=== PATIENT | female | born 1965 | race Caucasian/White ===

== ENCOUNTER 2016-08-19 22:16 | Inpatient (IN) | payer BC ==
[~2016-08-19] VITALS: Ht 152.4 cm; Wt 80.0 kg
[~2016-08-19 22:16] MED LIST: APR50 PO; ASPI81TA28 PO; CHOL1000 PO; CLON0.1T12 PO; CLOP1TAB15 PO; CRDCD/180 PO; DILT180C96 PO; FURO-85 PO; INSU1INJ SC; INSU70IN2 SC; LPT40 PO; SYMIN160 INH
[2016-08-19 22:45] VITALS: BP 159/83; PULSE 78; TEMP 37; O2SAT 94
[2016-08-19] MEDS ORDERED: DEXTROSE 50% 50 ML SYR IV PRN (23:45)
[2016-08-19] MEDS ORDERED: GLUCOSE 10 TABS/TUBE PO PRN (23:45)
[2016-08-19] MEDS ORDERED: GLUCAGON FOR INJ 1 MG VIAL SQ PRN (23:45)
[2016-08-19] MEDS ORDERED: GLUCOSE 40% GEL 15 GM TUBE PO PRN (23:45)
[2016-08-19] MEDS ORDERED: ACETAMINOPHEN 325 MG TAB PO PRN (23:45)
[2016-08-20] VITALS (7 sets, daily range): BP systolic 156–179; BP diastolic 79–89; PULSE 76–93; TEMP 36.7–37.1; O2SAT 94–98; BMI 39.4
[2016-08-20 00:13] LABS: BASO % 0.4 %; BASO ABS # 0.03 K/uL (0-0.2); EOS % 3.8 %; IG% 0.6 %; LYMPH % 13.2 %; LYMPH ABS # 1.08 K/uL (1.2-3.4); MEAN CELL VOLUME 87.9 fL (80-100); MEAN CORPUSCULAR HEMOGLOBIN 28.7 pg (25-34); MEAN CORPUSCULAR HGB CONC 32.6 g/dl (32-36); MEAN PLATELET VOLUME 9.4 fL (7.4-10.4); MONO % 9.4 %; NEUT % 72.6 %; PLATELET COUNT 228 K/uL (130-400); RED BLOOD COUNT 3.07 M/uL (4.2-5.4)
[2016-08-20 00:27] LABS: PARTIAL THROMBOPLASTIN RATIO 1.1
[2016-08-20 00:34] LABS: ALT/SGPT 23 U/L (12-78); AST/SGOT 25 U/L (15-37); BLOOD UREA NITROGEN 13 mg/dl (7-18); BUN/CREATININE RATIO 3.8 (10-20); CALCIUM 9.1 mg/dl (8.5-10.1); CARBON DIOXIDE 30 mmol/L (21-32); CHLORIDE 99 mmol/L (98-107); GLUCOSE 177 mg/dl (70-99); MAGNESIUM 1.9 mg/dl (1.8-2.4); POTASSIUM 3.9 mmol/L (3.5-5.1); SODIUM 138 mmol/L (136-145)
[2016-08-20 00:37] LABS: ALB/GLOB RATIO 0.7 (0.9-2); ALKALINE PHOSPHATASE 104 U/L (45-117)
[2016-08-20 00:44] LABS: COMPLETE YES
[2016-08-20] MEDS ORDERED: IV FLUIDS COMPLETED PRN (01:00)
[2016-08-20] MEDS: INSULIN ASPART 100 UNITS/ML 3 ML PEN SC SCH ×5 (04:30→20:42)
[2016-08-20] MEDS ORDERED: ALBUT/IPRATROP 3MG/0.5MG NEB 3 ML VIAL INH PRN (05:30)
[2016-08-20] MEDS ORDERED: INSULIN GLARGINE SOLOSTAR 100 UNITS/ML 3 ML PEN SC ONE (06:16)
[2016-08-20] MEDS: SUCRALFATE 1 GM/10 ML UDC PO SCH ×4 (07:43→20:39)
[2016-08-20] MEDS: CLOPIDOGREL BISULFATE 75 MG TAB PO SCH (07:43)
[2016-08-20] MEDS: OXYCODONE/ACETAMINOPHEN 5-325 TAB PO PRN ×2 (07:43→17:51)
[2016-08-20] MEDS: DILTIAZEM HCL 180 MG CAPCR PO SCH ×2 (07:44→20:39)
[2016-08-20] MEDS: CALCIUM ACETATE 667MG GELCAP PO SCH ×3 (07:44→17:41)
[2016-08-20] MEDS: RANITIDINE HCL 150 MG TAB PO SCH ×2 (07:44→20:39)
[2016-08-20] MEDS: PANTOprazole SOD 40 MG TAB PO SCH (07:45)
[2016-08-20] MEDS ORDERED: INSULIN GLARGINE SOLOSTAR 100 UNITS/ML 3 ML PEN SC SCH ×2 (08:00→20:00)
--- NOTE | 2016-08-20 08:32 | HISTORY & PHYSICAL EXAMINATION ---
DATE OF ADMISSION: 08/19/2016 PRIMARY CARE PHYSICIAN: Dr. Tamez History obtained from patient, patient's records, patient's . CHIEF COMPLAINT: "Wanted to be close to my doctors." HISTORY OF PRESENT ILLNESS: Medical history significant for hypertension, DM2 insulin requiring, Recent diagnosis of metastatic pancreatic cancer with lung/liver mets, past tobacco abuse, end-stage renal disease previously on PD, currently on hemodialysis, hx CVA as per records, chronic anemia (baseline Hg 9). Recent confinement last April 2016 for acute pancreatitis. Outpatient endoscopic ultrasound last month showed a pancreatic mass in the uncinate process, which came consistent with adenocarcinoma. Patient seen by [facility] Oncology outpatient last about 2 weeks ago. Initial plans included Radiation Oncology consultation, [facility] Surgery consultation (Dr. Barba), tumor markers, PET CT on August 2015. Initial plan for Later review of CAT scan of chest, abdomen and pelvis done on July 2016 by px oncologist noted large pancreatic head mass, new liver lesions, lung lesions suggesting metastatic disease. Stage IV pancreatic cancer. Patient not a surgical candidate as per 08/16 note. [facility] surgery appointment canceled. Might need port placement. Scheduled appointment 08/28/2016 to decide further management of patient's case. Patient and family still unaware of update. Last week, the patient was visiting family in [facility], patient noted by her to be confused while opening gifts, had seizure-like activity. PX brought to [facility]. Noted to be in "diabetic coma." Blood sugars in 1300. Admitted for encephalopathy. Patient later subsequently intubated. Also seen by Neurology. Impression for toxic metabolic encephalopathy. New onset complex partial seizures, possibly from profound hyperglycemia. No need for further intervention as per note. Patient subsequently extubated. Hemodialysis during confinement. Patient initially had trouble eating, appetite currently improved. PX might need rehab placement as per records. PX/family requested transfer to [facility] to be close to her specialists and for possible placement for rehabilitation. PX admits to not remembering a lot of things during her recent confinement. MEDICAL HISTORY: as above SURGERIES: Tubal ligation, cholecystectomy, hysterectomy, some abdominal wall tumor surgery. HOME MEDICATIONS (from [facility] discharge meds list) antus 30 daily, insulin lispro, Protonix, sucralfate, ranitidine, diltiazem, clopidogrel, calcium acetate. ALLERGIES: No known drug allergies. FAMILY HISTORY: lymphoma and other cancers. PERSONAL AND SOCIAL HISTORY: past tobacco abuse, no chronic intake of alcoholic beverages. [facility]. REVIEW OF SYSTEMS: As per HPI, all other ROS negative. PHYSICAL EXAMINATION VITAL SIGNS: Blood pressure 159/82, pulse rate 78, RR 18, sats 94 on room air. GENERAL: Noted to be obese, coherent. No respiratory distress. SKIN ; pallor HEENT: pale palpebral conjunctivae. Dry mucous. NECK: Short neck. LUNGS: Decreased breath sounds, occasional wheeze. HEART: Regular rate and rhythm. ABDOMEN: Soft, some distension. EXTREMITIES: Minimal LE edema present. NEUROLOGIC: No gross focality, oriented to year. LABS: 8.8, hematocrit 27, white cell count is 8, platelets 228. Sodium 138, potassium 3.9, chloride 93, CO2 of 31, BUN 30, creatinine 3.4, glucose 170. Hemoglobin A1c on July 2016 was 13.9. ASSESSMENT: 1. Deconditioning Recent confinement at [place] for encephalopathy 2 to hyperglycemic crisis status post intubation hx seizure activity as per records (no need for maintenance rx as per Neuro eval ) 2. end-stage renal disease currently on hemodialysis PD cath to be removed at [facility] 08/25/2016 3. hx CVA as per 4. Hypertension, slightly elevated. 5. metastatic pancreatic cancer. Patient's family need to be updated on plan of care. 6. DM2, insulin requiring, suboptimal control as of recent HgA1c. 7. past tobacco abuse 8. chronic anemia 2 to ESRD, Hg almost at baseline PLAN: Observation [facility] PT, OT eval May need rehab placement Nephrology consult, dialysis management. Basal insulin, ISS BG goal 140-180 Carb count coverage indicated for suboptimal blood sugar control. Diabetic education. Outpatient followup with [facility] Oncology DVT prophylaxis, heparin subQ. Full code. Patient's requesting updates from providers. Mr. Chad Sandoval at [phone]. [facility]
[2016-08-20] MEDS ORDERED: MODERATE STRESS LEVEL ONE (09:15)
[2016-08-20] MEDS ORDERED: INSULIN PROTOCOL GOAL RANGE ONE (09:15)
[2016-08-20] MEDS ORDERED: INSULIN IV INFUSION PROTOCOL SCH (09:16)
--- NOTE | 2016-08-20 09:17 | DIAGNOSTIC IMAGING REPORT ---
SINGLE VIEW CHEST CLINICAL HISTORY: Wheezing. FINDINGS: An AP, portable, upright chest radiograph is compared to study dated 05/17/2016 and correlated with chest CT dated 04/26/2016. The examination is degraded by portable technique and patient rotation. The patient is status post midline sternotomy. The heart is enlarged. The pulmonary vasculature is noncongested. Numerous pulmonary nodules are again seen. The largest is identified at the left lung base and measures up to 10 mm. These were better characterized on the 04/26/[address] The lungs and pleural spaces are otherwise clear. No pneumothorax is seen. The skeletal structures appear osteopenic. The bony thorax is grossly intact. IMPRESSION: Cardiomegaly and chronic changes as detailed above. There is no acute cardiopulmonary abnormality. Electronically signed by: Maurice Watson M.D. 08/20/2016 9:15 AM
[2016-08-20] MEDS ORDERED: INSULIN HUMAN REGULAR IV BOLUS 2.5 UNIT in SYRINGE 0 ML IV SCH (10:00)
[2016-08-20] MEDS: INSULIN REGULAR 250 UNITS in SODIUM CHLORIDE 0.9% 250ML 250 ML IV SCH ×8 (10:25→22:32)
[2016-08-20] MEDS ORDERED: NURSING VERBAL MED ORDER ONE (11:45)
[2016-08-20] MEDS: ONDANSETRON INJ 2 MG/ML 2 ML VIAL IV PRN ×2 (13:22→19:03)
--- NOTE | 2016-08-20 14:36 | NEPHROLOGY CONSULTATION ---
DATE OF CONSULTATION: 08/20/2016 REASON FOR CONSULT: Dialysis patient admitted to the hospital. HISTORY OF PRESENT ILLNESS: The patient is a 51-year-old female with type 2 diabetes requiring insulin, who was recently diagnosed metastatic pancreatic cancer with liver mets as well as lung mets. She was visiting her family in [facility] during the Kendal time. She was noted by her and her family members to be confused and she had a seizure-like activity. She was brought to [facility], she was noted to be in diabetic coma there, blood sugar was as high as 1700 according to the patient and her sister. She was admitted in the intensive care unit. She was even briefly intubated for airway protection, but this was less than 24-hour time on ventilator. Family requested transfer to [facility] to be close to her specialist and possible placement for rehabilitation. She is currently on hemodialysis Sunday, Sunday, Sunday. She expressed desire to do peritoneal dialysis and she still has peritoneal dialysis catheter; however, the catheter did not work and she is scheduled to have the PD catheter removed in [facility] in a few days' time. Her oncologist, Dr. Desai has clearly said no peritoneal dialysis for her. While at [facility] she got dialysis Sunday, Sunday, Sunday and her last dialysis was on Sunday at the hospital there without any significant problem. She has an AV fistula which works well. PAST MEDICAL HISTORY: Hypertension, type 2 diabetes insulin requiring; end-stage renal disease, on hemodialysis Sunday, Sunday, Sunday; recent diagnosis of metastatic pancreatic cancer, past tobacco use, end-stage renal disease, history of CVA. PAST SURGICAL HISTORY: Tubal ligation, cholecystectomy, hysterectomy, abdominal wall tumor surgery. HOME MEDICATIONS: Reviewed in detail and is as per the reconciliation list. ALLERGIES: No known drug allergies. FAMILY HISTORY: Positive for cancer. No history of renal disease or dialysis. PERSONAL AND SOCIAL HISTORY: No chronic intake of alcoholic beverages. 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 REVIEW OF SYSTEMS: As detailed in HPI, pertinent positives and negatives are listed in HPI, a total of 12 systems were reviewed. PHYSICAL EXAMINATION: GENERAL: Middle-aged white female who is awake, alert, oriented x3 at this time. VITAL SIGNS: Blood pressure is 179/89, 96% on room air, pulse rate 86 per minute, temperature 36.8. HEENT: Mucous membranes moist. NECK: Supple. No jugular venous distention. CHEST: Bilaterally clear to auscultation. CARDIOVASCULAR: S1 and S2, regular. Soft systolic murmur heard, 2/6. ABDOMEN: Soft, nontender. Slightly obese. EXTREMITIES: Show no edema, clubbing or cyanosis. PD catheter site was clean and dry. AV fistula site appears slightly swollen, but still acceptable. She did have some bruising around the AV fistula site but nothing out of ordinary. LABORATORY TESTS: From this morning shows a hemoglobin of 8.8, platelet count 228. Sodium 138, potassium 3.9, BUN 13, creatinine 3.4, calcium 9.1. ASSESSMENT AND PLAN: A 51-year-old white female who has type 2 diabetes with end-stage renal disease on chronic hemodialysis Sunday, Sunday, Sunday. She was recently diagnosed with pancreatic cancer, which is unfortunately metastatic to both lungs and liver. 1. End-stage renal disease. She does not have any fluid or electrolyte emergency at this time. Her next dialysis will be as per her regular schedule of Sunday, Sunday, Sunday. Orders will be written, she will get 3 hours of dialysis. We will try to take about 2 kilo off. She will not get Epogen. She will have heparin as well as other medication that she normally gets. 2. Metastatic pancreatic cancer. This is as per oncology and primary team. She was supposed to have a PD catheter removed in [facility] on 08/25/2016. If possible, we would try to remove the PD catheter while inpatient here. JHOANA
[2016-08-20] MEDS: HYDROmorphone INJ 1 MG/ML SYR IV PRN (19:00)
--- NOTE | 2016-08-20 20:52 | Progress Note ---
Medicine Progress Note Date & Time of Visit: Aug 20, 2016 at ~ 09:00 . Subjective Admitted to [facility] in [place], [place] on [place] due to seizure and markedly elevated blood sugar. Neurologic workup apparently negative and seizure attributed to metabolic abnormalities. Transferred to [facility] last night to be closer to home. Doing better. No fever or chills. No chest pain, cough, shortness of breath. No nausea or vomiting. No abdominal pain. . Objective Last 8 Hrs Date Time Temp Pulse Resp B/P Pulse Ox O2 Delivery O2 Flow Rate FiO2 08/20/16 20:05 37.1 77 16 172/84 97 Room Air 08/20/16 16:00 Room Air 08/20/16 15:18 36.8 76 20 156/79 95 Physical Exam: General- no distress Eyes- anicteric Neck- no JVD Lungs- clear to auscultation Heart- RRR Abdomen- + BS, soft, nontender Extremities- no pretibial edema or calf tenderness Neuro- alert . Laboratory Results: Last 24 Hours Test 08/20/16 00:05 08/20/16 04:37 08/20/16 08:11 08/20/16 11:27 White Blood Count 8.20 K/uL Red Blood Count 3.07 M/uL Hemoglobin 8.8 g/dL Hematocrit 27.0 % Mean Corpuscular Volume 87.9 fL Mean Corpuscular Hemoglobin 28.7 pg Mean Corpuscular Hemoglobin Concent 32.6 g/dl Platelet Count 228 K/uL Mean Platelet Volume 9.4 fL Neutrophils (%) (Auto) 72.6 % Lymphocytes (%) (Auto) 13.2 % Monocytes (%) (Auto) 9.4 % Eosinophils (%) (Auto) 3.8 % Basophils (%) (Auto) 0.4 % Neutrophils # (Auto) 5.96 K/uL Lymphocytes # (Auto) 1.08 K/uL Monocytes # (Auto) 0.77 K/uL Eosinophils # (Auto) 0.31 K/uL Basophils # (Auto) 0.03 K/uL RDW Standard Deviation 42.9 fL RDW Coefficient of Variation 13.4 % Immature Granulocyte % (Auto) 0.6 % Immature Granulocyte # (Auto) 0.05 K/uL Red Blood Cell Morphology Unremarkable Activated Partial Thromboplast Time 29.0 SECONDS Partial Thromboplastin Ratio 1.1 Sodium Level 138 mmol/L Potassium Level 3.9 mmol/L Chloride Level 99 mmol/L Carbon Dioxide Level 30 mmol/L Anion Gap 9.0 mmol/L Blood Urea Nitrogen 13 mg/dl Creatinine 3.40 mg/dl Estimated GFR () 17.2 Estimated GFR (Non- 14.8 BUN/Creatinine Ratio 3.8 Random Glucose 177 mg/dl Calcium Level 9.1 mg/dl Magnesium Level 1.9 mg/dl Total Bilirubin 0.3 mg/dl Aspartate Amino Transf (AST/SGOT) 25 U/L Alanine Aminotransferase (ALT/SGPT) 23 U/L Alkaline Phosphatase 104 U/L Total Protein 6.6 gm/dl Albumin 2.7 gm/dl Globulin 3.9 gm/dl Albumin/Globulin Ratio 0.7 Bedside Glucose 326 mg/dl 444 mg/dl 470 mg/dl Test 08/20/16 12:35 08/20/16 13:45 08/20/16 14:31 08/20/16 15:27 Bedside Glucose 410 mg/dl 329 mg/dl 245 mg/dl 170 mg/dl Test 08/20/16 16:23 08/20/16 17:31 08/20/16 18:36 Bedside Glucose 173 mg/dl 146 mg/dl 145 mg/dl Assessment & Plan DM TYPE II, POORLY CONTROLLED Blood sugar this morning 444. IV insulin infusion per protocol. PANCREATIC CA Recently diagnosed pancreatic carcinoma with apparent metastases to liver. Management per Oncology. CKD V Has received peritoneal dialysis the past, but currently being managed with hemodialysis. Nephrology consulted. VTE PROPHYLAXIS SCD'd ordered. Ambulate. DISPOSITION Expected discharge to home. Family Medicine follow-up with Dr. Tamez. Oncology follow-up with Dr. Murray Desai. . Current Inpatient Medications: Current Inpatient Medications Medications (Trade) Dose Ordered Sig/Sophia Route Start Time Stop Time Status Last Admin Dose Admin Acetaminophen (Tylenol Tab) 650 mg Q4H PRN PO 08/19/16 23:45 09/18/16 23:44 Glucose (Glucose 40% Gel) 15-30 GRAMS 15 GRAMS... UD PRN PO 08/19/16 23:45 09/18/16 23:44 Glucose (Glucose Chew Tab) 4-8 Tablets 4 Tabl... UD PRN PO 08/19/16 23:45 09/18/16 23:44 Dextrose (Dextrose 50% 50ML Syringe) 25-50ML OF 50% DW IV FOR... UD PRN IV 08/19/16 23:45 09/18/16 23:44 Glucagon (Glucagon Inj) 1 mg UD PRN SQ 08/19/16 23:45 09/18/16 23:44 Hydromorphone HCl (Dilaudid Inj) 0.5 mg Q3H PRN IV 08/19/16 23:45 09/02/16 23:44 08/20/16 19:00 0.5 MG Ondansetron HCl (Zofran Inj) 4 mg Q6H PRN IV 08/19/16 23:45 09/18/16 23:44 08/20/16 19:03 4 MG Miscellaneous (Iv Fluids Completed) 1 ea PRN PRN N/A 08/20/16 01:00 08/20/17 00:59 Calcium Acetate (Phoslo Cap) 1,334 mg TIDM PO 08/20/16 08:00 09/19/16 07:59 08/20/16 17:41 1,334 MG Diltiazem HCl (Cardizem Cd Cap) 180 mg BID PO 08/20/16 08:00 09/19/16 07:59 08/20/16 20:39 180 MG Ranitidine HCl (zANTac TAB) 150 mg BID PO 08/20/16 08:00 09/19/16 07:59 08/20/16 20:39 150 MG Pantoprazole Sodium (Protonix Tab) 40 mg QAM PO 08/20/16 08:00 09/19/16 07:59 08/20/16 07:45 40 MG Sucralfate (Carafate Susp) 1 gm QID PO 08/20/16 08:00 09/19/16 07:59 08/20/16 20:39 1 GM Clopidogrel Bisulfate (plAVix TAB) 75 mg QAM PO 08/20/16 08:00 09/19/16 07:59 08/20/16 07:43 75 MG Oxycodone/ Acetaminophen (Percocet 5-325MG Tab) 1 tab Q6H PRN PO 08/20/16 04:45 09/03/16 04:44 08/20/16 17:51 1 TAB Albuterol/ Ipratropium (Duoneb) 3 ml Q2H PRN INH 08/20/16 05:30 09/19/16 05:29 Insulin Glargine (Lantus Solostar Pen) 15 unit BID SC 08/20/16 20:00 09/19/16 19:59 08/20/16 20:42 15 UNIT Insulin Aspart SLIDING SCALE PCHS SC 08/20/16 13:00 09/19/16 12:59 08/20/16 18:14 1 UNITS Insulin Human Regular/Sodium Chloride (novoLIN-R/Nss 250ml) 252.5 ml @ 0 mls/hr DAILY@1130 IV 08/20/16 10:00 09/19/16 09:59 08/20/16 19:35 1.4 MLS/HR Heparin Sodium (Porcine) (Heparin Iv Bolus) 2,000 unit TODAY@0600 IV 08/21/16 06:00 08/21/16 18:00 Heparin Sodium (Porcine) (Heparin Iv Bolus) 500 unit TODAY@0600,0700,0800 IV 08/21/16 06:00 08/21/16 18:00
[2016-08-21] VITALS (22 sets, daily range): BP systolic 117–187; BP diastolic 55–121; PULSE 74–100; TEMP 36.5–36.9; O2SAT 95–97; BMI 35.4
[2016-08-21] MEDS: ONDANSETRON INJ 2 MG/ML 2 ML VIAL IV PRN ×2 (03:03→18:03)
[2016-08-21] MEDS ORDERED: HEPARIN SOD (PORCINE) 1000 UNIT/ML 10 ML VIAL IV SCH ×2 (06:00)
[2016-08-21 06:11] LABS: BASO % 0.7 %; BASO ABS # 0.05 K/uL (0-0.2); EOS % 4.5 %; HEMATOCRIT 25.1 % (37-47); IG% 0.8 %; LYMPH % 10.9 %; LYMPH ABS # 0.78 K/uL (1.2-3.4); MEAN CELL VOLUME 87.8 fL (80-100); MEAN CORPUSCULAR HEMOGLOBIN 28.7 pg (25-34); MEAN CORPUSCULAR HGB CONC 32.7 g/dl (32-36); MEAN PLATELET VOLUME 9.9 fL (7.4-10.4); MONO % 11.5 %; NEUT % 71.6 %; PLATELET COUNT 238 K/uL (130-400); RED BLOOD COUNT 2.86 M/uL (4.2-5.4); WHITE BLOOD COUNT 7.14 K/uL (4.8-10.8)
[2016-08-21 06:34] LABS: COMPLETE YES
[2016-08-21 06:44] LABS: BUN/CREATININE RATIO 4.2 (10-20); CALCIUM 8.9 mg/dl (8.5-10.1); CREATININE 4.2 mg/dl (0.60-1.20); POTASSIUM 3.6 mmol/L (3.5-5.1)
[2016-08-21 08:06] LABS: PROTHROMBIN TIME (PATIENT) 11.2 SECONDS (9.0-12.0)
[2016-08-21] MEDS: RANITIDINE HCL 150 MG TAB PO SCH ×2 (08:09→20:24)
[2016-08-21] MEDS: INSULIN ASPART 100 UNITS/ML 3 ML PEN SC SCH ×4 (08:13→20:28)
[2016-08-21] MEDS: INSULIN GLARGINE SOLOSTAR 100 UNITS/ML 3 ML PEN SC SCH ×2 (08:14→20:28)
[2016-08-21] MEDS: CALCIUM ACETATE 667MG GELCAP PO SCH ×3 (08:15→16:57)
[2016-08-21] MEDS: OXYCODONE/ACETAMINOPHEN 5-325 TAB PO PRN (08:41)
[2016-08-21] MEDS: SUCRALFATE 1 GM/10 ML UDC PO SCH ×4 (08:42→20:23)
[2016-08-21] MEDS: PANTOprazole SOD 40 MG TAB PO SCH (12:43)
[2016-08-21] MEDS: CLOPIDOGREL BISULFATE 75 MG TAB PO SCH (12:43)
[2016-08-21] MEDS: DILTIAZEM HCL 180 MG CAPCR PO SCH ×2 (12:45→20:24)
[2016-08-21] MEDS: HEPARIN SOD 5000 UNIT/0.5 ML CARP SQ SCH ×2 (12:51→20:29)
--- NOTE | 2016-08-21 13:05 | NEPHROLOGY PROGRESS NOTE ---
DATE: 08/21/2016 The patient just finished her dialysis. She tolerated it very well. There was no cramp, no hypotension. We took off 2 kilo without any problem. Her fistula worked fine with a blood flow of 300. PHYSICAL EXAMINATION: VITAL SIGNS: Most recent vital signs shows a blood pressure 149/91, pulse rate 86, temperature 36.9. HEENT: Mucous membranes moist. NECK: Supple, no jugular venous distention. CHEST: Bilateral clear to auscultation. CARDIOVASCULAR: S1 and S2, regular. Soft systolic murmur heard 2/6. EXTREMITIES: Shows no edema. AV fistula looks slightly bruised and swollen, but is working fine, and no tenderness. Hemoglobin 8.2, platelet count 238. Sodium 139, potassium 3.6, BUN 18, creatinine 4.2. ASSESSMENT AND PLAN: 1. Endstage renal disease. She does not have any fluid or electrolyte emergency at this time. Her next dialysis will be as per her regular schedule of Sunday, Sunday, Sunday. We took 2 kilo off today without any problem. We did not give Epogen given her metastatic pancreatic cancer. Please note she was supposed to have a PD catheter removal in [facility] on August 25. If possible, we should try to remove the PD catheter while inpatient here. 2. Metastatic pancreatic cancer. This is as per oncology and primary team. JHOANA
--- NOTE | 2016-08-21 18:54 | Progress Note ---
Medicine Progress Note Date & Time of Visit: Aug 21, 2016 at 10:20 . Subjective Tired. No fever. No chest pain, cough, SOB. No nausea, vomiting, diarrhea. Blood sugars improved. . Objective Last 8 Hrs Date Time Temp Pulse Resp B/P Pulse Ox O2 Delivery O2 Flow Rate FiO2 08/21/16 14:35 36.7 95 18 174/85 95 08/21/16 11:57 36.9 86 149/91 08/21/16 11:45 85 155/88 08/21/16 11:30 74 126/79 08/21/16 11:15 77 147/83 08/21/16 11:00 76 146/55 Physical Exam: General- no distress Eyes- anicteric Neck- no JVD Lungs- clear to auscultation Heart- RRR Abdomen- + BS, soft, nontender Extremities- no pretibial edema Neuro- alert . Laboratory Results: Last 24 Hours Test 08/20/16 19:32 08/20/16 20:33 08/20/16 21:29 08/20/16 22:29 Bedside Glucose 135 mg/dl 155 mg/dl 170 mg/dl 210 mg/dl Test 08/20/16 23:29 08/21/16 00:43 08/21/16 01:35 08/21/16 01:53 Bedside Glucose 183 mg/dl 151 mg/dl 109 mg/dl 103 mg/dl Test 08/21/16 02:04 08/21/16 04:51 08/21/16 05:16 08/21/16 07:30 Bedside Glucose 109 mg/dl 177 mg/dl White Blood Count 7.14 K/uL Red Blood Count 2.86 M/uL Hemoglobin 8.2 g/dL Hematocrit 25.1 % Mean Corpuscular Volume 87.8 fL Mean Corpuscular Hemoglobin 28.7 pg Mean Corpuscular Hemoglobin Concent 32.7 g/dl Platelet Count 238 K/uL Mean Platelet Volume 9.9 fL Neutrophils (%) (Auto) 71.6 % Lymphocytes (%) (Auto) 10.9 % Monocytes (%) (Auto) 11.5 % Eosinophils (%) (Auto) 4.5 % Basophils (%) (Auto) 0.7 % Neutrophils # (Auto) 5.11 K/uL Lymphocytes # (Auto) 0.78 K/uL Monocytes # (Auto) 0.82 K/uL Eosinophils # (Auto) 0.32 K/uL Basophils # (Auto) 0.05 K/uL RDW Standard Deviation 43.0 fL RDW Coefficient of Variation 13.4 % Immature Granulocyte % (Auto) 0.8 % Immature Granulocyte # (Auto) 0.06 K/uL Red Blood Cell Morphology Unremarkable Sodium Level 139 mmol/L Potassium Level 3.6 mmol/L Chloride Level 100 mmol/L Carbon Dioxide Level 29 mmol/L Anion Gap 10.0 mmol/L Blood Urea Nitrogen 18 mg/dl Creatinine 4.20 mg/dl Est Creatinine Clear Calc Drug Dose 15.1 ml/min Estimated GFR () 13.3 Estimated GFR (Non- 11.5 BUN/Creatinine Ratio 4.2 Random Glucose 168 mg/dl Calcium Level 8.9 mg/dl Prothrombin Time 11.2 SECONDS Prothromb Time International Ratio 1.0 Test 08/21/16 07:35 08/21/16 12:25 08/21/16 16:44 Bedside Glucose 208 mg/dl 77 mg/dl 144 mg/dl Assessment & Plan DM TYPE II, POORLY CONTROLLED Blood sugars as high as 444. Received IV insulin infusion per protocol. Transitioned to Lantus + NovoLog. PANCREATIC CA Recently diagnosed pancreatic carcinoma with apparent metastases to liver. Management per Oncology. CKD V Has received peritoneal dialysis the past, but currently being managed with hemodialysis. Nephrology consulted. VTE PROPHYLAXIS SCD'd ordered. Ambulate. DISPOSITION Expected discharge to home. Family Medicine follow-up with Dr. Tamez. Oncology follow-up with Dr. Murray Desai. . Current Inpatient Medications: Current Inpatient Medications Medications (Trade) Dose Ordered Sig/Sophia Route Start Time Stop Time Status Last Admin Dose Admin Acetaminophen (Tylenol Tab) 650 mg Q4H PRN PO 08/19/16 23:45 09/18/16 23:44 Glucose (Glucose 40% Gel) 15-30 GRAMS 15 GRAMS... UD PRN PO 08/19/16 23:45 09/18/16 23:44 Glucose (Glucose Chew Tab) 4-8 Tablets 4 Tabl... UD PRN PO 08/19/16 23:45 09/18/16 23:44 Dextrose (Dextrose 50% 50ML Syringe) 25-50ML OF 50% DW IV FOR... UD PRN IV 08/19/16 23:45 09/18/16 23:44 Glucagon (Glucagon Inj) 1 mg UD PRN SQ 08/19/16 23:45 09/18/16 23:44 Hydromorphone HCl (Dilaudid Inj) 0.5 mg Q3H PRN IV 08/19/16 23:45 09/02/16 23:44 08/20/16 19:00 0.5 MG Ondansetron HCl (Zofran Inj) 4 mg Q6H PRN IV 08/19/16 23:45 09/18/16 23:44 08/21/16 18:03 4 MG Miscellaneous (Iv Fluids Completed) 1 ea PRN PRN N/A 08/20/16 01:00 08/20/17 00:59 Calcium Acetate (Phoslo Cap) 1,334 mg TIDM PO 08/20/16 08:00 09/19/16 07:59 08/21/16 16:57 1,334 MG Diltiazem HCl (Cardizem Cd Cap) 180 mg BID PO 08/20/16 08:00 09/19/16 07:59 08/21/16 12:45 180 MG Ranitidine HCl (zANTac TAB) 150 mg BID PO 08/20/16 08:00 09/19/16 07:59 08/21/16 08:09 150 MG Pantoprazole Sodium (Protonix Tab) 40 mg QAM PO 08/20/16 08:00 09/19/16 07:59 08/21/16 12:43 40 MG Sucralfate (Carafate Susp) 1 gm QID PO 08/20/16 08:00 09/19/16 07:59 08/21/16 16:57 1 GM Clopidogrel Bisulfate (plAVix TAB) 75 mg QAM PO 08/20/16 08:00 09/19/16 07:59 08/21/16 12:43 75 MG Oxycodone/ Acetaminophen (Percocet 5-325MG Tab) 1 tab Q6H PRN PO 08/20/16 04:45 09/03/16 04:44 08/21/16 08:41 1 TAB Albuterol/ Ipratropium (Duoneb) 3 ml Q2H PRN INH 08/20/16 05:30 09/19/16 05:29 Insulin Glargine (Lantus Solostar Pen) 20 unit BID SC 08/21/16 08:00 09/20/16 07:59 08/21/16 08:14 20 UNIT Insulin Aspart (novoLOG ASPART) SLIDING SCALE G... ACHS SC 08/21/16 06:30 09/20/16 06:29 08/21/16 18:08 2 UNITS Heparin Sodium (Porcine) (Heparin Sq 5000 Unit/0.5ml) 5,000 unit Q12 SQ 08/21/16 09:00 09/20/16 08:59 08/21/16 12:51 5,000 UNIT
[2016-08-21] MEDS: HYDROmorphone INJ 1 MG/ML SYR IV PRN (23:42)
[2016-08-22 03:55] VITALS: BP 123/65; PULSE 80; TEMP 36.6; O2SAT 96
[2016-08-22 06:17] LABS: BASO % 0.4 %; BASO ABS # 0.03 K/uL (0-0.2); EOS % 4.3 %; HEMATOCRIT 25.2 % (37-47); IG% 0.8 %; LYMPH % 12.4 %; LYMPH ABS # 0.95 K/uL (1.2-3.4); MEAN CORPUSCULAR HEMOGLOBIN 28.6 pg (25-34); MEAN CORPUSCULAR HGB CONC 32.1 g/dl (32-36); MEAN PLATELET VOLUME 9.9 fL (7.4-10.4); MONO % 13.5 %; NEUT % 68.6 %; PLATELET COUNT 289 K/uL (130-400); RED BLOOD COUNT 2.83 M/uL (4.2-5.4); WHITE BLOOD COUNT 7.65 K/uL (4.8-10.8)
[2016-08-22 06:34] VITALS: BMI 34.8
[2016-08-22 06:51] LABS: BUN/CREATININE RATIO 3.1 (10-20); CALCIUM 8.9 mg/dl (8.5-10.1); CREATININE 3.3 mg/dl (0.60-1.20); POTASSIUM 3.6 mmol/L (3.5-5.1)
[2016-08-22 07:00] VITALS: BP 119/68; PULSE 79; TEMP 36.9; O2SAT 94
[2016-08-22 07:04] LABS: COMPLETE YES
[2016-08-22] MEDS: CALCIUM ACETATE 667MG GELCAP PO SCH ×3 (07:40→16:38)
[2016-08-22] MEDS: SUCRALFATE 1 GM/10 ML UDC PO SCH ×4 (07:40→20:40)
[2016-08-22] MEDS: PANTOprazole SOD 40 MG TAB PO SCH (07:41)
[2016-08-22] MEDS: CLOPIDOGREL BISULFATE 75 MG TAB PO SCH (07:41)
[2016-08-22] MEDS: RANITIDINE HCL 150 MG TAB PO SCH ×2 (07:41→20:40)
[2016-08-22] MEDS: DILTIAZEM HCL 180 MG CAPCR PO SCH ×2 (07:42→20:40)
[2016-08-22] MEDS: HEPARIN SOD 5000 UNIT/0.5 ML CARP SQ SCH ×2 (07:48→20:43)
[2016-08-22] MEDS: INSULIN GLARGINE SOLOSTAR 100 UNITS/ML 3 ML PEN SC SCH ×2 (07:48→20:42)
[2016-08-22] MEDS: INSULIN ASPART 100 UNITS/ML 3 ML PEN SC SCH ×4 (08:47→20:43)
--- NOTE | 2016-08-22 10:58 | Medical Consult ---
Consultation Note Consultation Note Chief Complaint: End stage renal disease on dialysis History of Present Illness The patient is a 50 year old female with hx of HTN and DMII, ESRD on HD, with a functioning av fistula of her left arm, now with noted metastatic pancreatic CA. She has been performing home PD through CAPD catheter since insertion . Recently, her CAPD catheter has not been functioning well and was scheduled to have it removed at [facility] in near future. Currently admitted and would like to have it removed here if possible. Denies [place], fever, chills, chest pain, SOB, abd pain, N/V, rest pain, claudication, other complaints. Allergies No Known Allergies (Verified , 05/25/15) Surgical / Medical History Hx Cardiac Surgery: No Hx Cancer Surgery: No Hx Thoracic Surgery: No Hx Orthopedic: No Hx Urinary Tract Surgery: No HX Other Surgery: Yes (THYMUS) Past Medical/Surgical History: Diabetes, High Cholesterol, Hypertension, Kidney Disease Family History Cancer Diabetes mellitus Heart disease Hypertension Lung disease Social History Smoking Status: Former Smoker Hx Tobacco Use In Past Year?: No Hx Alcohol Use - Type & Amnt: Yes (OCC WINE ) Hx Substance Use -Type & Amnt: No Review of Systems Constitutional: + malaise, No chills, No fever Skin: No change in color Eyes: No visual changes ENMT: No sore throat Respiratory: No EVANS, No cough, No hemoptysis, No short of breath Cardiovascular: No chest pain, No edema, No intermittent claudication, No palpitations, No syncope Gastrointestinal: No abdominal pain, No nausea, No vomiting Genitourinary - Female: No dysuria, No hematuria Neurologic: No dizziness, No lethargy, No numbness, No tingling Physical Exam: Constitutional: General Apperance: well-nourished, well-developed Level of Distress: NAD, chronically ill Ambulation: ambulating normally Psychiatric: Mental Status: active & alert, normal affect, anxious, depressed Orientation: oriented except where noted, to time, to place, to person Memory: recent memory normal, remote memory normal Head: normocephalic, atraumatic Eyes: EOM: EOMI ENMT: normal ENT inspection, hearing grossly normal Neck: supple, trachea midline Lungs: Respiratory effort: no dyspnea Auscultation: breath sounds normal, no wheezing, no rales/crackles, no rhonchi Cardiovascular: Apical Impulse: not displaced Heart Auscultation: RRR, no murmurs, no rubs, no gallops Peripheral Pulses: Pulses: full and equal, in all extremities except if noted Bruits: none appreciated Carotid Pulse: normal on the left, normal on the right Brachial Pulses: normal on the left, normal on the right Radial Pulse: normal on the left, normal on the right Femoral Pulse: normal on the left, normal on the right Posterior Tibialis Pulse: normal on the left, normal on the right Dorsalis Pedis Pulse: normal on the left, normal on the right Abdomen: Bowel Sounds: normal Inspection & Palpation: soft, non-distended, no tenderness, guarding & rebound. CAPD catheter without sign of infection Musculoskeletal: normal strength (5/5 throughout), normal tone Extremities: Upper Right: no cyanosis, no edema, no varicosities Upper Left: no cyanosis, no edema, no varicosities, good thrill and bruit Lower Right: no cyanosis, no edema, no varicosities Lower Left: no cyanosis, no edema, no varicosities Neurologic: Cranial Nerves: grossly intact Sensation: grossly intact ASSESSMENT and PLAN: Imp: End stage renal disease on HD Plan: Patient admitted for removal of CAPD catheter. Procedure, risks, benefits , and alternatives discussed with pt, she expresses understanding and agreement. (Jerrica Patel, PA-C)
[2016-08-22] MEDS: OXYCODONE/ACETAMINOPHEN 5-325 TAB PO PRN (11:18)
[2016-08-22 11:23] VITALS: BP 164/89; PULSE 79; TEMP 37.1; O2SAT 96
--- NOTE | 2016-08-22 13:45 | Nephrology Progress Note ---
Nephrology Progress Note Date of Service: Aug 22, 2016. Subjective 51 yo female with pancreatic cancer who was transferred from [facility] upon patient request. had admission with elevated blood sugars. had pd catheter and also undergoes hemodialysis. unable to do pd with pancreatic cancer. pt feels better. however, her memory is not good from the previous hospital and the events that transpired while there. Objective Date Time Temp Pulse Resp B/P Pulse Ox O2 Delivery O2 Flow Rate FiO2 08/22/16 11:23 37.1 79 14 164/89 96 Room Air 08/22/16 08:00 Room Air 08/22/16 07:00 36.9 79 18 119/68 94 Room Air 08/22/16 03:55 36.6 80 18 123/65 96 Room Air 08/22/16 00:00 Room Air 08/21/16 23:06 36.5 87 16 162/87 96 Room Air 08/21/16 20:52 36.9 79 16 150/82 97 Room Air 08/21/16 16:30 Room Air 08/21/16 14:35 36.7 95 18 174/85 95 Physical Exam: General-aaox3 Eyes-no scleral icterus ENT-mmm Neck-supple Lungs-cta Heart-rrr Abdomen-bs+, +pd catheter Extremities-no edema Neuro-nonfocal Current Inpatient Medications Medications (Trade) Dose Ordered Sig/Sophia Route Start Time Stop Time Status Last Admin Dose Admin Acetaminophen (Tylenol Tab) 650 mg Q4H PRN PO 08/19/16 23:45 09/18/16 23:44 Glucose (Glucose 40% Gel) 15-30 GRAMS 15 GRAMS... UD PRN PO 08/19/16 23:45 09/18/16 23:44 Glucose (Glucose Chew Tab) 4-8 Tablets 4 Tabl... UD PRN PO 08/19/16 23:45 09/18/16 23:44 Dextrose (Dextrose 50% 50ML Syringe) 25-50ML OF 50% DW IV FOR... UD PRN IV 08/19/16 23:45 09/18/16 23:44 Glucagon (Glucagon Inj) 1 mg UD PRN SQ 08/19/16 23:45 09/18/16 23:44 Hydromorphone HCl (Dilaudid Inj) 0.5 mg Q3H PRN IV 08/19/16 23:45 09/02/16 23:44 08/21/16 23:42 0.5 MG Ondansetron HCl (Zofran Inj) 4 mg Q6H PRN IV 08/19/16 23:45 09/18/16 23:44 08/21/16 18:03 4 MG Miscellaneous (Iv Fluids Completed) 1 ea PRN PRN N/A 08/20/16 01:00 08/20/17 00:59 Calcium Acetate (Phoslo Cap) 1,334 mg TIDM PO 08/20/16 08:00 09/19/16 07:59 08/22/16 11:19 1,334 MG Diltiazem HCl (Cardizem Cd Cap) 180 mg BID PO 08/20/16 08:00 09/19/16 07:59 08/22/16 07:42 180 MG Ranitidine HCl (zANTac TAB) 150 mg BID PO 08/20/16 08:00 09/19/16 07:59 08/22/16 07:41 150 MG Pantoprazole Sodium (Protonix Tab) 40 mg QAM PO 08/20/16 08:00 09/19/16 07:59 08/22/16 07:41 40 MG Sucralfate (Carafate Susp) 1 gm QID PO 08/20/16 08:00 09/19/16 07:59 08/22/16 11:19 1 GM Clopidogrel Bisulfate (plAVix TAB) 75 mg QAM PO 08/20/16 08:00 09/19/16 07:59 08/22/16 07:41 75 MG Oxycodone/ Acetaminophen (Percocet 5-325MG Tab) 1 tab Q6H PRN PO 08/20/16 04:45 09/03/16 04:44 08/22/16 11:18 1 TAB Albuterol/ Ipratropium (Duoneb) 3 ml Q2H PRN INH 08/20/16 05:30 09/19/16 05:29 Insulin Glargine (Lantus Solostar Pen) 20 unit BID SC 08/21/16 08:00 09/20/16 07:59 08/22/16 07:48 20 UNIT Insulin Aspart (novoLOG ASPART) SLIDING SCALE G... ACHS SC 08/21/16 06:30 09/20/16 06:29 08/22/16 12:33 3 UNITS Heparin Sodium (Porcine) 5000 unit 5,000 unit Q12 SQ 08/21/16 09:00 09/20/16 08:59 08/22/16 07:48 5,000 UNIT Cefazolin Sodium/ Dextrose (Ancef Iv/D5 50ml) 55 ml @ 100 mls/hr PREOP ONCE IV 08/23/16 06:00 08/23/16 06:32 Last 24 Hours Test 08/21/16 16:44 08/21/16 19:58 08/22/16 05:06 08/22/16 07:45 Bedside Glucose 144 mg/dl 123 mg/dl 172 mg/dl White Blood Count 7.65 K/uL Red Blood Count 2.83 M/uL Hemoglobin 8.1 g/dL Hematocrit 25.2 % Mean Corpuscular Volume 89.0 fL Mean Corpuscular Hemoglobin 28.6 pg Mean Corpuscular Hemoglobin Concent 32.1 g/dl Platelet Count 289 K/uL Mean Platelet Volume 9.9 fL Neutrophils (%) (Auto) 68.6 % Lymphocytes (%) (Auto) 12.4 % Monocytes (%) (Auto) 13.5 % Eosinophils (%) (Auto) 4.3 % Basophils (%) (Auto) 0.4 % Neutrophils # (Auto) 5.25 K/uL Lymphocytes # (Auto) 0.95 K/uL Monocytes # (Auto) 1.03 K/uL Eosinophils # (Auto) 0.33 K/uL Basophils # (Auto) 0.03 K/uL RDW Standard Deviation 44.5 fL RDW Coefficient of Variation 13.7 % Immature Granulocyte % (Auto) 0.8 % Immature Granulocyte # (Auto) 0.06 K/uL Red Blood Cell Morphology Unremarkable Sodium Level 139 mmol/L Potassium Level 3.6 mmol/L Chloride Level 100 mmol/L Carbon Dioxide Level 31 mmol/L Anion Gap 8.0 mmol/L Blood Urea Nitrogen 10 mg/dl Creatinine 3.30 mg/dl Est Creatinine Clear Calc Drug Dose 19.0 ml/min Estimated GFR () 17.8 Estimated GFR (Non- 15.4 BUN/Creatinine Ratio 3.1 Random Glucose 166 mg/dl Calcium Level 8.9 mg/dl Test 08/22/16 11:27 Bedside Glucose 105 mg/dl Assessment & Plan ESRD-plan on dialysis m-w-. no dialysis indicated today. Anemia of renal failure-no procrit. pt is transfusion dependent. hg levels are trending down. no role for transfusion at this time. PD-pt unable to do peritoneal dialysis with the pancreatic ca. Dr. Vazquez consulted for pd catheter removal. tentatively planned for tomorrow.
--- NOTE | 2016-08-22 14:14 | Anesthesiology Progress Note ---
Anesthesia Progress Note Date of Service Aug 22, 2016. Progress Notes 51 y/o w obese female w/ pancreatic cancer w/ lung/liver mets,ESRD on H/D,HTN, Hyperlipidemia,,anemia,uncontrolled IDDM,GERD,Hx/o CVA vs TIA x 2,Asthma,and recent seizure secondary to glucose of 1300 on 08/13/2016. Pt now presents for removal of peritoneal dialysis catheter. Discussed anesthesia w/ pt,risks vs benefits ,all questions answered. Informed consent obtained.
[2016-08-22 15:12] VITALS: BMI 34.8
[2016-08-22 15:25] VITALS: BP 136/76; PULSE 76; TEMP 36.8; O2SAT 94
[2016-08-22 16:00] VITALS: O2SAT 94
[2016-08-22 19:40] VITALS: BP 158/72; PULSE 82; TEMP 37; O2SAT 96
--- NOTE | 2016-08-22 21:43 | Progress Note ---
Medicine Progress Note Date & Time of Visit: Aug 22, 2016 at 16:00 . Subjective No fever. No chest pain. No cough or SOB. No nausea or vomiting. No abdominal pain. Experiencing itching of back without apparent rash. . Objective Last 8 Hrs Date Time Temp Pulse Resp B/P Pulse Ox O2 Delivery O2 Flow Rate FiO2 08/22/16 19:40 37.0 82 20 158/72 96 Room Air 08/22/16 16:00 94 Room Air 08/22/16 15:25 36.8 76 16 136/76 94 Room Air Physical Exam: General- lying in bed; no distress Eyes- anicteric Neck- no JVD Lungs- clear to auscultation Heart- RRR Abdomen- + BS, soft, nontender Extremities- no pretibial edema Neuro- alert Skin- no rash . Laboratory Results: Last 24 Hours Test 08/22/16 05:06 08/22/16 07:45 08/22/16 11:27 08/22/16 16:27 White Blood Count 7.65 K/uL Red Blood Count 2.83 M/uL Hemoglobin 8.1 g/dL Hematocrit 25.2 % Mean Corpuscular Volume 89.0 fL Mean Corpuscular Hemoglobin 28.6 pg Mean Corpuscular Hemoglobin Concent 32.1 g/dl Platelet Count 289 K/uL Mean Platelet Volume 9.9 fL Neutrophils (%) (Auto) 68.6 % Lymphocytes (%) (Auto) 12.4 % Monocytes (%) (Auto) 13.5 % Eosinophils (%) (Auto) 4.3 % Basophils (%) (Auto) 0.4 % Neutrophils # (Auto) 5.25 K/uL Lymphocytes # (Auto) 0.95 K/uL Monocytes # (Auto) 1.03 K/uL Eosinophils # (Auto) 0.33 K/uL Basophils # (Auto) 0.03 K/uL RDW Standard Deviation 44.5 fL RDW Coefficient of Variation 13.7 % Immature Granulocyte % (Auto) 0.8 % Immature Granulocyte # (Auto) 0.06 K/uL Red Blood Cell Morphology Unremarkable Sodium Level 139 mmol/L Potassium Level 3.6 mmol/L Chloride Level 100 mmol/L Carbon Dioxide Level 31 mmol/L Anion Gap 8.0 mmol/L Blood Urea Nitrogen 10 mg/dl Creatinine 3.30 mg/dl Est Creatinine Clear Calc Drug Dose 19.0 ml/min Estimated GFR () 17.8 Estimated GFR (Non- 15.4 BUN/Creatinine Ratio 3.1 Random Glucose 166 mg/dl Calcium Level 8.9 mg/dl Bedside Glucose 172 mg/dl 105 mg/dl 111 mg/dl Test 08/22/16 20:24 Bedside Glucose 182 mg/dl Assessment & Plan DM TYPE II, POORLY CONTROLLED Admitted to [facility] in [facility] with random blood sugar of 1796. Hgb A1C was 13.9. Blood sugar 444 morning of transfer. Received IV insulin infusion per protocol. Transitioned to Lantus + NovoLog. FBS today = 111 Receiving diabetic education. May need to transition to 70/30 which she uses at home due to cost concerns. PANCREATIC CA Recently diagnosed pancreatic carcinoma with apparent metastases to liver. Management per Oncology. CKD V Has received peritoneal dialysis the past, but currently being managed with hemodialysis. Nephrology consulted. Has malfunctioning peritoneal catheter; to be removed tomorrow. VTE PROPHYLAXIS SCD'd ordered. Ambulate. DISPOSITION Expected discharge to home. Family Medicine follow-up with Dr. Tamez. Oncology follow-up with Dr. Murray Desai. . Current Inpatient Medications: Current Inpatient Medications Medications (Trade) Dose Ordered Sig/Sophia Route Start Time Stop Time Status Last Admin Dose Admin Acetaminophen (Tylenol Tab) 650 mg Q4H PRN PO 08/19/16 23:45 09/18/16 23:44 Glucose (Glucose 40% Gel) 15-30 GRAMS 15 GRAMS... UD PRN PO 08/19/16 23:45 09/18/16 23:44 Glucose (Glucose Chew Tab) 4-8 Tablets 4 Tabl... UD PRN PO 08/19/16 23:45 09/18/16 23:44 Dextrose (Dextrose 50% 50ML Syringe) 25-50ML OF 50% DW IV FOR... UD PRN IV 08/19/16 23:45 09/18/16 23:44 Glucagon (Glucagon Inj) 1 mg UD PRN SQ 08/19/16 23:45 09/18/16 23:44 Hydromorphone HCl (Dilaudid Inj) 0.5 mg Q3H PRN IV 08/19/16 23:45 09/02/16 23:44 08/21/16 23:42 0.5 MG Ondansetron HCl (Zofran Inj) 4 mg Q6H PRN IV 08/19/16 23:45 09/18/16 23:44 08/21/16 18:03 4 MG Miscellaneous (Iv Fluids Completed) 1 ea PRN PRN N/A 08/20/16 01:00 08/20/17 00:59 Calcium Acetate (Phoslo Cap) 1,334 mg TIDM PO 08/20/16 08:00 09/19/16 07:59 08/22/16 16:38 1,334 MG Diltiazem HCl (Cardizem Cd Cap) 180 mg BID PO 08/20/16 08:00 09/19/16 07:59 08/22/16 20:40 180 MG Ranitidine HCl (zANTac TAB) 150 mg BID PO 08/20/16 08:00 09/19/16 07:59 08/22/16 20:40 150 MG Pantoprazole Sodium (Protonix Tab) 40 mg QAM PO 08/20/16 08:00 09/19/16 07:59 08/22/16 07:41 40 MG Sucralfate (Carafate Susp) 1 gm QID PO 08/20/16 08:00 09/19/16 07:59 08/22/16 20:40 1 GM Clopidogrel Bisulfate (plAVix TAB) 75 mg QAM PO 08/20/16 08:00 09/19/16 07:59 08/22/16 07:41 75 MG Oxycodone/ Acetaminophen (Percocet 5-325MG Tab) 1 tab Q6H PRN PO 08/20/16 04:45 09/03/16 04:44 08/22/16 11:18 1 TAB Albuterol/ Ipratropium (Duoneb) 3 ml Q2H PRN INH 08/20/16 05:30 09/19/16 05:29 Insulin Glargine (Lantus Solostar Pen) 20 unit BID SC 08/21/16 08:00 09/20/16 07:59 08/22/16 20:42 20 UNIT Insulin Aspart (novoLOG ASPART) SLIDING SCALE G... ACHS SC 08/21/16 06:30 09/20/16 06:29 08/22/16 20:43 2 UNITS Heparin Sodium (Porcine) 5000 unit 5,000 unit Q12 SQ 08/21/16 09:00 09/20/16 08:59 08/22/16 20:43 5,000 UNIT Cefazolin Sodium/ Dextrose (Ancef Iv/D5 50ml) 55 ml @ 100 mls/hr PREOP ONCE IV 08/23/16 06:00 08/23/16 06:32
[2016-08-23] VITALS (25 sets, daily range): BP systolic 128–189; BP diastolic 72–101; PULSE 76–99; TEMP 36.6–37.1; O2SAT 95–99; BMI 35.0
[2016-08-23] MEDS ORDERED: CEFAZOLIN IV 1,000 MG in DEXTROSE 5% 50ML 50 ML IV ONE (06:00)
[2016-08-23 06:13] LABS: BASO % 0.3 %; BASO ABS # 0.02 K/uL (0-0.2); EOS % 4.2 %; HEMATOCRIT 24.9 % (37-47); IG% 0.6 %; LYMPH % 15.6 %; LYMPH ABS # 1.11 K/uL (1.2-3.4); MEAN CELL VOLUME 89.6 fL (80-100); MEAN CORPUSCULAR HEMOGLOBIN 29.1 pg (25-34); MEAN CORPUSCULAR HGB CONC 32.5 g/dl (32-36); MEAN PLATELET VOLUME 9.4 fL (7.4-10.4); MONO % 15.6 %; NEUT % 63.7 %; PLATELET COUNT 280 K/uL (130-400); RED BLOOD COUNT 2.78 M/uL (4.2-5.4); WHITE BLOOD COUNT 7.12 K/uL (4.8-10.8)
[2016-08-23 06:38] LABS: COMPLETE YES
[2016-08-23 06:42] LABS: BUN/CREATININE RATIO 3.7 (10-20); CALCIUM 9.2 mg/dl (8.5-10.1); CREATININE 4.2 mg/dl (0.60-1.20); POTASSIUM 3.6 mmol/L (3.5-5.1)
[2016-08-23 06:54] LABS: PHOSPHORUS 3.8 mg/dl (2.5-4.9)
[2016-08-23] MEDS: SUCRALFATE 1 GM/10 ML UDC PO SCH ×4 (08:00→19:42)
[2016-08-23] MEDS: CALCIUM ACETATE 667MG GELCAP PO SCH ×3 (08:00→17:01)
[2016-08-23] MEDS: INSULIN ASPART 100 UNITS/ML 3 ML PEN SC SCH ×4 (08:17→21:20)
--- NOTE | 2016-08-23 08:40 | Dialysis Progress Note ---
Nephrology Dialysis Note Date of Service: Aug 23, 2016. Subjective 51 yo female with pancreatic cancer who was transferred from [facility] upon patient request. had admission with elevated blood sugars. had pd catheter and also undergoes hemodialysis. unable to do pd with pancreatic cancer. pt currently npo and is hungry. scheduled for elective pd catheter removal this afternoon. Objective Date Time Temp Pulse Resp B/P Pulse Ox O2 Delivery O2 Flow Rate FiO2 08/23/16 08:05 36.9 76 16 128/77 95 Room Air 08/23/16 03:46 37.1 80 20 136/74 96 Room Air 08/23/16 00:30 36.6 79 20 138/72 97 Room Air 08/23/16 00:00 Room Air 08/22/16 19:40 37.0 82 20 158/72 96 Room Air 08/22/16 16:00 94 Room Air 08/22/16 15:25 36.8 76 16 136/76 94 Room Air 08/22/16 11:23 37.1 79 14 164/89 96 Room Air Physical Exam: General-aaox3 Eyes-no scleral icterus ENT-mmm Neck-supple Lungs-clear Heart-regular Abdomen-bs+, +pd catheter Extremities-no edema Neuro-nonfocal Current Inpatient Medications Medications (Trade) Dose Ordered Sig/Sophia Route Start Time Stop Time Status Last Admin Dose Admin Acetaminophen (Tylenol Tab) 650 mg Q4H PRN PO 08/19/16 23:45 09/18/16 23:44 Glucose (Glucose 40% Gel) 15-30 GRAMS 15 GRAMS... UD PRN PO 08/19/16 23:45 09/18/16 23:44 Glucose (Glucose Chew Tab) 4-8 Tablets 4 Tabl... UD PRN PO 08/19/16 23:45 09/18/16 23:44 Dextrose (Dextrose 50% 50ML Syringe) 25-50ML OF 50% DW IV FOR... UD PRN IV 08/19/16 23:45 09/18/16 23:44 Glucagon (Glucagon Inj) 1 mg UD PRN SQ 08/19/16 23:45 09/18/16 23:44 Hydromorphone HCl (Dilaudid Inj) 0.5 mg Q3H PRN IV 08/19/16 23:45 09/02/16 23:44 08/21/16 23:42 0.5 MG Ondansetron HCl (Zofran Inj) 4 mg Q6H PRN IV 08/19/16 23:45 09/18/16 23:44 08/21/16 18:03 4 MG Miscellaneous (Iv Fluids Completed) 1 ea PRN PRN N/A 08/20/16 01:00 08/20/17 00:59 Calcium Acetate (Phoslo Cap) 1,334 mg TIDM PO 08/20/16 08:00 09/19/16 07:59 08/22/16 16:38 1,334 MG Diltiazem HCl (Cardizem Cd Cap) 180 mg BID PO 08/20/16 08:00 09/19/16 07:59 08/22/16 20:40 180 MG Ranitidine HCl (zANTac TAB) 150 mg BID PO 08/20/16 08:00 09/19/16 07:59 08/22/16 20:40 150 MG Pantoprazole Sodium (Protonix Tab) 40 mg QAM PO 08/20/16 08:00 09/19/16 07:59 08/22/16 07:41 40 MG Sucralfate (Carafate Susp) 1 gm QID PO 08/20/16 08:00 09/19/16 07:59 08/22/16 20:40 1 GM Clopidogrel Bisulfate (plAVix TAB) 75 mg QAM PO 08/20/16 08:00 09/19/16 07:59 08/22/16 07:41 75 MG Oxycodone/ Acetaminophen (Percocet 5-325MG Tab) 1 tab Q6H PRN PO 08/20/16 04:45 09/03/16 04:44 08/22/16 11:18 1 TAB Albuterol/ Ipratropium (Duoneb) 3 ml Q2H PRN INH 08/20/16 05:30 09/19/16 05:29 Insulin Glargine (Lantus Solostar Pen) 20 unit BID SC 08/21/16 08:00 09/20/16 07:59 Future Hold 08/22/16 20:42 20 UNIT Insulin Aspart (novoLOG ASPART) SLIDING SCALE G... ACHS SC 08/21/16 06:30 09/20/16 06:29 08/22/16 20:43 2 UNITS Heparin Sodium (Porcine) (Heparin Sq 5000 Unit/0.5ml) 5,000 unit Q12 SQ 08/21/16 09:00 09/20/16 08:59 08/22/16 20:43 5,000 UNIT Last 24 Hours Test 08/22/16 11:27 08/22/16 16:27 08/22/16 20:24 08/23/16 05:10 Bedside Glucose 105 mg/dl 111 mg/dl 182 mg/dl White Blood Count 7.12 K/uL Red Blood Count 2.78 M/uL Hemoglobin 8.1 g/dL Hematocrit 24.9 % Mean Corpuscular Volume 89.6 fL Mean Corpuscular Hemoglobin 29.1 pg Mean Corpuscular Hemoglobin Concent 32.5 g/dl Platelet Count 280 K/uL Mean Platelet Volume 9.4 fL Neutrophils (%) (Auto) 63.7 % Lymphocytes (%) (Auto) 15.6 % Monocytes (%) (Auto) 15.6 % Eosinophils (%) (Auto) 4.2 % Basophils (%) (Auto) 0.3 % Neutrophils # (Auto) 4.54 K/uL Lymphocytes # (Auto) 1.11 K/uL Monocytes # (Auto) 1.11 K/uL Eosinophils # (Auto) 0.30 K/uL Basophils # (Auto) 0.02 K/uL RDW Standard Deviation 44.7 fL RDW Coefficient of Variation 13.8 % Immature Granulocyte % (Auto) 0.6 % Immature Granulocyte # (Auto) 0.04 K/uL Sodium Level 140 mmol/L Potassium Level 3.6 mmol/L Chloride Level 101 mmol/L Carbon Dioxide Level 30 mmol/L Anion Gap 9.0 mmol/L Blood Urea Nitrogen 16 mg/dl Creatinine 4.20 mg/dl Est Creatinine Clear Calc Drug Dose 15.0 ml/min Estimated GFR () 13.3 Estimated GFR (Non- 11.5 BUN/Creatinine Ratio 3.7 Random Glucose 72 mg/dl Calcium Level 9.2 mg/dl Phosphorus Level 3.8 mg/dl Assessment & Plan ESRD-seen on dialysis. 2 liter uf. 3k bath. access working well. for pd catheter removal this afternoon. Anemia of renal failure-no procrit. pt is transfusion dependent. hg levels are trending down. no role for transfusion at this time. hg 8.1 today.
[2016-08-23] MEDS: HEPARIN SOD 5000 UNIT/0.5 ML CARP SQ SCH ×2 (09:00→21:20)
--- NOTE | 2016-08-23 11:14 | Progress Note ---
Progress Note Patient for removal of her PD catheter. I have discussed the risks options and benefits of the procedure with the patient. The patient understands the risks options and benefits and agrees to the procedure. I have examined the patient, reviewed the History & Physical and in the interval since the performance of the History & Physical I have noted the following changes of clinical significance: No changes noted
[2016-08-23] MEDS: DILTIAZEM HCL 180 MG CAPCR PO SCH ×2 (12:11→19:42)
[2016-08-23] MEDS: RANITIDINE HCL 150 MG TAB PO SCH ×2 (12:11→19:42)
[2016-08-23] MEDS: CLOPIDOGREL BISULFATE 75 MG TAB PO SCH (12:11)
[2016-08-23] MEDS: PANTOprazole SOD 40 MG TAB PO SCH (12:12)
[2016-08-23] MEDS ORDERED: FENTANYL CITRATE INJ 50 MCG/1 ML 2 ML VIAL IV PRN ×2 (12:45→14:45)
[2016-08-23] MEDS ORDERED: ATROPINE SULFATE 0.1 MG/ML 5ML SYR IV PRN (12:45)
[2016-08-23] MEDS ORDERED: ONDANSETRON INJ 2 MG/ML 2 ML VIAL IV PRN ×2 (12:45→14:45)
[2016-08-23] MEDS ORDERED: EpHEDrine SULFATE INJ 50 MG/ML AMP IV PRN (12:45)
[2016-08-23] MEDS ORDERED: PROPOFOL IV EMULSION 10 MG/ML 20 ML VIAL IV ONE (13:22)
[2016-08-23] MEDS ORDERED: MIDAZOLAM HCL 1 MG/ML 2ML VIAL ONE (13:22)
[2016-08-23] MEDS ORDERED: FENTANYL CITRATE INJ 50 MCG/1 ML 2 ML VIAL ONE (13:22)
[2016-08-23] MEDS ORDERED: CEFAZOLIN SOD 1000MG/55 ML D5W IV ONE (14:14)
[2016-08-23] MEDS ORDERED: SODIUM CHLORIDE 0.9% 1000ML 1,000 ML IV PRN (14:34)
--- NOTE | 2016-08-23 15:12 | [facility] Post Operative Brief Note ---
Immediate Operative Summary Operative Date Aug 23, 2016. Pre-Operative Diagnosis Non functioning CAPD catheter Post-Operative Diagnosis Same Procedure(s) Performed Removal of CAPD catheter Surgeon [employer] Light Mechanic Surgeon(s) Jerrica Patel, PAC Estimated Blood Loss 10 Findings Catheter and both cuffs removed Specimens none Anesthesia MAC Complication(s) None Disposition Recovery Room / PACU
[2016-08-23] MEDS ORDERED: MIX: 0.5% BUPIVACAINE W/EPI 1:200,000+1%LIDO 50:50 INJ ONE (15:19)
--- NOTE | 2016-08-23 15:49 | OPERATIVE REPORT ---
DATE OF OPERATION: 08/23/2016 PREOPERATIVE DIAGNOSIS: Nonfunctioning continuous ambulatory peritoneal dialysis catheter. POSTOPERATIVE DIAGNOSIS: Same. PROCEDURE: Removal of CAPD catheter. SURGEON: Dr. Vazquez. MILIEU COORDINATOR: Jerrica Patel PA-C. ANESTHETIC: MAC. PROCEDURE INDICATIONS: The patient is a 51-year-old female who has a CAPD catheter in place which is not functioning well. She also has a recent diagnosis of pancreatic CA. We recommended her removal of the CAPD catheter as she does have another access for dialysis. She understood the risks, options and benefits and agreed to have this procedure. DESCRIPTION OF PROCEDURE: The patient was taken to the operating room and placed in supine position. After the abdomen and catheter were prepped and draped in a sterile manner, local anesthetic was administered into the old midline incision and along the catheter tract. The old midline incision was opened longitudinally. Dissection was carried down to where the catheter was seen entering the peritoneal cavity. The cuff was freed up from the surrounding tissue. The catheter was then removed. The defect in the fascia was repaired using a 3-0 Prolene suture. Next, the subcutaneous cuff was freed up from the surrounding tissue and the rest of the catheter was removed in its entirety. Adequate hemostasis was noted in the wounds. The wounds were then closed with a 3-0 Vicryl suture for subcutaneous layer and a 4-0 subcuticular Vicryl suture for the skin edges. Dermabond was used for a dressing. There was another sterile dressing placed over the exit site which was left open. The patient left the operating room in satisfactory condition and tolerated the procedure well. I attest to the content of the Intraoperative Record and any orders documented therein. Any exceptio ns are noted below.
--- NOTE | 2016-08-23 19:22 | Progress Note ---
Medicine Progress Note Date & Time of Visit: Aug 23, 2016 at 12:00 . Subjective Hemodialysis performed today. To have peritoneal dialysis catheter removed this afternoon. No fever. No chest pain, cough, SOB. No nausea or vomiting. No BM for a few days. Mid back pain. . Objective Last 8 Hrs Date Time Temp Pulse Resp B/P Pulse Ox O2 Delivery O2 Flow Rate FiO2 08/23/16 17:45 36.6 84 20 145/79 08/23/16 16:45 36.8 80 18 161/87 08/23/16 15:45 36.8 77 20 159/80 96 08/23/16 15:45 95 Room Air 08/23/16 15:40 36.4 76 16 152/79 100 Nasal Cannula 2 08/23/16 15:30 74 16 154/85 99 Mask 10 08/23/16 15:20 36.4 75 16 134/81 99 Mask 10 08/23/16 13:53 36.8 80 16 154/72 98 Room Air 08/23/16 12:23 36.8 83 16 172/83 99 Room Air 08/23/16 11:35 36.7 77 189/98 Physical Exam: General- no distress Eyes- anicteric Neck- no JVD Lungs- clear Heart- RRR Abdomen- + BS, soft, nontender Back- no spinal or paraspinal tenderness Extremities- no pretibial edema Neuro- alert . Laboratory Results: Last 24 Hours Test 08/22/16 20:24 08/23/16 05:10 08/23/16 07:53 08/23/16 12:19 Bedside Glucose 182 mg/dl 80 mg/dl 107 mg/dl White Blood Count 7.12 K/uL Red Blood Count 2.78 M/uL Hemoglobin 8.1 g/dL Hematocrit 24.9 % Mean Corpuscular Volume 89.6 fL Mean Corpuscular Hemoglobin 29.1 pg Mean Corpuscular Hemoglobin Concent 32.5 g/dl Platelet Count 280 K/uL Mean Platelet Volume 9.4 fL Neutrophils (%) (Auto) 63.7 % Lymphocytes (%) (Auto) 15.6 % Monocytes (%) (Auto) 15.6 % Eosinophils (%) (Auto) 4.2 % Basophils (%) (Auto) 0.3 % Neutrophils # (Auto) 4.54 K/uL Lymphocytes # (Auto) 1.11 K/uL Monocytes # (Auto) 1.11 K/uL Eosinophils # (Auto) 0.30 K/uL Basophils # (Auto) 0.02 K/uL RDW Standard Deviation 44.7 fL RDW Coefficient of Variation 13.8 % Immature Granulocyte % (Auto) 0.6 % Immature Granulocyte # (Auto) 0.04 K/uL Sodium Level 140 mmol/L Potassium Level 3.6 mmol/L Chloride Level 101 mmol/L Carbon Dioxide Level 30 mmol/L Anion Gap 9.0 mmol/L Blood Urea Nitrogen 16 mg/dl Creatinine 4.20 mg/dl Est Creatinine Clear Calc Drug Dose 15.0 ml/min Estimated GFR () 13.3 Estimated GFR (Non- 11.5 BUN/Creatinine Ratio 3.7 Random Glucose 72 mg/dl Calcium Level 9.2 mg/dl Phosphorus Level 3.8 mg/dl Test 08/23/16 15:31 08/23/16 16:22 Bedside Glucose 117 mg/dl 130 mg/dl Assessment & Plan DM TYPE II, POORLY CONTROLLED Admitted to [facility] in [facility] with random blood sugar of 1796. Hgb A1C was 13.9. Blood sugar 444 morning of transfer. Received IV insulin infusion per protocol. Transitioned to Lantus + NovoLog. FBS today = 80 NPO for procedures today. Receiving diabetic education. May need to transition to 70/30 which she uses at home due to cost concerns. PANCREATIC CA Recently diagnosed pancreatic carcinoma with apparent metastases to liver. Management per Oncology. CKD V Has received peritoneal dialysis the past, but currently being managed with hemodialysis. Nephrology consulted. Has malfunctioning peritoneal catheter; to be removed today. VTE PROPHYLAXIS SCD'd ordered. Ambulate. DISPOSITION Expected discharge to home. Family Medicine follow-up with Dr. Tamez. Oncology follow-up with Dr. Murray Desai. Components of this document were electronically copied and updated from the last documentation created by the undersigned in order to maintain a complete, accurate, and current record. Any portion of this document created by another author, if any, will be attributed to them. I certify that the record accurately reflects the patient's current status and services provided on the date of service. . Current Inpatient Medications: Current Inpatient Medications Medications (Trade) Dose Ordered Sig/Sophia Route Start Time Stop Time Status Last Admin Dose Admin Acetaminophen (Tylenol Tab) 650 mg Q4H PRN PO 08/19/16 23:45 09/18/16 23:44 Glucose (Glucose 40% Gel) 15-30 GRAMS 15 GRAMS... UD PRN PO 08/19/16 23:45 09/18/16 23:44 Glucose (Glucose Chew Tab) 4-8 Tablets 4 Tabl... UD PRN PO 08/19/16 23:45 09/18/16 23:44 Dextrose (Dextrose 50% 50ML Syringe) 25-50ML OF 50% DW IV FOR... UD PRN IV 08/19/16 23:45 09/18/16 23:44 Glucagon (Glucagon Inj) 1 mg UD PRN SQ 08/19/16 23:45 09/18/16 23:44 Hydromorphone HCl (Dilaudid Inj) 0.5 mg Q3H PRN IV 08/19/16 23:45 09/02/16 23:44 08/21/16 23:42 0.5 MG Ondansetron HCl (Zofran Inj) 4 mg Q6H PRN IV 08/19/16 23:45 09/18/16 23:44 08/21/16 18:03 4 MG Miscellaneous (Iv Fluids Completed) 1 ea PRN PRN N/A 08/20/16 01:00 08/20/17 00:59 Calcium Acetate (Phoslo Cap) 1,334 mg TIDM PO 08/20/16 08:00 09/19/16 07:59 08/23/16 17:01 1,334 MG Diltiazem HCl (Cardizem Cd Cap) 180 mg BID PO 08/20/16 08:00 09/19/16 07:59 08/23/16 12:11 180 MG Ranitidine HCl (zANTac TAB) 150 mg BID PO 08/20/16 08:00 09/19/16 07:59 08/23/16 12:11 150 MG Pantoprazole Sodium (Protonix Tab) 40 mg QAM PO 08/20/16 08:00 09/19/16 07:59 08/23/16 12:12 40 MG Sucralfate (Carafate Susp) 1 gm QID PO 08/20/16 08:00 09/19/16 07:59 08/22/16 20:40 1 GM Clopidogrel Bisulfate (plAVix TAB) 75 mg QAM PO 08/20/16 08:00 09/19/16 07:59 08/23/16 12:11 75 MG Oxycodone/ Acetaminophen (Percocet 5-325MG Tab) 1 tab Q6H PRN PO 08/20/16 04:45 09/03/16 04:44 08/22/16 11:18 1 TAB Albuterol/ Ipratropium (Duoneb) 3 ml Q2H PRN INH 08/20/16 05:30 09/19/16 05:29 Insulin Glargine (Lantus Solostar Pen) 20 unit BID SC 08/21/16 08:00 09/20/16 07:59 Future Hold 08/22/16 20:42 20 UNIT Insulin Aspart (novoLOG ASPART) SLIDING SCALE G... ACHS SC 08/21/16 06:30 09/20/16 06:29 08/23/16 17:48 4 UNITS Heparin Sodium (Porcine) 5000 unit 5,000 unit Q12 SQ 08/21/16 09:00 09/20/16 08:59 08/22/16 20:43 5,000 UNIT Sodium Chloride (Nss 1000ml) 1,000 ml @ 40 mls/hr Q24H PRN IV 08/23/16 14:34 08/23/16 19:35
[2016-08-23] MEDS: OXYCODONE/ACETAMINOPHEN 5-325 TAB PO PRN (21:29)
[2016-08-24 00:37] VITALS: BP 174/89; PULSE 88; TEMP 37.1; O2SAT 98
[2016-08-24 04:32] VITALS: BP 151/79; PULSE 80; TEMP 36.8; O2SAT 97
[2016-08-24 06:05] LABS: BASO % 0.3 %; BASO ABS # 0.02 K/uL (0-0.2); EOS % 3.8 %; HEMATOCRIT 26.7 % (37-47); IG% 0.4 %; LYMPH ABS # 0.92 K/uL (1.2-3.4); MEAN CELL VOLUME 88.4 fL (80-100); MEAN CORPUSCULAR HEMOGLOBIN 27.8 pg (25-34); MEAN CORPUSCULAR HGB CONC 31.5 g/dl (32-36); MEAN PLATELET VOLUME 9.3 fL (7.4-10.4); MONO % 13.2 %; NEUT % 70.3 %; PLATELET COUNT 311 K/uL (130-400); RED BLOOD COUNT 3.02 M/uL (4.2-5.4); WHITE BLOOD COUNT 7.65 K/uL (4.8-10.8)
[2016-08-24 06:36] LABS: COMPLETE YES
[2016-08-24 06:58] LABS: CALCIUM 8.5 mg/dl (8.5-10.1); CREATININE 3.3 mg/dl (0.60-1.20); POTASSIUM 4.2 mmol/L (3.5-5.1)
[2016-08-24 07:05] VITALS: BMI 34.6
[2016-08-24 07:45] VITALS: BP 133/74; PULSE 80; TEMP 37; O2SAT 97
[2016-08-24 08:00] LABS: BETA-HYDROXYBUTYRATE 1.53 mg/dL (0.2-2.81)
[2016-08-24] MEDS ORDERED: INSULIN HUMAN 70% NPH/30% REGULAR SC SCH ×2 (08:00→17:00)
[2016-08-24] MEDS: SUCRALFATE 1 GM/10 ML UDC PO SCH ×2 (08:00→13:09)
[2016-08-24] MEDS: DILTIAZEM HCL 180 MG CAPCR PO SCH (08:17)
[2016-08-24] MEDS: RANITIDINE HCL 150 MG TAB PO SCH (08:18)
[2016-08-24] MEDS: PANTOprazole SOD 40 MG TAB PO SCH (08:18)
[2016-08-24] MEDS: CLOPIDOGREL BISULFATE 75 MG TAB PO SCH (08:18)
[2016-08-24] MEDS: CALCIUM ACETATE 667MG GELCAP PO SCH ×2 (08:18→13:09)
[2016-08-24 08:30] VITALS: O2SAT 95
[2016-08-24] MEDS: INSULIN ASPART 100 UNITS/ML 3 ML PEN SC SCH ×2 (08:54→13:08)
[2016-08-24] MEDS: HEPARIN SOD 5000 UNIT/0.5 ML CARP SQ SCH (08:55)
--- NOTE | 2016-08-24 08:58 | Progress Note ---
Medicine Progress Note Date & Time of Visit: Aug 24, 2016 at 08:10 . Subjective Lantus held yesterday- blood sugars were low in the morning and pt NPO most of the day for procedure. Blood sugar elevated this morning. Did not sleep well last night. No fever or chills. No chest pain, cough, SOB. No N/V. . Objective Last 8 Hrs Date Time Temp Pulse Resp B/P Pulse Ox O2 Delivery O2 Flow Rate FiO2 08/24/16 07:45 37.0 80 18 133/74 97 Room Air 08/24/16 04:32 36.8 80 20 151/79 97 Room Air Physical Exam: General- no distress Eyes- anicteric Neck- no JVD Lungs- clear Heart- RRR Abdomen- + BS, soft, nontender; surgical incision without erythema or drainage Extremities- no pretibial edema Neuro- alert . Laboratory Results: Last 24 Hours Test 08/23/16 12:19 08/23/16 15:31 08/23/16 16:22 08/23/16 20:43 Bedside Glucose 107 mg/dl 117 mg/dl 130 mg/dl 147 mg/dl Test 08/24/16 05:20 08/24/16 08:20 White Blood Count 7.65 K/uL Red Blood Count 3.02 M/uL Hemoglobin 8.4 g/dL Hematocrit 26.7 % Mean Corpuscular Volume 88.4 fL Mean Corpuscular Hemoglobin 27.8 pg Mean Corpuscular Hemoglobin Concent 31.5 g/dl Platelet Count 311 K/uL Mean Platelet Volume 9.3 fL Neutrophils (%) (Auto) 70.3 % Lymphocytes (%) (Auto) 12.0 % Monocytes (%) (Auto) 13.2 % Eosinophils (%) (Auto) 3.8 % Basophils (%) (Auto) 0.3 % Neutrophils # (Auto) 5.38 K/uL Lymphocytes # (Auto) 0.92 K/uL Monocytes # (Auto) 1.01 K/uL Eosinophils # (Auto) 0.29 K/uL Basophils # (Auto) 0.02 K/uL RDW Standard Deviation 44.3 fL RDW Coefficient of Variation 13.8 % Immature Granulocyte % (Auto) 0.4 % Immature Granulocyte # (Auto) 0.03 K/uL Red Blood Cell Morphology Unremarkable Sodium Level 134 mmol/L Potassium Level 4.2 mmol/L Chloride Level 98 mmol/L Carbon Dioxide Level 28 mmol/L Anion Gap 8.0 mmol/L Blood Urea Nitrogen 13 mg/dl Creatinine 3.30 mg/dl Est Creatinine Clear Calc Drug Dose 19.0 ml/min Estimated GFR () 17.8 Estimated GFR (Non- 15.4 BUN/Creatinine Ratio 4.0 Random Glucose 332 mg/dl Calcium Level 8.5 mg/dl Beta-Hydroxybutyric Acid 1.53 mg/dL Bedside Glucose 288 mg/dl Assessment & Plan DM TYPE II, POORLY CONTROLLED Admitted to [facility] in [facility] with random blood sugar of 1796. Hgb A1C was 13.9. Blood sugar 444 morning of transfer. Received IV insulin infusion per protocol. Receiving diabetic education. Transitioned to Lantus + NovoLog. FBS yesterday = 80 Lantus held yesterday- blood sugars were low in the morning and pt NPO most of the day for procedure. Blood sugar elevated this morning. Transition to 70/30 which she uses at home due to cost concerns. PANCREATIC CA Recently diagnosed pancreatic carcinoma with apparent metastases to liver. Management per Oncology. CKD V Has received peritoneal dialysis the past, but currently being managed with hemodialysis. Nephrology consulted. Has malfunctioning peritoneal catheter which was removed 08/23/[address] Vazquez. VTE PROPHYLAXIS SCD'd ordered. Ambulating. DISPOSITION Expected discharge to home. Family Medicine follow-up with Dr. Tamez. Oncology follow-up with Dr. Murray Desai. Components of this document were electronically copied and updated from the last documentation created by the undersigned in order to maintain a complete, accurate, and current record. Any portion of this document created by another author, if any, will be attributed to them. I certify that the record accurately reflects the patient's current status and services provided on the date of service. . Current Inpatient Medications: Current Inpatient Medications Medications (Trade) Dose Ordered Sig/Sophia Route Start Time Stop Time Status Last Admin Dose Admin Acetaminophen (Tylenol Tab) 650 mg Q4H PRN PO 08/19/16 23:45 09/18/16 23:44 Glucose (Glucose 40% Gel) 15-30 GRAMS 15 GRAMS... UD PRN PO 08/19/16 23:45 09/18/16 23:44 Glucose (Glucose Chew Tab) 4-8 Tablets 4 Tabl... UD PRN PO 08/19/16 23:45 09/18/16 23:44 Dextrose (Dextrose 50% 50ML Syringe) 25-50ML OF 50% DW IV FOR... UD PRN IV 08/19/16 23:45 09/18/16 23:44 Glucagon (Glucagon Inj) 1 mg UD PRN SQ 08/19/16 23:45 09/18/16 23:44 Hydromorphone HCl (Dilaudid Inj) 0.5 mg Q3H PRN IV 08/19/16 23:45 09/02/16 23:44 08/21/16 23:42 0.5 MG Ondansetron HCl (Zofran Inj) 4 mg Q6H PRN IV 08/19/16 23:45 09/18/16 23:44 08/21/16 18:03 4 MG Miscellaneous (Iv Fluids Completed) 1 ea PRN PRN N/A 08/20/16 01:00 08/20/17 00:59 Calcium Acetate (Phoslo Cap) 1,334 mg TIDM PO 08/20/16 08:00 09/19/16 07:59 08/24/16 08:18 1,334 MG Diltiazem HCl (Cardizem Cd Cap) 180 mg BID PO 08/20/16 08:00 09/19/16 07:59 08/24/16 08:17 180 MG Ranitidine HCl (zANTac TAB) 150 mg BID PO 08/20/16 08:00 09/19/16 07:59 08/24/16 08:18 150 MG Pantoprazole Sodium (Protonix Tab) 40 mg QAM PO 08/20/16 08:00 09/19/16 07:59 08/24/16 08:18 40 MG Sucralfate (Carafate Susp) 1 gm QID PO 08/20/16 08:00 09/19/16 07:59 08/23/16 19:42 1 GM Clopidogrel Bisulfate (plAVix TAB) 75 mg QAM PO 08/20/16 08:00 09/19/16 07:59 08/24/16 08:18 75 MG Oxycodone/ Acetaminophen (Percocet 5-325MG Tab) 1 tab Q6H PRN PO 08/20/16 04:45 09/03/16 04:44 08/23/16 21:29 1 TAB Albuterol/ Ipratropium (Duoneb) 3 ml Q2H PRN INH 08/20/16 05:30 09/19/16 05:29 Insulin Aspart (novoLOG ASPART) SLIDING SCALE G... ACHS SC 08/21/16 06:30 09/20/16 06:29 08/23/16 21:20 2 UNITS Heparin Sodium (Porcine) (Heparin Sq 5000 Unit/0.5ml) 5,000 unit Q12 SQ 08/21/16 09:00 09/20/16 08:59 08/23/16 21:20 5,000 UNIT Insulin Human Isoph/Insulin Regular (novoLIN 70/30 REGULAR) 24 units QDB SC 08/24/16 08:00 09/23/16 07:59 Insulin Human Isoph/Insulin Regular (novoLIN 70/30 REGULAR) 12 units QDD SC 08/24/16 17:00 09/23/16 16:59
[2016-08-24 12:00] VITALS: BP 148/81; PULSE 80; TEMP 37; O2SAT 98
[2016-08-24 13:00] VITALS: Ht 152.4 cm; Wt 80.0 kg
--- NOTE | 2016-08-24 15:03 | Discharge Instructions ---
Discharge Instructions Admission Reason for Admission: high blood sugars, pancreatic cancer Discharge Discharge Diagnosis / Problem: high blood sugars, pancreatic cancer Discharge Goals Goal(s): Decrease discomfort, Increase independence, Improve disease control Activity Recommendations Activity Limitations: resume your previous activity . Instructions / Follow-Up Instructions / Follow-Up FOLLOW-UP APPOINTMENTS DIALYSIS Continue previous schedule. FAMILY MEDICINE 08/29/2016 11:00 AM Juana Tamez, DO ONCOLOGY Dr. Murray Desai Office will contact you with appointment. VASCULAR SURGERY Dr. Vazquez Please call office for appointment. New insulin dosing for Novolin 70/30: 24 units before breakfast 12 units before supper Take only 1/2 of your dose of insulin if your blood sugar is less than 80. Check you blood sugars before breakfast and before supper; more often if you don 't feel well. Keep a diary of your blood sugars and share with Dr. Tamez. Seek medical attention if you have: * temperature above 101 * chest pain or trouble breathing * abdominal pain, nausea, vomiting * diarrhea, dark stools or bloody stools * blood sugars that are way too high or too low- call if blood sugar higher than 300 or less than 60 * any unanswered questions or concerns Call 911 if symptoms are severe. Call if you have any questions or problems. My cell # is [phone]. You can also reach a [facility] hospitalist on duty at [facility] 24 hours a day by calling [phone]. Please take good care of yourself. Poncho Man . Current Hospital Diet Patient's current hospital diet: Diabetes Type 2 Diet, Renal Diet Discharge Diet Recommended Diet: AHA Diet (Heart Healthy), Diabetes Type 2 Diet, Renal Diet Procedures Procedures Performed: Removal of peritoneal dialysis catheter Pending Studies Studies pending at discharge: no Medical Emergencies . Who to Call and When: Medical Emergencies: If at any time you feel your situation is an emergency, please call 911 immediately. . Non-Emergent Contact Non-Emergency issues call your: Primary Care Provider, Low Pressure Boiler Tender, Oncologist . . "Provider Documentation" section prepared by Poncho Man. VTE Core Measure Inpt VTE Proph given/why not?: Unfractionated heparin SQ
[2016-08-24 16:09] VITALS: BP 148/81; PULSE 80; TEMP 37; O2SAT 98
--- NOTE | 2016-08-24 18:56 | Discharge Summary ---
Discharge Summary Admission Date: Aug 20, 2016 at 09:07 Discharge Date: Aug 24, 2016 Discharge Disposition: Home Principal Diagnosis: DM type II, uncontrolled . Secondary Diagnoses/Problems: Chronic and Resolved Medical Problems: (1) Asthma Status: Chronic (2) Depression Status: Chronic (3) Diabetes mellitus, type II Status: Chronic (4) ESRD (end stage renal disease) Status: Chronic (5) H/O: CVA (cerebrovascular accident) Status: Chronic (6) Hyperlipidemia Status: Chronic (7) Hypertension Status: Chronic (8) Pancreatic cancer, metastatic Status: Chronic Surgical Problems: (1) H/O abdominal surgery Permanent Comment: RADICAL RESECTION ABD WALL TUMOR, UNDER 5 CM performed by Sonido Fernandez MD at [facility] 02/15/16 Status: Chronic (2) History of cholecystectomy Status: Chronic (3) History of hysterectomy Permanent Comment: ovaries remain Status: Chronic (4) History of tubal ligation Status: Chronic . Procedures: IV meds diabetes education removal of CAPD catheter by Dr. Vazquez 08/23/16 . Consultations: Nephrology Vascular Surgery . Medication Reconciliation Continued Medications: Aspirin (Aspirin Ec) 81 Mg Tab 81 MG PO QAM Atorvastatin (Atorvastatin Calcium) 40 Mg Tab 40 MG PO QAM Calcium Acetate (Phosphate Bin (Phoslo 667 Mg) 667 Mg Cap 1 CAP PO UD, CAP Take 2 pills with each meal and 1 pill with snacks. Cholecalciferol (Vitamin D3) 1,000 Unit Tab 5000 TAB PO QPM, TAB 3 Refills Clopidogrel (Plavix) 75 Mg Tab 75 MG PO QAM, TAB Diltiazem Hcl Coated Beads (Cardizem Cd) 180 Mg Cap 2 CAP PO DAILY, CAP Docusate Sodium (Docusate Sodium) 100 Mg Cap 1 CAP PO BID, CAP Furosemide (Lasix) 20 Mg Tab 1 TAB PO DAILY, TAB 1 Refill Hydralazine HCl (Hydralazine HCl) 50 Mg Tab 50 MG PO TID Insulin Human Isophan/Regular (Novolin 70/30) Inj 12 UNITS SC PM, BTL New dose 08/24/15: 12 units each evening before supper. Take 1/2 dose if blood sugar is less than 80. Insulin Isophan/Regular (Humulin 70/30) Susp 24 UNITS SC QAM, VIAL New dose 08/24/15: 24 units each morning before breakfast. Take 1/2 dose if blood sugar is less than 80. Metoprolol Tartrate (Lopressor) (Lopressor) 25 Mg Tab 25 MG PO BID, TAB Ondansetron Hcl (Zofran) 4 Mg Tab 4 MG PO Q8 PRN for Nausea, TAB Promethazine HCl (Promethazine HCl) 25 Mg Tab 1 TAB PO Q6H PRN for Nausea or Vomiting, TAB Ranitidine (Zantac) 150 Mg Tab 150 MG PO BID, TAB Sertraline HCl (Sertraline HCl) 100 Mg Tab 100 MG PO QAM Admission Information HPI (per Admitting provider): Medical history significant for hypertension, DM2 insulin requiring, Recent diagnosis of metastatic pancreatic cancer with lung/liver mets, past tobacco abuse, end-stage renal disease previously on PD, currently on hemodialysis, hx CVA as per records, chronic anemia (baseline Hg 9). Recent confinement last April 2016 for acute pancreatitis. Outpatient endoscopic ultrasound last month showed a pancreatic mass in the uncinate process, which came consistent with adenocarcinoma. Patient seen by [facility] Oncology outpatient last about 2 weeks ago. Initial plans included Radiation Oncology consultation, [facility] [place] consultation (Dr. Barba), tumor markers, PET CT on August 2015. Initial plan for Later review of CAT scan of chest, abdomen and pelvis done on July 2016 by px oncologist noted large pancreatic head mass, new liver lesions, lung lesions suggesting metastatic disease. Stage IV pancreatic cancer. Patient not a surgical candidate as per 08/16 note. [facility] [place] appointment canceled. Might need port placement. Scheduled appointment 08/28/2016 to decide further management of patient's case. Patient and family still unaware of update. Last week, the patient was visiting family in [facility], patient noted by her to be confused while opening gifts, had seizure-like activity. PX brought to [facility]. Noted to be in "diabetic coma." Blood sugars in 1300. Admitted for encephalopathy. Patient later subsequently intubated. Also seen by Neurology. Impression for toxic metabolic encephalopathy. New onset complex partial seizures, possibly from profound hyperglycemia. No need for further intervention as per note. Patient subsequently extubated. Hemodialysis during confinement. Patient initially had trouble eating, appetite currently improved. PX might need rehab placement as per records. PX/family requested transfer to [facility] to be close to her specialists and for possible placement for rehabilitation. PX admits to not remembering a lot of things during her recent confinement. . Physical Exam (per Admitting): VITAL SIGNS: Blood pressure 159/82, pulse rate 78, RR 18, sats 94 on room air. GENERAL: Noted to be obese, coherent. No respiratory distress. SKIN ; pallor HEENT: pale palpebral conjunctivae. Dry mucous. NECK: Short neck. LUNGS: Decreased breath sounds, occasional wheeze. HEART: Regular rate and rhythm. ABDOMEN: Soft, some distension. EXTREMITIES: Minimal LE edema present. NEUROLOGIC: No gross focality, oriented to year. . Hospital Course DM TYPE II, POORLY CONTROLLED Admitted to [facility] in [facility] on 08/13/16 with random blood sugar of 1796. Hgb A1C was 13.9. Blood sugar 444 morning of transfer. Received IV insulin infusion per protocol. Receiving diabetic education. Transitioned to Lantus + NovoLog. On day of discharge, transitioned to 70/30 BID which she uses at home due to cost concerns. Sounds like she may have been experiencing board member hypoglycemia at home at time prior to her recent hospitalizations. Compliance with treatment regimen and monitoring not a certainty. Discharge on Novolin 70/30, 24 units before breakfast and 12 units before supper. Patient advised to check blood sugars at least twice a day, and more often if not feeling well. She is to keep a diary and share results with her PCP. PANCREATIC CA Recently diagnosed pancreatic carcinoma with apparent metastases to liver. Management per Oncology. HYPERTENSION Continue metoprolol and diltiazem. CEREBROVASCULAR DISEASE Continue clopidogrel and statin. CKD V Has received peritoneal dialysis the past, but currently being managed with hemodialysis. Nephrology consulted. Had malfunctioning peritoneal catheter which was removed 08/23/[address] Vazquez. VTE PROPHYLAXIS SCD'd ordered. Ambulated. DISPOSITION Discharged to home. Family Medicine follow-up with Dr. Tamez. Oncology follow-up with Dr. Murray Desai. Nephrology follow-up with Dr. Blanton. Components of this document were electronically copied and updated from the last documentation created by the undersigned in order to maintain a complete, accurate, and current record. Any portion of this document created by another author, if any, will be attributed to them. I certify that the record accurately reflects the patient's current status and services provided on the date of service. . Total time spent on discharge = 40 min. This includes examination of the patient, discharge planning, medication reconciliation, and communication with other providers. . Discharge Instructions Admission Reason for Admission: high blood sugars, pancreatic cancer Discharge Discharge Diagnosis / Problem: high blood sugars, pancreatic cancer Discharge Goals Goal(s): Decrease discomfort, Increase independence, Improve disease control Activity Recommendations Activity Limitations: resume your previous activity . Instructions / Follow-Up Instructions / Follow-Up FOLLOW-UP APPOINTMENTS DIALYSIS Continue previous schedule. FAMILY MEDICINE 08/29/2016 11:00 AM Juana Tamez, DO ONCOLOGY Dr. Murray Desai Office will contact you with appointment. VASCULAR SURGERY Dr. Vazquez Please call office for appointment. New insulin dosing for Novolin 70/30: 24 units before breakfast 12 units before supper Take only 1/2 of your dose of insulin if your blood sugar is less than 80. Check you blood sugars before breakfast and before supper; more often if you don 't feel well. Keep a diary of your blood sugars and share with Dr. Tamez. Seek medical attention if you have: * temperature above 101 * chest pain or trouble breathing * abdominal pain, nausea, vomiting * diarrhea, dark stools or bloody stools * blood sugars that are way too high or too low- call if blood sugar higher than 300 or less than 60 * any unanswered questions or concerns Call 911 if symptoms are severe. Call if you have any questions or problems. My cell # is [phone]. You can also reach a [facility] hospitalist on duty at [facility] 24 hours a day by calling [phone]. Please take good care of yourself. Poncho Man . Current Hospital Diet Patient's current hospital diet: Diabetes Type 2 Diet, Renal Diet Discharge Diet Recommended Diet: AHA Diet (Heart Healthy), Diabetes Type 2 Diet, Renal Diet Procedures Procedures Performed: Removal of peritoneal dialysis catheter Pending Studies Studies pending at discharge: no Medical Emergencies . Who to Call and When: Medical Emergencies: If at any time you feel your situation is an emergency, please call 911 immediately. . Non-Emergent Contact Non-Emergency issues call your: Primary Care Provider, [employer] Former, Oncologist . . "Provider Documentation" section prepared by Poncho Man. VTE Core Measure Inpt VTE Proph given/why not?: Unfractionated heparin SQ . Additional Copies To Juana Tamez D.O.; Althea Blanton I., DO; Murray Desai M.D.
[2016-11-28] MEDS ORDERED: INSUINJ20 SQ (11:34)
[2016-11-28] MEDS ORDERED: DLD2 PO (11:34)
[2016-11-28] MEDS ORDERED: MRLP17X PO (11:34)
[2016-12-07] MEDS ORDERED: DRGTP25 TD (14:31)
[2016-12-07] MEDS ORDERED: INSUINJ20 SQ (14:31)
[2016-12-08] MEDS ORDERED: TRAZ100T29 PO (05:14)
[2016-12-08] MEDS ORDERED: ONDA4TAB46 PO (09:40)
[2016-12-08] MEDS ORDERED: CALC667C PO (09:40)
[2016-12-08] MEDS ORDERED: DOCU100C31 PO (09:40)
== END 2016-08-24 16:45 | disposition home or self-care (01) | DRG 982 ==
LOC: INTOOBSV 22:16 → C.4E 22:16 → OBSVTOIN 08-20 09:07 → C.4E 08-22 08:49
PROVIDERS: ADMIT Hospitalist; ATTEND Hospitalist
PROC: 0WPG03Z Removal of Infusion Device from Peritoneal Cavity, Open Approach (ICD-10-PCS; principal; 2016-08-23 14:30)
DX: E11.65 Type 2 diabetes mellitus with hyperglycemia (principal); I12.0 Hypertensive chronic kidney disease with stage 5 chronic kidney disease or end stage renal disease; C25.9 Malignant neoplasm of pancreas, unspecified; C78.7 Secondary malignant neoplasm of liver and intrahepatic bile duct; C78.00 Secondary malignant neoplasm of unspecified lung; N18.5 Chronic kidney disease, stage 5; T85.611A Breakdown (mechanical) of intraperitoneal dialysis catheter, initial encounter; Y73.2 Prosthetic and other implants, materials and accessory gastroenterology and urology devices associated with adverse incidents; J45.909 Unspecified asthma, uncomplicated; E11.22 Type 2 diabetes mellitus with diabetic chronic kidney disease; E11.649 Type 2 diabetes mellitus with hypoglycemia without coma; R53.81 Other malaise; L29.9 Pruritus, unspecified; D63.1 Anemia in chronic kidney disease; I67.9 Cerebrovascular disease, unspecified; E78.5 Hyperlipidemia, unspecified; E78.00 Pure hypercholesterolemia, unspecified; K21.9 Gastro-esophageal reflux disease without esophagitis; F41.9 Anxiety disorder, unspecified; F32.9 Major depressive disorder, single episode, unspecified; E66.9 Obesity, unspecified; Z99.2 Dependence on renal dialysis; Z95.828 Presence of other vascular implants and grafts; Z68.34 Body mass index [BMI] 34.0-34.9, adult; Z87.891 Personal history of nicotine dependence; Z86.73 Personal history of transient ischemic attack (TIA), and cerebral infarction without residual deficits; Z79.01 Long term (current) use of anticoagulants; Z79.02 Long term (current) use of antithrombotics/antiplatelets; Z79.4 Long term (current) use of insulin; Z79.51 Long term (current) use of inhaled steroids; Z79.82 Long term (current) use of aspirin; Z79.891 Long term (current) use of opiate analgesic; Z79.899 Other long term (current) drug therapy

== ENCOUNTER 2016-11-10 09:03 | Emergency (ER) | payer BC ==
[~2016-11-10 09:03] MED LIST changes: -CALC667C PO; -CHOLCAP5 PO; -DOCU100C31 PO; -DRGTP25 TD; -FNTTP25 TOP; -HYDR2TAB2 PO; -HYDR2TAB3 PO; -INSUINJ20 SQ; -METO25TA56 PO; -MRLP17X PO; -MRLP527 PO; -NVLNI SC; -ONDA4TAB46 PO; -PROM25TA16 PO; -TRAZ100T29 PO; -ZLF/100 PO; -ZNTT/150 PO
[2016-11-10 09:09] VITALS: TEMP 37; Ht 160 cm
--- NOTE | 2016-11-10 09:41 | EMERGENCY ROOM VISIT NOTE ---
History Report prepared by Jesús: Hai Bridges Under the Supervision of: Dr. Beka Pedroza M.D. First contact with patient: 09:33 Chief Complaint: WEAKNESS Stated Complaint: DIZZY,WEAK,SENT FROM DIALYSIS History of Present Illness The patient is a 51 year old female who presents to the Emergency Room from Dialysis with complaints of persistent weakness that started yesterday. She notes that she slept all day yesterday. Additional associated symptoms include chills and abdominal pain. The patient suffers from Pancreatic Cancer and kidney failure. She last received chemotherapy 3 days ago. The patient has a history of 2 blood transfusions secondary to anemia. She denies a fever, coughing, urinary symptoms, or any additional associated symptoms. Source of History: patient, spouse/significant other Onset: Yesterday Position: other (Global ) Timing: other (Persistent ) Modifying Factors (Worsening): other (None) Associated Symptoms: + abdominal pain, + chills, + fatigue, No cough, No fevers, No urinary symptoms Review of Systems All systems have been listed, reviewed, and are negative other than those previously mentioned. Please see Additional Medical History Sheet. Past Medical & Surgical Medical Problems: (1) Asthma (2) Depression (3) Diabetes mellitus, type II (4) ESRD (end stage renal disease) (5) H/O: CVA (cerebrovascular accident) (6) Hyperlipidemia (7) Hypertension (8) Pancreatic cancer Surgical Problems: (1) H/O abdominal surgery (2) History of cholecystectomy (3) History of hysterectomy (4) History of tubal ligation Family History Cancer Diabetes mellitus Heart disease Hypertension Lung disease Social History Smoking Status: Former Smoker Alcohol Use: none Drug Use: none Marital Status: Housing Status: lives with significant other Occupation Status: employed Current/Historical Medications Scheduled Aspirin (Aspirin Ec), 81 MG PO QAM Atorvastatin (Atorvastatin Calcium), 40 MG PO QAM Calcium Acetate (Phosphate Bin (Phoslo 667 Mg), 1 CAP PO UD Cholecalciferol (Vitamin D3), 5,000 UNIT PO QPM Clopidogrel (Plavix), 75 MG PO QAM Diltiazem Hcl Coated Beads (Cardizem Cd), 2 CAP PO DAILY Docusate Sodium (Docusate Sodium), 1 CAP PO BID Furosemide (Lasix), 1 TAB PO DAILY Hydralazine HCl (Hydralazine HCl), 50 MG PO TID Insulin Human Isophan/Regular (Novolin 70/30), 12 UNITS SC PM Insulin Isophan/Regular (Humulin 70/30), 24 UNITS SC QAM Metoprolol Tartrate (Lopressor) (Lopressor), 25 MG PO BID Ranitidine (Zantac), 150 MG PO BID Sertraline HCl (Sertraline HCl), 100 MG PO QAM Scheduled PRN Ondansetron Hcl (Zofran), 4 MG PO Q8 PRN for Nausea Promethazine HCl (Promethazine HCl), 1 TAB PO Q6H PRN for Nausea or Vomiting Allergies Coded Allergies: No Known Allergies (Verified , 11/10/16) Physical Exam Vital Signs Date Time Temp Pulse Resp B/P Pulse Ox O2 Delivery O2 Flow Rate FiO2 11/10/16 12:54 88 11/10/16 11:54 86 25 95/52 95 Room Air 11/10/16 11:02 86 24 96/42 95 Room Air 11/10/16 10:12 83 22 93/43 95 Room Air 11/10/16 10:09 96 Room Air 11/10/16 09:29 75 11/10/16 09:09 37.0 76 16 101/67 98 Room Air Physical Exam GENERAL: Patient awake, alert, oriented x 3. Patient follows commands. Patient does not appear toxic. SKIN: No erythema, pallor, cyanosis or rash HEENT: Normal head, pupils equal, reactive to light and accommodation. Oral cavity and posterior pharynx appear normal. Mucous membranes are dry. Neck: Without adenopathy, no neck vein distention. LUNGS: Clear to auscultation. No wheezes, no rales, no rhonchi. HEART: No murmurs. No gallops. No rubs ABDOMEN: Vague right upper quadrant tenderness. Well healing oblique right upper quadrant scar. No masses, no rebound, no hepatomegaly or splenomegaly. EXTREMITIES: Fistula in left arm. No signs of trauma. No pedal or pretibial edema. No calf or thigh tenderness. NEUROLOGIC: Cranial nerves II-XII within normal limits. No gross motor sensory function deficits. Medical Decision & Procedures Laboratory Results 11/10/16 10:00 Red Blood Count 2.53, Mean Corpuscular Volume 91.3, Mean Corpuscular Hemoglobin 29.6, Mean Corpuscular Hemoglobin Concent 32.5, Mean Platelet Volume 8.8, Neutrophils (%) (Auto) 92.9, Lymphocytes (%) (Auto) 4.2, Monocytes (%) (Auto) 0.6, Eosinophils (%) (Auto) 2.0, Basophils (%) (Auto) 0.1, Neutrophils # (Auto) 13.01, Lymphocytes # (Auto) 0.59, Monocytes # (Auto) 0.08, Eosinophils # (Auto) 0.28, Basophils # (Auto) 0.01 11/10/16 10:00 Test 11/10/16 10:00 11/10/16 10:20 White Blood Count 14.00 K/uL (4.8-10.8) Red Blood Count 2.53 M/uL (4.2-5.4) Hemoglobin 7.5 g/dL (12.0-16.0) Hematocrit 23.1 % (37-47) Mean Corpuscular Volume 91.3 fL (80-100) Mean Corpuscular Hemoglobin 29.6 pg (25-34) Mean Corpuscular Hemoglobin Concent 32.5 g/dl (32-36) Platelet Count 436 K/uL (130-400) Mean Platelet Volume 8.8 fL (7.4-10.4) Neutrophils (%) (Auto) 92.9 % Lymphocytes (%) (Auto) 4.2 % Monocytes (%) (Auto) 0.6 % Eosinophils (%) (Auto) 2.0 % Basophils (%) (Auto) 0.1 % Neutrophils # (Auto) 13.01 K/uL (1.4-6.5) Lymphocytes # (Auto) 0.59 K/uL (1.2-3.4) Monocytes # (Auto) 0.08 K/uL (0.11-0.59) Eosinophils # (Auto) 0.28 K/uL (0-0.5) Basophils # (Auto) 0.01 K/uL (0-0.2) RDW Standard Deviation 67.0 fL (36.4-46.3) RDW Coefficient of Variation 21.0 % (11.5-14.5) Immature Granulocyte % (Auto) 0.2 % Immature Granulocyte # (Auto) 0.03 K/uL (0.00-0.02) Anisocytosis PRESENT Anion Gap 10.0 mmol/L (3-11) Estimated GFR () 39.8 Estimated GFR (Non- 34.3 BUN/Creatinine Ratio 9.1 (10-20) Calcium Level 9.0 mg/dl (8.5-10.1) Total Bilirubin 0.7 mg/dl (0.2-1) Aspartate Amino Transf (AST/SGOT) 148 U/L (15-37) Alanine Aminotransferase (ALT/SGPT) 55 U/L (12-78) Alkaline Phosphatase 345 U/L (45-117) Ammonia 18.0 umol/L (11-32) Total Protein 6.4 gm/dl (6.4-8.2) Albumin 2.3 gm/dl (3.4-5.0) Globulin 4.1 gm/dl (2.5-4.0) Albumin/Globulin Ratio 0.6 (0.9-2) Lipase 78 U/L (73-393) Urine Color DK YELLOW Urine Appearance TURBID (CLEAR) Urine pH 5.0 (4.5-7.5) Urine Specific [place] 1.020 (1.000-1.030) Urine Protein 2+ (NEG) Urine Glucose (UA) NEG (NEG) Urine Ketones TRACE (NEG) Urine Occult Blood NEG (NEG) Urine Nitrite NEG (NEG) Urine Bilirubin NEG (NEG) Urine Urobilinogen NEG (NEG) Urine Leukocyte Esterase SMALL (NEG) Urine WBC (Auto) 5-10 /hpf (0-5) Urine RBC (Auto) 0-4 /hpf (0-4) Urine Hyaline Casts (Auto) 1-5 /lpf (0-5) Urine Epithelial Cells (Auto) 0-5 /lpf (0-5) Urine Bacteria (Auto) 1+ (NEG) Urine Renal Epithelial Cells /lpf (0-5) Urine Crystals AMORPHOUS SEDIMENT (NONE Urine Pathogenic Casts /lpf (0) Urine Yeast (Auto) (NONE PRSENT) Laboratory results as stated above per my review. ECG Indication: weakness Rate (beats per minute): 79 Rhythm: normal sinus Findings: no acute ischemic change, no ectopy ED Course 0933: Past medical records reviewed. The patient was evaluated in room B2. A complete history and physical examination was performed. 1125: I discussed the patient's case with Silvia Wiggins ([facility] [place]). She will evaluate the patient for further management and care. 1128: I updated the patient. She is agreeable with the treatment plan at this time. 1145: I spoke with Dr. Burdick ([facility]). He will manage the patient in [facility] with a blood transfusion. 1252: I updated [facility] on the patient's case and the decisions that were made. 1300: The patient is heading to [facility]. Medical Decision Nurses notes reviewed. Medical history sheet reviewed. Differential diagnosis includes but is not limited to: Anemia, pancreatic cancer, dehydration, metabolic disorder. The patient has a history of pancreatic cancer. The patient is on dialysis. She has been anemic in the past and has required transfusions as recently as 2- 3 weeks ago. The patient now feels like she is anemic again. She complains of weakness. Multiple labs and imaging were obtained. Please see above. The patient is again anemic. Her hemoglobin is less than 8 and I believe because she is symptomatic that she should be transfused. I discussed this with the hospitalist. The patient will be sent to the [facility] to have that transfusion done. The hospitalist felt the patient could be discharged home after transfusion. Consults Time Called: 1123 Consulting Physician: Silvia Wiggins ([facility]) Returned Call: 1125 I discussed the patient's case with Silvia Wiggins ([facility] [place]). She will evaluate the patient for further management and care. Additional Consults: Consulted Physician: Dr. Burdick ([facility]) Returned Call: 1149 Additional Comments: I spoke with Dr. Burdick ([facility]). He will manage the patient in [facility] with a blood transfusion. Time Called: 1051 Consulted Physician: Demond Fajardo PA-C Returned Call: 1255 Additional Comments: I updated [facility] on the patient's case and the decisions that were made. Impression Primary Impression: Anemia Additional Impression: History of pancreatic cancer Scribe Attestation The scribe's documentation has been prepared under my direction and personally reviewed by me in its entirety. I confirm that the note above accurately reflects all work, treatment, procedures, and medical decision making performed by me. Departure Information Dispostion Being Evaluated By Hospitalist Juana Callaway D.O. (PCP) Forms HOME CARE DOCUMENTATION FORM, IMPORTANT VISIT INFORMATION Patient Instructions My [facility] Additional Instructions Go directly to the [facility] for a blood transfusion. Continue all of your current medications as prescribed. Follow-up with your oncologist. Problem Qualifiers
[2016-11-10 10:09] VITALS: O2SAT 96
[2016-11-10 10:16] LABS: HEMATOCRIT 23.1 % (37-47); MEAN CELL VOLUME 91.3 fL (80-100); MEAN CORPUSCULAR HEMOGLOBIN 29.6 pg (25-34); MEAN CORPUSCULAR HGB CONC 32.5 g/dl (32-36); MEAN PLATELET VOLUME 8.8 fL (7.4-10.4); PLATELET COUNT 436 K/uL (130-400); RED BLOOD COUNT 2.53 M/uL (4.2-5.4)
[2016-11-10 10:38] LABS: ALT/SGPT 55 U/L (12-78); ANISOCYTOSIS PRESENT; BASO % 0.1 %; BASO ABS # 0.01 K/uL (0-0.2); BLOOD UREA NITROGEN 15 mg/dl (7-18); BUN/CREATININE RATIO 9.1 (10-20); CARBON DIOXIDE 30 mmol/L (21-32); CHLORIDE 92 mmol/L (98-107); COMPLETE YES; GLUCOSE 114 mg/dl (70-99); IG% 0.2 %; LYMPH % 4.2 %; LYMPH ABS # 0.59 K/uL (1.2-3.4); MONO % 0.6 %; NEUT % 92.9 %; POTASSIUM 3.3 mmol/L (3.5-5.1); SODIUM 132 mmol/L (136-145)
[2016-11-10 10:41] LABS: ALB/GLOB RATIO 0.6 (0.9-2); ALKALINE PHOSPHATASE 345 U/L (45-117); AST/SGOT 148 U/L (15-37)
[2016-11-10 10:46] LABS: URINE APPEARANCE TURBID (CLEAR); URINE COLOR DK YELLOW; URINE NITRITE NEG (NEG); UROBILINOGEN NEG (NEG); ZZURINE CULT IF INDIC CATH YES
[2016-11-10 10:57] LABS: MANUAL MICROSCOPIC REQUIRED? NO; REVIEW REQ? YES; URINE BILIRUBIN NEG (NEG)
[2016-11-10 11:07] LABS: URINE EPITHELIAL CELL AUTO 0-5 /lpf (0-5)
[2016-11-10 11:54] VITALS: BP 95/52; O2SAT 95
[2016-11-10 12:54] VITALS: PULSE 88
[2016-11-28] MEDS ORDERED: MRLP17X PO (11:34)
[2016-11-28] MEDS ORDERED: INSUINJ20 SQ (11:34)
[2016-11-28] MEDS ORDERED: DLD2 PO (11:34)
[2016-12-07] MEDS ORDERED: INSUINJ20 SQ (14:31)
[2016-12-07] MEDS ORDERED: DRGTP25 TD (14:31)
[2016-12-08] MEDS ORDERED: TRAZ100T29 PO (05:14)
[2016-12-08] MEDS ORDERED: ONDA4TAB46 PO (09:40)
[2016-12-08] MEDS ORDERED: CALC667C PO (09:40)
[2016-12-08] MEDS ORDERED: DOCU100C31 PO (09:40)
== END 2016-11-10 13:29 | disposition home or self-care (01) ==
LOC: C.EDB 09:04
DX: D64.9 Anemia, unspecified (principal); Z85.07 Personal history of malignant neoplasm of pancreas; Z99.2 Dependence on renal dialysis; J45.909 Unspecified asthma, uncomplicated; F32.9 Major depressive disorder, single episode, unspecified; E11.9 Type 2 diabetes mellitus without complications; E78.5 Hyperlipidemia, unspecified; Z90.89 Acquired absence of other organs; Z90.49 Acquired absence of other specified parts of digestive tract; Z90.710 Acquired absence of both cervix and uterus; Z86.73 Personal history of transient ischemic attack (TIA), and cerebral infarction without residual deficits; Z98.51 Tubal ligation status; Z87.891 Personal history of nicotine dependence; Z79.4 Long term (current) use of insulin; Z79.02 Long term (current) use of antithrombotics/antiplatelets; Z79.82 Long term (current) use of aspirin; Z80.9 Family history of malignant neoplasm, unspecified; Z83.3 Family history of diabetes mellitus; Z82.49 Family history of ischemic heart disease and other diseases of the circulatory system; Z83.6 Family history of other diseases of the respiratory system

== ENCOUNTER → 2016-11-10 | Day surgery (SDC) | payer BC ==
[~2016-11-10] VITALS: Ht 160 cm; Wt 78.1 kg
[2016-11-10] VITALS (13 sets, daily range): BP systolic 100–147; BP diastolic 46–72; PULSE 86–112; TEMP 37.4–38.1; O2SAT 91–95; Ht 160 cm; Wt 78.1 kg
[~2016-11-10] MED LIST changes: +CALC667C PO; +CHOLCAP5 PO; -CLON0.1T12 PO; -DILT180C96 PO; +DOCU100C31 PO; +DRGTP25 TD; +FNTTP25 TOP; +HYDR2TAB2 PO; +HYDR2TAB3 PO; +INSUINJ20 SQ; +METO25TA56 PO; +MRLP17X PO; +MRLP527 PO; +NVLNI SC; +ONDA4TAB46 PO; +PROM25TA16 PO; -SYMIN160 INH; +TRAZ100T29 PO; +ZLF/100 PO; +ZNTT/150 PO
--- NOTE | 2016-11-10 12:35 | Progress Note ---
Progress Note Date of Service Nov 10, 2016. Progress Note 51 yo with PMH of pancreatic CA, HTN, Dyslipidemia, DM, Anemia with recurrent blood transfusion was brought to the ER from Dialysis with complaints of persistent weakness that started yesterday. Pt had her last chemo done about 3 days ago. She said that she has been getting transfused every few weeks by doctor Desai her oncology and after transfusion she feels better. She denies any chest pain, palpitation and SOB. She does not want to be admitted. We will arrange for her to get 2 units prbc today and discharge after transfusion. she has an upcoming appointment with oncology next week (11/14). Case discussed with Dr. Blanton nephrology about her volume status since she was HD this morning. Dr. Blanton agreed with paln to transfuse 2 units PRBC. Consent signed for blood transfusion.
== END | disposition home or self-care (01) ==
LOC: EDSTATUS 13:00 → C.MTU 13:00
PROVIDERS: ATTEND Internal Medicine
DX: D64.9 Anemia, unspecified (principal); C25.9 Malignant neoplasm of pancreas, unspecified; E78.5 Hyperlipidemia, unspecified; I10 Essential (primary) hypertension

== ENCOUNTER 2016-11-20 04:41 | Inpatient (IN) | payer BC ==
[~2016-11-20] VITALS: Ht 160 cm; Wt 79.8 kg
[2016-11-20] VITALS (16 sets, daily range): BP systolic 121–153; BP diastolic 66–84; PULSE 87–97; TEMP 36.5–37.1; O2SAT 89–98; BMI 30.5
[2016-11-20] MEDS ORDERED: SODIUM CHLORIDE 0.9% 1000ML 1,000 ML IV STA ×2 (05:13)
[2016-11-20] MEDS ORDERED: ONDANSETRON INJ 2 MG/ML 2 ML VIAL IV STA (05:13)
[2016-11-20] MEDS ORDERED: MoRPHine SULFATE 4 MG/ML 1 ML CARP\\VIAL IV PRN (05:15)
--- NOTE | 2016-11-20 05:22 | EMERGENCY ROOM VISIT NOTE ---
History Report prepared by Sachinibsharon: Katy Shields Under the Supervision of: Dr. Maurice Ramsay M.D. First contact with patient: 05:06 Chief Complaint: RECTAL BLEEDING Stated Complaint: BLOOD IN POOP History of Present Illness The patient is a 51 year old female who presents to the Emergency Room with complaints of persistent rectal bleeding for the past 7 hours. She is accompanied by her . She reports she first noticed the blood around 1800 last night and states "there was a lot of it". She admits to some abdominal pain and reports she did vomit approximately 2 hours prior to arrival. The vomit was brownish in color. She does take daily Aspirin and Plavix. She denies any recent fevers but admits to some recent fatigue. The patient has a history of pancreatic cancer, diagnosed in July 2016 and is on dialysis. She is due for dialysis later today and her next chemotherapy is scheduled for tomorrow. Her last chemotherapy treatment was 2 weeks ago. She denies any history of previous rectal bleeding. Her last colonoscopy was approximately 1 year ago. 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 A total of 10 systems reviewed and were otherwise negative. Past Medical & Surgical Medical Problems: (1) Asthma (2) Depression (3) Diabetes mellitus, type II (4) ESRD (end stage renal disease) (5) H/O: CVA (cerebrovascular accident) (6) Hyperlipidemia (7) Hypertension (8) Pancreatic cancer Surgical Problems: (1) H/O abdominal surgery (2) History of cholecystectomy (3) History of hysterectomy (4) History of tubal ligation Family History Cancer Diabetes mellitus Heart disease Hypertension Lung disease Social History Smoking Status: Never Smoker Alcohol Use: none Drug Use: none Marital Status: Housing Status: lives with significant other Occupation Status: employed Current/Historical Medications Scheduled Aspirin (Aspirin Ec), 81 MG PO QAM Atorvastatin (Atorvastatin Calcium), 40 MG PO QAM Calcium Acetate (Phosphate Bin (Phoslo 667 Mg), 1 CAP PO UD Cholecalciferol (Vitamin D3), 5,000 UNIT PO QPM Clopidogrel (Plavix), 75 MG PO QAM Diltiazem Hcl Coated Beads (Cardizem Cd), 360 MG PO DAILY Docusate Sodium (Docusate Sodium), 1 CAP PO BID Furosemide (Lasix), 20 MG PO DAILY Hydralazine HCl (Hydralazine HCl), 50 MG PO TID Insulin Human Isophan/Regular (Novolin 70/30), 12 UNITS SC PM Insulin Isophan/Regular (Humulin 70/30), 24 UNITS SC QAM Metoprolol Tartrate (Lopressor) (Lopressor), 25 MG PO BID Ranitidine (Zantac), 150 MG PO BID Sertraline HCl (Sertraline HCl), 100 MG PO QAM Trazodone Hcl (Trazodone), 100 MG PO HS Scheduled PRN Ondansetron Hcl (Zofran), 4 MG PO Q8 PRN for Nausea Promethazine HCl (Promethazine HCl), 25 MG PO Q6H PRN for Nausea or Vomiting Allergies Coded Allergies: No Known Allergies (Verified , 11/20/16) Physical Exam Vital Signs Date Time Temp Pulse Resp B/P Pulse Ox O2 Delivery O2 Flow Rate FiO2 11/20/16 06:17 88 14 142/78 96 Nasal Cannula 2.0 11/20/16 05:37 86 11/20/16 05:33 93 Room Air 11/20/16 05:33 94 Room Air 11/20/16 04:53 36.7 96 20 109/60 97 Room Air Physical Exam GENERAL: Patient is in no acute distress. HEENT: No acute trauma, normocephalic atraumatic, mucous membranes moist, no nasal congestion, no scleral icterus. Dried blood on her lips. NECK: No stridor, no adenopathy, no meningismus, trachea is midline. LUNGS: Clear to auscultation bilaterally, no wheeze, no rhonchi, breath sounds equal. HEART: 3/6 systolic murmur, regular rate and rhythm. ABDOMEN: Soft, tender in the epigastrium with a fullness consistent with mass. Bowel sounds are positive. No hernias, no peritonitis. RECTAL: Maroon colored stool, heme positive. EXTREMITIES: No cyanosis or edema, full range of motion of all the joints without pain or difficulty, no signs for acute trauma. NEUROLOGIC: Oriented x 3, no acute motor or sensory deficits, no focal weakness. SKIN: No rash, no jaundice, no diaphoresis. Medical Decision & Procedures ER Provider Diagnostic Interpretation: This X-Ray was reviewed and interpreted by myself as we do not have a radiologist on staff overnight. CHEST X-RAY Cardiomegaly seen on X-Ray. No pneumothorax, no free air or pneumonia. This CT scan was reviewed and interpreted by the radiologist and reviewed by myself. ABDOMEN AND PELVIS CT WITHOUT CONTRAST IMPRESSION: 1. Interval development of diffuse hepatic metastatic disease, possibly splenic involvement. 2. Interval development of pancreatic head mass measuring 6 x 7 cm. 3. Trace abdominal and pelvic ascites with mild adenopathy. 4. Mild pericardial effusion. 5. 2.5 mm nodular density right lung base. Electronically signed by: Cruz Durbin M.D. 11/20/2016 7:02 AM Laboratory Results 11/20/16 05:25 Red Blood Count 2.68, Mean Corpuscular Volume 89.2, Mean Corpuscular Hemoglobin 29.5, Mean Corpuscular Hemoglobin Concent 33.1, Mean Platelet Volume 8.7, Neutrophils (%) (Auto) 83.7, Lymphocytes (%) (Auto) 5.4, Monocytes (%) (Auto) 9.1, Eosinophils (%) (Auto) 1.1, Basophils (%) (Auto) 0.2, Neutrophils # (Auto) 15.36, Lymphocytes # (Auto) 1.00, Monocytes # (Auto) 1.68, Eosinophils # (Auto) 0.20, Basophils # (Auto) 0.03 11/20/16 05:25 Test 11/20/16 05:25 White Blood Count 18.37 K/uL (4.8-10.8) Red Blood Count 2.68 M/uL (4.2-5.4) Hemoglobin 7.9 g/dL (12.0-16.0) Hematocrit 23.9 % (37-47) Mean Corpuscular Volume 89.2 fL (80-100) Mean Corpuscular Hemoglobin 29.5 pg (25-34) Mean Corpuscular Hemoglobin Concent 33.1 g/dl (32-36) Platelet Count 296 K/uL (130-400) Mean Platelet Volume 8.7 fL (7.4-10.4) Neutrophils (%) (Auto) 83.7 % Lymphocytes (%) (Auto) 5.4 % Monocytes (%) (Auto) 9.1 % Eosinophils (%) (Auto) 1.1 % Basophils (%) (Auto) 0.2 % Neutrophils # (Auto) 15.36 K/uL (1.4-6.5) Lymphocytes # (Auto) 1.00 K/uL (1.2-3.4) Monocytes # (Auto) 1.68 K/uL (0.11-0.59) Eosinophils # (Auto) 0.20 K/uL (0-0.5) Basophils # (Auto) 0.03 K/uL (0-0.2) RDW Standard Deviation 65.4 fL (36.4-46.3) RDW Coefficient of Variation 20.6 % (11.5-14.5) Immature Granulocyte % (Auto) 0.5 % Immature Granulocyte # (Auto) 0.10 K/uL (0.00-0.02) Polychromasia 1+ Anisocytosis PRESENT Prothrombin Time 12.0 SECONDS (9.0-12.0) Prothromb Time International Ratio 1.1 (0.9-1.1) Activated Partial Thromboplast Time 27.3 SECONDS (21.0-31.0) Partial Thromboplastin Ratio 1.1 Anion Gap 11.0 mmol/L (3-11) Est Creatinine Clear Calc Drug Dose 12.8 ml/min Estimated GFR () 10.5 Estimated GFR (Non- 9.1 BUN/Creatinine Ratio 9.0 (10-20) Calcium Level 11.7 mg/dl (8.5-10.1) Total Bilirubin 0.7 mg/dl (0.2-1) Direct Bilirubin 0.4 mg/dl (0-0.2) Aspartate Amino Transf (AST/SGOT) 155 U/L (15-37) Alanine Aminotransferase (ALT/SGPT) 45 U/L (12-78) Alkaline Phosphatase 776 U/L (45-117) Total Protein 6.1 gm/dl (6.4-8.2) Albumin 2.2 gm/dl (3.4-5.0) Lipase 70 U/L (73-393) Laboratory results reviewed by me. Medications Administered Medications (Trade) Dose Ordered Sig/Sophia Route Start Time Stop Time Status Last Admin Dose Admin Ondansetron HCl 4 mg 4 mg NOW STAT IV 11/20/16 05:13 11/20/16 05:16 DC 11/20/16 05:29 4 MG Sodium Chloride (Nss 1000ml) 1,000 ml @ 999 mls/hr Q1H1M STAT IV 11/20/16 05:13 11/20/16 06:13 DC 11/20/16 05:30 999 MLS/HR Morphine Sulfate 4 mg 4 mg Q15M PRN IV 11/20/16 05:15 11/20/16 13:06 DC 11/20/16 05:30 4 MG Pantoprazole Sodium 80 mg/ Dextrose 120 ml @ 480 mls/hr ONE STAT IV 11/20/16 05:26 11/20/16 05:40 DC 11/20/16 06:04 480 MLS/HR Pantoprazole Sodium 40 mg/ Dextrose 100 ml @ 20 mls/hr ONE STAT IV 11/20/16 05:26 11/20/16 10:25 DC 11/20/16 06:05 20 MLS/HR Erythromycin Lactobionate/ Sodium Chloride (Erythrocin IV/ Nss 250ml) 260 ml @ 250 mls/hr NOW STAT IV 11/20/16 06:31 11/20/16 07:33 DC 11/20/16 07:00 250 MLS/HR ECG Indication: weakness Rate (beats per minute): 86 Rhythm: normal sinus (normal sinus rhythm) Findings: no acute ischemic change, no ectopy, other (possible lateral infarct) ED Course 0508: The patient was evaluated in room B10. A complete history and physical exam was performed. 0513: NSS 1000 ml @ 999 mls/hr IV, NSS 1000 ml @ 200 mls/hr IV, Zofran 4 mg IV. 0515: Morphine Sulfate 4 mg IV. 0526: Pantoprazole Sodium 40 mg/Dextrose 100 ml @ 20 mls/hr IV, Pantoprazole Sodium 80 mg/Dextrose 120 ml @ 480 mls/hr IV. 0621: I discussed the patients case with Demond Freeman Hospitalist. He recommends I touch base with Gastroenterology and the patient will be further evaluated. 0630: I discussed the patients case with Demond Grimes Gastroenterology. He recommends giving the patient erythromycin 500 mg IV and she will be further evaluated. 0631: Erythromycin Lactobionate 500 mg/NSS 260 ml @ 250 mls/hr IV. 0645: I reevaluated the patient. She is resting comfortably and looking well currently. Medical Decision The differential diagnoses considered include upper or lower GI bleed, anemia, bowel obstruction, coagulopathy, dehydration and electrolyte imbalance. There is a significant leukocytosis of 18,000, this could be consistent with infection or just pain. She is anemic, her hemoglobin has dropped about 1 point or so from baseline. Renal panel testing shows a high creatinine consistent with her need for dialysis. Potassium was normal. There was some elevation to the liver enzymes, no evidence for pancreatitis. No coagulopathy. Chest film shows no free air or CHF. Cardiomegaly was seen. EKG shows a normal sinus rhythm, no acute ischemia. Abdominal and pelvis CT does not show bowel obstruction. The patient has a pancreatic mass with metastatic disease present. The patient was aggressively managed. She likely is suffering from a GI bleed. She was given IV Protonix, IV morphine and IV Zofran. The patient received IV saline. The patient is doing fairly well, her vital signs are stable. I did discuss all the findings with her. The patient is going to require hospitalization. I spoke to the on-call hospitalist. I spoke to the on-call GI physician. The GI doctor rehabilitation nurse requested the patient receive a 500 mg IV dose of erythromycin, this was ordered. Blood was ordered for transfusion but not begun as the patient's hemoglobin was still adequate. Consults Time Called: 614 Consulting Physician: Demond Freeman Hospitalist Returned Call: 06 I discussed the patients case with [facility]. The patient will be further evaluated. Additional Consults: Time Called: 06 Consulted Physician: Demond Grimes Gastroenterology Returned Call: 06 Additional Comments: I discussed the patients case with Demond Grimes Gastroenterology. He recommends giving the patient erythromycin 500 mg IV and she will be further evaluated. Impression Primary Impression: GI bleed Scribe Attestation The scribe's documentation has been prepared under my direction and personally reviewed by me in its entirety. I confirm that the note above accurately reflects all work, treatment, procedures, and medical decision making performed by me. Departure Information Dispostion Being Evaluated By Hospitalist Referrals Juana Tamez D.O. (PCP) Patient Instructions My [facility]
[2016-11-20] MEDS ORDERED: PANTOprazole INJ 40 MG in DEXTROSE 5% 100ML IV STA (05:26)
[2016-11-20] MEDS ORDERED: PANTOprazole INJ 80 MG in DEXTROSE 5% 100ML IV STA (05:26)
[2016-11-20 05:40] LABS: HEMATOCRIT 23.9 % (37-47); MEAN CELL VOLUME 89.2 fL (80-100); MEAN CORPUSCULAR HEMOGLOBIN 29.5 pg (25-34); MEAN CORPUSCULAR HGB CONC 33.1 g/dl (32-36); MEAN PLATELET VOLUME 8.7 fL (7.4-10.4); PLATELET COUNT 296 K/uL (130-400); RED BLOOD COUNT 2.68 M/uL (4.2-5.4); WHITE BLOOD COUNT 18.37 K/uL (4.8-10.8)
[2016-11-20 05:56] LABS: INR 1.1 (0.9-1.1); PARTIAL THROMBOPLASTIN RATIO 1.1
[2016-11-20 06:00] LABS: ANISOCYTOSIS PRESENT; BASO % 0.2 %; BASO ABS # 0.03 K/uL (0-0.2); COMPLETE YES; EOS % 1.1 %; IG% 0.5 %; LYMPH % 5.4 %; MONO % 9.1 %; NEUT % 83.7 %; POLYCHROMASIA 1+
[2016-11-20 06:12] LABS: CALCIUM 11.7 mg/dl (8.5-10.1); CREATININE 5.1 mg/dl (0.60-1.20); POTASSIUM 3.7 mmol/L (3.5-5.1)
[2016-11-20] MEDS ORDERED: ERYTHROMYCIN IV 500 MG in SODIUM CHLORIDE 0.9% 250ML 250 ML IV STA (06:31)
--- NOTE | 2016-11-20 06:42 | DIAGNOSTIC IMAGING REPORT ---
CHEST ONE VIEW PORTABLE CLINICAL HISTORY: EVALUATE GI BLEED dyspnea COMPARISON STUDY: 08/20/2016 FINDINGS: Moderate stable cardiomegaly. Median sternotomy. Lungs are clear. IMPRESSION: Stable moderate cardiomegaly. Otherwise negative study Electronically signed by: Cruz Durbin M.D. 11/20/2016 6:41 AM Dictated Date/Time: 11/20/2016 6:41 AM
[2016-11-20] MEDS ORDERED: HydrALAZINE HCL 20 MG/ML VIAL IV. PRN (07:00)
--- NOTE | 2016-11-20 07:05 | DIAGNOSTIC IMAGING REPORT ---
ABDOMEN AND PELVIS CT WITHOUT CONTRAST CT DOSE: 360.12 mGy.cm HISTORY: Pancreatic carcinoma ABD PAIN, POSSIBLE OBSTRUCTION, NO CONTRAST TECHNIQUE: Multiaxial CT images of the abdomen and pelvis were performed without contrast. COMPARISON STUDY: 05/09/2016 FINDINGS: 2.5 mm nodular density right lung base. Lung bases otherwise are clear. Interval development of diffuse hepatic metastatic disease within limitations of a nonenhanced scan. Large mass in the pancreatic head compared to the prior exam. Measurements are approximately 7 x 6 cm. Moderate peripancreatic genesis change. Kidneys negative for hydronephrosis. Trace perihepatic ascites. Small mild free fluid within the pelvic cul-de-sac. Bowel pattern is considered nonobstructive. Spleen is moderately enlarged. Possible metastatic deposits within the spleen are present best seen transaxial image 10. IMPRESSION: 1. Interval development of diffuse hepatic metastatic disease, possibly splenic involvement. 2. Interval development of pancreatic head mass measuring 6 x 7 cm. 3. Trace abdominal and pelvic ascites with mild adenopathy. 4. Mild pericardial effusion. 5. 2.5 mm nodular density right lung base. Electronically signed by: Cruz Durbin M.D. 11/20/2016 7:02 AM Dictated Date/Time: 11/20/2016 6:55 AM
[2016-11-20] MEDS ORDERED: GLUCOSE 40% GEL 15 GM TUBE PO PRN (07:30)
[2016-11-20] MEDS ORDERED: GLUCOSE 10 TABS/TUBE PO PRN (07:30)
[2016-11-20] MEDS ORDERED: GLUCAGON FOR INJ 1 MG VIAL SQ PRN (07:30)
--- NOTE | 2016-11-20 08:55 | Gastrointestinal Consultation ---
Gastrointestinal Consultation Date of Consultation: Nov 20, 2016 Consulting Physician: Sharan Reason for Consultation: GI bleed History of Present Illness Patient is a 51 year old female w/ PMH significant for pancreatic cancer (on chemotherapy, scheduled to be started this week), ESRD (on dialysis due today), DMT2, anemia, HTN, hyperlipidemia, CVA and depression who presented to [facility] for evaluation of rectal bleeding and vomiting. GI is consulted for management. She was in her typical state of health until yesterday where she began having both black and bloody stools and one episode of emesis (brown). She typically moves her bowels 1-2 times daily and has reports that she has never had any issues with black or bloody stools before. There was no other associated symptoms during these episodes. There was no change in her chronic abdominal pain (RUQ, daily but intermittent, dull and pressure). She has not moved her bowels since 1 am. She is currently taking daily aspirin and plavix. Reports dull generalized abdominal pain this morning, achy and constant. Pain does not radiate. This morning she has no other complaints. No lightheadedness, dizziness , fever, chills, chest pain, SOB. CT abd/pelvis 11/20/16: Interval development of diffuse hepatic metastatic disease , possibly splenic involvement. Interval development of pancreatic head mass measuring 6 x 7 cm. Trace abdominal and pelvic ascites with mild adenopathy. Mild pericardial effusion. 2.5 mm nodular density right lung base EUS 07/29/16: pancreatic mass identified (T2N0) consistent with adenocarcinoma EGD 09/29/15: The upper third of the esophagus, middle third of the esophagus and lower third of the esophagus were normal. The Z-line was regular and was found 43 cm from the incisors.The entire examined stomach was normal. A single 4 mm sessile polyp with no bleeding was found in the third part of the duodenum. The polyp was removed with a cold snare. Resection and retrieval were complete Colonoscopy 08/30/15: Three 2 to 5 mm polyps in the rectum, at the hepatic flexure and in the cecum. Resected and retrieved. One 15 mm polyp in the descending colon. Resected and retrieved. Clips were placed. This is not a likely source of anemia No known issues with anesthesia. Past Medical/Surgical History Medical Problems: (1) Anemia Status: Acute (2) Fever Status: Acute (3) GI bleed Status: Acute (4) History of pancreatic cancer Status: Acute (5) Renal failure Status: Acute (6) Stenosis of arteriovenous dialysis fistula Status: Acute (7) Upper GI bleed Status: Acute Family History Cancer Diabetes mellitus Heart disease Hypertension Lung disease Social History Smoking Status: Former Smoker Alcohol Use: none Drug Use: none Marital Status: Housing Status: lives with significant other Occupation Status: employed Allergies Coded Allergies: No Known Allergies (Verified , 11/20/16) Current Medications Home Meds and Scripts Medications Dose Route/Sig Max Daily Dose Days Date Category Dose Instructions Trazodone (Trazodone HCl) 100 Mg Tab 100 Mg PO HS 11/20/16 Reported Promethazine HCl 25 Mg Tab 25 Mg PO Q6H PRN 08/24/16 Reported Docusate Sodium 100 Mg Cap 1 Cap PO BID 08/08/16 Reported Lasix (Furosemide) 20 Mg Tab 20 Mg PO DAILY 08/08/16 Reported Cardizem Cd (Diltiazem Hcl Coated Beads) 180 Mg Cap 360 Mg PO DAILY 08/08/16 Reported 2 CAPSULE DOSE Zofran (Ondansetron HCl) 4 Mg Tab 4 Mg PO Q8 PRN 08/08/16 Reported Phoslo 667 Mg (Calcium Acetate (Phosphate Bin) 667 Mg Cap 1 Cap PO UD 08/08/16 Reported Take 2 pills with each meal and 1 pill with snacks. Humulin 70/30 (Insulin Human Isoph/Insulin Regular) Susp 24 Units SC QAM 08/08/16 Reported New dose 08/24/15: 24 units each morning before breakfast. Take 1/2 dose if blood sugar is less than 80. Zantac (Ranitidine HCl) 150 Mg Tab 150 Mg PO BID 07/25/16 Reported Vitamin D3 (Cholecalciferol) 1,000 Unit Tab 5,000 Unit PO QPM 02/22/16 Reported Aspirin Ec (Aspirin) 81 Mg Tab 81 Mg PO QAM 12/22/15 Reported Plavix (Clopidogrel Bisulfate) 75 Mg Tab 75 Mg PO QAM 08/11/15 Reported Lopressor (Metoprolol Tartrate) 25 Mg Tab 25 Mg PO BID 06/21/15 Reported Novolin 70/30 (Insulin Human Isoph/Insulin Regular) Inj 12 Units SC PM 06/21/15 Reported New dose 08/24/15: 12 units each evening before supper. Take 1/2 dose if blood sugar is less than 80. Hydralazine HCl 50 Mg Tab 50 Mg PO TID 06/21/15 Reported Sertraline HCl 100 Mg Tab 100 Mg PO QAM 10/20/14 Reported Atorvastatin Calcium (Atorvastatin) 40 Mg Tab 40 Mg PO QAM 10/20/14 Reported Review of Systems Constitutional: No chills, No fever Respiratory: No cough, No shortness of breath Cardiac: No chest pain, No edema Abdomen: + GI bleeding (black/bloody stools last at 0100 on 11/20/16), + pain ( generalized and achy), No constipation, No diarrhea, No nausea, No vomiting Physical Exam Date Time Temp Pulse Resp B/P Pulse Ox O2 Delivery O2 Flow Rate FiO2 11/20/16 08:05 36.7 89 18 147/71 92 Room Air 11/20/16 06:58 36.6 85 16 115/70 99 Nasal Cannula 2.0 11/20/16 06:17 88 14 142/78 96 Nasal Cannula 2.0 11/20/16 05:37 86 11/20/16 05:33 93 Room Air 11/20/16 05:33 94 Room Air 11/20/16 04:53 36.7 96 20 109/60 97 Room Air General Appearance: no apparent distress (patient is resting in bed, reports she is tired) Eyes: PERRL ENT: hearing grossly normal Neck: supple Respiratory/Chest: normal breath sounds, no respiratory distress, no accessory muscle use Cardiovascular: regular rate, rhythm, no edema, no murmur Abdomen: normal bowel sounds, soft, no organomegaly, no pulsatile mass Neurologic/Psych: alert, normal mood/affect, oriented x 3 Skin: warm/dry, no rash Laboratory Results Last 24 Hours Test 11/20/16 05:25 11/20/16 08:15 White Blood Count 18.37 K/uL Red Blood Count 2.68 M/uL Hemoglobin 7.9 g/dL Hematocrit 23.9 % Mean Corpuscular Volume 89.2 fL Mean Corpuscular Hemoglobin 29.5 pg Mean Corpuscular Hemoglobin Concent 33.1 g/dl Platelet Count 296 K/uL Mean Platelet Volume 8.7 fL Neutrophils (%) (Auto) 83.7 % Lymphocytes (%) (Auto) 5.4 % Monocytes (%) (Auto) 9.1 % Eosinophils (%) (Auto) 1.1 % Basophils (%) (Auto) 0.2 % Neutrophils # (Auto) 15.36 K/uL Lymphocytes # (Auto) 1.00 K/uL Monocytes # (Auto) 1.68 K/uL Eosinophils # (Auto) 0.20 K/uL Basophils # (Auto) 0.03 K/uL RDW Standard Deviation 65.4 fL RDW Coefficient of Variation 20.6 % Immature Granulocyte % (Auto) 0.5 % Immature Granulocyte # (Auto) 0.10 K/uL Polychromasia 1+ Anisocytosis PRESENT Prothrombin Time 12.0 SECONDS Prothromb Time International Ratio 1.1 Activated Partial Thromboplast Time 27.3 SECONDS Partial Thromboplastin Ratio 1.1 Sodium Level 136 mmol/L Potassium Level 3.7 mmol/L Chloride Level 94 mmol/L Carbon Dioxide Level 31 mmol/L Anion Gap 11.0 mmol/L Blood Urea Nitrogen 46 mg/dl Creatinine 5.10 mg/dl Est Creatinine Clear Calc Drug Dose 12.8 ml/min Estimated GFR () 10.5 Estimated GFR (Non- 9.1 BUN/Creatinine Ratio 9.0 Random Glucose 107 mg/dl Calcium Level 11.7 mg/dl Total Bilirubin 0.7 mg/dl Direct Bilirubin 0.4 mg/dl Aspartate Amino Transf (AST/SGOT) 155 U/L Alanine Aminotransferase (ALT/SGPT) 45 U/L Alkaline Phosphatase 776 U/L Total Protein 6.1 gm/dl Albumin 2.2 gm/dl Lipase 70 U/L Impression Patient is a 51 year old female with reports of BRB, black stools and brown/ dark emesis. Differentials include upper and lower GI bleed. Plan NPO PPI IV Erythromycin 500 mg IV started this morning EGD this morning Further recommendations pending EGD. I have seen and evaluated the patient. she presents with 24 hours of melena and 1 episode of hematemesis associated with a decrease in her hb/hct. history notable for metastatic pancreatic cancer (diffuse mets to the liver). PE: no distress, pale appearing, no abdominal tenderness. Impression: likely upper gi bleed Plan EGD today Protnix drip as you are doing pre op erythromycin given avoid nsaids.
[2016-11-20 08:56] LABS: HEMATOCRIT 22.7 % (37-47)
--- NOTE | 2016-11-20 09:09 | NEPHROLOGY CONSULTATION ---
DATE OF CONSULTATION: 11/20/2016 ATTENDING OF RECORD: Dr. Munroe. REASON FOR CONSULTATION: End-stage renal disease. HISTORY OF PRESENT ILLNESS: This is a 51-year-old female who dialyzes at the [facility] in [place] on Mondays, Wednesdays, and Fridays. The patient has been tolerating dialysis well. Does have metastatic pancreatic cancer, currently undergoing chemo and tolerating therapy as well. Has not been getting any Procrit secondary to the active pancreatic cancer diagnosed in July of last year. The patient started to become very weak, decreased appetite, and noticed bright red blood in the rectum. The patient is on aspirin and Plavix chronically. No previous bleeding before. Also had some nausea and vomiting around 3:00 this morning. The patient's hemoglobin levels were down to 7.9 with a white count of 18,000. There are 2 units ready to go for transfusion. The patient is very weak, today is her regular dialysis day, but the patient prefers to wait on dialysis until tomorrow if possible. REVIEW OF SYSTEMS: No fevers or chills. No headaches, no blurry vision, no dysphagia, no shortness of breath. No chest pain. Positive nausea and vomiting. Positive bright red rectal bleeding with blood in the stools as well as in wiping. No significant rash or itching. All other review of systems otherwise negative. PAST MEDICAL HISTORY: Type 2 diabetes, end-stage renal disease, history of stroke, hypertension, hyperlipidemia, and pancreatic cancer. PAST SURGICAL HISTORY: Hysterectomy, cholecystectomy, tubal ligation, fistula placement. FAMILY HISTORY: Significant for diabetes and cancer. SOCIAL HISTORY: No smoking, no alcohol, no drugs. She is and lives at home. CURRENT MEDICATIONS: Lopressor 5 IV q. 6, sliding scale insulin, Protonix. PHYSICAL EXAMINATION: VITAL SIGNS: Temperature 36.7, pulse 89, respiratory rate is 18, blood pressure 147/71, satting 92% on room air. GENERAL: Awake, alert, oriented x3, although lethargic. EYES: No scleral icterus. ENT: Moist mucous membranes. NECK: Supple. PULMONARY: Clear to auscultation. CARDIAC: Regular rate and rhythm. ABDOMEN: Bowel sounds positive, soft, nontender. EXTREMITIES: No clubbing, cyanosis or edema. NEUROLOGIC: Lethargic but nonfocal. DERMATOLOGIC: No rash or ulcers noted. LABORATORY DATA: White count is 18,000, H\T\H 7.9 and 23.9, platelet count is 296. Sodium is 136, potassium 3.7, chloride is 94, bicarbonate is 31, BUN is 46, creatinine is 5.1, glucose is 107, calcium is 11.7. AST 155, ALT 45. Albumin is 2.2. INR is 1.1. Abdominal pelvis CT shows interval development of diffuse hepatic metastatic disease with possible splenic involvement, interval development of pancreatic head mass measuring 6 x 7 cm, trace abdominal and pelvic ascites with mild adenopathy, mild pericardial effusion as well as a nodular density in the right lung base. Chest x-ray shows stable moderate cardiomegaly. IMPRESSION AND PLAN: 1. End-stage renal disease: Today is the patient's regular dialysis day; however, her potassium levels are stable, blood pressure is stable, would not be taking off volume at this time. Given the instability of the patient, currently with active bleeding and lethargy, I prefer to hold on dialysis today and reevaluate the patient for possible dialysis tomorrow. 2. Anemia of end-stage renal disease. The patient's hemoglobin levels are low. Following serial H\H, appears to be actively bleeding from the rectum. Was on aspirin and Plavix. No Procrit secondary to malignancy. Would transfuse p.r.n. 3. Hypercalcemia. Calcium levels are elevated, possibly from the underlying malignancy, possibly from intravascular volume depletion. Okay with volume resuscitation as needed to continue to stabilize the patient. Will dialyze on a low calcium bath when we do dialysis. Will check PTH and vitamin D levels and pthrp with next lab draw. [facility]
--- NOTE | 2016-11-20 10:10 | HISTORY & PHYSICAL EXAMINATION ---
DATE OF ADMISSION: 11/20/2016 PRIMARY CARE PHYSICIAN: Dr. Tamez. CHIEF COMPLAINT: Bright red blood per rectum and also vomiting of brown material since last night. HISTORY OF PRESENT COMPLAINT: She is a 51-year-old female with significant past medical history of pancreatic cancer diagnosed in July of last year with ongoing chemotherapy and metastasis, end-stage renal disease, on hemodialysis for the last nearly 1-1/2 years, hypertension, diabetes requiring insulin, and also history of CVA and chronic anemia. Apparently has been complaining of bright red blood per rectum since last night. She has had 2 episodes and last episode was before 3 a.m. and there was huge amount and she was very anxious about it and following that she has had some nausea and vomited once around 3 a.m. early this morning and that was brown in color, no definite blood as per the patient. She has some abdominal pain which is not unusual given the history of pancreatic cancer and she does not have any other symptoms associated with it. She has not been taking any NSAIDs except aspirin and Plavix that has been prescribed for her and she does not have any blurred vision, any headache, any numbness or tingling in the extremities, any weakness involving any side, or any rash involving anywhere in the body. She received her chemotherapy about 2 weeks ago and she is supposed to have chemo tomorrow and she is supposed to have dialysis as of today. In the ER, she was hemodynamically stable. She was generally weak and lethargic and her hemoglobin was noted to be 7.9. CT of the abdomen and pelvis that was done, but we have not got the results back yet. From this point the GI service is consulted and she will be admitted to medical telemetry unit with intravenous Protonix drip. PAST MEDICAL HISTORY: Significant for CA pancreas diagnosed in July, last month with metastasis to liver and lung and she has been on chemotherapy and that has been ongoing, end-stage renal disease, on hemodialysis for the last about 1-1/2 year, hypertension, history of stroke, diabetes requiring insulin, and also chronic anemia. PAST SURGICAL HISTORY: Tubal ligation, cholecystectomy, hysterectomy and minor abdominal wall tumor surgery. FAMILY HISTORY: Significant that most of the family members has had diabetes and her father had unknown type of cancer. SOCIAL HISTORY: She is . She has 2 children. She used to smoke in the past. She does not drink and she has been reasonably ambulant but she has been getting weaker and weaker. ALLERGIES: NKDA. MEDICATIONS: As an outpatient she has been on aspirin 81 mg daily, Lipitor 40 mg daily, calcium acetate 667 mg daily, vitamin D3 5000 units daily, Plavix 75 mg daily, diltiazem 360 mg daily, docusate sodium 100 mg twice daily, furosemide 20 mg daily, hydralazine 50 mg t.i.d., insulin 70/30 12 units in p.m. and 25 units in the morning; Lopressor 25 mg b.i.d., Zofran 4 mg q. 8 hourly as needed, promethazine hydrochloride 25 mg q. 6 hourly as needed, Zantac 150 mg b.i.d., sertraline 100 mg in the morning and trazodone 100 mg at night. REVIEW OF SYSTEMS: As in history of present illness. PHYSICAL EXAMINATION: GENERAL: On examination in the Emergency Room, she was not having any acute distress. VITAL SIGNS: Temperature 36.7, pulse is 85, blood pressure 115/70, saturation 99% on room air. HEENT: Unremarkable. NECK: Supple. No JVD, no bruit, though she looked pale. CHEST: Decreased breath sounds both sides with minimal crackles at the bases. HEART: S1, S2 with a 2/6 systolic murmur over precordium. ABDOMEN: Slightly distended, tender all over. Bowel sounds present. Difficult to palpate the organs. RECTAL: Deferred. EXTREMITIES: Negative for any edema. MUSCULOSKELETAL: Did not show any acute arthritis involving any joint. CENTRAL NERVOUS SYSTEM: She was alert, awake, oriented x3. She was generally weak and lethargic but did not have any focal neurological deficit. LABORATORY DATA: Noted today white count was 18.37, H\T\H 7.9/23.9 and platelet was 296. Sodium 136, potassium 3.7, chloride 94, carbon dioxide 31, BUN 46, creatinine 5.10, random glucose 107, calcium 11.7, total bilirubin 0.7, direct 0.4, AST 155, ALT 45, alkaline phosphatase 776, total protein 6.1, albumin 2.2 and lipase 70. PT/INR unremarkable. EKG was in sinus rhythm, rate of 86 per minute, normal axis, poor R-wave progression and nonspecific ST-T wave changes. IMPRESSION AND PLAN: 1. Acute gastrointestinal bleed. She has hematochezia and/or hematemesis. The cause could be peptic ulcer disease complicated by aspirin and Plavix use and may be secondary to invasion of the pancreatic cancer causing bleeding. She is hemodynamically stable. Hemoglobin is 7.9. We will check H\T\H q. 6 hourly, type and crossmatch 2 units and she will be given 2 units of blood transfusion. GI consultation and IV Protonix. Hold aspirin, Plavix and any NSAIDs. 2. Carcinoma of pancreas with metastasis. We will continue with pain medications as needed. She has been on chemo and her fourth chemo is supposed to be tomorrow. 3. End-stage renal disease, on hemodialysis, her kidney failure secondary to hypertension. She has been on hemodialysis for the last about 1-1/2 years. We will consult nephrology and continue dialysis. 4. Diabetes on insulin. We will hold her regular insulin as she is going to be n.p.o., put her on sliding scale coverage while in the hospital. 5. Hypertension. Blood pressure seems to be on the upper side. Hold her Cardizem and give her Lopressor IV and also hydralazine as needed to control blood pressure. 6. May have anxiety/depression, hold her current medications. 7. Gastrointestinal prophylaxis with IV Protonix. 8. Deep venous thrombosis prophylaxis, sequential compression devices. No pharmacological anticoagulation due to bleeding. 9. Code status -- She will be a full code. In my clinical judgment, the beneficiary meets criteria as per CMS for 2 midnight stay in the hospital. [email or web address]
[2016-11-20] MEDS: INSULIN ASPART 100 UNITS/ML 3 ML PEN SC SCH ×3 (11:00→20:19)
[2016-11-20] MEDS ORDERED: PHENYLEPHRINE HCL INJ 10 MG/ML VIAL ONE (11:29)
[2016-11-20] MEDS ORDERED: PROPOFOL IV EMULSION 10 MG/ML 20 ML VIAL IV ONE (11:29)
[2016-11-20] MEDS ORDERED: LIDOCAINE HCL 2% 2 ML VIAL (20MG/ML) ONE (11:29)
--- NOTE | 2016-11-20 11:45 | GI REPORT ---
Procedure Date: 11/20/2016 11:29 AM Procedure: Upper GI endoscopy Indications: Hematemesis Medicines: Monitored Anesthesia Care Complications: No immediate complications. Estimated blood loss: Minimal. Estimated Blood Loss: Estimated blood loss was minimal. Procedure: Pre-Anesthesia Assessment: - Prior to the procedure, a History and Physical was performed, and patient medications, allergies and sensitivities were reviewed. The patient's tolerance of previous anesthesia was reviewed. - The risks and benefits of the procedure and the sedation options and risks were discussed with the patient. All questions were answered and informed consent was obtained. - Patient identification and proposed procedure were verified prior to the procedure by the physician, the nurse and the cutting tool sharpener. The procedure was verified in the procedure room. - Pre-procedure physical examination revealed no contraindications to sedation. - ASA Grade Assessment: IV - A patient with severe systemic disease that is a constant threat to life. - After reviewing the risks and benefits, the patient was deemed in satisfactory condition to undergo the procedure. - The anesthesia plan was to use monitored anesthesia care (MAC). - Immediately prior to administration of medications, the patient was re-assessed for adequacy to receive sedatives. - The heart rate, respiratory rate, oxygen saturations, blood pressure, adequacy of pulmonary ventilation, and response to care were monitored throughout the procedure. - The physical status of the patient was re-assessed after the procedure. After obtaining informed consent, the endoscope was passed under direct vision. Throughout the procedure, the patient's blood pressure, pulse, and oxygen saturations were monitored continuously. The scope was introduced through the mouth, and advanced to the third part of duodenum. The upper GI endoscopy was accomplished without difficulty. The patient tolerated the procedure well. Findings: The examined esophagus was normal. The entire examined stomach was normal. A large fungating mass with bleeding was found in the first part of the duodenum. The mass was notable for diffuse bleeding / oozing. To try and identify a specific lesion, the area was injected with 2.5 mL of a 1:10,000 solution of epinephrine for hemostasis. The oozing improved, however, no focal lesion could be identified. Estimated blood loss was minimal. The 2nd part of the duodenum and 3rd part of the duodenum were normal. Impression: - Normal esophagus. - Normal stomach. 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 Treatment options limited due to size of mass (no focal bleeding) - Normal 2nd part of the duodenum and 3rd part of the duodenum. - No specimens collected. Recommendation: - Return patient to [facility] for ongoing care. - Clear liquid diet today. - Observe patient's clinical course. - Use Protonix (pantoprazole) 40 mg PO daily. - No aspirin, ibuprofen, naproxen, or other non-steroidal anti-inflammatory drugs. - Will discuss options with patient (perhaps placement of an enteral stent (would need a biliary stent as well) Sarah Tsang D.O. Sarah Tsang, 11/20/2016 11:45:14 AM This report has been signed electronically. Note Initiated On: 11/20/2016 11:29 AM I attest to the content of the Intraoperative Record and orders documented therein, exceptions below
[2016-11-20] MEDS ORDERED: EpINEphrine INJ 1MG/ML AMP 1 MG/ML AMP ONE (11:47)
--- NOTE | 2016-11-20 11:59 | Anesthesiology Progress Note ---
Anesthesia Post Op Note Date & Time Nov 20, 2016 at 11:59 Vital Signs Pain Intensity: 0 Vital Signs Past 12 Hours Date Time Temp Pulse Resp B/P Pulse Ox O2 Delivery O2 Flow Rate FiO2 11/20/16 11:57 91 16 142/72 97 Partial Rebreather 2 11/20/16 11:48 91 16 136/70 99 Partial Rebreather 2 11/20/16 11:10 36.9 90 20 153/66 98 Nasal Cannula 2 11/20/16 11:05 36.9 90 20 153/66 98 2.0 11/20/16 09:53 36.8 92 18 125/72 97 2.0 11/20/16 09:34 37.0 90 18 121/67 94 2.0 11/20/16 09:33 37.0 90 19 121/67 89 11/20/16 08:05 36.7 89 18 147/71 92 Room Air 11/20/16 06:58 36.6 85 16 115/70 99 Nasal Cannula 2.0 11/20/16 06:17 88 14 142/78 96 Nasal Cannula 2.0 11/20/16 05:37 86 11/20/16 05:33 93 Room Air 11/20/16 05:33 94 Room Air 11/20/16 04:53 36.7 96 20 109/60 97 Room Air Notes Mental Status: alert / awake / arousable, participated in evaluation Pt Amnestic to Procedure: Yes Nausea / Vomiting: adequately controlled Pain: adequately controlled Airway Patency, RR, SpO2: stable & adequate BP & HR: stable & adequate Hydration State: stable & adequate Anesthetic Complications: no major complications apparent Pt doing well.
[2016-11-20] MEDS: METOPROLOL TARTRATE 1 MG/ML VIAL IV. SCH ×2 (13:02→17:08)
--- NOTE | 2016-11-20 13:05 | Progress Note ---
Progress Note Date of Service Nov 20, 2016. (Philly Prieto ., ANGE) Progress Note NPO after midnight Repeat EGD on 11/21/16 for clips one dose of E-mycin 500 mg IV at 0700 11/21/16 to be given prior to EGD (Philly Prieto ., ANGE) I have discussed the patient with advanced endo at [facility] [facility], they suggest consideration of radiation therapy as opposed to a stent as a stent may make her bleeding worse. We could placed several clips in the region of the mass if needed by Radiation oncology. (Sarah Tsang, DO)
--- NOTE | 2016-11-20 14:15 | Progress Note ---
Subjective Date of Service: Nov 20, 2016. Subjective Pt evaluation today including: conversation w/ patient, physical exam, lab review, review of studies, conversation w/ freight traffic consultant, review of inpatient medication list Saw/examined the patient in room 231 she had her EGD this morning; very tired and lethargic this morning Problem List Medical Problems: (1) Anemia Status: Acute (2) Fever Status: Acute (3) GI bleed Status: Acute (4) History of pancreatic cancer Status: Acute (5) Renal failure Status: Acute (6) Stenosis of arteriovenous dialysis fistula Status: Acute (7) Upper GI bleed Status: Acute Review of Systems Constitutional: + fatigue, + weakness, No chills, No fever Respiratory: No shortness of breath Cardiac: No chest pain, No edema, No palpitations Abdomen: + GI bleeding, + pain, No constipation, No diarrhea, No nausea, No vomiting Female : No dysuria, No urinary frequency Heme: + abnormal bleeding/bruising Medications Current Inpatient Medications Medications (Trade) Dose Ordered Sig/Sophia Route Start Time Stop Time Status Last Admin Dose Admin Ondansetron HCl (Zofran Inj) 4 mg Q6H PRN IV 11/20/16 07:00 12/20/16 06:59 Metoprolol Tartrate (Lopressor Iv) 5 mg Q6 IV. 11/20/16 12:00 12/20/16 11:59 11/20/16 13:02 5 MG Hydralazine HCl (HydrALAZINE INJ) 10 mg Q6H PRN IV. 11/20/16 07:00 12/20/16 06:59 Hydromorphone HCl (Dilaudid Inj) 0.5 mg Q4H PRN IV 11/20/16 07:00 12/04/16 06:59 Insulin Aspart (novoLOG ASPART) SLIDING SCALE G... ACHS SC 11/20/16 11:00 12/20/16 10:59 Glucose (Glucose 40% Gel) 15-30 GRAMS 15 GRAMS... UD PRN PO 11/20/16 07:30 12/20/16 07:29 Glucose (Glucose Chew Tab) 4-8 Tablets 4 Tabl... UD PRN PO 11/20/16 07:30 12/20/16 07:29 Dextrose (Dextrose 50% 50ML Syringe) 25-50ML OF 50% DW IV FOR... UD PRN IV 11/20/16 07:30 12/20/16 07:29 Glucagon 1 mg 1 mg UD PRN SQ 11/20/16 07:30 12/20/16 07:29 Erythromycin Lactobionate/ Sodium Chloride (Erythrocin IV/ Nss 250ml) 260 ml @ 250 mls/hr TODAY@0700 ONCE IV 11/21/16 07:00 11/21/16 08:02 Objective Vital Signs Date Time Temp Pulse Resp B/P Pulse Ox O2 Delivery O2 Flow Rate FiO2 11/20/16 13:18 36.5 88 16 136/81 96 2.0 11/20/16 13:02 97 151/78 11/20/16 13:00 36.8 97 16 151/78 98 2.0 11/20/16 12:15 Nasal Cannula 2.0 11/20/16 12:12 93 16 149/76 98 Nasal Cannula 2 11/20/16 12:05 93 16 146/73 97 Partial Rebreather 2 11/20/16 12:03 91 16 146/69 98 2.0 11/20/16 11:57 91 16 142/72 97 Partial Rebreather 2 11/20/16 11:48 91 16 136/70 99 Partial Rebreather 2 11/20/16 11:10 36.9 90 20 153/66 98 Nasal Cannula 2 11/20/16 11:05 36.9 90 20 153/66 98 2.0 11/20/16 10:50 36.7 93 18 128/74 97 2.0 11/20/16 09:53 36.8 92 18 125/72 97 2.0 11/20/16 09:34 37.0 90 18 121/67 94 2.0 11/20/16 09:33 37.0 90 19 121/67 89 11/20/16 08:05 36.7 89 18 147/71 92 Room Air 11/20/16 06:58 36.6 85 16 115/70 99 Nasal Cannula 2.0 11/20/16 06:17 88 14 142/78 96 Nasal Cannula 2.0 11/20/16 05:37 86 11/20/16 05:33 93 Room Air 11/20/16 05:33 94 Room Air 11/20/16 04:53 36.7 96 20 109/60 97 Room Air Physical Exam General Appearance: no apparent distress, + pertinent finding (very tired/ lethargic/weak today) Respiratory/Chest: lungs clear, normal breath sounds, no respiratory distress, no accessory muscle use Cardiovascular: regular rate, rhythm, no edema, no murmur Abdomen: normal bowel sounds, soft, no organomegaly, no pulsatile mass, + tenderness, + pertinent finding Extremities: normal inspection, no pedal edema Neurologic/Psychiatric: no motor/sensory deficits, alert, normal mood/affect Laboratory Results Last 24 Hours Test 11/20/16 05:25 11/20/16 08:15 11/20/16 12:00 11/20/16 12:45 White Blood Count 18.37 K/uL Red Blood Count 2.68 M/uL Hemoglobin 7.9 g/dL 7.3 g/dL Hematocrit 23.9 % 22.7 % Mean Corpuscular Volume 89.2 fL Mean Corpuscular Hemoglobin 29.5 pg Mean Corpuscular Hemoglobin Concent 33.1 g/dl Platelet Count 296 K/uL Mean Platelet Volume 8.7 fL Neutrophils (%) (Auto) 83.7 % Lymphocytes (%) (Auto) 5.4 % Monocytes (%) (Auto) 9.1 % Eosinophils (%) (Auto) 1.1 % Basophils (%) (Auto) 0.2 % Neutrophils # (Auto) 15.36 K/uL Lymphocytes # (Auto) 1.00 K/uL Monocytes # (Auto) 1.68 K/uL Eosinophils # (Auto) 0.20 K/uL Basophils # (Auto) 0.03 K/uL RDW Standard Deviation 65.4 fL RDW Coefficient of Variation 20.6 % Immature Granulocyte % (Auto) 0.5 % Immature Granulocyte # (Auto) 0.10 K/uL Polychromasia 1+ Anisocytosis PRESENT Prothrombin Time 12.0 SECONDS Prothromb Time International Ratio 1.1 Activated Partial Thromboplast Time 27.3 SECONDS Partial Thromboplastin Ratio 1.1 Sodium Level 136 mmol/L Potassium Level 3.7 mmol/L Chloride Level 94 mmol/L Carbon Dioxide Level 31 mmol/L Anion Gap 11.0 mmol/L Blood Urea Nitrogen 46 mg/dl Creatinine 5.10 mg/dl Est Creatinine Clear Calc Drug Dose 12.8 ml/min Estimated GFR () 10.5 Estimated GFR (Non- 9.1 BUN/Creatinine Ratio 9.0 Random Glucose 107 mg/dl Calcium Level 11.7 mg/dl Total Bilirubin 0.7 mg/dl Direct Bilirubin 0.4 mg/dl Aspartate Amino Transf (AST/SGOT) 155 U/L Alanine Aminotransferase (ALT/SGPT) 45 U/L Alkaline Phosphatase 776 U/L Total Protein 6.1 gm/dl Albumin 2.2 gm/dl Lipase 70 U/L Bedside Glucose 109 mg/dl Assessment and Plan This is a 51 year old female with PMH of 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, ESRD on HD, anemia of renal disease, insulin dependent DM2, HTN presents with hematemesis and bright red blood per rectum GI bleed in the setting of Metastatic Pancreatic Cancer appreciate GI input EGD performed this morning duodenal mass, likely extension of the pancreatic carcinoma unfortunately, no intervention could be performed plan is to consult radiation/oncology for radiation therapy EGD in AM for clips to be placed will consult Hem/Onc currently second unit of PRBCs transfusing recheck H/H 4 hours post-transfusion hemodynamically stable ESRD on HD plan for hemodialysis on 11/21 appreciate nephrology input Insulin Dependent DM2 currently on a sliding scale started on clear liquid diet will be NPO after midnight for EGD will monitor BSGs and adjust accordingly HTN currently on IV Lopressor PRN Hydralazine once eating okay, can switch back to oral medication DVT ppx SCDs FULL CODE discussed code status with patient and she would like to be full code; poor prognosis with her metastatic pancreatic cancer with extension of her pancreatic mass into the duodenum
--- NOTE | 2016-11-20 14:36 | DIAGNOSTIC IMAGING REPORT ---
ABDOMINAL ULTRASOUND, RIGHT UPPER QUADRANT HISTORY: history of a pancreatic mass, evaluation for ductal dilation. COMPARISON: Abdomen and pelvis CT 11/20/2016. FINDINGS: Pancreas: There is a 7.3 cm mass at the pancreatic head. The pancreatic duct is distended up to 1 cm. Liver: The liver is enlarged measuring 21 cm in length. There numerous scattered hepatic lesions consistent with metastatic disease. Dominant lesion within the left hepatic lobe measures 4.5 cm. Moderate intrahepatic bile duct dilatation. Trace perihepatic ascites. Gallbladder: The gallbladder is surgically absent. CBD: Distended up to 1.7 cm. Right kidney: No hydronephrosis. IMPRESSION: 1. A 7.3 cm pancreatic head mass with associated biliary and pancreatic duct dilatation. 2. Multiple hepatic metastatic lesions. 3. Trace perihepatic ascites. 4. Cholecystectomy. Electronically signed by: Mike Ibrahim M.D. 11/20/2016 2:34 PM Dictated Date/Time: 11/20/2016 2:31 PM
[2016-11-20] MEDS: HYDROmorphone INJ 0.5 MG/0.5 ML SYR IV PRN ×2 (15:22→21:22)
--- NOTE | 2016-11-20 15:30 | Medical Consult ---
Consultation Date of Consultation: Nov 20, 2016. Attending Physician: Ilene Munroe DO Reason for Consultation: Progressive pancreatic cancer in the setting of palliative chemotherapy, s/p 4 cycles of gemcitabine History of Present Illness Mrs. Sandoval is a 51 yo CF known to the consulting medical oncology service. She has comorbid conditions of end-stage renal disease, on hemodialysis for the last 1 year, has longstanding history of hypertension as well as diabetes, over 20 years. She was admitted in the hospital for acute pancreatitis in April,, subsequently found to have pancreatic head/uncinate process mass, biopsy confirmed pancreatic adenocarcinoma, imaging studies also showed metastatic disease involving the liver, lungs. She also had peritoneal dialysis catheter which was removed during recent hospitalization at [facility]. Presently she is having hemodialysis 3 times a week, Sunday, Sunday. Started on single agent chemotherapy gemcitabine since 09/05/2016, (weekly x2 followed by 1 week off). She had 1 unit PRBC on 10/17/16 and 2 units PRBC on 10/24/16 for symptomatic anemia - likely of multiple causes that she required PRBC- chemotherapy related, ESRD in HD, anemia in malignancy. She started cycle 4 of gemcitabine on 11/07/16, unable to complete day 8 of treatment due to LFT abnormalities. She required 2 units PRBC on 11/10/2016 due to symptomatic anemia when she presented to the dialysis unit that day ; she was directed to the [facility] ER. Prior to add Boling today, she experienced 24 hours have melena and 1 episode of hematemesis. She decided to report to the ER. Her hemoglobin had declined down to high 7 G/dL range. She has been on arranged to receive 2 units PRBC. She was evaluated by Gastroenterology who recommended prophylactic erythromycin and start on IV PPI. Her aspirin and Plavix were held due to acute GI bleed. The esophagogastroduodenoscopy today revealed - "Normal esophagus. Normal stomach. 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 Treatment options limited due to size of mass (no focal bleeding). Normal 2nd part of the duodenum and 3rd part of the duodenum." A repeat esophagogastroduodenoscopy is planned for tomorrow for possible material stent placement as well as biliary stent placement. GI has spoken with Dr. Desai who is recommended possible palliative radiation to the erosive mass since his the duodenum. Additional history obtained from the patient at bedside. She states that her last bowel movement was earlier this morning. She had frequent episodes of melena starting yesterday prior to admission today. She had 1 episode of hematemesis. She was having pain in her abdomen when she was having the GI bleeding, but she does not have much in the way of pain at this time. She reports a fair appetite. She is not having nausea. She has no respiratory complaints. She is not reporting any issues with urination. She is not having peripheral pain or edema. She is on board with Dr. Desai of Radiation Oncology in respect to having palliative radiation to her pancreatic mass that has invaded the duodenum. Past Medical/Surgical History Medical Problems: (1) Anemia Status: Acute (2) Fever Status: Acute (3) GI bleed Status: Acute (4) History of pancreatic cancer Status: Acute (5) Renal failure Status: Acute (6) Stenosis of arteriovenous dialysis fistula Status: Acute (7) Upper GI bleed Status: Acute Family History Cancer Diabetes mellitus Heart disease Hypertension Lung disease Social History Smoking Status: Former Smoker Drug Use: none Marital Status: Housing Status: lives with significant other Occupation Status: employed Allergies Coded Allergies: No Known Allergies (Verified , 11/20/16) Current Inpatient Medications Current Inpatient Medications Medications (Trade) Dose Ordered Sig/Sophia Route Start Time Stop Time Status Last Admin Dose Admin Ondansetron HCl (Zofran Inj) 4 mg Q6H PRN IV 11/20/16 07:00 12/20/16 06:59 Metoprolol Tartrate (Lopressor Iv) 5 mg Q6 IV. 11/20/16 12:00 12/20/16 11:59 11/20/16 13:02 5 MG Hydralazine HCl (HydrALAZINE INJ) 10 mg Q6H PRN IV. 11/20/16 07:00 12/20/16 06:59 Hydromorphone HCl (Dilaudid Inj) 0.5 mg Q4H PRN IV 11/20/16 07:00 12/04/16 06:59 Insulin Aspart (novoLOG ASPART) SLIDING SCALE G... ACHS SC 11/20/16 11:00 12/20/16 10:59 Glucose (Glucose 40% Gel) 15-30 GRAMS 15 GRAMS... UD PRN PO 11/20/16 07:30 12/20/16 07:29 Glucose (Glucose Chew Tab) 4-8 Tablets 4 Tabl... UD PRN PO 11/20/16 07:30 12/20/16 07:29 Dextrose (Dextrose 50% 50ML Syringe) 25-50ML OF 50% DW IV FOR... UD PRN IV 11/20/16 07:30 12/20/16 07:29 Glucagon 1 mg 1 mg UD PRN SQ 11/20/16 07:30 12/20/16 07:29 Erythromycin Lactobionate/ Sodium Chloride (Erythrocin IV/ Nss 250ml) 260 ml @ 250 mls/hr TODAY@0700 ONCE IV 11/21/16 07:00 11/21/16 08:02 Review of Systems Constitutional: + fatigue, No chills, No fever Respiratory: No cough, No shortness of breath, No sputum, No wheezing Cardiovascular: No chest pain, No edema Abdomen: + GI bleeding, + nausea, + pain, + vomiting Musculoskeletal: No calf pain Genitourinary - Female: No dysuria, No hematuria Integumentary: No itch, No rash Physical Exam Date Time Temp Pulse Resp B/P Pulse Ox O2 Delivery O2 Flow Rate FiO2 11/20/16 13:31 36.8 88 16 128/77 96 2.0 11/20/16 13:18 36.5 88 16 136/81 96 2.0 11/20/16 13:02 97 151/78 11/20/16 13:00 36.8 97 16 151/78 98 2.0 11/20/16 12:15 Nasal Cannula 2.0 11/20/16 12:12 93 16 149/76 98 Nasal Cannula 2 11/20/16 12:05 93 16 146/73 97 Partial Rebreather 2 11/20/16 12:03 91 16 146/69 98 2.0 11/20/16 11:57 91 16 142/72 97 Partial Rebreather 2 11/20/16 11:48 91 16 136/70 99 Partial Rebreather 2 11/20/16 11:10 36.9 90 20 153/66 98 Nasal Cannula 2 11/20/16 11:05 36.9 90 20 153/66 98 2.0 11/20/16 10:50 36.7 93 18 128/74 97 2.0 11/20/16 09:53 36.8 92 18 125/72 97 2.0 11/20/16 09:34 37.0 90 18 121/67 94 2.0 11/20/16 09:33 37.0 90 19 121/67 89 11/20/16 08:05 36.7 89 18 147/71 92 Room Air 11/20/16 06:58 36.6 85 16 115/70 99 Nasal Cannula 2.0 11/20/16 06:17 88 14 142/78 96 Nasal Cannula 2.0 11/20/16 05:37 86 11/20/16 05:33 93 Room Air 11/20/16 05:33 94 Room Air 11/20/16 04:53 36.7 96 20 109/60 97 Room Air General Appearance: no apparent distress, + pertinent finding (appear chronically ill) ENT: hearing grossly normal Respiratory/Chest: normal breath sounds, no respiratory distress, no accessory muscle use Cardiovascular: regular rate, rhythm, no edema Abdomen/GI: normal bowel sounds, non tender, soft Extremities/Musculoskelatal: no calf tenderness, no pedal edema Neurologic/Psych: alert, oriented x 3, + depressed affect Skin: warm/dry, no rash Laboratory Results 11/20/16 05:25 Red Blood Count 2.68, Mean Corpuscular Volume 89.2, Mean Corpuscular Hemoglobin 29.5, Mean Corpuscular Hemoglobin Concent 33.1, Mean Platelet Volume 8.7, Neutrophils (%) (Auto) 83.7, Lymphocytes (%) (Auto) 5.4, Monocytes (%) (Auto) 9.1, Eosinophils (%) (Auto) 1.1, Basophils (%) (Auto) 0.2, Neutrophils # (Auto) 15.36, Lymphocytes # (Auto) 1.00, Monocytes # (Auto) 1.68, Eosinophils # (Auto) 0.20, Basophils # (Auto) 0.03 11/20/16 08:15 11/20/16 05:25 Test 11/20/16 05:25 11/20/16 12:45 White Blood Count 18.37 K/uL (4.8-10.8) Red Blood Count 2.68 M/uL (4.2-5.4) Hemoglobin 7.9 g/dL (12.0-16.0) Hematocrit 23.9 % (37-47) Mean Corpuscular Volume 89.2 fL (80-100) Mean Corpuscular Hemoglobin 29.5 pg (25-34) Mean Corpuscular Hemoglobin Concent 33.1 g/dl (32-36) Platelet Count 296 K/uL (130-400) Mean Platelet Volume 8.7 fL (7.4-10.4) Neutrophils (%) (Auto) 83.7 % Lymphocytes (%) (Auto) 5.4 % Monocytes (%) (Auto) 9.1 % Eosinophils (%) (Auto) 1.1 % Basophils (%) (Auto) 0.2 % Neutrophils # (Auto) 15.36 K/uL (1.4-6.5) Lymphocytes # (Auto) 1.00 K/uL (1.2-3.4) Monocytes # (Auto) 1.68 K/uL (0.11-0.59) Eosinophils # (Auto) 0.20 K/uL (0-0.5) Basophils # (Auto) 0.03 K/uL (0-0.2) RDW Standard Deviation 65.4 fL (36.4-46.3) RDW Coefficient of Variation 20.6 % (11.5-14.5) Immature Granulocyte % (Auto) 0.5 % Immature Granulocyte # (Auto) 0.10 K/uL (0.00-0.02) Polychromasia 1+ Anisocytosis PRESENT Prothrombin Time 12.0 SECONDS (9.0-12.0) Prothromb Time International Ratio 1.1 (0.9-1.1) Activated Partial Thromboplast Time 27.3 SECONDS (21.0-31.0) Partial Thromboplastin Ratio 1.1 Anion Gap 11.0 mmol/L (3-11) Est Creatinine Clear Calc Drug Dose 12.8 ml/min Estimated GFR () 10.5 Estimated GFR (Non- 9.1 BUN/Creatinine Ratio 9.0 (10-20) Calcium Level 11.7 mg/dl (8.5-10.1) Total Bilirubin 0.7 mg/dl (0.2-1) Direct Bilirubin 0.4 mg/dl (0-0.2) Aspartate Amino Transf (AST/SGOT) 155 U/L (15-37) Alanine Aminotransferase (ALT/SGPT) 45 U/L (12-78) Alkaline Phosphatase 776 U/L (45-117) Total Protein 6.1 gm/dl (6.4-8.2) Albumin 2.2 gm/dl (3.4-5.0) Lipase 70 U/L (73-393) Bedside Glucose 109 mg/dl (70-90) Chest x-ray from 11/20/2016: Moderate stable cardiomegaly. Median sternotomy. Lungs clear. CT of the abdomen/pelvis from 11/20/2016: Interval development of diffuse hepatic metastatic disease. Large mass in the pancreatic head compared to prior exam in April 2016. Measuring approximately 7 x 6 cm. Moderate peripancreatic genesis change. Kidneys negative for hydronephrosis. Trace perihepatic ascites. Spleen is moderately enlarged. Possible metastatic deposits within the spleen. Mild pericardial effusion. 2.5 mm nodular density right lung base. Abdomen ultrasound from 11/20/2016: 7.3 cm mass at the pancreatic head. Pancreatic duct distended up to 1 cm. Liver is enlarged measuring 21 cm in length. Numerous scattered hepatic lesions consistent with metastatic disease. Dominant lesion within the left hepatic lobe measuring 4.5 cm. Moderate intrahepatic bile duct dilatation. Trace perihepatic ascites. CBD distended up to 1.7 cm. Assessment & Plan 1. Stage IV pancreatic adenocarcinoma with liver and lung metastases- recent progression noted on scans/EGD when she was admitted today for UGI bleed, increase in liver lesions (went from multiple to diffuse) and pancreatic primary invading duodenum causing UGI * Dr. Ollie Desai has met with patient and family and discussed palliative RT to pancreatic/duodenal areas * Plan for repeat EGD tomorrow for enteral and biliary stent placement by GI * Discussed with patient and family that single agent gemcitabine x 4 cycles has not been effective in controlling her pancreatic cancer; with current PS, co -morbidities not planning for further palliative chemotherapy at this time 2. Acute blood loss anemia * S/p 2 units PRBC today * Continue to monitor CBC daily * Melena appears to have stopped at this time 3. Elevated LFTs secondary to liver metastases * Steady incline of alkaline phosphatase, mild direct hyperbilirubinemia * Patient may have biliary stent placed tomorrow on EGD by GI 4. ESRD- management per Dr. Blanton 5. Hypercalcemia- likely of malignancy * Patient may receive dialysis tomorrow and plan is to use low calcium bath * Per nephrology permissible hydration, plan to check PTH and vitamin D tomorrow per nephrology * Monitor calcium level after dialysis, may consider Zometa 3 mg IV dose x 1 Thanks for the consult. I performed a history and physical examination of the patient and discussed the management with Annette Conrad PA-C . I reviewed her note and agree with the documented findings and plan of care. In summary, she is a 51-year-old female, a case of stage IV pancreatic cancer, also a case of ESRD, having hemodialysis, receiving systemic chemotherapy single agent gemcitabine since August 2016, required a blood transfusion support, now she's admitted for hematemesis, found to have pancreatic cancer mass involving the duodenum causing upper G.I. bleed, received 2 units of PRBC so far, hemodynamically stable, had abdominal pain which has improved, feeling quite weak and tired, I reviewed with her regarding the recent imaging study which shows evidence of liver metastatic disease, earlier blood workup was done in the form of cancer marker CA 19-9 level which was significantly on the higher side >10,000.. I also reviewed with the patient's regarding over all clinical condition , overall prognosis remains poor. Discussed with her regarding advanced directive including DNR DNI, he will let us know soon about that. Discussed with them regarding the role of palliative radiation treatment that can be considered for upper G.I. bleed related to the duodenal mass. It is possible that she may not handle the radiation treatment well or may not derive any meaningful benefit of that. Looking at her overall clinical condition, she is not a candidate for systemic chemotherapy at this time and she understood that well. Hypercalcemia noted this time, she would have analysis tomorrow will see how she does with that, if she has persistently elevated calcium level, she will receive Zometa. Dr. Murray Desai Hem/Onc
--- NOTE | 2016-11-20 18:09 | Radiation Oncology Progress Nt ---
Radiation Oncology Progress Nt Date of Service Date of Service: Nov 20, 2016. Subjective Pt evaluation today including: conversation w/ patient, conversation w/ family Ms. Sandoval is a 51-year-old female who we previously saw in consultation for consideration of radiation therapy for pancreatic cancer. The patient did have a high likelihood of metastatic disease and ultimately underwent systemic chemotherapy underneath the supervision of Dr. Murray Desai. More recently, the patient has been having blood in her bowel movements and was brought to the emergency room. She did have a CT of the abdomen/pelvis on 11/20/2016 which revealed: "IMPRESSION: 1. Interval development of diffuse hepatic metastatic disease, possibly splenic involvement. 2. Interval development of pancreatic head mass measuring 6 x 7 cm. 3. Trace abdominal and pelvic ascites with mild adenopathy. 4. Mild pericardial effusion. 5. 2.5 mm nodular density right lung base." She did undergo a upper endoscopy by Dr. Julio Tsang on 11/20/2016 which revealed: "A large fungating mass with bleeding was found in the first part of the duodenum. The mass was notable for diffuse bleeding / oozing." We have been asked to evaluate the patient for consideration of palliative radiation therapy to the duodenal mass to prevent further bleeding and anemia. Review of Systems Constitutional: + see HPI Objective Vital Signs Date Time Temp Pulse Resp B/P Pulse Ox O2 Delivery O2 Flow Rate FiO2 11/20/16 17:08 90 126/79 11/20/16 16:50 36.5 87 20 128/78 96 Nasal Cannula 2.0 11/20/16 15:20 36.6 91 20 152/84 98 Nasal Cannula 2.0 11/20/16 14:40 36.6 90 16 130/73 97 2.0 11/20/16 14:24 36.5 87 16 134/79 98 11/20/16 13:31 36.8 88 16 128/77 96 2.0 11/20/16 13:18 36.5 88 16 136/81 96 2.0 11/20/16 13:02 97 151/78 11/20/16 13:00 36.8 97 16 151/78 98 2.0 11/20/16 12:15 Nasal Cannula 2.0 11/20/16 12:12 93 16 149/76 98 Nasal Cannula 2 11/20/16 12:05 93 16 146/73 97 Partial Rebreather 2 11/20/16 12:03 91 16 146/69 98 2.0 11/20/16 11:57 91 16 142/72 97 Partial Rebreather 2 11/20/16 11:48 91 16 136/70 99 Partial Rebreather 2 11/20/16 11:10 36.9 90 20 153/66 98 Nasal Cannula 2 11/20/16 11:05 36.9 90 20 153/66 98 2.0 11/20/16 10:50 36.7 93 18 128/74 97 2.0 11/20/16 09:53 36.8 92 18 125/72 97 2.0 11/20/16 09:34 37.0 90 18 121/67 94 2.0 11/20/16 09:33 37.0 90 19 121/67 89 11/20/16 08:05 36.7 89 18 147/71 92 Room Air 11/20/16 06:58 36.6 85 16 115/70 99 Nasal Cannula 2.0 11/20/16 06:17 88 14 142/78 96 Nasal Cannula 2.0 11/20/16 05:37 86 11/20/16 05:33 93 Room Air 11/20/16 05:33 94 Room Air 11/20/16 04:53 36.7 96 20 109/60 97 Room Air Physical Exam General Appearance: + moderate distress Eyes: normal inspection, PERRL, EOMI Neck: supple Respiratory/Chest: chest non-tender, lungs clear, normal breath sounds, no respiratory distress Cardiovascular: regular rate, rhythm, no edema, no gallop, no JVD Abdomen: normal bowel sounds, non tender, soft, no organomegaly Neurologic/Psychiatric: oriented x 3, + depressed affect Skin: + pallor Radiological Studies ABDOMEN AND PELVIS CT WITHOUT CONTRAST - 11/20/2016 CT DOSE: 360.12 mGy.cm HISTORY: Pancreatic carcinoma ABD PAIN, POSSIBLE OBSTRUCTION, NO CONTRAST TECHNIQUE: Multiaxial CT images of the abdomen and pelvis were performed without contrast. COMPARISON STUDY: 05/09/2016 FINDINGS: 2.5 mm nodular density right lung base. Lung bases otherwise are clear. Interval development of diffuse hepatic metastatic disease within limitations of a nonenhanced scan. Large mass in the pancreatic head compared to the prior exam. Measurements are approximately 7 x 6 cm. Moderate peripancreatic genesis change. Kidneys negative for hydronephrosis. Trace perihepatic ascites. Small mild free fluid within the pelvic cul-de-sac. Bowel pattern is considered nonobstructive. Spleen is moderately enlarged. Possible metastatic deposits within the spleen are present best seen transaxial image 10. IMPRESSION: 1. Interval development of diffuse hepatic metastatic disease, possibly splenic involvement. 2. Interval development of pancreatic head mass measuring 6 x 7 cm. 3. Trace abdominal and pelvic ascites with mild adenopathy. 4. Mild pericardial effusion. 5. 2.5 mm nodular density right lung base. Laboratory Results Last 24 Hours Test 11/20/16 05:25 11/20/16 08:15 11/20/16 12:45 11/20/16 16:17 White Blood Count 18.37 K/uL Red Blood Count 2.68 M/uL Hemoglobin 7.9 g/dL 7.3 g/dL Hematocrit 23.9 % 22.7 % Mean Corpuscular Volume 89.2 fL Mean Corpuscular Hemoglobin 29.5 pg Mean Corpuscular Hemoglobin Concent 33.1 g/dl Platelet Count 296 K/uL Mean Platelet Volume 8.7 fL Neutrophils (%) (Auto) 83.7 % Lymphocytes (%) (Auto) 5.4 % Monocytes (%) (Auto) 9.1 % Eosinophils (%) (Auto) 1.1 % Basophils (%) (Auto) 0.2 % Neutrophils # (Auto) 15.36 K/uL Lymphocytes # (Auto) 1.00 K/uL Monocytes # (Auto) 1.68 K/uL Eosinophils # (Auto) 0.20 K/uL Basophils # (Auto) 0.03 K/uL RDW Standard Deviation 65.4 fL RDW Coefficient of Variation 20.6 % Immature Granulocyte % (Auto) 0.5 % Immature Granulocyte # (Auto) 0.10 K/uL Polychromasia 1+ Anisocytosis PRESENT Prothrombin Time 12.0 SECONDS Prothromb Time International Ratio 1.1 Activated Partial Thromboplast Time 27.3 SECONDS Partial Thromboplastin Ratio 1.1 Sodium Level 136 mmol/L Potassium Level 3.7 mmol/L Chloride Level 94 mmol/L Carbon Dioxide Level 31 mmol/L Anion Gap 11.0 mmol/L Blood Urea Nitrogen 46 mg/dl Creatinine 5.10 mg/dl Est Creatinine Clear Calc Drug Dose 12.8 ml/min Estimated GFR () 10.5 Estimated GFR (Non- 9.1 BUN/Creatinine Ratio 9.0 Random Glucose 107 mg/dl Calcium Level 11.7 mg/dl Total Bilirubin 0.7 mg/dl Direct Bilirubin 0.4 mg/dl Aspartate Amino Transf (AST/SGOT) 155 U/L Alanine Aminotransferase (ALT/SGPT) 45 U/L Alkaline Phosphatase 776 U/L Total Protein 6.1 gm/dl Albumin 2.2 gm/dl Lipase 70 U/L Bedside Glucose 109 mg/dl 98 mg/dl Assessment and Plan Ms. Sandoval is a 51-year-old female who presents with locally advanced metastatic pancreatic cancer status post chemotherapy. The patient recently completed chemotherapy underneath the supervision of Dr. Murray Desai. She was scheduled for further systemic chemotherapy however she was admitted to the hospital due to lower gastrointestinal bleeding. The patient underwent a CT abdomen and pelvis which revealed a large mass involving the duodenum which was confirmed on EGD by Dr. Sarah Tsang on 11/20/2016. Dr. Tsang plans to bring the patient back to the operating room tomorrow for placement of an enteral stent and biliary stent. We have been asked to evaluate the patient for consideration of palliative radiation therapy to the duodenal mass to prevent further bleeding. Given the patient's overall performance status and low likelihood of receiving further systemic chemotherapy, we have recommended consideration of palliative radiation therapy to the duodenal mass with the intention of reducing bleeding and potentially improving the patient's anemia. I have spoken to Dr. Murray Desai regarding the case as well and he is in agreement to consider potential palliative radiation therapy. We will bring the patient down on Sunday for a CT simulation for treatment planning and we will plan to initiate palliative radiation therapy at the end of this week or the beginning of the following week. We will hold off on CT simulation until gastroenterology completes the planned procedure tomorrow for placement of a biliary/enteral stent. We have explained the indications, alternatives, benefits, risks and side effects of radiation therapy. We have explained the most common side effects including but are not limited to skin erythema, skin break down, hair loss, fibrosis, adhesion development, radiation pneumonitis, rib and bone fracture, heart failure and heart disease, esophagitis, bowel obstruction, urinary symptoms, thyroid disorders, mucositis, nauesea, vomiting, diarrhea, anemia, fatigue and development of secondary malignancy. Women may also have early onset ovarian failure leading to premature menopause and may experience infertility issues depending on her age. We have explained the CT simulation process and treatment planning. We explained what to expect before, during and after treatment on a regular basis. The patient understands and would be willing to consent to treatment. The patient and family had multiple questions which were answered to their full satisfaction. Thank you for allowing us to participate in the care of this patient. This chart was completed in part utilizing [employer] Speech Voice Recognition software. Attempts were made to minimize the grammatical errors, random word insertions, pronoun errors and incomplete sentences. Any formal questions or concerns about the content, text or information contained within the body of this dictation should be directly addressed to the provider for clarification. Blu Desai MD Department of Radiation Oncology [facility] Harpreet Connell [facility]
[2016-11-20 20:07] LABS: HEMATOCRIT 28.8 % (37-47)
[2016-11-20] MEDS: ONDANSETRON INJ 2 MG/ML 2 ML VIAL IV PRN (21:22)
[2016-11-21] VITALS (23 sets, daily range): BP systolic 113–162; BP diastolic 59–86; PULSE 84–99; TEMP 36.4–37; O2SAT 91–98; BMI 30.0
[2016-11-21] MEDS: METOPROLOL TARTRATE 1 MG/ML VIAL IV. SCH ×2 (00:18→06:34)
[2016-11-21 00:20] LABS: HEMATOCRIT 28.4 % (37-47)
[2016-11-21 04:07] LABS: HEMATOCRIT 29.7 % (37-47); MEAN CELL VOLUME 90.8 fL (80-100); MEAN PLATELET VOLUME 8.7 fL (7.4-10.4); PLATELET COUNT 280 K/uL (130-400); RED BLOOD COUNT 3.27 M/uL (4.2-5.4); WHITE BLOOD COUNT 19.57 K/uL (4.8-10.8)
[2016-11-21 04:37] LABS: BUN/CREATININE RATIO 9.5 (10-20); CALCIUM 12.1 mg/dl (8.5-10.1); CREATININE 5.3 mg/dl (0.60-1.20); MAGNESIUM 2.4 mg/dl (1.8-2.4); PHOSPHORUS 6.8 mg/dl (2.5-4.9)
[2016-11-21 04:58] LABS: POTASSIUM 4.4 mmol/L (3.5-5.1)
[2016-11-21] MEDS ORDERED: ERYTHROMYCIN IV 500 MG in SODIUM CHLORIDE 0.9% 250ML 250 ML IV ONE (07:00)
[2016-11-21] MEDS: INSULIN ASPART 100 UNITS/ML 3 ML PEN SC SCH ×4 (07:00→20:38)
[2016-11-21] MEDS: DEXTROSE 50% 50 ML SYR IV PRN ×2 (07:17→09:56)
[2016-11-21] MEDS: ONDANSETRON INJ 2 MG/ML 2 ML VIAL IV PRN (08:35)
--- NOTE | 2016-11-21 09:28 | Nephrology Progress Note ---
Nephrology Progress Note Date of Service: Nov 21, 2016. Subjective 51 yo female with metastatic pancreatic cancer who was GI bleeding and required 2 units of blood and GI scope. currently npo for EGD today. last dialysis was sunday. pt appears better today with more energy and more alert. Objective Date Time Temp Pulse Resp B/P Pulse Ox O2 Delivery O2 Flow Rate FiO2 11/21/16 08:15 36.9 91 18 134/81 96 11/21/16 08:00 Room Air 11/21/16 06:34 98 150/73 11/21/16 04:20 Nasal Cannula 2.0 11/21/16 02:57 37.0 92 21 150/73 93 Nasal Cannula 2.0 11/21/16 00:18 90 135/80 11/21/16 00:15 95 Nasal Cannula 2.0 11/21/16 00:00 36.7 92 20 135/80 97 Nasal Cannula 2.0 11/20/16 20:15 95 Nasal Cannula 2.0 11/20/16 19:41 37.1 90 20 145/78 95 Nasal Cannula 2.0 11/20/16 17:08 90 126/79 11/20/16 16:50 36.5 87 20 128/78 96 Nasal Cannula 2.0 11/20/16 16:00 Nasal Cannula 2.0 11/20/16 15:20 36.6 91 20 152/84 98 Nasal Cannula 2.0 11/20/16 14:40 36.6 90 16 130/73 97 2.0 11/20/16 14:24 36.5 87 16 134/79 98 11/20/16 13:31 36.8 88 16 128/77 96 2.0 11/20/16 13:18 36.5 88 16 136/81 96 2.0 11/20/16 13:02 97 151/78 11/20/16 13:00 36.8 97 16 151/78 98 2.0 11/20/16 12:15 Nasal Cannula 2.0 11/20/16 12:12 93 16 149/76 98 Nasal Cannula 2 11/20/16 12:05 93 16 146/73 97 Partial Rebreather 2 11/20/16 12:03 91 16 146/69 98 2.0 11/20/16 11:57 91 16 142/72 97 Partial Rebreather 2 11/20/16 11:48 91 16 136/70 99 Partial Rebreather 2 11/20/16 11:10 36.9 90 20 153/66 98 Nasal Cannula 2 11/20/16 11:05 36.9 90 20 153/66 98 2.0 11/20/16 10:50 36.7 93 18 128/74 97 2.0 11/20/16 09:53 36.8 92 18 125/72 97 2.0 11/20/16 09:34 37.0 90 18 121/67 94 2.0 11/20/16 09:33 37.0 90 19 121/67 89 Physical Exam: General-[id number] Eyes-no scleral icterus ENT-mmm Neck-supple Lungs-cta Heart-rrr Abdomen-+tenderness epigastric Extremities-no c/c/e Neuro-nonfocal Current Inpatient Medications Medications (Trade) Dose Ordered Sig/Sophia Route Start Time Stop Time Status Last Admin Dose Admin Ondansetron HCl (Zofran Inj) 4 mg Q6H PRN IV 11/20/16 07:00 12/20/16 06:59 11/21/16 08:35 4 MG Metoprolol Tartrate (Lopressor Iv) 5 mg Q6 IV. 11/20/16 12:00 12/20/16 11:59 11/21/16 06:34 5 MG Hydralazine HCl (HydrALAZINE INJ) 10 mg Q6H PRN IV. 11/20/16 07:00 12/20/16 06:59 Hydromorphone HCl (Dilaudid Inj) 0.5 mg Q4H PRN IV 11/20/16 07:00 12/04/16 06:59 11/20/16 21:22 0.5 MG Insulin Aspart (novoLOG ASPART) SLIDING SCALE G... ACHS SC 11/20/16 11:00 12/20/16 10:59 Glucose (Glucose 40% Gel) 15-30 GRAMS 15 GRAMS... UD PRN PO 11/20/16 07:30 12/20/16 07:29 Glucose (Glucose Chew Tab) 4-8 Tablets 4 Tabl... UD PRN PO 11/20/16 07:30 12/20/16 07:29 Dextrose (Dextrose 50% 50ML Syringe) 25-50ML OF 50% DW IV FOR... UD PRN IV 11/20/16 07:30 12/20/16 07:29 11/21/16 07:17 25 ML Glucagon (Glucagon Inj) 1 mg UD PRN SQ 11/20/16 07:30 12/20/16 07:29 Last 24 Hours Test 11/20/16 12:45 11/20/16 16:17 11/20/16 19:57 11/20/16 20:04 Bedside Glucose 109 mg/dl 98 mg/dl 91 mg/dl Hemoglobin 9.5 g/dL Hematocrit 28.8 % Test 11/21/16 00:15 11/21/16 03:55 11/21/16 06:54 11/21/16 08:19 Hemoglobin 9.5 g/dL 9.8 g/dL Hematocrit 28.4 % 29.7 % White Blood Count 19.57 K/uL Red Blood Count 3.27 M/uL Mean Corpuscular Volume 90.8 fL Mean Corpuscular Hemoglobin 30.0 pg Mean Corpuscular Hemoglobin Concent 33.0 g/dl RDW Standard Deviation 63.0 fL RDW Coefficient of Variation 19.6 % Platelet Count 280 K/uL Mean Platelet Volume 8.7 fL Sodium Level 139 mmol/L Potassium Level 4.4 mmol/L Chloride Level 101 mmol/L Carbon Dioxide Level 29 mmol/L Anion Gap 9.0 mmol/L Blood Urea Nitrogen 50 mg/dl Creatinine 5.30 mg/dl Est Creatinine Clear Calc Drug Dose 12.4 ml/min Estimated GFR () 10.1 Estimated GFR (Non- 8.7 BUN/Creatinine Ratio 9.5 Random Glucose 58 mg/dl Calcium Level 12.1 mg/dl Phosphorus Level 6.8 mg/dl Magnesium Level 2.4 mg/dl 25-Hydroxy Vitamin D Total 41.1 ng/ml Parathyroid Hormone (Intact) 7.1 pg/mL Hepatitis B Surface Antigen NEG Bedside Glucose 51 mg/dl 72 mg/dl Assessment & Plan ESRD-plan for dialysis today. will arrange around EGD today. will try to remove about one liter since last treatment was on sunday. lungs cta and no edema. pt still urinates. Anemia of renal failure-no procrit given her metastatic cancer. transfuse prn. appears hg levels are stable now. hypercalcemia-repeating vitamin d, pth, pthrp again today. likely from her malignancy. dialyzing on a low calcium bath to help lower calcium levels. may need a dose of zometa as well. will follow levels.
--- NOTE | 2016-11-21 10:28 | Progress Note ---
Subjective Date of Service: Nov 21, 2016. Subjective Pt evaluation today including: conversation w/ patient, physical exam, lab review, review of studies, review of inpatient medication list Saw/examined the patient in room 231 She's doing fine today; is in the room with her +hungry due to being NPO after midnight Would like to go home as soon as possible; she knows the plan going forward, no bleeding since arriving here Problem List Medical Problems: (1) Anemia Status: Acute (2) Fever Status: Acute (3) GI bleed Status: Acute (4) History of pancreatic cancer Status: Acute (5) Renal failure Status: Acute (6) Stenosis of arteriovenous dialysis fistula Status: Acute (7) Upper GI bleed Status: Acute Review of Systems Constitutional: + weakness, No chills, No fever Respiratory: No shortness of breath Cardiac: No chest pain Abdomen: + GI bleeding (prior to arrival), + pain, No constipation, No diarrhea , No nausea, No vomiting Heme: + abnormal bleeding/bruising Medications Current Inpatient Medications Medications (Trade) Dose Ordered Sig/Sophia Route Start Time Stop Time Status Last Admin Dose Admin Ondansetron HCl (Zofran Inj) 4 mg Q6H PRN IV 11/20/16 07:00 12/20/16 06:59 11/21/16 08:35 4 MG Metoprolol Tartrate (Lopressor Iv) 5 mg Q6 IV. 11/20/16 12:00 12/20/16 11:59 11/21/16 06:34 5 MG Hydralazine HCl (HydrALAZINE INJ) 10 mg Q6H PRN IV. 11/20/16 07:00 12/20/16 06:59 Hydromorphone HCl (Dilaudid Inj) 0.5 mg Q4H PRN IV 11/20/16 07:00 12/04/16 06:59 11/20/16 21:22 0.5 MG Insulin Aspart (novoLOG ASPART) SLIDING SCALE G... ACHS SC 11/20/16 11:00 12/20/16 10:59 Glucose (Glucose 40% Gel) 15-30 GRAMS 15 GRAMS... UD PRN PO 11/20/16 07:30 12/20/16 07:29 Glucose (Glucose Chew Tab) 4-8 Tablets 4 Tabl... UD PRN PO 11/20/16 07:30 12/20/16 07:29 Dextrose (Dextrose 50% 50ML Syringe) 25-50ML OF 50% DW IV FOR... UD PRN IV 11/20/16 07:30 12/20/16 07:29 11/21/16 09:56 25 ML Glucagon (Glucagon Inj) 1 mg UD PRN SQ 11/20/16 07:30 12/20/16 07:29 Objective Vital Signs Date Time Temp Pulse Resp B/P Pulse Ox O2 Delivery O2 Flow Rate FiO2 11/21/16 08:15 36.9 91 18 134/81 96 11/21/16 08:00 Room Air 11/21/16 06:34 98 150/73 11/21/16 04:20 Nasal Cannula 2.0 11/21/16 02:57 37.0 92 21 150/73 93 Nasal Cannula 2.0 11/21/16 00:18 90 135/80 11/21/16 00:15 95 Nasal Cannula 2.0 11/21/16 00:00 36.7 92 20 135/80 97 Nasal Cannula 2.0 11/20/16 20:15 95 Nasal Cannula 2.0 11/20/16 19:41 37.1 90 20 145/78 95 Nasal Cannula 2.0 11/20/16 17:08 90 126/79 11/20/16 16:50 36.5 87 20 128/78 96 Nasal Cannula 2.0 11/20/16 16:00 Nasal Cannula 2.0 11/20/16 15:20 36.6 91 20 152/84 98 Nasal Cannula 2.0 11/20/16 14:40 36.6 90 16 130/73 97 2.0 11/20/16 14:24 36.5 87 16 134/79 98 11/20/16 13:31 36.8 88 16 128/77 96 2.0 11/20/16 13:18 36.5 88 16 136/81 96 2.0 11/20/16 13:02 97 151/78 11/20/16 13:00 36.8 97 16 151/78 98 2.0 11/20/16 12:15 Nasal Cannula 2.0 11/20/16 12:12 93 16 149/76 98 Nasal Cannula 2 11/20/16 12:05 93 16 146/73 97 Partial Rebreather 2 11/20/16 12:03 91 16 146/69 98 2.0 11/20/16 11:57 91 16 142/72 97 Partial Rebreather 2 11/20/16 11:48 91 16 136/70 99 Partial Rebreather 2 11/20/16 11:10 36.9 90 20 153/66 98 Nasal Cannula 2 11/20/16 11:05 36.9 90 20 153/66 98 2.0 11/20/16 10:50 36.7 93 18 128/74 97 2.0 Physical Exam General Appearance: no apparent distress Respiratory/Chest: lungs clear, normal breath sounds, no respiratory distress, no accessory muscle use Cardiovascular: regular rate, rhythm, no edema, no murmur Abdomen: normal bowel sounds, soft, + tenderness Extremities: normal inspection, no pedal edema Neurologic/Psychiatric: no motor/sensory deficits, alert, normal mood/affect Laboratory Results Last 24 Hours Test 11/20/16 12:45 11/20/16 16:17 11/20/16 19:57 11/20/16 20:04 Bedside Glucose 109 mg/dl 98 mg/dl 91 mg/dl Hemoglobin 9.5 g/dL Hematocrit 28.8 % Test 11/21/16 00:15 11/21/16 03:55 11/21/16 06:54 11/21/16 08:19 Hemoglobin 9.5 g/dL 9.8 g/dL Hematocrit 28.4 % 29.7 % White Blood Count 19.57 K/uL Red Blood Count 3.27 M/uL Mean Corpuscular Volume 90.8 fL Mean Corpuscular Hemoglobin 30.0 pg Mean Corpuscular Hemoglobin Concent 33.0 g/dl RDW Standard Deviation 63.0 fL RDW Coefficient of Variation 19.6 % Platelet Count 280 K/uL Mean Platelet Volume 8.7 fL Sodium Level 139 mmol/L Potassium Level 4.4 mmol/L Chloride Level 101 mmol/L Carbon Dioxide Level 29 mmol/L Anion Gap 9.0 mmol/L Blood Urea Nitrogen 50 mg/dl Creatinine 5.30 mg/dl Est Creatinine Clear Calc Drug Dose 12.4 ml/min Estimated GFR () 10.1 Estimated GFR (Non- 8.7 BUN/Creatinine Ratio 9.5 Random Glucose 58 mg/dl Calcium Level 12.1 mg/dl Phosphorus Level 6.8 mg/dl Magnesium Level 2.4 mg/dl 25-Hydroxy Vitamin D Total 41.1 ng/ml Parathyroid Hormone (Intact) 7.1 pg/mL Hepatitis B Surface Antigen NEG Bedside Glucose 51 mg/dl 72 mg/dl Test 11/21/16 09:52 Bedside Glucose 69 mg/dl Assessment and Plan This is a 51 year old female with PMH of 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, ESRD on HD, anemia of renal disease, insulin dependent DM2, HTN presents with hematemesis and bright red blood per rectum GI bleed in the setting of Metastatic Pancreatic Cancer 11/21 s/p two units PRBCs H/H stable ~ 9.8 today the plan today is for a repeat EGD for clips palliative radiation at the duodenal mass is planned as per radiation oncology appreciate Hem/Onc input 11/20 appreciate GI input EGD performed this morning duodenal mass, likely extension of the pancreatic carcinoma unfortunately, no intervention could be performed plan is to consult radiation/oncology for radiation therapy EGD in AM for clips to be placed will consult Hem/Onc currently second unit of PRBCs transfusing recheck H/H 4 hours post-transfusion hemodynamically stable ESRD on HD 11/21 HD with 1L fluid removal planned for today after EGD 11/20 plan for hemodialysis on 11/21 appreciate nephrology input Insulin Dependent DM2 11/21 insulin being held due to hypoglycemia secondary to being NPO after midnight and decreased appetite 11/20 currently on a sliding scale started on clear liquid diet will be NPO after midnight for EGD will monitor BSGs and adjust accordingly HTN currently on IV Lopressor PRN Hydralazine once eating okay, can switch back to oral medication DVT ppx SCDs FULL CODE discussed code status with patient and she would like to be full code; poor prognosis with her metastatic pancreatic cancer with extension of her pancreatic mass into the duodenum
--- NOTE | 2016-11-21 11:00 | Gastroenterology Progress Note ---
Progress Note Date of Service: Nov 21, 2016 Subjective Pt evaluation today including: conversation w/ patient, physical exam, chart review, lab review Pt was seen and examined this afternoon. EGD this morning was postponed and rescheduled for tomorrow with the addition of ERCP as liver enzymes are obstructive. She is feeling well today and is currently eating clear liquids. Family is at bedside. She denies any fever, chills, chest pain, SOB, abdominal pain. No more rectal bleeding. Review of Systems Constitutional: No chills, No fever Respiratory: No cough, No shortness of breath Cardiac: No chest pain, No edema Abdomen: No GI bleeding, No constipation, No diarrhea, No nausea, No pain, No vomiting Medications Current Inpatient Medications Medications (Trade) Dose Ordered Sig/Sophia Route Start Time Stop Time Status Last Admin Dose Admin Ondansetron HCl (Zofran Inj) 4 mg Q6H PRN IV 11/20/16 07:00 12/20/16 06:59 11/21/16 08:35 4 MG Metoprolol Tartrate (Lopressor Iv) 5 mg Q6 IV. 11/20/16 12:00 12/20/16 11:59 11/21/16 06:34 5 MG Hydralazine HCl (HydrALAZINE INJ) 10 mg Q6H PRN IV. 11/20/16 07:00 12/20/16 06:59 Hydromorphone HCl (Dilaudid Inj) 0.5 mg Q4H PRN IV 11/20/16 07:00 12/04/16 06:59 11/20/16 21:22 0.5 MG Insulin Aspart (novoLOG ASPART) SLIDING SCALE G... ACHS SC 11/20/16 11:00 12/20/16 10:59 Glucose (Glucose 40% Gel) 15-30 GRAMS 15 GRAMS... UD PRN PO 11/20/16 07:30 12/20/16 07:29 Glucose (Glucose Chew Tab) 4-8 Tablets 4 Tabl... UD PRN PO 11/20/16 07:30 12/20/16 07:29 Dextrose (Dextrose 50% 50ML Syringe) 25-50ML OF 50% DW IV FOR... UD PRN IV 11/20/16 07:30 12/20/16 07:29 11/21/16 09:56 25 ML Glucagon (Glucagon Inj) 1 mg UD PRN SQ 11/20/16 07:30 12/20/16 07:29 Objective Vital Signs Date Time Temp Pulse Resp B/P Pulse Ox O2 Delivery O2 Flow Rate FiO2 11/21/16 10:37 36.9 91 20 100/52 99 Nasal Cannula 2 11/21/16 08:15 36.9 91 18 134/81 96 11/21/16 08:00 Room Air 11/21/16 06:34 98 150/73 11/21/16 04:20 Nasal Cannula 2.0 11/21/16 02:57 37.0 92 21 150/73 93 Nasal Cannula 2.0 11/21/16 00:18 90 135/80 11/21/16 00:15 95 Nasal Cannula 2.0 11/21/16 00:00 36.7 92 20 135/80 97 Nasal Cannula 2.0 11/20/16 20:15 95 Nasal Cannula 2.0 11/20/16 19:41 37.1 90 20 145/78 95 Nasal Cannula 2.0 11/20/16 17:08 90 126/79 11/20/16 16:50 36.5 87 20 128/78 96 Nasal Cannula 2.0 11/20/16 16:00 Nasal Cannula 2.0 11/20/16 15:20 36.6 91 20 152/84 98 Nasal Cannula 2.0 11/20/16 14:40 36.6 90 16 130/73 97 2.0 11/20/16 14:24 36.5 87 16 134/79 98 11/20/16 13:31 36.8 88 16 128/77 96 2.0 11/20/16 13:18 36.5 88 16 136/81 96 2.0 11/20/16 13:02 97 151/78 11/20/16 13:00 36.8 97 16 151/78 98 2.0 11/20/16 12:15 Nasal Cannula 2.0 11/20/16 12:12 93 16 149/76 98 Nasal Cannula 2 11/20/16 12:05 93 16 146/73 97 Partial Rebreather 2 11/20/16 12:03 91 16 146/69 98 2.0 11/20/16 11:57 91 16 142/72 97 Partial Rebreather 2 11/20/16 11:48 91 16 136/70 99 Partial Rebreather 2 11/20/16 11:10 36.9 90 20 153/66 98 Nasal Cannula 2 11/20/16 11:05 36.9 90 20 153/66 98 2.0 Physical Exam Eyes: PERRL ENT: hearing grossly normal Neck: supple, trachea midline Respiratory/Chest: chest non-tender, normal breath sounds, no respiratory distress Cardiovascular: regular rate, rhythm, no edema, no gallop, no JVD Abdomen: normal bowel sounds, non tender, soft, no organomegaly, no pulsatile mass Neurologic/Psych: alert, normal mood/affect, oriented x 3 Skin: normal color Laboratory Results Last 24 Hours Test 11/20/16 12:45 11/20/16 16:17 11/20/16 19:57 11/20/16 20:04 Bedside Glucose 109 mg/dl 98 mg/dl 91 mg/dl Hemoglobin 9.5 g/dL Hematocrit 28.8 % Test 11/21/16 00:15 11/21/16 03:55 11/21/16 06:54 11/21/16 08:19 Hemoglobin 9.5 g/dL 9.8 g/dL Hematocrit 28.4 % 29.7 % White Blood Count 19.57 K/uL Red Blood Count 3.27 M/uL Mean Corpuscular Volume 90.8 fL Mean Corpuscular Hemoglobin 30.0 pg Mean Corpuscular Hemoglobin Concent 33.0 g/dl RDW Standard Deviation 63.0 fL RDW Coefficient of Variation 19.6 % Platelet Count 280 K/uL Mean Platelet Volume 8.7 fL Sodium Level 139 mmol/L Potassium Level 4.4 mmol/L Chloride Level 101 mmol/L Carbon Dioxide Level 29 mmol/L Anion Gap 9.0 mmol/L Blood Urea Nitrogen 50 mg/dl Creatinine 5.30 mg/dl Est Creatinine Clear Calc Drug Dose 12.4 ml/min Estimated GFR () 10.1 Estimated GFR (Non- 8.7 BUN/Creatinine Ratio 9.5 Random Glucose 58 mg/dl Calcium Level 12.1 mg/dl Phosphorus Level 6.8 mg/dl Magnesium Level 2.4 mg/dl 25-Hydroxy Vitamin D Total 41.1 ng/ml Parathyroid Hormone (Intact) 7.1 pg/mL Hepatitis B Surface Antigen NEG Bedside Glucose 51 mg/dl 72 mg/dl Test 11/21/16 09:52 11/21/16 10:17 Bedside Glucose 69 mg/dl 126 mg/dl Assessment and Plan Clear liquids today NPO after midnight Repeat EGD on 11/22/16 for clips one dose of E-mycin 500 mg IV at 0700 11/22/16 to be given prior to EGD ERCP on 11/22/16 for stenting Indocin suppository 100 mg to OR holding room ?cover with manny or dejon will discuss with Dr. Tsang I saw and evaluated the patient. She has a large mass eroding into the duodenal bulb and appears to be obstructing the biliary manifest by marked dilation of the CBD above the mass and progressive elevation of her LAEs. Given this, the best option may be placment of a biliary stent for palliation during which time several clips will be placed around the mass to aid in radiation therapy. The patient, her family, and I have discussed the plan at length. Plan ERCP with biliary stent Clip placment to aid in targeting of the pancreatic mass.
--- NOTE | 2016-11-21 14:47 | Anesthesiology Progress Note ---
Anesthesia Progress Note Date of Service Nov 21, 2016. Progress Notes Ms. Sandoval has metastatic pancreatic cancer with mets to the liver and possible splenic involvement. Presented with concern for GI bleed and had EGD yesterday 11/20/16 that showed duodenal mass. Patient also received 2 units of pRBC's for a low H/H. Current H/H is 9.8/27.3. PMH significant for asthma, HTN, TIA (5 years ago), IDDM, end stage renal disease on dialysis (plan for dialysis on 11/21/16 in the afternoon). Patient consented for GETA tomorrow for ERCP ( stenting) and EGD (clips). Questions answered.
--- NOTE | 2016-11-21 14:48 | Hematology/Oncology Prog Note ---
Hematology/Onc Progress Note Date of Service Nov 21, 2016. Diagnoses 1. Progressive Stage IV pancreatic adenocarcinoma with invasion of primary site into duodenum causing UGI bleed 2. ESRD on HD 3. Elevated LFTs 4. Hypercalcemia, likely of malignancy Medications Medications Administered Medications (Trade) Dose Ordered Sig/Sophia Route Start Time Stop Time Status Last Admin Dose Admin Ondansetron HCl 4 mg 4 mg NOW STAT IV 11/20/16 05:13 11/20/16 05:16 DC 11/20/16 05:29 4 MG Sodium Chloride (Nss 1000ml) 1,000 ml @ 999 mls/hr Q1H1M STAT IV 11/20/16 05:13 11/20/16 06:13 DC 11/20/16 05:30 999 MLS/HR Morphine Sulfate 4 mg 4 mg Q15M PRN IV 11/20/16 05:15 11/20/16 13:06 DC 11/20/16 05:30 4 MG Pantoprazole Sodium 80 mg/ Dextrose 120 ml @ 480 mls/hr ONE STAT IV 11/20/16 05:26 11/20/16 05:40 DC 11/20/16 06:04 480 MLS/HR Pantoprazole Sodium 40 mg/ Dextrose 100 ml @ 20 mls/hr ONE STAT IV 11/20/16 05:26 11/20/16 10:25 DC 11/20/16 06:05 20 MLS/HR Erythromycin Lactobionate/ Sodium Chloride (Erythrocin IV/ Nss 250ml) 260 ml @ 250 mls/hr NOW STAT IV 11/20/16 06:31 11/20/16 07:33 DC 11/20/16 07:00 250 MLS/HR Ondansetron HCl (Zofran Inj) 4 mg Q6H PRN IV 11/20/16 07:00 12/20/16 06:59 11/21/16 08:35 4 MG Metoprolol Tartrate (Lopressor Iv) 5 mg Q6 IV. 11/20/16 12:00 11/21/16 14:16 DC 11/21/16 06:34 5 MG Hydromorphone HCl (Dilaudid Inj) 0.5 mg Q4H PRN IV 11/20/16 07:00 12/04/16 06:59 11/20/16 21:22 0.5 MG Dextrose 25-50ML OF 50% DW IV FOR... UD PRN IV 11/20/16 07:30 12/20/16 07:29 11/21/16 09:56 25 ML Erythromycin Lactobionate/ Sodium Chloride (Erythrocin IV/ Nss 250ml) 260 ml @ 250 mls/hr TODAY@0700 ONCE IV 11/21/16 07:00 11/21/16 08:02 DC 11/21/16 07:23 250 MLS/HR Subjective Mrs. Sandoval reports feeling overall improved today. She states she feels less fatigued. She received 2 units PRBC yesterday. She denies any respiratory issues at this time. She has minor upper abdominal pain, as expected. She has not had nausea; she has not had any further bowels and thereby has not had any more melena or hematochezia. She has not had any further vomiting. She does make a small amount of urine and denies hematuria. Review of Systems: Constitutional: + see HPI Abdomen: + see HPI Female : + see HPI Vital Signs Vital Signs Past 12 Hours Date Time Temp Pulse Resp B/P Pulse Ox O2 Delivery O2 Flow Rate FiO2 11/21/16 12:05 Room Air 11/21/16 10:37 36.9 91 20 100/52 99 Nasal Cannula 2 11/21/16 08:15 36.9 91 18 134/81 96 11/21/16 08:00 Room Air 11/21/16 06:34 98 150/73 11/21/16 04:20 Nasal Cannula 2.0 11/21/16 02:57 37.0 92 21 150/73 93 Nasal Cannula 2.0 Physical Exam Constitutional: General Apperance: well-nourished, well-developed Level of Distress: NAD, chronically ill ENMT: hearing grossly normal Lungs: Respiratory Effort: no dyspnea Auscuitation: no wheezing, no rhonchi Cardiovascular: Heart Auscultation: RRR Abdomen: Inspection & Palpation: soft, non-distended, LUQ tenderness, RUQ tenderness Liver: hepatomegaly (?2-4 cm below costal border) Extremities: no edema (or calf tenderness) Laboratory 11/21/16 03:55 11/21/16 03:55 Test 11/21/16 03:55 11/21/16 11:21 Red Blood Count 3.27 M/uL (4.2-5.4) Mean Corpuscular Volume 90.8 fL (80-100) Mean Corpuscular Hemoglobin 30.0 pg (25-34) Mean Corpuscular Hemoglobin Concent 33.0 g/dl (32-36) RDW Standard Deviation 63.0 fL (36.4-46.3) RDW Coefficient of Variation 19.6 % (11.5-14.5) Mean Platelet Volume 8.7 fL (7.4-10.4) Anion Gap 9.0 mmol/L (3-11) Est Creatinine Clear Calc Drug Dose 12.4 ml/min Estimated GFR () 10.1 Estimated GFR (Non- 8.7 BUN/Creatinine Ratio 9.5 (10-20) Calcium Level 12.1 mg/dl (8.5-10.1) Phosphorus Level 6.8 mg/dl (2.5-4.9) Magnesium Level 2.4 mg/dl (1.8-2.4) 25-Hydroxy Vitamin D Total 41.1 ng/ml (30-100) Parathyroid Hormone (Intact) 7.1 pg/mL (11.1-79.5) Hepatitis B Surface Antigen NEG (NEG) Bedside Glucose 106 mg/dl (70-90) Assessment & Plan 1. Stage IV pancreatic adenocarcinoma with liver and lung metastases- recent progression noted on scans/EGD when she was admitted yesterday for UGI bleed, increase in liver lesions (went from multiple to diffuse) and pancreatic primary invading duodenum causing UGI * Dr. Ollie Desai has met with patient and family and discussed palliative RT to pancreatic/duodenal areas- patient/family agreeable * Plan was for repeat EGD today- procedure deferred until tomorrow when ERCP can also be completed so patient can have enteral and biliary stents placed * Discussed with patient and family that single agent gemcitabine x 4 cycles has not been effective in controlling her pancreatic cancer; with current PS, co -morbidities not planning for further palliative chemotherapy at this time 2. Acute blood loss anemia * S/p 2 units PRBC yesterday with appropriate Hgb response * Continue to monitor CBC daily * Melena appears to have stopped at this time 3. Elevated LFTs secondary to liver metastases * Steady incline of alkaline phosphatase, mild direct hyperbilirubinemia- no repeat LFTs from today * Patient may have biliary stent placed tomorrow on ERCP by GI 4. ESRD- management per Dr. Blanton 5. Hypercalcemia- likely of malignancy * Patient to receive dialysis today and plan is to use low calcium bath * Per nephrology permissible fluid resuscitation, vitamin D in range and PTH low , PTHrp pending- if elevated indicative of hypercalcemia of malignancy * Monitor calcium level after dialysis, may consider Zometa 3 mg IV dose x 1 * I performed a history and physical examination of the patient and discussed the management with Annette Conrad PA-C (11/22/2016). . I reviewed her note and agree with the documented findings and plan of care. Dr. Murray Desai Hem/Onc
[2016-11-21] MEDS: HYDROmorphone INJ 0.5 MG/0.5 ML SYR IV PRN ×2 (14:49→18:46)
[2016-11-21] MEDS: METOPROLOL TARTRATE 25 MG TAB PO SCH (20:37)
[2016-11-22] VITALS (11 sets, daily range): BP systolic 115–152; BP diastolic 70–81; PULSE 83–96; TEMP 36.3–37.1; O2SAT 91–100
[2016-11-22] MEDS: HYDROmorphone INJ 0.5 MG/0.5 ML SYR IV PRN ×2 (03:04→08:08)
[2016-11-22] MEDS: INSULIN ASPART 100 UNITS/ML 3 ML PEN SC SCH ×4 (07:00→20:40)
[2016-11-22] MEDS: METOPROLOL TARTRATE 25 MG TAB PO SCH ×2 (08:02→21:30)
[2016-11-22] MEDS ORDERED: INDOMETHACIN 50 MG SUPP PR ONE ×3 (09:00→13:33)
--- NOTE | 2016-11-22 10:18 | Nephrology Progress Note ---
Nephrology Progress Note Date of Service: Nov 22, 2016. Subjective 51 yo female with metastatic pancreatic cancer who was GI bleeding and required 2 units of blood currently for egd and ercp this afternoon. had dialysis yesterday. pt somewhat confused today with the pain medications. has mild nausea /no vomiting. currently npo. Objective Date Time Temp Pulse Resp B/P Pulse Ox O2 Delivery O2 Flow Rate FiO2 11/22/16 08:00 Nasal Cannula 2.0 11/22/16 07:26 37.0 96 22 152/78 95 Nasal Cannula 2.0 11/22/16 04:00 Room Air 11/22/16 03:38 37.1 92 21 119/70 91 Nasal Cannula 2.0 11/22/16 00:01 Room Air 11/21/16 23:25 37.0 95 20 113/63 91 Nasal Cannula 2.0 11/21/16 20:00 94 Room Air 11/21/16 19:35 36.7 93 18 133/84 94 Room Air 11/21/16 18:55 36.7 93 133/84 11/21/16 18:30 91 115/83 11/21/16 18:15 96 126/80 11/21/16 18:00 87 130/79 11/21/16 17:45 88 124/82 11/21/16 17:30 90 131/79 11/21/16 17:15 93 120/74 11/21/16 17:02 36.6 99 18 98 2.0 11/21/16 17:00 96 128/71 11/21/16 16:45 92 138/59 11/21/16 16:30 88 143/79 11/21/16 16:15 91 138/86 11/21/16 16:00 90 143/84 11/21/16 16:00 Nasal Cannula 2.0 11/21/16 15:45 84 162/75 11/21/16 15:30 89 146/81 11/21/16 15:15 36.4 89 157/65 11/21/16 12:05 Room Air 11/21/16 10:37 36.9 91 20 100/52 99 Nasal Cannula 2 Physical Exam: General-[id number] Eyes-no scleral icterus ENT-mmm Neck-supple Lungs-clear Heart-regular Abdomen-+mild tenderness diffusely Extremities-no c/c/e Neuro-nonfocal Current Inpatient Medications Medications (Trade) Dose Ordered Sig/Sophia Route Start Time Stop Time Status Last Admin Dose Admin Ondansetron HCl (Zofran Inj) 4 mg Q6H PRN IV 11/20/16 07:00 12/20/16 06:59 11/21/16 08:35 4 MG Hydralazine HCl (HydrALAZINE INJ) 10 mg Q6H PRN IV. 11/20/16 07:00 12/20/16 06:59 Hydromorphone HCl (Dilaudid Inj) 0.5 mg Q4H PRN IV 11/20/16 07:00 12/04/16 06:59 11/22/16 08:08 0.5 MG Insulin Aspart (novoLOG ASPART) SLIDING SCALE G... ACHS SC 11/20/16 11:00 12/20/16 10:59 11/21/16 20:38 2 UNITS Glucose (Glucose 40% Gel) 15-30 GRAMS 15 GRAMS... UD PRN PO 11/20/16 07:30 12/20/16 07:29 Glucose (Glucose Chew Tab) 4-8 Tablets 4 Tabl... UD PRN PO 11/20/16 07:30 12/20/16 07:29 Dextrose (Dextrose 50% 50ML Syringe) 25-50ML OF 50% DW IV FOR... UD PRN IV 11/20/16 07:30 12/20/16 07:29 11/21/16 09:56 25 ML Glucagon 1 mg 1 mg UD PRN SQ 11/20/16 07:30 12/20/16 07:29 Erythromycin Lactobionate/ Sodium Chloride (Erythrocin IV/ Nss 250ml) 260 ml @ 250 mls/hr ONE ONCE IV 11/22/16 11:00 11/22/16 12:02 Metoprolol Tartrate (Lopressor Tab) 25 mg BID PO 11/21/16 21:00 12/21/16 20:59 11/22/16 08:02 25 MG Last 24 Hours Test 11/21/16 10:17 11/21/16 11:21 11/21/16 16:25 11/21/16 20:32 Bedside Glucose 126 mg/dl 106 mg/dl 108 mg/dl 182 mg/dl Test 11/22/16 06:00 11/22/16 07:01 11/22/16 09:59 Total Bilirubin 1.1 mg/dl Direct Bilirubin 0.7 mg/dl Aspartate Amino Transf (AST/SGOT) 122 U/L Alanine Aminotransferase (ALT/SGPT) 33 U/L Alkaline Phosphatase 805 U/L Total Protein 5.6 gm/dl Albumin 1.9 gm/dl Bedside Glucose 98 mg/dl Assessment & Plan ESRD-plan for dialysis tomorrow. volume status is good. k is stable. for EGD/ ERCP today. if necessary, will be happy to dialyze after the procedure. labs pending for today. Anemia of renal failure-no procrit given her metastatic cancer. transfuse prn.hg levels are stable from yesterday. hypercalcemia-calcium levels should improve on the lower calcium dialysate. vitamin d is good. pth is appropriately low. pthrp is pending.
[2016-11-22 10:47] LABS: BUN/CREATININE RATIO 8.1 (10-20); CALCIUM 11.1 mg/dl (8.5-10.1); CREATININE 3.6 mg/dl (0.60-1.20)
[2016-11-22] MEDS ORDERED: ERYTHROMYCIN IV 500 MG in SODIUM CHLORIDE 0.9% 250ML 250 ML IV ONE (11:00)
[2016-11-22] MEDS ORDERED: OXYCODONE/ACETAMINOPHEN 5-325 TAB PO PRN (12:15)
--- NOTE | 2016-11-22 12:22 | History & Physical Bridge Note ---
H&P Re-Evaluation Bridge Note: I have examined the patient, reviewed the History & Physical and in the interval since the performance of the History & Physical I have noted the following changes of clinical significance: No changes noted. She has a history of a large / progressive pancreatic head mass and now seems to be obstructing based on her labs and recent biliary imaging. We are planning for palliative stent placement in addition to "clip" placment to help localize her mass for the anticipated radiation. We have discussed the risks to include bleeding, infection, perforation, pain, pancreatitis and failed cannulation Plan ERCP with biliary stent EGD with clip placement
[2016-11-22] MEDS ORDERED: SUCCINYLCHOLINE CHLORIDE 20 MG/ML 10 ML VIAL IV ONE (12:51)
[2016-11-22] MEDS ORDERED: LIDOCAINE HCL 2% 2 ML VIAL (20MG/ML) ONE (12:51)
[2016-11-22] MEDS ORDERED: FENTANYL CITRATE INJ 50 MCG/1 ML 2 ML VIAL ONE (12:51)
[2016-11-22] MEDS ORDERED: LARYING-O-JET KIT (LTA) EXT ONE ×2 (12:51)
[2016-11-22] MEDS ORDERED: PROPOFOL IV EMULSION 10 MG/ML 20 ML VIAL IV ONE (12:51)
[2016-11-22] MEDS ORDERED: MIDAZOLAM HCL 1 MG/ML 2ML VIAL ONE (12:51)
[2016-11-22] MEDS ORDERED: CIPROFLOXACIN 400MG / 200ML D5W IV ONE (13:00)
[2016-11-22] MEDS ORDERED: CIPROFLOXACIN 400MG / D5W IV SCH (13:00)
[2016-11-22] MEDS ORDERED: FENTANYL CITRATE INJ 50 MCG/1 ML 2 ML VIAL IV PRN (13:15)
[2016-11-22] MEDS ORDERED: EpHEDrine SULFATE INJ 50 MG/ML AMP IV PRN (13:15)
[2016-11-22] MEDS ORDERED: ONDANSETRON INJ 2 MG/ML 2 ML VIAL IV PRN (13:15)
[2016-11-22] MEDS ORDERED: ATROPINE SULFATE 0.1 MG/ML 5ML SYR IV PRN (13:15)
[2016-11-22] MEDS ORDERED: PROMETHAZINE HCL INJ 6.25 MG in SODIUM CHLORIDE 0.9% 50ML 50 ML IV PRN (13:15)
[2016-11-22] MEDS ORDERED: HYDROmorphone INJ 0.5 MG/0.5 ML SYR IV PRN (14:00)
[2016-11-22] MEDS ORDERED: ONDANSETRON INJ 2 MG/ML 2 ML VIAL ONE (14:08)
--- NOTE | 2016-11-22 14:21 | GI REPORT ---
Procedure Date: 11/22/2016 1:37 PM Procedure: ERCP Indications: Biliary dilation on Ultrasound, Abnormal liver function test, Malignant tumor of the head of pancreas Medicines: General Anesthesia Complications: No immediate complications. Estimated blood loss: Minimal. Estimated Blood Loss: Estimated blood loss was minimal. Procedure: Pre-Anesthesia Assessment: - Prior to the procedure, a History and Physical was performed, and patient medications, allergies and sensitivities were reviewed. The patient's tolerance of previous anesthesia was reviewed. - The risks and benefits of the procedure and the sedation options and risks were discussed with the patient. All questions were answered and informed consent was obtained. - Patient identification and proposed procedure were verified prior to the procedure by the physician, the nurse and the radio broadcaster. The procedure was verified in the procedure room. - Pre-procedure physical examination revealed no contraindications to sedation. - ASA Grade Assessment: IV - A patient with severe systemic disease that is a constant threat to life. - After reviewing the risks and benefits, the patient was deemed in satisfactory condition to undergo the procedure. - The anesthesia plan was to use general anesthesia. - Immediately prior to administration of medications, the patient was re-assessed for adequacy to receive sedatives. - The heart rate, respiratory rate, oxygen saturations, blood pressure, adequacy of pulmonary ventilation, and response to care were monitored throughout the procedure. - The physical status of the patient was re-assessed after the procedure. After obtaining informed consent, the scope was passed under direct vision. Throughout the procedure, the patient's blood pressure, pulse, and oxygen saturations were monitored continuously. The ERCP was accomplished without difficulty. The patient tolerated the procedure well. The Scope was introduced through the mouth, and advanced to the duodenum without successful cannulation. The scope was introduced through the mouth, with the intention of advancing to the bile ducts. The scope was advanced to the duodenum before the procedure was aborted. Medications were given. Findings: A helicopter crew chief film of the abdomen was obtained. Surgical clips, consistent with previous cholecystectomy, were seen in the area of the right upper quadrant of the abdomen. The esophagus was successfully intubated under direct vision without detailed examination of the pharynx, larynx, and associated structures, and upper GI tract. The upper GI tract was grossly normal. A large infiltrative mass was found in the region of the major papilla and duodenum. Despite a prolonged look we were not able to identify the biliary orifice due to the infiltrating mass. The ERCP endoscope was removed and replaced with an upper endoscope to facilitate marking if the infiltrating mass. Through the esophagogastroduodenoscope two Cook Resolution hemostatic clips were successfully placed (MR conditional) adjacent to the mass. The endoscope was withdrawn from the patient. The total fluoroscopy exposure time was 20 seconds. Impression: - The major papilla appeared to have a mass. - Two hemostatic clips were successfully placed (MR conditional). Recommendation: - [facility] to [facility] for ongoing care. - Full liquid diet today. - Radiation therapy for Radiation oncology - If patient developes more obstuctive symptoms would consider referral for a PTC Sarah Tsang D.O. Sarah Tsang, 11/22/2016 2:21:16 PM This report has been signed electronically. Note Initiated On: 11/22/2016 1:37 PM I attest to the content of the Intraoperative Record and orders documented therein, exceptions below
--- NOTE | 2016-11-22 14:25 | [facility] Post Operative Brief Note ---
Immediate Operative Summary Operative Date Nov 22, 2016. Pre-Operative Diagnosis Pancreatic Cancer Post-Operative Diagnosis Pancreatic Cancer with an obstruction HOP mass. Procedure(s) Performed Upper Endoscopy with Metal Clip Placement Surgeon Dr. Julio Tsang Inside Upholsterer Surgeon(s) none Estimated Blood Loss 0 Findings Large mass noted in the duodenum, unable to visualize the ampulla 2 metal clips placed Specimens none per surgeon Anesthesia General Complication(s) None Disposition Recovery Room / PACU
--- NOTE | 2016-11-22 14:55 | DIAGNOSTIC IMAGING REPORT ---
ERCP BILIARY DUCTAL CLINICAL HISTORY: ERCP COMPARISON STUDY: Abdominal ultrasound 11/20/2016. FLUOROSCOPY TIME: 20 seconds.. FINDINGS: 2 fluoroscopic spot images submitted. Initial image demonstrates an endoscope at the second portion of duodenum. The last image demonstrates 2 clips overlying the duodenum. IMPRESSION: Fluoroscopy provided for ERCP. Electronically signed by: Mike Ibrahim M.D. 11/22/2016 2:53 PM Dictated Date/Time: 11/22/2016 2:52 PM
--- NOTE | 2016-11-22 15:08 | Anesthesiology Progress Note ---
Anesthesia Post Op Note Date & Time Nov 22, 2016 at 15:08 Vital Signs Pain Intensity: 0 Vital Signs Past 12 Hours Date Time Temp Pulse Resp B/P Pulse Ox O2 Delivery O2 Flow Rate FiO2 11/22/16 14:55 82 12 132/66 97 Nasal Cannula 2 11/22/16 14:45 78 13 131/78 100 Mask 10 11/22/16 14:35 78 13 130/73 100 Mask 10 11/22/16 14:29 36.6 78 16 114/66 100 Mask 10 11/22/16 12:00 Room Air 11/22/16 11:57 36.8 93 18 134/81 92 Room Air 11/22/16 08:00 Nasal Cannula 2.0 11/22/16 07:26 37.0 96 22 152/78 95 Nasal Cannula 2.0 11/22/16 04:00 Room Air 11/22/16 03:38 37.1 92 21 119/70 91 Nasal Cannula 2.0 Notes Mental Status: alert / awake / arousable, participated in evaluation Pt Amnestic to Procedure: Yes Nausea / Vomiting: adequately controlled Pain: adequately controlled Airway Patency, RR, SpO2: stable & adequate BP & HR: stable & adequate Hydration State: stable & adequate Anesthetic Complications: no major complications apparent
--- NOTE | 2016-11-22 16:16 | Hematology/Oncology Prog Note ---
Hematology/Onc Progress Note Date of Service Nov 22, 2016. Diagnoses 1. Progressive Stage IV pancreatic adenocarcinoma with invasion of primary site into duodenum causing UGI bleed 2. ESRD on HD 3. Elevated LFTs 4. Hypercalcemia, likely of malignancy Subjective Mrs. Sandoval reports feeling overall improved today, had HD yesterday. She denies any respiratory issues at this time. She has minor upper abdominal pain , as expected. She has not had nausea and has a fair appetite; she has not had any further bowels and thereby has not had any more melena or hematochezia. She has EGD/ERCP planned for today. Review of Systems: Abdomen: + see HPI Vital Signs Vital Signs Past 12 Hours Date Time Temp Pulse Resp B/P Pulse Ox O2 Delivery O2 Flow Rate FiO2 11/22/16 15:05 36.7 84 15 123/76 96 Nasal Cannula 2 11/22/16 14:55 82 12 132/66 97 Nasal Cannula 2 11/22/16 14:45 78 13 131/78 100 Mask 10 11/22/16 14:35 78 13 130/73 100 Mask 10 11/22/16 14:29 36.6 78 16 114/66 100 Mask 10 11/22/16 12:00 Room Air 11/22/16 11:57 36.8 93 18 134/81 92 Room Air 11/22/16 08:00 Nasal Cannula 2.0 11/22/16 07:26 37.0 96 22 152/78 95 Nasal Cannula 2.0 11/22/16 04:00 Room Air Physical Exam Constitutional: General Apperance: well-nourished, well-developed Level of Distress: NAD, chronically ill ENMT: hearing grossly normal Lungs: Respiratory Effort: no dyspnea Auscuitation: no wheezing, no rhonchi Cardiovascular: Heart Auscultation: RRR Abdomen: Inspection & Palpation: soft, non-distended, LUQ tenderness, RUQ tenderness Liver: hepatomegaly (2-4 cm below costal border) Extremities: no edema (or calf tenderness) Laboratory 11/22/16 06:00 Test 11/22/16 06:00 11/22/16 14:37 Anion Gap 9.0 mmol/L (3-11) Est Creatinine Clear Calc Drug Dose 18.1 ml/min Estimated GFR () 16.1 Estimated GFR (Non- 13.9 BUN/Creatinine Ratio 8.1 (10-20) Calcium Level 11.1 mg/dl (8.5-10.1) Total Bilirubin 1.1 mg/dl (0.2-1) Direct Bilirubin 0.7 mg/dl (0-0.2) Aspartate Amino Transf (AST/SGOT) 122 U/L (15-37) Alanine Aminotransferase (ALT/SGPT) 33 U/L (12-78) Alkaline Phosphatase 805 U/L (45-117) Total Protein 5.6 gm/dl (6.4-8.2) Albumin 1.9 gm/dl (3.4-5.0) Bedside Glucose 97 mg/dl (70-90) Radiology ERCP from 11/22/2016: Large infiltrative mass was found in the region of the major papilla and duodenum. Unable to identify the biliary orifice due to infiltrating mass. 2 hemostatic clips were placed through the EGD scope adjacent to the mass. If patient develops more obstructive symptoms, GI recommends referral for PTC. Assessment & Plan 1. Stage IV pancreatic adenocarcinoma with liver and lung metastases- recent progression noted on scans/EGD when she was admitted 11/20/16 for UGI bleed, increase in liver lesions (went from multiple to diffuse) and pancreatic primary invading duodenum causing UGI bleed * Dr. Ollie Desai has met with patient and family and discussed palliative RT to pancreatic/duodenal areas- patient/family agreeable * EGD/ERCP today- 2 hemostatic clips placed at duodenal mass, biliary orifice unable to be found due to mass, PTC recommended by GI if further obstructive symptoms develop * Discussed with patient and family that single agent gemcitabine x 4 cycles has not been effective in controlling her pancreatic cancer; with current PS, co -morbidities not planning for further palliative chemotherapy at this time 2. Acute blood loss anemia * S/p 2 units PRBC yesterday with appropriate Hgb response * Continue to monitor CBC daily * Melena appears to have stopped at this time 3. Elevated LFTs secondary to liver metastases * Steady incline of alkaline phosphatase, mild direct hyperbilirubinemia- stable * See above regarding PTC if necessary 4. ESRD- management per Dr. Blanton 5. Hypercalcemia- likely of malignancy * Patient received dialysis yesterday, patient had low calcium bath- Calcium dropped 1 mg/dL from yesterday, around 11 * Per nephrology permissible fluid resuscitation, vitamin D in range and PTH low , PTHrp pending- if elevated indicative of hypercalcemia of malignancy * Await PTH-rp, expecting to be elevated, recommend Zometa 3 mg IV dose x 1 Patient needs follow up with Dr. Fernando Desai on discharge. I performed a history and physical examination of the patient and discussed the management with Annette Conrad PA-C (11/22/2016). . I reviewed her note and agree with the documented findings and plan of care. Dr. Murray Desai Hem/Onc
--- NOTE | 2016-11-22 20:03 | Progress Note ---
Medicine Progress Note Date & Time of Visit: Nov 22, 2016 at 19:54. Subjective Patient seen and examined. Family present at bedside. Tolerated EGD/ERCP today. Objective Last 8 Hrs Date Time Temp Pulse Resp B/P Pulse Ox O2 Delivery O2 Flow Rate FiO2 11/22/16 18:12 36.4 90 17 127/76 96 Room Air 11/22/16 17:38 Room Air 11/22/16 16:26 36.7 84 17 143/79 99 Nasal Cannula 2.0 11/22/16 15:20 36.8 86 20 124/74 94 Nasal Cannula 2.0 11/22/16 15:05 36.7 84 15 123/76 96 Nasal Cannula 2 11/22/16 14:55 82 12 132/66 97 Nasal Cannula 2 11/22/16 14:45 78 13 131/78 100 Mask 10 11/22/16 14:35 78 13 130/73 100 Mask 10 11/22/16 14:29 36.6 78 16 114/66 100 Mask 10 11/22/16 13:50 36.6 83 19 124/78 100 Nasal Cannula 2.0 11/22/16 12:00 Room Air 11/22/16 11:57 36.8 93 18 134/81 92 Room Air Physical Exam: General-awake; alert; occasionally tearful Eyes-EOMI; no scleral icterus Neck-no stridor; trachea midline Neuro-no focal deficits Laboratory Results: Last 24 Hours Test 11/21/16 20:32 11/22/16 06:00 11/22/16 07:01 11/22/16 11:32 Bedside Glucose 182 mg/dl 98 mg/dl 90 mg/dl Sodium Level 137 mmol/L Potassium Level 4.0 mmol/L Chloride Level 98 mmol/L Carbon Dioxide Level 30 mmol/L Anion Gap 9.0 mmol/L Blood Urea Nitrogen 29 mg/dl Creatinine 3.60 mg/dl Est Creatinine Clear Calc Drug Dose 18.1 ml/min Estimated GFR () 16.1 Estimated GFR (Non- 13.9 BUN/Creatinine Ratio 8.1 Random Glucose 105 mg/dl Calcium Level 11.1 mg/dl Total Bilirubin 1.1 mg/dl Direct Bilirubin 0.7 mg/dl Aspartate Amino Transf (AST/SGOT) 122 U/L Alanine Aminotransferase (ALT/SGPT) 33 U/L Alkaline Phosphatase 805 U/L Total Protein 5.6 gm/dl Albumin 1.9 gm/dl Test 11/22/16 14:37 11/22/16 16:02 Bedside Glucose 97 mg/dl 108 mg/dl Assessment & Plan Metastatic pancreatic cancer - GI consulted - EGD/ERCP today with 2 hemostatic clips placed near pancreatic tumor - transfused 2 units PRBC's with stable Hgb - Oncology consulted - Radiation oncology consulted ESRD on HD - Nephrology consulted - continue HD while inpatient Type 2 DM - continue insulin HTN - continue metoprolol Discussion today with patient and family. Dispo is heading in direction of home with hospice. Will readdress code status tomorrow. Consultants: Gastroenterology Oncology Radiation oncology Procedures: EGD - Normal esophagus. - Normal stomach. 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 Treatment options limited due to size of mass (no focal bleeding) - Normal 2nd part of the duodenum and 3rd part of the duodenum. - No specimens collected. CT a/p 1. Interval development of diffuse hepatic metastatic disease, possibly splenic involvement. 2. Interval development of pancreatic head mass measuring 6 x 7 cm. 3. Trace abdominal and pelvic ascites with mild adenopathy. Abdominal ultrasound 1. A 7.3 cm pancreatic head mass with associated biliary and pancreatic duct dilatation. 2. Multiple hepatic metastatic lesions. 3. Trace perihepatic ascites. 4. Cholecystectomy. ERCP - The major papilla appeared to have a mass. - Two hemostatic clips were successfully placed (MRI conditional). Current Inpatient Medications: Current Inpatient Medications Medications (Trade) Dose Ordered Sig/Sophia Route Start Time Stop Time Status Last Admin Dose Admin Ondansetron HCl (Zofran Inj) 4 mg Q6H PRN IV 11/20/16 07:00 12/20/16 06:59 11/21/16 08:35 4 MG Hydralazine HCl (HydrALAZINE INJ) 10 mg Q6H PRN IV. 11/20/16 07:00 12/20/16 06:59 Insulin Aspart (novoLOG ASPART) SLIDING SCALE G... ACHS SC 11/20/16 11:00 12/20/16 10:59 11/21/16 20:38 2 UNITS Glucose (Glucose 40% Gel) 15-30 GRAMS 15 GRAMS... UD PRN PO 11/20/16 07:30 12/20/16 07:29 Glucose (Glucose Chew Tab) 4-8 Tablets 4 Tabl... UD PRN PO 11/20/16 07:30 12/20/16 07:29 Dextrose (Dextrose 50% 50ML Syringe) 25-50ML OF 50% DW IV FOR... UD PRN IV 11/20/16 07:30 12/20/16 07:29 11/21/16 09:56 25 ML Glucagon (Glucagon Inj) 1 mg UD PRN SQ 11/20/16 07:30 12/20/16 07:29 Metoprolol Tartrate (Lopressor Tab) 25 mg BID PO 11/21/16 21:00 12/21/16 20:59 11/22/16 08:02 25 MG Oxycodone/ Acetaminophen 1 tab 1 tab Q4H PRN PO 11/22/16 12:15 12/06/16 12:14 Ciprofloxacin/ Dextrose/Prmx (Cipro / D5w/ Premixed D5W) 200 ml @ 100 mls/hr TODAY@1300 IV 11/22/16 13:00 11/23/16 12:59 11/22/16 13:29 100 MLS/HR Hydromorphone HCl (Dilaudid Inj) 0.5 mg Q2HWA PRN IV 11/22/16 12:45 12/06/16 12:44
[2016-11-23] VITALS (19 sets, daily range): BP systolic 93–160; BP diastolic 48–93; PULSE 70–97; TEMP 36.6–37; O2SAT 92–97
[2016-11-23 06:52] LABS: HEMATOCRIT 28.3 % (37-47); MEAN CELL VOLUME 91.9 fL (80-100); MEAN CORPUSCULAR HEMOGLOBIN 30.5 pg (25-34); MEAN CORPUSCULAR HGB CONC 33.2 g/dl (32-36); MEAN PLATELET VOLUME 9.1 fL (7.4-10.4); PLATELET COUNT 334 K/uL (130-400); RED BLOOD COUNT 3.08 M/uL (4.2-5.4); WHITE BLOOD COUNT 14.44 K/uL (4.8-10.8)
[2016-11-23 07:24] LABS: ALB/GLOB RATIO 0.5 (0.9-2); BUN/CREATININE RATIO 8.6 (10-20); CALCIUM 12.4 mg/dl (8.5-10.1); CREATININE 4.7 mg/dl (0.60-1.20); POTASSIUM 4.4 mmol/L (3.5-5.1)
[2016-11-23] MEDS: METOPROLOL TARTRATE 25 MG TAB PO SCH ×2 (07:31→20:00)
[2016-11-23] MEDS: INSULIN ASPART 100 UNITS/ML 3 ML PEN SC SCH ×4 (07:39→21:55)
[2016-11-23] MEDS ORDERED: SODIUM CHLORIDE 0.9% IV ONE (09:45)
[2016-11-23] MEDS ORDERED: ZOLEDRONIC ACID IV ONE (09:45)
--- NOTE | 2016-11-23 10:48 | Anesthesiology Progress Note ---
Anesthesia Post Op Note Date & Time Nov 23, 2016 at 10:47 Vital Signs Vital Signs Past 12 Hours Date Time Temp Pulse Resp B/P Pulse Ox O2 Delivery O2 Flow Rate FiO2 11/23/16 07:55 36.8 97 16 138/79 96 Nasal Cannula 2.0 11/23/16 04:09 36.7 97 20 142/74 92 Room Air 11/23/16 00:00 Room Air 11/22/16 23:55 36.7 89 20 115/70 91 Room Air Notes Mental Status: alert / awake / arousable, participated in evaluation Pt Amnestic to Procedure: Yes Nausea / Vomiting: adequately controlled Pain: adequately controlled Airway Patency, RR, SpO2: stable & adequate BP & HR: stable & adequate Hydration State: stable & adequate Anesthetic Complications: no major complications apparent
--- NOTE | 2016-11-23 14:37 | Dialysis Progress Note ---
Nephrology Dialysis Note Date of Service: Nov 23, 2016. Subjective 51 yo female with metastatic pancreatic cancer who was GI bleeding and required 2 units of blood underwent EGD and ERCP yesterday. pt seen on dialysis. having some abdominal pain radiating to the back. Objective Date Time Temp Pulse Resp B/P Pulse Ox O2 Delivery O2 Flow Rate FiO2 11/23/16 14:00 81 141/60 11/23/16 13:45 81 119/74 11/23/16 13:31 80 122/72 11/23/16 13:17 85 139/75 11/23/16 13:00 85 142/85 11/23/16 12:45 87 149/89 11/23/16 12:25 91 155/93 11/23/16 12:20 36.6 91 160/83 11/23/16 11:42 36.6 95 20 129/80 97 Nasal Cannula 2.0 11/23/16 11:15 11/23/16 11:01 Nasal Cannula 2.0 11/23/16 07:55 36.8 97 16 138/79 96 Nasal Cannula 2.0 11/23/16 04:09 36.7 97 20 142/74 92 Room Air 11/23/16 00:00 Room Air 11/22/16 23:55 36.7 89 20 115/70 91 Room Air 11/22/16 21:28 94 18 118/79 94 Room Air 11/22/16 20:15 36.3 92 17 143/81 93 Room Air 11/22/16 20:00 Room Air 11/22/16 18:12 36.4 90 17 127/76 96 Room Air 11/22/16 17:38 Room Air 11/22/16 16:26 36.7 84 17 143/79 99 Nasal Cannula 2.0 11/22/16 15:20 36.8 86 20 124/74 94 Nasal Cannula 2.0 11/22/16 15:05 36.7 84 15 123/76 96 Nasal Cannula 2 11/22/16 14:55 82 12 132/66 97 Nasal Cannula 2 11/22/16 14:45 78 13 131/78 100 Mask 10 11/22/16 14:35 78 13 130/73 100 Mask 10 11/22/16 14:29 36.6 78 16 114/66 100 Mask 10 Physical Exam: General-aaox3 Eyes-no scleral icterus ENT-mmm Neck-supple Lungs-cta Heart-rrr Abdomen-+mild tenderness Extremities-no c/c/e Neuro-nonfocal Current Inpatient Medications Medications (Trade) Dose Ordered Sig/Sophia Route Start Time Stop Time Status Last Admin Dose Admin Ondansetron HCl (Zofran Inj) 4 mg Q6H PRN IV 11/20/16 07:00 12/20/16 06:59 11/21/16 08:35 4 MG Hydralazine HCl (HydrALAZINE INJ) 10 mg Q6H PRN IV. 11/20/16 07:00 12/20/16 06:59 Insulin Aspart (novoLOG ASPART) SLIDING SCALE G... ACHS SC 11/20/16 11:00 12/20/16 10:59 11/23/16 11:37 12 UNITS Glucose (Glucose 40% Gel) 15-30 GRAMS 15 GRAMS... UD PRN PO 11/20/16 07:30 12/20/16 07:29 Glucose (Glucose Chew Tab) 4-8 Tablets 4 Tabl... UD PRN PO 11/20/16 07:30 12/20/16 07:29 Dextrose (Dextrose 50% 50ML Syringe) 25-50ML OF 50% DW IV FOR... UD PRN IV 11/20/16 07:30 12/20/16 07:29 11/21/16 09:56 25 ML Glucagon (Glucagon Inj) 1 mg UD PRN SQ 11/20/16 07:30 12/20/16 07:29 Metoprolol Tartrate (Lopressor Tab) 25 mg BID PO 11/21/16 21:00 12/21/16 20:59 11/23/16 07:31 25 MG Oxycodone/ Acetaminophen (Percocet 5-325mg Tab) 1 tab Q4H PRN PO 11/22/16 12:15 12/06/16 12:14 Hydromorphone HCl (Dilaudid Inj) 0.5 mg Q2HWA PRN IV 11/22/16 12:45 12/06/16 12:44 Last 24 Hours Test 11/22/16 14:37 11/22/16 16:02 11/22/16 20:00 11/23/16 05:52 Bedside Glucose 97 mg/dl 108 mg/dl 185 mg/dl White Blood Count 14.44 K/uL Red Blood Count 3.08 M/uL Hemoglobin 9.4 g/dL Hematocrit 28.3 % Mean Corpuscular Volume 91.9 fL Mean Corpuscular Hemoglobin 30.5 pg Mean Corpuscular Hemoglobin Concent 33.2 g/dl RDW Standard Deviation 63.7 fL RDW Coefficient of Variation 19.4 % Platelet Count 334 K/uL Mean Platelet Volume 9.1 fL Sodium Level 134 mmol/L Potassium Level 4.4 mmol/L Chloride Level 95 mmol/L Carbon Dioxide Level 29 mmol/L Anion Gap 10.0 mmol/L Blood Urea Nitrogen 40 mg/dl Creatinine 4.70 mg/dl Est Creatinine Clear Calc Drug Dose 13.9 ml/min Estimated GFR () 11.6 Estimated GFR (Non- 10.0 BUN/Creatinine Ratio 8.6 Random Glucose 254 mg/dl Calcium Level 12.4 mg/dl Total Bilirubin 1.7 mg/dl Aspartate Amino Transf (AST/SGOT) 156 U/L Alanine Aminotransferase (ALT/SGPT) 37 U/L Alkaline Phosphatase 924 U/L Total Protein 5.7 gm/dl Albumin 1.9 gm/dl Globulin 3.8 gm/dl Albumin/Globulin Ratio 0.5 Test 11/23/16 07:26 11/23/16 11:28 Bedside Glucose 249 mg/dl 259 mg/dl Assessment & Plan ESRD-seen on dialysis. switching to a 2k/2ca bath for the last hour to help with the hypercalcemia. Anemia of renal failure-no procrit given her metastatic cancer. transfuse prn.hg levels are stable. hypercalcemia-calcium levels elevated. likely from cancer. pthrp is pending. given dose of zometa. will take about two weeks to see any improvement.
[2016-11-23] MEDS: HYDROmorphone INJ 0.5 MG/0.5 ML SYR IV PRN ×3 (15:23→21:51)
--- NOTE | 2016-11-23 18:46 | Hematology/Oncology Prog Note ---
Hematology/Onc Progress Note Date of Service Nov 23, 2016. Subjective I saw her at bedside, her and other family members were also at bedside , discussed with them regarding the overall treatment goal which would be palliative and not curative, reviewed with them regarding the recent imaging studies, blood workup findings, hypercalcemia noted, calcium level was around 12.4 today, received 1st dose of Zometa at 3 mg today, she also had hemodialysis today. She says that she would like to go home by tomorrow. No fever. Level has remained stable around 9.4 g/dL. Normal platelet count. Declining performance was noted, rise in the alkaline phosphatase noted with bilirubin level of 1.7. Her disease is likely to progress in the near future, earlier in the day she was seen at a radiation oncology department, they are planning for palliative radiation treatment to the pancreatic mass which is eroding the duodenum causing upper G.I. bleed. Abdominal pain is under control, she says that hydromorphone has helped for that. After extensive discussion with them, we decided that she should go home tomorrow, she would like to attend a concert at [place] over the weekend, she will have more analysis on Sunday morning. Family member would be in touch with me in next week regarding how she does, if her clinical condition deteriorated, will proceed for home hospice services but otherwise will proceed with palliative radiation treatment. Also discussed with her regarding DNR DNI, she agrees for that. Vital Signs Vital Signs Past 12 Hours Date Time Temp Pulse Resp B/P Pulse Ox O2 Delivery O2 Flow Rate FiO2 11/23/16 15:21 37.0 84 118/62 11/23/16 15:15 78 107/63 11/23/16 15:00 78 100/48 11/23/16 14:45 79 103/57 11/23/16 14:30 70 93/56 11/23/16 14:15 80 110/59 11/23/16 14:00 81 141/60 11/23/16 13:45 81 119/74 11/23/16 13:31 80 122/72 11/23/16 13:17 85 139/75 11/23/16 13:00 85 142/85 11/23/16 12:45 87 149/89 11/23/16 12:25 91 155/93 11/23/16 12:20 36.6 91 160/83 11/23/16 11:42 36.6 95 20 129/80 97 Nasal Cannula 2.0 11/23/16 11:15 11/23/16 11:01 Nasal Cannula 2.0 11/23/16 08:30 Room Air 11/23/16 07:55 36.8 97 16 138/79 96 Nasal Cannula 2.0 Physical Exam Constitutional: General Apperance: well-nourished, well-developed Level of Distress: NAD, chronically ill ENMT: hearing grossly normal Lungs: Respiratory Effort: no dyspnea Auscuitation: no wheezing, no rhonchi Cardiovascular: Heart Auscultation: RRR Abdomen: Inspection & Palpation: soft, non-distended, LUQ tenderness, RUQ tenderness Liver: hepatomegaly (2-4 cm below costal border) Extremities: no edema (or calf tenderness) Assessment & Plan 1. Stage IV pancreatic adenocarcinoma with liver and lung metastases- recent progression noted on scans/EGD when she was admitted 11/20/16 for UGI bleed, increase in liver lesions (went from multiple to diffuse) and pancreatic primary invading duodenum causing UGI bleed * Dr. Ollie Desai has met with patient and family and discussed palliative RT to pancreatic/duodenal areas- patient/family agreeable * EGD/ERCP today- 2 hemostatic clips placed at duodenal mass, biliary orifice unable to be found due to mass, PTC recommended by GI if further obstructive symptoms develop * Discussed with patient and family that single agent gemcitabine x 4 cycles has not been effective in controlling her pancreatic cancer; with current PS, co -morbidities not planning for further palliative chemotherapy at this time 2. Acute blood loss anemia * S/p 2 units PRBC yesterday with appropriate Hgb response * Continue to monitor CBC daily * Melena appears to have stopped at this time 3. Elevated LFTs secondary to liver metastases * Steady incline of alkaline phosphatase, mild direct hyperbilirubinemia- stable * See above regarding PTC if necessary 4. ESRD- management per [facility] 5. Hypercalcemia- likely of malignancy * Patient received dialysis yesterday, patient had low calcium bath- Calcium dropped 1 mg/dL from yesterday, around 11 * Per nephrology permissible fluid resuscitation, vitamin D in range and PTH low , PTHrp pending- if elevated indicative of hypercalcemia of malignancy * Await PTH-rp, expecting to be elevated, recommend Zometa 3 mg IV dose x 1 Patient needs follow up with Dr. Fernando Desai on discharge. I performed a history and physical examination of the patient and discussed the management with Annette Conrad PA-C (11/22/2016). . I reviewed her note and agree with the documented findings and plan of care. Dr. Murray Desai Hem/Onc
--- NOTE | 2016-11-23 20:38 | Progress Note ---
Medicine Progress Note Date & Time of Visit: Nov 23, 2016 at 20:35. Subjective Patient seen and examined. Had HD today. Notes that she is eating pretty well. Anticipating discharge tomorrow. Objective Last 8 Hrs Date Time Temp Pulse Resp B/P Pulse Ox O2 Delivery O2 Flow Rate FiO2 11/23/16 20:05 36.8 95 20 96/63 93 Nasal Cannula 2.0 11/23/16 15:21 37.0 84 118/62 11/23/16 15:15 78 107/63 11/23/16 15:00 78 100/48 11/23/16 14:45 79 103/57 11/23/16 14:30 70 93/56 11/23/16 14:15 80 110/59 11/23/16 14:00 81 141/60 11/23/16 13:45 81 119/74 11/23/16 13:31 80 122/72 11/23/16 13:17 85 139/75 11/23/16 13:00 85 142/85 11/23/16 12:45 87 149/89 Physical Exam: General-awake; alert; NAD Eyes-EOMI; no scleral icterus Neck-no stridor; trachea midline Neuro-no focal deficits CV-RRR; no m/r/g Resp-CTA bilaterally; no wheezes/crackles Abd-soft; mildly diffusely tender; nBS; epigastric fullness Laboratory Results: Last 24 Hours Test 11/23/16 05:52 11/23/16 07:26 11/23/16 11:28 11/23/16 16:32 White Blood Count 14.44 K/uL Red Blood Count 3.08 M/uL Hemoglobin 9.4 g/dL Hematocrit 28.3 % Mean Corpuscular Volume 91.9 fL Mean Corpuscular Hemoglobin 30.5 pg Mean Corpuscular Hemoglobin Concent 33.2 g/dl RDW Standard Deviation 63.7 fL RDW Coefficient of Variation 19.4 % Platelet Count 334 K/uL Mean Platelet Volume 9.1 fL Sodium Level 134 mmol/L Potassium Level 4.4 mmol/L Chloride Level 95 mmol/L Carbon Dioxide Level 29 mmol/L Anion Gap 10.0 mmol/L Blood Urea Nitrogen 40 mg/dl Creatinine 4.70 mg/dl Est Creatinine Clear Calc Drug Dose 13.9 ml/min Estimated GFR () 11.6 Estimated GFR (Non- 10.0 BUN/Creatinine Ratio 8.6 Random Glucose 254 mg/dl Calcium Level 12.4 mg/dl Total Bilirubin 1.7 mg/dl Aspartate Amino Transf (AST/SGOT) 156 U/L Alanine Aminotransferase (ALT/SGPT) 37 U/L Alkaline Phosphatase 924 U/L Total Protein 5.7 gm/dl Albumin 1.9 gm/dl Globulin 3.8 gm/dl Albumin/Globulin Ratio 0.5 Bedside Glucose 249 mg/dl 259 mg/dl 226 mg/dl Test 11/23/16 20:17 Bedside Glucose 321 mg/dl Assessment & Plan Metastatic pancreatic cancer - GI consulted - EGD/ERCP with 2 hemostatic clips placed near pancreatic tumor - transfused 2 units PRBC's with stable Hgb - Oncology consulted - Radiation oncology consulted ESRD on HD - Nephrology consulted - continue HD while inpatient Type 2 DM - continue insulin HTN - continue metoprolol Discussion today with patient, family and Dr. Desai from Oncology. Patient would like to pursue palliative radiation. Patient and family not ready for hospice at this time, but open to future consideration. Code status changed to DNR. Anticipate discharge home tomorrow pending stable Hgb. Consultants: Gastroenterology Oncology Radiation oncology Procedures: EGD - Normal esophagus. - Normal stomach. 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 Treatment options limited due to size of mass (no focal bleeding) - Normal 2nd part of the duodenum and 3rd part of the duodenum. - No specimens collected. CT a/p 1. Interval development of diffuse hepatic metastatic disease, possibly splenic involvement. 2. Interval development of pancreatic head mass measuring 6 x 7 cm. 3. Trace abdominal and pelvic ascites with mild adenopathy. Abdominal ultrasound 1. A 7.3 cm pancreatic head mass with associated biliary and pancreatic duct dilatation. 2. Multiple hepatic metastatic lesions. 3. Trace perihepatic ascites. 4. Cholecystectomy. ERCP - The major papilla appeared to have a mass. - Two hemostatic clips were successfully placed (MRI conditional). Current Inpatient Medications: Current Inpatient Medications Medications (Trade) Dose Ordered Sig/Sophia Route Start Time Stop Time Status Last Admin Dose Admin Ondansetron HCl (Zofran Inj) 4 mg Q6H PRN IV 11/20/16 07:00 12/20/16 06:59 11/21/16 08:35 4 MG Hydralazine HCl (HydrALAZINE INJ) 10 mg Q6H PRN IV. 11/20/16 07:00 12/20/16 06:59 Insulin Aspart (novoLOG ASPART) SLIDING SCALE G... ACHS SC 11/20/16 11:00 12/20/16 10:59 11/23/16 18:58 5 UNITS Glucose (Glucose 40% Gel) 15-30 GRAMS 15 GRAMS... UD PRN PO 11/20/16 07:30 12/20/16 07:29 Glucose (Glucose Chew Tab) 4-8 Tablets 4 Tabl... UD PRN PO 11/20/16 07:30 12/20/16 07:29 Dextrose (Dextrose 50% 50ML Syringe) 25-50ML OF 50% DW IV FOR... UD PRN IV 11/20/16 07:30 12/20/16 07:29 11/21/16 09:56 25 ML Glucagon (Glucagon Inj) 1 mg UD PRN SQ 11/20/16 07:30 12/20/16 07:29 Metoprolol Tartrate (Lopressor Tab) 25 mg BID PO 11/21/16 21:00 12/21/16 20:59 11/23/16 07:31 25 MG Oxycodone/ Acetaminophen (Percocet 5-325mg Tab) 1 tab Q4H PRN PO 11/22/16 12:15 12/06/16 12:14 Hydromorphone HCl (Dilaudid Inj) 0.5 mg Q2HWA PRN IV 11/22/16 12:45 12/06/16 12:44 11/23/16 18:49 0.5 MG
[2016-11-23] MEDS: ONDANSETRON INJ 2 MG/ML 2 ML VIAL IV PRN (21:51)
[2016-11-24] VITALS (10 sets, daily range): BP systolic 106–148; BP diastolic 67–78; PULSE 87–110; TEMP 36.7–38.4; O2SAT 84–98; BMI 30.1
[2016-11-24] MEDS: ONDANSETRON INJ 2 MG/ML 2 ML VIAL IV PRN ×2 (04:55→14:04)
[2016-11-24] MEDS: HYDROmorphone INJ 0.5 MG/0.5 ML SYR IV PRN ×4 (06:47→20:13)
[2016-11-24 06:48] LABS: HEMATOCRIT 30.7 % (37-47); MEAN CELL VOLUME 91.9 fL (80-100); MEAN CORPUSCULAR HEMOGLOBIN 30.2 pg (25-34); MEAN CORPUSCULAR HGB CONC 32.9 g/dl (32-36); MEAN PLATELET VOLUME 9.4 fL (7.4-10.4); PLATELET COUNT 331 K/uL (130-400); RED BLOOD COUNT 3.34 M/uL (4.2-5.4); WHITE BLOOD COUNT 16.09 K/uL (4.8-10.8)
[2016-11-24 07:32] LABS: BUN/CREATININE RATIO 6.9 (10-20); CALCIUM 10.4 mg/dl (8.5-10.1); CREATININE 3.6 mg/dl (0.60-1.20); POTASSIUM 4.5 mmol/L (3.5-5.1)
[2016-11-24] MEDS: METOPROLOL TARTRATE 25 MG TAB PO SCH ×2 (07:43→20:14)
[2016-11-24 07:45] LABS: BETA-HYDROXYBUTYRATE 4.92 mg/dL (0.2-2.81)
[2016-11-24] MEDS ORDERED: METOCLOPRAMIDE HCL INJ 5 MG/ML 2 ML VIAL IV PRN (08:45)
[2016-11-24] MEDS: INSULIN ASPART 100 UNITS/ML 3 ML PEN SC SCH ×4 (09:20→21:32)
--- NOTE | 2016-11-24 10:55 | DIAGNOSTIC IMAGING REPORT ---
ABDOMEN 2VIEW W/PA CHEST RTN CLINICAL HISTORY: n/v; r/o obstruction pain. Nausea. COMPARISON STUDY: 11/20/2016 FINDINGS: Moderate stable cardiomegaly. Lungs are clear. Nonobstructive bowel pattern. Several surgical clips in the right upper quadrant. IMPRESSION: No acute process. No evidence for obstruction. Electronically signed by: Cruz Durbin M.D. 11/24/2016 10:53 AM Dictated Date/Time: 11/24/2016 10:52 AM
[2016-11-24] MEDS ORDERED: BISACODYL 10 MG SUPP PR STA ×2 (11:39→13:57)
[2016-11-24] MEDS ORDERED: INSULIN GLARGINE SOLOSTAR 100 UNITS/ML 3 ML PEN SC ONE (12:30)
[2016-11-24] MEDS: ACETAMINOPHEN 325 MG TAB PO PRN ×2 (15:50→20:14)
--- NOTE | 2016-11-24 19:07 | Progress Note ---
Medicine Progress Note Date & Time of Visit: Nov 24, 2016 at 19:03. Subjective Patient seen and examined. Had nausea and vomiting overnight and this am. Febrile today. This evening had BM mixed with red blood per nursing staff. Objective Last 8 Hrs Date Time Temp Pulse Resp B/P Pulse Ox O2 Delivery O2 Flow Rate FiO2 11/24/16 14:57 38.4 100 20 148/78 96 Nasal Cannula 2.0 11/24/16 11:31 36.7 100 18 131/75 98 Nasal Cannula 2.0 Physical Exam: General-awake; alert; malaised appearing Eyes-EOMI; no scleral icterus Neck-no stridor; trachea midline Neuro-no focal deficits CV-RRR; no m/r/g Resp-CTA bilaterally; no wheezes/crackles Abd-soft; mildly diffusely tender; nBS; epigastric fullness Laboratory Results: Last 24 Hours Test 11/23/16 20:17 11/24/16 06:24 11/24/16 07:41 11/24/16 11:06 Bedside Glucose 321 mg/dl 305 mg/dl 399 mg/dl White Blood Count 16.09 K/uL Red Blood Count 3.34 M/uL Hemoglobin 10.1 g/dL Hematocrit 30.7 % Mean Corpuscular Volume 91.9 fL Mean Corpuscular Hemoglobin 30.2 pg Mean Corpuscular Hemoglobin Concent 32.9 g/dl RDW Standard Deviation 63.4 fL RDW Coefficient of Variation 19.2 % Platelet Count 331 K/uL Mean Platelet Volume 9.4 fL Sodium Level 130 mmol/L Potassium Level 4.5 mmol/L Chloride Level 92 mmol/L Carbon Dioxide Level 29 mmol/L Anion Gap 9.0 mmol/L Blood Urea Nitrogen 25 mg/dl Creatinine 3.60 mg/dl Est Creatinine Clear Calc Drug Dose 18.2 ml/min Estimated GFR () 16.1 Estimated GFR (Non- 13.9 BUN/Creatinine Ratio 6.9 Random Glucose 314 mg/dl Calcium Level 10.4 mg/dl Beta-Hydroxybutyric Acid 4.92 mg/dL Test 11/24/16 12:10 11/24/16 16:29 Bedside Glucose 420 mg/dl 226 mg/dl Date/Time Source Procedure Growth Status 11/24/16 15:54 Blood Blood Culture Pending Received 11/24/16 15:50 Blood Blood Culture Pending Received Assessment & Plan Nausea/Vomiting - abdominal xray negative for obstruction - continue antiemetics PRN Fever - check blood, urine cultures - CXR negative for pneumonia Metastatic pancreatic cancer - GI consulted - EGD/ERCP with 2 hemostatic clips placed near pancreatic tumor - transfused 2 units PRBC's with stable Hgb - Oncology consulted - Radiation oncology consulted - patient with blood BM this evening ESRD on HD - Nephrology consulted - continue HD while inpatient Type 2 DM - continue insulin HTN - continue metoprolol Consultants: Gastroenterology Oncology Radiation oncology Procedures: EGD - Normal esophagus. - Normal stomach. 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 Treatment options limited due to size of mass (no focal bleeding) - Normal 2nd part of the duodenum and 3rd part of the duodenum. - No specimens collected. CT a/p 1. Interval development of diffuse hepatic metastatic disease, possibly splenic involvement. 2. Interval development of pancreatic head mass measuring 6 x 7 cm. 3. Trace abdominal and pelvic ascites with mild adenopathy. Abdominal ultrasound 1. A 7.3 cm pancreatic head mass with associated biliary and pancreatic duct dilatation. 2. Multiple hepatic metastatic lesions. 3. Trace perihepatic ascites. 4. Cholecystectomy. ERCP - The major papilla appeared to have a mass. - Two hemostatic clips were successfully placed (MRI conditional). Current Inpatient Medications: Current Inpatient Medications Medications (Trade) Dose Ordered Sig/Sophia Route Start Time Stop Time Status Last Admin Dose Admin Ondansetron HCl (Zofran Inj) 4 mg Q6H PRN IV 11/20/16 07:00 12/20/16 06:59 11/24/16 14:04 4 MG Hydralazine HCl (HydrALAZINE INJ) 10 mg Q6H PRN IV. 11/20/16 07:00 12/20/16 06:59 Insulin Aspart (novoLOG ASPART) SLIDING SCALE G... ACHS SC 11/20/16 11:00 12/20/16 10:59 11/24/16 18:24 5 UNITS Glucose (Glucose 40% Gel) 15-30 GRAMS 15 GRAMS... UD PRN PO 11/20/16 07:30 12/20/16 07:29 Glucose (Glucose Chew Tab) 4-8 Tablets 4 Tabl... UD PRN PO 11/20/16 07:30 12/20/16 07:29 Dextrose (Dextrose 50% 50ML Syringe) 25-50ML OF 50% DW IV FOR... UD PRN IV 11/20/16 07:30 12/20/16 07:29 11/21/16 09:56 25 ML Glucagon (Glucagon Inj) 1 mg UD PRN SQ 11/20/16 07:30 12/20/16 07:29 Metoprolol Tartrate (Lopressor Tab) 25 mg BID PO 11/21/16 21:00 12/21/16 20:59 11/24/16 07:43 25 MG Oxycodone/ Acetaminophen (Percocet 5-325mg Tab) 1 tab Q4H PRN PO 11/22/16 12:15 12/06/16 12:14 11/23/16 22:56 1 TAB Hydromorphone HCl (Dilaudid Inj) 0.5 mg Q2HWA PRN IV 11/22/16 12:45 12/06/16 12:44 11/24/16 14:05 0.5 MG Metoclopramide HCl (Reglan Inj) 10 mg Q6H PRN IV 11/24/16 08:45 12/24/16 08:44 11/24/16 09:52 10 MG Acetaminophen (Tylenol Tab) 650 mg Q4H PRN PO 11/24/16 15:00 12/24/16 14:59 11/24/16 15:50 650 MG
[2016-11-25] VITALS (23 sets, daily range): BP systolic 79–112; BP diastolic 51–67; PULSE 83–111; TEMP 36.4–37.7; O2SAT 92–97
[2016-11-25] MEDS: HYDROmorphone INJ 0.5 MG/0.5 ML SYR IV PRN (03:47)
[2016-11-25 07:31] LABS: HEMATOCRIT 27.6 % (37-47); MEAN CELL VOLUME 91.1 fL (80-100); MEAN PLATELET VOLUME 9.6 fL (7.4-10.4); PLATELET COUNT 320 K/uL (130-400); RED BLOOD COUNT 3.03 M/uL (4.2-5.4); WHITE BLOOD COUNT 22.71 K/uL (4.8-10.8)
[2016-11-25] MEDS: METOPROLOL TARTRATE 25 MG TAB PO SCH ×2 (07:46→21:22)
[2016-11-25] MEDS: INSULIN ASPART 100 UNITS/ML 3 ML PEN SC SCH ×4 (07:59→21:00)
[2016-11-25] MEDS ORDERED: ALBUMIN HUMAN 25% 12.5 GM/50 ML VIAL IV SCH (10:00)
--- NOTE | 2016-11-25 10:26 | Dialysis Progress Note ---
Nephrology Dialysis Note Date of Service: Nov 25, 2016. Subjective for d/c home soon on palliative care/ hospice. denies dyspnea or uncontrolled pain or current N. Objective Date Time Temp Pulse Resp B/P Pulse Ox O2 Delivery O2 Flow Rate FiO2 11/25/16 07:59 36.4 99 18 99/61 11/25/16 07:46 92 Room Air 11/25/16 05:28 36.7 94 18 101/66 97 Nasal Cannula 2.0 11/25/16 00:12 Nasal Cannula 2.0 11/24/16 23:05 37.0 87 18 106/67 98 2.0 11/24/16 19:28 37.1 105 18 119/73 98 Nasal Cannula 2.0 11/24/16 16:10 97 Nasal Cannula 2.0 11/24/16 14:57 38.4 100 20 148/78 96 Nasal Cannula 2.0 11/24/16 11:31 36.7 100 18 131/75 98 Nasal Cannula 2.0 Physical Exam: General-aaox3, on 02NC Eyes-no scleral icterus ENT-mmm Neck-supple Lungs-clear but diminished Heart-regular Abdomen-soft NT +BS Extremities-no c/c/e Neuro-maradiaga, ? mild confusion Current Inpatient Medications Medications (Trade) Dose Ordered Sig/Sophia Route Start Time Stop Time Status Last Admin Dose Admin Ondansetron HCl (Zofran Inj) 4 mg Q6H PRN IV 11/20/16 07:00 12/20/16 06:59 11/24/16 14:04 4 MG Hydralazine HCl (HydrALAZINE INJ) 10 mg Q6H PRN IV. 11/20/16 07:00 12/20/16 06:59 Insulin Aspart (novoLOG ASPART) SLIDING SCALE G... ACHS SC 11/20/16 11:00 12/20/16 10:59 11/25/16 07:59 1 UNITS Glucose (Glucose 40% Gel) 15-30 GRAMS 15 GRAMS... UD PRN PO 11/20/16 07:30 12/20/16 07:29 Glucose (Glucose Chew Tab) 4-8 Tablets 4 Tabl... UD PRN PO 11/20/16 07:30 12/20/16 07:29 Dextrose (Dextrose 50% 50ML Syringe) 25-50ML OF 50% DW IV FOR... UD PRN IV 11/20/16 07:30 12/20/16 07:29 11/21/16 09:56 25 ML Glucagon (Glucagon Inj) 1 mg UD PRN SQ 11/20/16 07:30 12/20/16 07:29 Metoprolol Tartrate (Lopressor Tab) 25 mg BID PO 11/21/16 21:00 12/21/16 20:59 11/25/16 07:46 25 MG Oxycodone/ Acetaminophen (Percocet 5-325mg Tab) 1 tab Q4H PRN PO 11/22/16 12:15 12/06/16 12:14 11/23/16 22:56 1 TAB Hydromorphone HCl (Dilaudid Inj) 0.5 mg Q2HWA PRN IV 11/22/16 12:45 12/06/16 12:44 11/25/16 03:47 0.5 MG Metoclopramide HCl (Reglan Inj) 10 mg Q6H PRN IV 11/24/16 08:45 12/24/16 08:44 11/24/16 09:52 10 MG Acetaminophen (Tylenol Tab) 650 mg Q4H PRN PO 11/24/16 15:00 12/24/16 14:59 11/24/16 20:14 650 MG Albumin Human (Albumin 25%) 12.5 gm TODAY@1000 IV 11/25/16 10:00 11/25/16 23:59 11/25/16 09:58 12.5 GM Last 24 Hours Test 11/24/16 11:06 11/24/16 12:10 11/24/16 16:29 11/24/16 20:59 Bedside Glucose 399 mg/dl 420 mg/dl 226 mg/dl 119 mg/dl Test 11/25/16 06:58 11/25/16 07:50 White Blood Count 22.71 K/uL Red Blood Count 3.03 M/uL Hemoglobin 9.1 g/dL Hematocrit 27.6 % Mean Corpuscular Volume 91.1 fL Mean Corpuscular Hemoglobin 30.0 pg Mean Corpuscular Hemoglobin Concent 33.0 g/dl RDW Standard Deviation 64.1 fL RDW Coefficient of Variation 19.4 % Platelet Count 320 K/uL Mean Platelet Volume 9.6 fL Bedside Glucose 158 mg/dl Date/Time Source Procedure Growth Status 11/24/16 15:54 Blood Blood Culture Pending Received 11/24/16 15:50 Blood Blood Culture Pending Received Assessment & Plan 51 yo female with metastatic pancreatic cancer who was GI bleeding and required 2 units of blood had egd and ercp > onc following and pt for d/c home on hospice. pt somewhat confused today (not new this admission). ESRD-on HD today. volume status acceptable though BP dropped on tx and not likely to hit uf target>will try albumin one dose. K ok adn Ca high yesterday but Ca better. no labs today and none indicated necessarily. need to discuss HD plans after d/c > will d/w attending/. Anemia of renal failure-no procrit given her metastatic cancer. transfuse prn.hg levels are stable from yesterday. hypercalcemia-calcium levels should improve on the lower calcium dialysate. vitamin d is good. pth is appropriately low. pthrp is pending. cont to monitor Ca levels intermittently
[2016-11-25] MEDS ORDERED: POLYETHYLENE (MIRALAX) 17 GM PACK PO PRN (11:15)
--- NOTE | 2016-11-25 17:46 | Progress Note ---
Medicine Progress Note Date & Time of Visit: Nov 25, 2016 at 17:40. Subjective Patient seen and examined. Feeling better today. Has had additional nonbloody BM's. No further nausea/vomiting. Objective Last 8 Hrs Date Time Temp Pulse Resp B/P Pulse Ox O2 Delivery O2 Flow Rate FiO2 11/25/16 16:18 37.1 18 112/67 94 Room Air 11/25/16 16:00 94 Room Air 11/25/16 12:20 36.4 87 96/60 11/25/16 12:10 36.5 93 18 96/62 94 Room Air 11/25/16 11:30 83 79/53 11/25/16 11:15 86 82/53 11/25/16 11:00 89 86/56 11/25/16 10:45 85 90/54 11/25/16 10:30 87 88/59 11/25/16 10:15 86 92/59 11/25/16 10:00 85 84/51 11/25/16 09:45 88 100/63 Physical Exam: General-awake; alert; NAD; in better spirits Eyes-EOMI; no scleral icterus Neck-no stridor; trachea midline Neuro-no focal deficits CV-RRR; no m/r/g Resp-CTA bilaterally; no wheezes/crackles Abd-soft; mildly diffusely tender; nBS; epigastric fullness Laboratory Results: Last 24 Hours Test 11/24/16 20:59 11/25/16 06:58 11/25/16 07:50 11/25/16 12:07 Bedside Glucose 119 mg/dl 158 mg/dl 135 mg/dl White Blood Count 22.71 K/uL Red Blood Count 3.03 M/uL Hemoglobin 9.1 g/dL Hematocrit 27.6 % Mean Corpuscular Volume 91.1 fL Mean Corpuscular Hemoglobin 30.0 pg Mean Corpuscular Hemoglobin Concent 33.0 g/dl RDW Standard Deviation 64.1 fL RDW Coefficient of Variation 19.4 % Platelet Count 320 K/uL Mean Platelet Volume 9.6 fL Test 11/25/16 16:45 Bedside Glucose 197 mg/dl Assessment & Plan Nausea/Vomiting - resolved - abdominal xray negative for obstruction - continue antiemetics PRN Fever on 11/24 on 15:00 - blood cultures pending - may not be able to check u/a and urine culture as patient makes minimal urine - CXR negative for pneumonia Metastatic pancreatic cancer - GI consulted - EGD/ERCP with 2 hemostatic clips placed near pancreatic tumor - transfused 2 units PRBC's with stable Hgb - Oncology consulted - Radiation oncology consulted ESRD on HD - Nephrology consulted - continue HD while inpatient Type 2 DM - continue insulin HTN - continue metoprolol DVT prophylaxis with SCD's Anticipate discharge home tomorrow. Consultants: Gastroenterology Oncology Radiation oncology Procedures: EGD - Normal esophagus. - Normal stomach. 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 Treatment options limited due to size of mass (no focal bleeding) - Normal 2nd part of the duodenum and 3rd part of the duodenum. - No specimens collected. CT a/p 1. Interval development of diffuse hepatic metastatic disease, possibly splenic involvement. 2. Interval development of pancreatic head mass measuring 6 x 7 cm. 3. Trace abdominal and pelvic ascites with mild adenopathy. Abdominal ultrasound 1. A 7.3 cm pancreatic head mass with associated biliary and pancreatic duct dilatation. 2. Multiple hepatic metastatic lesions. 3. Trace perihepatic ascites. 4. Cholecystectomy. ERCP - The major papilla appeared to have a mass. - Two hemostatic clips were successfully placed (MRI conditional). Current Inpatient Medications: Current Inpatient Medications Medications (Trade) Dose Ordered Sig/Sophia Route Start Time Stop Time Status Last Admin Dose Admin Ondansetron HCl (Zofran Inj) 4 mg Q6H PRN IV 11/20/16 07:00 12/20/16 06:59 11/24/16 14:04 4 MG Hydralazine HCl (HydrALAZINE INJ) 10 mg Q6H PRN IV. 11/20/16 07:00 12/20/16 06:59 Insulin Aspart (novoLOG ASPART) SLIDING SCALE G... ACHS SC 11/20/16 11:00 12/20/16 10:59 11/25/16 13:23 1 UNITS Glucose (Glucose 40% Gel) 15-30 GRAMS 15 GRAMS... UD PRN PO 11/20/16 07:30 12/20/16 07:29 Glucose (Glucose Chew Tab) 4-8 Tablets 4 Tabl... UD PRN PO 11/20/16 07:30 12/20/16 07:29 Dextrose (Dextrose 50% 50ML Syringe) 25-50ML OF 50% DW IV FOR... UD PRN IV 11/20/16 07:30 12/20/16 07:29 11/21/16 09:56 25 ML Glucagon (Glucagon Inj) 1 mg UD PRN SQ 11/20/16 07:30 12/20/16 07:29 Metoprolol Tartrate (Lopressor Tab) 25 mg BID PO 11/21/16 21:00 12/21/16 20:59 11/25/16 07:46 25 MG Oxycodone/ Acetaminophen (Percocet 5-325mg Tab) 1 tab Q4H PRN PO 11/22/16 12:15 12/06/16 12:14 11/23/16 22:56 1 TAB Hydromorphone HCl (Dilaudid Inj) 0.5 mg Q2HWA PRN IV 11/22/16 12:45 12/06/16 12:44 11/25/16 03:47 0.5 MG Metoclopramide HCl (Reglan Inj) 10 mg Q6H PRN IV 11/24/16 08:45 12/24/16 08:44 11/24/16 09:52 10 MG Acetaminophen (Tylenol Tab) 650 mg Q4H PRN PO 11/24/16 15:00 12/24/16 14:59 11/24/16 20:14 650 MG Albumin Human (Albumin 25%) 12.5 gm TODAY@1000 IV 11/25/16 10:00 11/25/16 23:59 11/25/16 09:58 12.5 GM Docusate Sodium (coLACE CAP) 100 mg BID PO 11/25/16 20:00 12/25/16 19:59 Polyethylene (Miralax Powder Packet) 17 gm DAILY PRN PO 11/25/16 11:15 12/25/16 11:14
[2016-11-25] MEDS: ONDANSETRON INJ 2 MG/ML 2 ML VIAL IV PRN (21:12)
[2016-11-25] MEDS: ACETAMINOPHEN 325 MG TAB PO PRN (21:18)
[2016-11-25] MEDS: DOCUSATE SODIUM 100 MG CAP PO SCH (21:19)
[2016-11-25] MEDS: INSULIN GLARGINE SOLOSTAR 100 UNITS/ML 3 ML PEN SC SCH (21:25)
[2016-11-25] MEDS: HYDROmorphone HCL 2 MG TAB PO PRN (21:44)
[2016-11-25] MEDS: GUAIFENESIN 600 MG TABCR PO SCH (22:30)
[2016-11-26 04:06] VITALS: BP 99/58; PULSE 90; TEMP 37; O2SAT 94
[2016-11-26] MEDS: ONDANSETRON INJ 2 MG/ML 2 ML VIAL IV PRN (05:20)
[2016-11-26 05:48] LABS: HEMATOCRIT 25.5 % (37-47); MEAN CELL VOLUME 89.2 fL (80-100); MEAN CORPUSCULAR HEMOGLOBIN 29.7 pg (25-34); MEAN CORPUSCULAR HGB CONC 33.3 g/dl (32-36); MEAN PLATELET VOLUME 9.3 fL (7.4-10.4); PLATELET COUNT 314 K/uL (130-400); RED BLOOD COUNT 2.86 M/uL (4.2-5.4); WHITE BLOOD COUNT 18.93 K/uL (4.8-10.8)
[2016-11-26 07:19] VITALS: BP 126/77; PULSE 116; TEMP 37.3; O2SAT 93
[2016-11-26] MEDS: INSULIN ASPART 100 UNITS/ML 3 ML PEN SC SCH ×4 (08:00→20:42)
[2016-11-26] MEDS: GUAIFENESIN 600 MG TABCR PO SCH ×2 (08:55→20:42)
[2016-11-26] MEDS: METOPROLOL TARTRATE 25 MG TAB PO SCH ×2 (08:56→20:42)
[2016-11-26] MEDS: DOCUSATE SODIUM 100 MG CAP PO SCH (08:56)
[2016-11-26] MEDS: SODIUM CHLORIDE 0.9% 1000ML 1,000 ML IV SCH ×3 (09:53→23:37)
[2016-11-26 11:46] VITALS: BP 94/70; PULSE 92; TEMP 36.5; O2SAT 92
[2016-11-26] MEDS ORDERED: LOPERAMIDE HCL 2 MG CAP PO PRN (15:00)
--- NOTE | 2016-11-26 15:01 | Progress Note ---
Medicine Progress Note Date & Time of Visit: Nov 26, 2016 at 14:56. Subjective Patient seen and examined. Having profuse, watery diarrhea today. Requesting home services for when she is discharged. She feels that she needs more help in the house. Objective Last 8 Hrs Date Time Temp Pulse Resp B/P Pulse Ox O2 Delivery O2 Flow Rate FiO2 11/26/16 11:46 36.5 92 18 94/70 92 Room Air 11/26/16 08:50 Room Air 11/26/16 07:19 37.3 116 18 126/77 93 Physical Exam: General-awake; alert; NAD Eyes-EOMI; no scleral icterus Neck-no stridor; trachea midline Neuro-no focal deficits CV-RRR; no m/r/g Resp-CTA bilaterally; no wheezes/crackles Abd-soft; NT; nBS; epigastric fullness Laboratory Results: Last 24 Hours Test 11/25/16 16:45 11/25/16 20:06 11/26/16 05:28 11/26/16 07:58 Bedside Glucose 197 mg/dl 132 mg/dl 127 mg/dl White Blood Count 18.93 K/uL Red Blood Count 2.86 M/uL Hemoglobin 8.5 g/dL Hematocrit 25.5 % Mean Corpuscular Volume 89.2 fL Mean Corpuscular Hemoglobin 29.7 pg Mean Corpuscular Hemoglobin Concent 33.3 g/dl RDW Standard Deviation 63.4 fL RDW Coefficient of Variation 19.6 % Platelet Count 314 K/uL Mean Platelet Volume 9.3 fL Test 11/26/16 09:40 11/26/16 11:44 Stool Occult Blood POSITIVE Bedside Glucose 123 mg/dl Date/Time Source Procedure Growth Status 11/26/16 09:41 Stool Shiga Toxin Test Pending Received 11/26/16 09:41 Stool Stool Culture Pending Received 11/26/16 09:41 Stool C.difficile Toxin B Gene (PCR) - Final No C. difficile toxin B gene detected Complete Assessment & Plan Diarrhea - C diff negative - stool culture pending - loperamide PRN Nausea/Vomiting - resolved - abdominal xray negative for obstruction - continue antiemetics PRN Fever on 11/24 on 15:00 - blood cultures ngtd - may not be able to check u/a and urine culture as patient makes minimal urine - CXR negative for pneumonia Metastatic pancreatic cancer - GI consulted - EGD/ERCP with 2 hemostatic clips placed near pancreatic tumor - transfused 2 units PRBC's with stable Hgb - Oncology consulted - Radiation oncology consulted ESRD on HD - Nephrology consulted - continue HD while inpatient Type 2 DM - continue insulin HTN - continue metoprolol DVT prophylaxis with SCD's Consultants: Gastroenterology Oncology Radiation oncology Procedures: EGD - Normal esophagus. - Normal stomach. 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 Treatment options limited due to size of mass (no focal bleeding) - Normal 2nd part of the duodenum and 3rd part of the duodenum. - No specimens collected. CT a/p 1. Interval development of diffuse hepatic metastatic disease, possibly splenic involvement. 2. Interval development of pancreatic head mass measuring 6 x 7 cm. 3. Trace abdominal and pelvic ascites with mild adenopathy. Abdominal ultrasound 1. A 7.3 cm pancreatic head mass with associated biliary and pancreatic duct dilatation. 2. Multiple hepatic metastatic lesions. 3. Trace perihepatic ascites. 4. Cholecystectomy. ERCP - The major papilla appeared to have a mass. - Two hemostatic clips were successfully placed (MRI conditional). Current Inpatient Medications: Current Inpatient Medications Medications (Trade) Dose Ordered Sig/Sophia Route Start Time Stop Time Status Last Admin Dose Admin Ondansetron HCl (Zofran Inj) 4 mg Q6H PRN IV 11/20/16 07:00 12/20/16 06:59 11/26/16 05:20 4 MG Hydralazine HCl (HydrALAZINE INJ) 10 mg Q6H PRN IV. 11/20/16 07:00 12/20/16 06:59 Insulin Aspart (novoLOG ASPART) SLIDING SCALE G... ACHS SC 11/20/16 11:00 12/20/16 10:59 11/25/16 17:55 6 UNITS Glucose (Glucose 40% Gel) 15-30 GRAMS 15 GRAMS... UD PRN PO 11/20/16 07:30 12/20/16 07:29 Glucose (Glucose Chew Tab) 4-8 Tablets 4 Tabl... UD PRN PO 11/20/16 07:30 12/20/16 07:29 Dextrose (Dextrose 50% 50ML Syringe) 25-50ML OF 50% DW IV FOR... UD PRN IV 11/20/16 07:30 12/20/16 07:29 11/21/16 09:56 25 ML Glucagon (Glucagon Inj) 1 mg UD PRN SQ 11/20/16 07:30 12/20/16 07:29 Metoprolol Tartrate (Lopressor Tab) 25 mg BID PO 11/21/16 21:00 12/21/16 20:59 11/26/16 08:56 25 MG Hydromorphone HCl (Dilaudid Inj) 0.5 mg Q2HWA PRN IV 11/22/16 12:45 12/06/16 12:44 11/25/16 03:47 0.5 MG Metoclopramide HCl (Reglan Inj) 10 mg Q6H PRN IV 11/24/16 08:45 12/24/16 08:44 11/24/16 09:52 10 MG Acetaminophen (Tylenol Tab) 650 mg Q4H PRN PO 11/24/16 15:00 12/24/16 14:59 11/25/16 21:18 650 MG Docusate Sodium (coLACE CAP) 100 mg BID PO 11/25/16 20:00 12/25/16 19:59 Future Hold 11/25/16 21:19 100 MG Polyethylene (Miralax Powder Packet) 17 gm DAILY PRN PO 11/25/16 11:15 12/25/16 11:14 Hydromorphone HCl (Dilaudid Tab) 2 mg Q6 PRN PO 11/25/16 17:45 12/09/16 17:44 11/25/16 21:44 2 MG Insulin Glargine (Lantus Solostar Pen) 10 unit QPM SC 11/25/16 21:00 12/25/16 20:59 11/25/16 21:25 10 UNIT Guaifenesin 600 mg 600 mg Q12 PO 11/25/16 22:00 12/25/16 21:59 11/26/16 08:55 600 MG Sodium Chloride (Nss 1000ml) 1,000 ml @ 150 mls/hr Q6H40M IV 11/26/16 09:30 12/26/16 09:29 11/26/16 09:53 100 MLS/HR Loperamide HCl (Imodium Cap) 2 mg Q4 PRN PO 11/26/16 15:00 12/26/16 14:59 UNV
[2016-11-26 17:00] VITALS: BP 108/71; PULSE 93; TEMP 36.7; O2SAT 95
[2016-11-26 19:02] VITALS: BP 112/72; PULSE 87; TEMP 36.9; O2SAT 93
[2016-11-26] MEDS: INSULIN GLARGINE SOLOSTAR 100 UNITS/ML 3 ML PEN SC SCH (20:50)
[2016-11-26 23:10] VITALS: BP 109/70; PULSE 100; TEMP 37.1; O2SAT 92
[2016-11-26] MEDS: HYDROmorphone INJ 0.5 MG/0.5 ML SYR IV PRN (23:37)
[2016-11-27] VITALS (23 sets, daily range): BP systolic 74–143; BP diastolic 22–83; PULSE 72–103; TEMP 36.6–37; O2SAT 90–96
[2016-11-27] MEDS: SODIUM CHLORIDE 0.9% 1000ML 1,000 ML IV SCH ×2 (06:23→13:21)
[2016-11-27 06:59] LABS: HEMATOCRIT 23.8 % (37-47); MEAN CELL VOLUME 88.8 fL (80-100); MEAN CORPUSCULAR HEMOGLOBIN 30.2 pg (25-34); PLATELET COUNT 334 K/uL (130-400); RED BLOOD COUNT 2.68 M/uL (4.2-5.4); WHITE BLOOD COUNT 20.63 K/uL (4.8-10.8)
[2016-11-27] MEDS ORDERED: HEPARIN SOD (PORCINE) 1000 UNIT/ML 10 ML VIAL IV SCH (07:00)
[2016-11-27] MEDS: METOPROLOL TARTRATE 25 MG TAB PO SCH ×2 (08:00→20:51)
--- NOTE | 2016-11-27 08:19 | Nephrology Progress Note ---
Nephrology Progress Note Date of Service: Nov 27, 2016. Subjective for d/c home soon on palliative care/ hospice--was to go yesterday but had severe diarrhea; stayed overnight. denies dyspnea or uncontrolled pain or current N. feels diarrhea slowing Objective Date Time Temp Pulse Resp B/P Pulse Ox O2 Delivery O2 Flow Rate FiO2 11/27/16 07:41 36.8 93 18 109/76 94 Room Air 11/27/16 03:48 36.6 92 18 103/69 93 Room Air 11/26/16 23:30 Room Air 11/26/16 23:10 37.1 100 17 109/70 92 Room Air 11/26/16 19:02 36.9 87 18 112/72 93 Room Air 11/26/16 17:00 36.7 93 18 108/71 95 Room Air 11/26/16 16:30 Room Air 11/26/16 11:46 36.5 92 18 94/70 92 Room Air 11/26/16 08:50 Room Air Physical Exam: General-aaox3, on 02NC Eyes-no scleral icterus ENT-mmm Neck-supple Lungs-clear but diminished Heart-regular Abdomen-soft +BS some R LQ/RUQ TTP w/o guarding Extremities-no c/c/e Neuro-maradiaga, today seems less confused/ fluent speech Current Inpatient Medications Medications (Trade) Dose Ordered Sig/Sophia Route Start Time Stop Time Status Last Admin Dose Admin Ondansetron HCl (Zofran Inj) 4 mg Q6H PRN IV 11/20/16 07:00 12/20/16 06:59 11/26/16 05:20 4 MG Hydralazine HCl (HydrALAZINE INJ) 10 mg Q6H PRN IV. 11/20/16 07:00 12/20/16 06:59 Insulin Aspart (novoLOG ASPART) SLIDING SCALE G... ACHS SC 11/20/16 11:00 12/20/16 10:59 11/26/16 17:45 1 UNITS Glucose (Glucose 40% Gel) 15-30 GRAMS 15 GRAMS... UD PRN PO 11/20/16 07:30 12/20/16 07:29 Glucose (Glucose Chew Tab) 4-8 Tablets 4 Tabl... UD PRN PO 11/20/16 07:30 12/20/16 07:29 Dextrose (Dextrose 50% 50ML Syringe) 25-50ML OF 50% DW IV FOR... UD PRN IV 11/20/16 07:30 12/20/16 07:29 11/21/16 09:56 25 ML Glucagon (Glucagon Inj) 1 mg UD PRN SQ 11/20/16 07:30 12/20/16 07:29 Metoprolol Tartrate (Lopressor Tab) 25 mg BID PO 11/21/16 21:00 12/21/16 20:59 11/26/16 20:42 25 MG Hydromorphone HCl (Dilaudid Inj) 0.5 mg Q2HWA PRN IV 11/22/16 12:45 12/06/16 12:44 11/26/16 23:37 0.5 MG Metoclopramide HCl (Reglan Inj) 10 mg Q6H PRN IV 11/24/16 08:45 12/24/16 08:44 11/24/16 09:52 10 MG Acetaminophen (Tylenol Tab) 650 mg Q4H PRN PO 11/24/16 15:00 12/24/16 14:59 11/25/16 21:18 650 MG Docusate Sodium (coLACE CAP) 100 mg BID PO 11/25/16 20:00 12/25/16 19:59 Future Hold 11/25/16 21:19 100 MG Polyethylene (Miralax Powder Packet) 17 gm DAILY PRN PO 11/25/16 11:15 12/25/16 11:14 Hydromorphone HCl (Dilaudid Tab) 2 mg Q6 PRN PO 11/25/16 17:45 12/09/16 17:44 11/25/16 21:44 2 MG Insulin Glargine (Lantus Solostar Pen) 10 unit QPM SC 11/25/16 21:00 12/25/16 20:59 11/26/16 20:50 10 UNIT Guaifenesin 600 mg 600 mg Q12 PO 11/25/16 22:00 12/25/16 21:59 11/26/16 20:42 600 MG Sodium Chloride (Nss 1000ml) 1,000 ml @ 150 mls/hr Q6H40M IV 11/26/16 09:30 12/26/16 09:29 11/27/16 06:23 150 MLS/HR Loperamide HCl (Imodium Cap) 2 mg Q4 PRN PO 11/26/16 15:00 12/26/16 14:59 Heparin Sodium (Porcine) (Heparin Iv Bolus) 1,000 unit TODAY@0700 IV 11/27/16 07:00 11/27/16 23:59 Heparin Sodium (Porcine) (Heparin Iv Bolus) 400 unit TODAY@0700,0800,0900 IV 11/27/16 07:00 11/27/16 23:59 Albumin Human (Albumin 25%) 12.5 gm TODAY@0700,0900 IV 11/27/16 07:00 11/27/16 23:59 Last 24 Hours Test 11/26/16 09:40 11/26/16 11:44 11/26/16 17:13 11/26/16 20:25 Stool Occult Blood POSITIVE Bedside Glucose 123 mg/dl 155 mg/dl 125 mg/dl Test 11/27/16 06:35 11/27/16 07:40 White Blood Count 20.63 K/uL Red Blood Count 2.68 M/uL Hemoglobin 8.1 g/dL Hematocrit 23.8 % Mean Corpuscular Volume 88.8 fL Mean Corpuscular Hemoglobin 30.2 pg Mean Corpuscular Hemoglobin Concent 34.0 g/dl RDW Standard Deviation 60.8 fL RDW Coefficient of Variation 19.2 % Platelet Count 334 K/uL Mean Platelet Volume 9.0 fL Bedside Glucose 71 mg/dl Date/Time Source Procedure Growth Status 11/26/16 09:41 Stool Shiga Toxin Test Pending Received 11/26/16 09:41 Stool Stool Culture Pending Received 11/26/16 09:41 Stool C.difficile Toxin B Gene (PCR) - Final No C. difficile toxin B gene detected Complete Assessment & Plan 51 yo female with metastatic pancreatic cancer who was GI bleeding and required pRBC; had egd and ercp > onc following and pt for d/c home on hospice. pt somewhat confused intermittently this admission. ESRD-for HD today. volume status acceptable though BP dropped on tx and not likely to hit uf target>will try albumin one dose. K ok adn Ca high on last labs but Ca better. no labs today and none indicated necessarily. pt plans to cont outpt HD while on hospice, at least for now. this is acceptable Anemia of renal failure-no procrit given her metastatic cancer. transfuse prn. hg levels slowly trending down but still acceptable. hypercalcemia-calcium levels still on the higher side; on the lowest possible calcium dialysate. vitamin d is good. pth is appropriately low. pthrp is still pending. cont to monitor Ca levels intermittently
[2016-11-27] MEDS: INSULIN ASPART 100 UNITS/ML 3 ML PEN SC SCH ×4 (08:29→20:52)
[2016-11-27] MEDS: ALBUMIN HUMAN 25% 12.5 GM/50 ML VIAL IV SCH ×2 (09:11→10:40)
[2016-11-27] MEDS: HYDROmorphone INJ 0.5 MG/0.5 ML SYR IV PRN ×2 (09:44→18:55)
[2016-11-27] MEDS: HEPARIN SOD (PORCINE) 1000 UNIT/ML 10 ML VIAL IV SCH ×3 (10:15→12:56)
[2016-11-27] MEDS: GUAIFENESIN 600 MG TABCR PO SCH ×2 (13:21→20:50)
[2016-11-27] MEDS: HYDROmorphone HCL 2 MG TAB PO PRN (16:54)
--- NOTE | 2016-11-27 20:11 | Progress Note ---
Medicine Progress Note Date & Time of Visit: Nov 27, 2016 at 20:08. Subjective Patient seen and examined. Feeling better today. Diarrhea resolved. Would like to attempt to go home tomorrow. Had HD this morning. Objective Last 8 Hrs Date Time Temp Pulse Resp B/P Pulse Ox O2 Delivery O2 Flow Rate FiO2 11/27/16 16:30 Room Air 11/27/16 15:47 37.0 101 18 126/78 96 Room Air 11/27/16 13:05 36.8 92 123/70 11/27/16 12:57 36.7 94 18 143/83 93 11/27/16 12:32 72 79/22 11/27/16 12:15 84 97/51 Physical Exam: General-awake; alert; NAD Eyes-EOMI; no scleral icterus Neck-no stridor; trachea midline Neuro-no focal deficits CV-RRR; no m/r/g Resp-CTA bilaterally; no wheezes/crackles Abd-soft; NT; nBS; epigastric fullness Laboratory Results: Last 24 Hours Test 11/26/16 20:25 11/27/16 06:35 11/27/16 07:40 11/27/16 12:54 Bedside Glucose 125 mg/dl 71 mg/dl 120 mg/dl White Blood Count 20.63 K/uL Red Blood Count 2.68 M/uL Hemoglobin 8.1 g/dL Hematocrit 23.8 % Mean Corpuscular Volume 88.8 fL Mean Corpuscular Hemoglobin 30.2 pg Mean Corpuscular Hemoglobin Concent 34.0 g/dl RDW Standard Deviation 60.8 fL RDW Coefficient of Variation 19.2 % Platelet Count 334 K/uL Mean Platelet Volume 9.0 fL Test 11/27/16 16:39 Bedside Glucose 126 mg/dl Assessment & Plan Diarrhea - resolved - C diff negative - stool culture negative - loperamide PRN Nausea/Vomiting - resolved - abdominal xray negative for obstruction - continue antiemetics PRN Fever on 11/24 on 15:00 - blood cultures ngtd - may not be able to check u/a and urine culture as patient makes minimal urine - CXR negative for pneumonia Metastatic pancreatic cancer - GI consulted - EGD/ERCP with 2 hemostatic clips placed near pancreatic tumor - transfused 2 units PRBC's with stable Hgb - Oncology consulted - Radiation oncology consulted - plan for palliative radiation ESRD on HD - Nephrology consulted - continue HD while inpatient Type 2 DM - continue insulin HTN - continue metoprolol DVT prophylaxis with SCD's Consultants: Gastroenterology Oncology Radiation oncology Procedures: EGD - Normal esophagus. - Normal stomach. 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 Treatment options limited due to size of mass (no focal bleeding) - Normal 2nd part of the duodenum and 3rd part of the duodenum. - No specimens collected. CT a/p 1. Interval development of diffuse hepatic metastatic disease, possibly splenic involvement. 2. Interval development of pancreatic head mass measuring 6 x 7 cm. 3. Trace abdominal and pelvic ascites with mild adenopathy. Abdominal ultrasound 1. A 7.3 cm pancreatic head mass with associated biliary and pancreatic duct dilatation. 2. Multiple hepatic metastatic lesions. 3. Trace perihepatic ascites. 4. Cholecystectomy. ERCP - The major papilla appeared to have a mass. - Two hemostatic clips were successfully placed (MRI conditional). Current Inpatient Medications: Current Inpatient Medications Medications (Trade) Dose Ordered Sig/Sophia Route Start Time Stop Time Status Last Admin Dose Admin Ondansetron HCl (Zofran Inj) 4 mg Q6H PRN IV 11/20/16 07:00 12/20/16 06:59 11/26/16 05:20 4 MG Hydralazine HCl (HydrALAZINE INJ) 10 mg Q6H PRN IV. 11/20/16 07:00 12/20/16 06:59 Insulin Aspart (novoLOG ASPART) SLIDING SCALE G... ACHS SC 11/20/16 11:00 12/20/16 10:59 11/27/16 18:20 1 UNITS Glucose (Glucose 40% Gel) 15-30 GRAMS 15 GRAMS... UD PRN PO 11/20/16 07:30 12/20/16 07:29 Glucose (Glucose Chew Tab) 4-8 Tablets 4 Tabl... UD PRN PO 11/20/16 07:30 12/20/16 07:29 Dextrose (Dextrose 50% 50ML Syringe) 25-50ML OF 50% DW IV FOR... UD PRN IV 11/20/16 07:30 12/20/16 07:29 11/21/16 09:56 25 ML Glucagon (Glucagon Inj) 1 mg UD PRN SQ 11/20/16 07:30 12/20/16 07:29 Metoprolol Tartrate (Lopressor Tab) 25 mg BID PO 11/21/16 21:00 12/21/16 20:59 11/26/16 20:42 25 MG Hydromorphone HCl (Dilaudid Inj) 0.5 mg Q2HWA PRN IV 11/22/16 12:45 12/06/16 12:44 11/27/16 18:55 0.5 MG Metoclopramide HCl (Reglan Inj) 10 mg Q6H PRN IV 11/24/16 08:45 12/24/16 08:44 11/24/16 09:52 10 MG Acetaminophen (Tylenol Tab) 650 mg Q4H PRN PO 11/24/16 15:00 12/24/16 14:59 11/25/16 21:18 650 MG Docusate Sodium (coLACE CAP) 100 mg BID PO 11/25/16 20:00 12/25/16 19:59 Future Hold 11/25/16 21:19 100 MG Polyethylene (Miralax Powder Packet) 17 gm DAILY PRN PO 11/25/16 11:15 12/25/16 11:14 Hydromorphone HCl (Dilaudid Tab) 2 mg Q6 PRN PO 11/25/16 17:45 12/09/16 17:44 11/27/16 16:54 2 MG Insulin Glargine (Lantus Solostar Pen) 10 unit QPM SC 11/25/16 21:00 12/25/16 20:59 11/26/16 20:50 10 UNIT Guaifenesin (Mucinex Contr Rel Tab) 600 mg Q12 PO 11/25/16 22:00 12/25/16 21:59 11/27/16 13:21 600 MG Loperamide HCl (Imodium Cap) 2 mg Q4 PRN PO 11/26/16 15:00 12/26/16 14:59 Heparin Sodium (Porcine) (Heparin Iv Bolus) 1,000 unit TODAY@0700 IV 11/27/16 07:00 11/27/16 23:59 Heparin Sodium (Porcine) (Heparin Iv Bolus) 400 unit TODAY@0700,0800,0900 IV 11/27/16 07:00 11/27/16 23:59 Albumin Human (Albumin 25%) 12.5 gm TODAY@0700,0900 IV 11/27/16 07:00 11/27/16 23:59 11/27/16 10:40 12.5 GM
[2016-11-27] MEDS: INSULIN GLARGINE SOLOSTAR 100 UNITS/ML 3 ML PEN SC SCH (20:54)
[2016-11-28 04:06] VITALS: BP 99/67; PULSE 96; TEMP 37; O2SAT 92
[2016-11-28 07:11] VITALS: BP 104/70; PULSE 91; TEMP 37; O2SAT 93
--- NOTE | 2016-11-28 08:44 | Hematology/Oncology Prog Note ---
Hematology/Onc Progress Note Date of Service Nov 27, 2016. Diagnoses 1. Progressive Stage IV pancreatic adenocarcinoma with invasion of primary site into duodenum causing UGI bleed 2. ESRD on HD 3. Elevated LFTs 4. Hypercalcemia, likely of malignancy Subjective Mrs. Sandoval reports feeling fatigued today, having HD at time of visit today. She denies any respiratory issues at this time. She has not had nausea/ vomiting and has a fair appetite. She received an enema over the weekend for constipation and then as a result has frequent watery diarrhea yesterday. She has had a few movement this morning, but appears to be slowing down. She denies any blood in bowels or from any other site. She believes she will be starting palliative RT to invasive pancreatic lesion into duodenum. Review of Systems: Abdomen: + see HPI Vital Signs Vital Signs Past 12 Hours Date Time Temp Pulse Resp B/P Pulse Ox O2 Delivery O2 Flow Rate FiO2 11/27/16 13:05 36.8 92 123/70 11/27/16 12:57 36.7 94 18 143/83 93 11/27/16 12:32 72 79/22 11/27/16 12:15 84 97/51 11/27/16 12:00 87 113/67 11/27/16 11:45 85 89/52 11/27/16 11:30 89 100/51 11/27/16 11:15 86 80/43 11/27/16 11:07 88 77/40 11/27/16 11:00 88 74/46 11/27/16 10:45 87 80/40 11/27/16 10:30 89 86/53 11/27/16 10:15 89 80/45 11/27/16 10:00 92 87/47 11/27/16 09:45 92 87/48 11/27/16 09:30 92 96/57 11/27/16 09:15 92 107/66 11/27/16 08:59 36.9 94 119/72 11/27/16 08:25 Room Air 11/27/16 07:41 36.8 93 18 109/76 94 Room Air 11/27/16 03:48 36.6 92 18 103/69 93 Room Air Physical Exam Constitutional: General Apperance: well-nourished, well-developed Level of Distress: NAD, chronically ill ENMT: hearing grossly normal Lungs: Respiratory Effort: no dyspnea Auscuitation: no wheezing, no rhonchi Cardiovascular: Heart Auscultation: RRR Abdomen: Inspection & Palpation: soft, non-distended, LUQ tenderness, RUQ tenderness Liver: hepatomegaly (2-4 cm below costal border) Laboratory 11/25/16 06:58 11/26/16 05:28 11/27/16 06:35 Test 11/24/16 16:29 11/24/16 20:59 11/25/16 06:58 11/25/16 07:50 Bedside Glucose 226 mg/dl (70-90) 119 mg/dl (70-90) 158 mg/dl (70-90) Red Blood Count 3.03 M/uL (4.2-5.4) Mean Corpuscular Volume 91.1 fL (80-100) Mean Corpuscular Hemoglobin 30.0 pg (25-34) Mean Corpuscular Hemoglobin Concent 33.0 g/dl (32-36) RDW Standard Deviation 64.1 fL (36.4-46.3) RDW Coefficient of Variation 19.4 % (11.5-14.5) Mean Platelet Volume 9.6 fL (7.4-10.4) Test 11/25/16 12:07 11/25/16 16:45 11/25/16 20:06 11/26/16 05:28 Bedside Glucose 135 mg/dl (70-90) 197 mg/dl (70-90) 132 mg/dl (70-90) Red Blood Count 2.86 M/uL (4.2-5.4) Mean Corpuscular Volume 89.2 fL (80-100) Mean Corpuscular Hemoglobin 29.7 pg (25-34) Mean Corpuscular Hemoglobin Concent 33.3 g/dl (32-36) RDW Standard Deviation 63.4 fL (36.4-46.3) RDW Coefficient of Variation 19.6 % (11.5-14.5) Mean Platelet Volume 9.3 fL (7.4-10.4) Test 11/26/16 07:58 11/26/16 09:40 11/26/16 11:44 11/26/16 17:13 Bedside Glucose 127 mg/dl (70-90) 123 mg/dl (70-90) 155 mg/dl (70-90) Stool Occult Blood POSITIVE (NEGATIVE) Test 11/26/16 20:25 11/27/16 06:35 11/27/16 07:40 11/27/16 12:54 Bedside Glucose 125 mg/dl (70-90) 71 mg/dl (70-90) 120 mg/dl (70-90) Red Blood Count 2.68 M/uL (4.2-5.4) Mean Corpuscular Volume 88.8 fL (80-100) Mean Corpuscular Hemoglobin 30.2 pg (25-34) Mean Corpuscular Hemoglobin Concent 34.0 g/dl (32-36) RDW Standard Deviation 60.8 fL (36.4-46.3) RDW Coefficient of Variation 19.2 % (11.5-14.5) Mean Platelet Volume 9.0 fL (7.4-10.4) Date/Time Source Procedure Growth Status 11/26/16 09:41 Stool C.difficile Toxin B Gene (PCR) - Final No C. difficile toxin B gene detected Complete Assessment & Plan 1. Stage IV pancreatic adenocarcinoma with liver and lung metastases- recent progression noted on scans/EGD when she was admitted 11/20/16 for UGI bleed, increase in liver lesions (went from multiple to diffuse) and pancreatic primary invading duodenum causing UGI bleed * Dr. Ollie Desai has met with patient and family and discussed palliative RT to pancreatic/duodenal areas- patient/family agreeable; patient to start palliative RT on 11/28/16 or 11/29/16 per RO * EGD/ERCP today- 2 hemostatic clips placed at duodenal mass, biliary orifice unable to be found due to mass, PTC recommended by GI if further obstructive symptoms develop * Discussed with patient and family that single agent gemcitabine x 4 cycles has not been effective in controlling her pancreatic cancer; with current PS, co -morbidities not planning for further palliative chemotherapy at this time 2. Acute blood loss anemia * S/p 2 units PRBC this hospitalization with appropriate Hgb response * Continue to monitor CBC daily 3. Elevated LFTs secondary to liver metastases * Incline of alkaline phosphatase, mild direct hyperbilirubinemia- stable * See above regarding PTC if necessary 4. ESRD- management per [facility] 5. Hypercalcemia- likely of malignancy * Low calcium bath on HD * s/p Zometa 3 mg IV dose x 1 during this hospitalization 6. Diarrhea- s/p suppository over the weekend and diarrhea resulted as side effect, improving; C. diff negative Patient needs follow up with Dr. Fernando Desai on discharge. I performed history and physical examination of the patient (11/27/2016). I have discussed the patient's case, impression and plan with Annette Conrad PA-C. Her note reflects my findings and plan. Murray Desai MD Hematology/Oncology
[2016-11-28] MEDS: METOPROLOL TARTRATE 25 MG TAB PO SCH (09:57)
[2016-11-28] MEDS: HYDROmorphone HCL 2 MG TAB PO PRN (09:57)
[2016-11-28] MEDS: GUAIFENESIN 600 MG TABCR PO SCH (09:57)
[2016-11-28] MEDS: INSULIN ASPART 100 UNITS/ML 3 ML PEN SC SCH ×2 (09:58→12:52)
[2016-11-28 11:24] VITALS: Ht 160 cm; Wt 79.8 kg
[2016-11-28] MEDS ORDERED: INSUINJ20 SQ ×2 (11:34)
[2016-11-28] MEDS ORDERED: MRLP17X PO ×2 (11:34)
[2016-11-28] MEDS ORDERED: HYDR2TAB3 PO ×2 (11:34)
[2016-11-28 11:41] VITALS: BP 122/78; PULSE 99; TEMP 36.8; O2SAT 94
--- NOTE | 2016-11-28 11:58 | Discharge Instructions ---
Discharge Instructions Date of Service Nov 28, 2016. Admission Reason for Admission: Esrd, Gi Bleed, Pancreatic Cancer Discharge Discharge Diagnosis / Problem: Metastatic pancreatic cancer Discharge Goals Goal(s): Decrease discomfort, Therapeutic intervention Activity Recommendations Activity Limitations: resume your previous activity . Instructions / Follow-Up Instructions / Follow-Up Please follow up with Oncology Dr. Murray Desai on December 05. You will have blood work drawn at 8:00am. Then you will see Dr. Desai at 8:15am. You will be contacted by Radiation Oncology regarding starting your palliative radiation treatments tomorrow 11/29/16. Hydralazine, Lasix and Diltiazem have been discontinued as you did not need/ receive them in the hospital. Plavix (Clopidogrel) has been discontinued due to bleeding risk. You insulin has been changed from insulin 70/30 to novolin n, and you will take 8units in the morning. Atorvastatin was stopped as there are cancer spots in your liver. Current Hospital Diet Patient's current hospital diet: Diabetes Type 2 Diet Discharge Diet Recommended Diet: Diabetes Type 2 Diet Procedures Procedures Performed: Upper Endoscopy with Metal Clip Placement Pending Studies Studies pending at discharge: no List of pending studies: ERCP with hemostatic clips placed near the tumor head Medical Emergencies . Who to Call and When: Medical Emergencies: If at any time you feel your situation is an emergency, please call 911 immediately. . Non-Emergent Contact Non-Emergency issues call your: Primary Care Provider, Oncologist . . "Provider Documentation" section prepared by Donya Huber. VTE Core Measure Inpt VTE Proph given/why not?: SCD's
[2016-11-28 12:06] VITALS: BP 122/78; PULSE 99; TEMP 36.8; O2SAT 94
--- NOTE | 2016-11-28 12:10 | Discharge Summary ---
Discharge Summary Date of Service Nov 28, 2016. Discharge Summary Admission Date: Nov 20, 2016 at 06:51 Discharge Date: Nov 28, 2016 Discharge Disposition: Home with services Principal Diagnosis: Metastatic pancreatic cancer Procedures: EGD - Normal esophagus. - Normal stomach. 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 Treatment options limited due to size of mass (no focal bleeding) - Normal 2nd part of the duodenum and 3rd part of the duodenum. - No specimens collected. CT a/p 1. Interval development of diffuse hepatic metastatic disease, possibly splenic involvement. 2. Interval development of pancreatic head mass measuring 6 x 7 cm. 3. Trace abdominal and pelvic ascites with mild adenopathy. Abdominal ultrasound 1. A 7.3 cm pancreatic head mass with associated biliary and pancreatic duct dilatation. 2. Multiple hepatic metastatic lesions. 3. Trace perihepatic ascites. 4. Cholecystectomy. ERCP - The major papilla appeared to have a mass. - Two hemostatic clips were successfully placed (MRI conditional). Consultations: Gastroenterology Oncology Radiation oncology Medication Reconciliation New Medications: Insulin Isophane (Human) (Novolin N U-100) 100 Unit/Ml Inj 8 UNITS SQ QAM for 30 Days, #1 VIAL 3 Refills Hydromorphone HCl (Hydromorphone HCl) 2 Mg Tab 2 MG PO Q6 PRN for Pain for 30 Days, #100 TAB Polyethylene (Miralax) 17 Gm Pow 17 GM PO DAILY PRN for Constipation for 30 Days, #1 BTL Continued Medications: Aspirin (Aspirin Ec) 81 Mg Tab 81 MG PO QAM Calcium Acetate (Phosphate Bin (Phoslo 667 Mg) 667 Mg Cap 1 CAP PO UD, CAP Take 2 pills with each meal and 1 pill with snacks. Cholecalciferol (Vitamin D3) 1,000 Unit Tab 5000 UNIT PO QPM, TAB 3 Refills Docusate Sodium (Docusate Sodium) 100 Mg Cap 1 CAP PO BID, CAP Metoprolol Tartrate (Lopressor) (Lopressor) 25 Mg Tab 25 MG PO BID, TAB Ondansetron Hcl (Zofran) 4 Mg Tab 4 MG PO Q8 PRN for Nausea, TAB Promethazine HCl (Promethazine HCl) 25 Mg Tab 25 MG PO Q6H PRN for Nausea or Vomiting Ranitidine (Zantac) 150 Mg Tab 150 MG PO BID, TAB Sertraline HCl (Sertraline HCl) 100 Mg Tab 100 MG PO QAM Trazodone Hcl (Trazodone) 100 Mg Tab 100 MG PO HS Discontinued Medications: Atorvastatin (Atorvastatin Calcium) 40 Mg Tab 40 MG PO QAM Clopidogrel (Plavix) 75 Mg Tab 75 MG PO QAM, TAB Diltiazem Hcl Coated Beads (Cardizem Cd) 180 Mg Cap 360 MG PO DAILY 2 CAPSULE DOSE Furosemide (Lasix) 20 Mg Tab 20 MG PO DAILY, 1 Refill Hydralazine HCl (Hydralazine HCl) 50 Mg Tab 50 MG PO TID Insulin Human Isophan/Regular (Novolin 70/30) Inj 12 UNITS SC PM, BTL New dose 08/24/15: 12 units each evening before supper. Take 1/2 dose if blood sugar is less than 80. Insulin Isophan/Regular (Humulin 70/30) Susp 24 UNITS SC QAM, VIAL New dose 08/24/15: 24 units each morning before breakfast. Take 1/2 dose if blood sugar is less than 80. Admission Information HPI (per Admitting provider): She is a 51-year-old female with significant past medical history of pancreatic cancer diagnosed in July of last year with ongoing chemotherapy and metastasis, end-stage renal disease, on hemodialysis for the last nearly 1-1/2 years, hypertension, diabetes requiring insulin, and also history of CVA and chronic anemia. Apparently has been complaining of bright red blood per rectum since last night. She has had 2 episodes and last episode was before 3 a.m. and there was huge amount and she was very anxious about it and following that she has had some nausea and vomited once around 3 a.m. early this morning and that was brown in color, no definite blood as per the patient. She has some abdominal pain which is not unusual given the history of pancreatic cancer and she does not have any other symptoms associated with it. She has not been taking any NSAIDs except aspirin and Plavix that has been prescribed for her and she does not have any blurred vision, any headache, any numbness or tingling in the extremities, any weakness involving any side, or any rash involving anywhere in the body. She received her chemotherapy about 2 weeks ago and she is supposed to have chemo tomorrow and she is supposed to have dialysis as of today. In the ER, she was hemodynamically stable. She was generally weak and lethargic and her hemoglobin was noted to be 7.9. CT of the abdomen and pelvis that was done, but we have not got the results back yet. From this point the GI service is consulted and she will be admitted to medical telemetry unit with intravenous Protonix drip. Physical Exam (per Admitting): GENERAL: On examination in the Emergency Room, she was not having any acute distress. VITAL SIGNS: Temperature 36.7, pulse is 85, blood pressure 115/70, saturation 99% on room air. HEENT: Unremarkable. NECK: Supple. No JVD, no bruit, though she looked pale. CHEST: Decreased breath sounds both sides with minimal crackles at the bases. HEART: S1, S2 with a 2/6 systolic murmur over precordium. ABDOMEN: Slightly distended, tender all over. Bowel sounds present. Difficult to palpate the organs. RECTAL: Deferred. EXTREMITIES: Negative for any edema. MUSCULOSKELETAL: Did not show any acute arthritis involving any joint. CENTRAL NERVOUS SYSTEM: She was alert, awake, oriented x3. She was generally weak and lethargic but did not have any focal neurological deficit. Hospital Course Patient was admitted with metastatic pancreatic cancer. GI was consulted and performed an EGD/ERCP and 2 hemostatic clips were placed. Radiation Oncology was consulted and plans for 15 sessions of palliative radiation. Patient was transfused 2units PRBC's and Hgb remained stable in the 9's. Plavix was discontinued due to bleeding risk and patient was continued on aspirin upon discharge given h/o CAD. Nephrology was consulted and patient was maintained on HD while inpatient. Due to low-normal blood pressures, hydralazine, furosemide and diltiazem were discontinued. Patient was continued on metoprolol. Atorvastatin was discontinued given tumor burden present in liver, noted on CT a /p, and transaminitis. Patient had decreased insulin requirements and decreased po intake. Insulin 70/ 30 was changed to Novolin N upon discharge. Hospital course was complicated by an episode of fever, nausea/vomiting and diarrhea. Infectious workup was negative. Obstructive series was negative. These symptoms resolved. Patient deemed stable for discharge with home health and Oncology, Radiation Oncology follow up. Patient will also continue M/W/F HD schedule. Hospice was discussed with the patient and her family, but at this time, patient wishes to continue with HD and palliative radiation. PE on discharge: General- awake; alert; NAD Eyes- EOMI; no scleral icterus Neck- no stridor; trachea midline Lungs- CTA bilaterally; no wheezes/crackles Heart- RRR; +gallop Abdomen- soft; epigastric fullness; ND; nBS Back- no gross abnormalities Extremities- no c/c/e; no deformity Neuro- no focal deficits Skin- no appreciable rash or bruise . Total time spent on discharge = This includes examination of the patient, discharge planning, medication reconciliation, and communication with other providers. Discharge Instructions Discharge Instructions Date of Service Nov 28, 2016. Admission Reason for Admission: Esrd, Gi Bleed, Pancreatic Cancer Discharge Discharge Diagnosis / Problem: Metastatic pancreatic cancer Discharge Goals Goal(s): Decrease discomfort, Therapeutic intervention Activity Recommendations Activity Limitations: resume your previous activity . Instructions / Follow-Up Instructions / Follow-Up Please follow up with Oncology Dr. Murray Desai on December 05. You will have blood work drawn at 8:00am. Then you will see Dr. Desai at 8:15am. You will be contacted by Radiation Oncology regarding starting your palliative radiation treatments tomorrow 11/29/16. Hydralazine, Lasix and Diltiazem have been discontinued as you did not need/ receive them in the hospital. Plavix (Clopidogrel) has been discontinued due to bleeding risk. You insulin has been changed from insulin 70/30 to novolin n, and you will take 8units in the morning. Atorvastatin was stopped as there are cancer spots in your liver. Current Hospital Diet Patient's current hospital diet: Diabetes Type 2 Diet Discharge Diet Recommended Diet: Diabetes Type 2 Diet Procedures Procedures Performed: Upper Endoscopy with Metal Clip Placement Pending Studies Studies pending at discharge: no List of pending studies: ERCP with hemostatic clips placed near the tumor head Medical Emergencies . Who to Call and When: Medical Emergencies: If at any time you feel your situation is an emergency, please call 911 immediately. . Non-Emergent Contact Non-Emergency issues call your: Primary Care Provider, Oncologist . . "Provider Documentation" section prepared by Donya Huber. VTE Core Measure Inpt VTE Proph given/why not?: SCD's Additional Copies To Juana Tamez D.O.
[2016-12-08] MEDS ORDERED: TRAZ100T29 PO (05:14)
[2016-12-08] MEDS ORDERED: ONDA4TAB46 PO (09:40)
[2016-12-08] MEDS ORDERED: CALC667C PO (09:40)
[2016-12-08] MEDS ORDERED: DOCU100C31 PO (09:40)
== END 2016-11-28 16:00 | disposition home or self-care (01) | DRG 981 ==
LOC: ENRESERVDT → ENRESERVTM → C.EDB 04:43 → C.2T 06:51 → C.4E 11-22 15:37
PROVIDERS: ADMIT Internal Medicine; ATTEND Internal Medicine
PROC: 0DQ98ZZ Repair Duodenum, Via Natural or Artificial Opening Endoscopic (ICD-10-PCS; principal; 2016-11-20 11:03)
PROC: 0DQ98ZZ Repair Duodenum, Via Natural or Artificial Opening Endoscopic (ICD-10-PCS; 2016-11-22)
DX: C25.9 Malignant neoplasm of pancreas, unspecified (principal); N18.6 End stage renal disease; C78.7 Secondary malignant neoplasm of liver and intrahepatic bile duct; I12.0 Hypertensive chronic kidney disease with stage 5 chronic kidney disease or end stage renal disease; K92.0 Hematemesis; C78.00 Secondary malignant neoplasm of unspecified lung; R18.8 Other ascites; I25.10 Atherosclerotic heart disease of native coronary artery without angina pectoris; E11.22 Type 2 diabetes mellitus with diabetic chronic kidney disease; F32.9 Major depressive disorder, single episode, unspecified; E78.5 Hyperlipidemia, unspecified; E83.52 Hypercalcemia; D63.1 Anemia in chronic kidney disease; Z86.73 Personal history of transient ischemic attack (TIA), and cerebral infarction without residual deficits; Z87.891 Personal history of nicotine dependence; Z83.3 Family history of diabetes mellitus; Z82.49 Family history of ischemic heart disease and other diseases of the circulatory system; Z80.9 Family history of malignant neoplasm, unspecified; Z99.2 Dependence on renal dialysis; D50.0 Iron deficiency anemia secondary to blood loss (chronic); Z66 Do not resuscitate; E07.9 Disorder of thyroid, unspecified; Z51.5 Encounter for palliative care

== ENCOUNTER 2016-12-01 05:58 | Inpatient (IN) | payer OTHER, BC ==
[2016-12-01] VITALS (10 sets, daily range): BP systolic 81–149; BP diastolic 49–80; PULSE 82–89; TEMP 36.4–37.2; O2SAT 91–100; Ht 160 cm; Wt 79.2 kg
[~2016-12-01] VITALS: Ht 160 cm; Wt 79.2 kg
[~2016-12-01 05:58] MED LIST changes: +HYDR2TAB3 PO; +INSUINJ20 SQ; +MRLP17X PO
[2016-12-01] MEDS ORDERED: SODIUM CHLORIDE 0.9% 250ML 250 ML IV STA (06:24)
[2016-12-01] MEDS ORDERED: SODIUM CHLORIDE 0.9% 1000ML 1,000 ML IV STA (06:24)
--- NOTE | 2016-12-01 06:51 | EMERGENCY ROOM VISIT NOTE ---
History Report prepared by Jesús: Shasta Hoover Under the Supervision of: Dr. Twila Butterfield M.D. First contact with patient: 06:10 Chief Complaint: CHEST PAIN Stated Complaint: Chest Pain Nursing Triage Summary: Patient arrived via EMS from dialysis. EMS reports patient arrived at dialysis and developed a twinge of chest pain before begining dialysis. Patient describes the twinge as a "tickle" of pain. Patient reports she started morphine this morning for her pain and believes chest pain is a result of morphine use. Patient recently discharged from the hospital on 11/29/16 for blood in stool. This is patient first dialysis since her stay in hospital. History of Present Illness The patient is a 51 year old female who presents to the Emergency Room via EMS with complaints of resolved mid-chest pain starting this morning. Prior to receiving her first dialysis treatment the patient took Morphine for the first time, and soon after she started having chest pain. She rates it to be a 1/10 severity. She describes it to be a twinge and a "tick" of pain. She currently denies any chest pain. She also complains of weakness. She reports a loss of appetite and a reduced fluid intake. She has a history of pancreatic cancer. She is no longer receiving chemo. She recently started receiving radiation and has received 2 treatments so far. She is currently on hospice. The patient denies fevers, chills, or any other complaints. Source of History: patient Onset: this morning Position: chest (mid) Symptom Intensity: No pain currently Quality: other (twinge) Timing: resolved Associated Symptoms: No chills, No fevers Review of Systems See HPI for pertinent positives & negatives. A total of 10 systems reviewed and were otherwise negative. Past Medical & Surgical Medical Problems: (1) Asthma (2) Depression (3) Diabetes mellitus, type II (4) ESRD (end stage renal disease) (5) H/O: CVA (cerebrovascular accident) (6) Hyperlipidemia (7) Hypertension (8) Pancreatic cancer Surgical Problems: (1) H/O abdominal surgery (2) History of cholecystectomy (3) History of hysterectomy (4) History of tubal ligation Family History Cancer Diabetes mellitus Heart disease Hypertension Lung disease Social History Smoking Status: Former Smoker Alcohol Use: none Drug Use: none Marital Status: Housing Status: lives with significant other Occupation Status: employed Current/Historical Medications Scheduled Aspirin (Aspirin Ec), 81 MG PO QAM Calcium Acetate (Phosphate Bin (Phoslo 667 Mg), 1 CAP PO UD Cholecalciferol (Vitamin D3), 5,000 UNIT PO QPM Docusate Sodium (Docusate Sodium), 1 CAP PO BID Insulin Isophane (Human) (Novolin N U-100), 8 UNITS SQ QAM Metoprolol Tartrate (Lopressor) (Lopressor), 25 MG PO BID Ranitidine (Zantac), 150 MG PO BID Sertraline HCl (Sertraline HCl), 100 MG PO QAM Trazodone Hcl (Trazodone), 100 MG PO HS Scheduled PRN Hydromorphone HCl (Hydromorphone HCl), 2 MG PO Q6 PRN for Pain Ondansetron Hcl (Zofran), 4 MG PO Q8 PRN for Nausea Polyethylene (Miralax), 17 GM PO DAILY PRN for Constipation Promethazine HCl (Promethazine HCl), 25 MG PO Q6H PRN for Nausea or Vomiting Allergies Coded Allergies: No Known Allergies (Verified , 12/01/16) Physical Exam Vital Signs Date Time Temp Pulse Resp B/P Pulse Ox O2 Delivery O2 Flow Rate FiO2 12/01/16 07:10 80 18 107/61 94 Room Air 12/01/16 06:12 83 12/01/16 06:04 96 Room Air 12/01/16 06:04 98 Room Air 12/01/16 06:04 36.6 85 16 90/48 98 Room Air Physical Exam Vital signs reviewed. General: Chronically ill appearing, jaundiced. HEENT: Positive scleral icterus, PERRLA, neck supple. Atraumatic. Dry mucous membranes. Cardiovascular: Regular rate and rhythm, no extra sounds. Pulmonary: Clear to auscultation bilaterally, normal work of breathing. Abdomen: Soft, mild upper abdominal tenderness, nondistended, positive bowel sounds. Musculoskeletal: Atraumatic, no peripheral edema. Neurologic: Patient somnolent but arousable, answers some questions properly but falls asleep quickly. Skin: Warm, dry, no rash Medical Decision & Procedures ER Provider Diagnostic Interpretation: X-ray results as stated below per interpretation by me: CHEST X-RAY Cardiomegaly, post sternotomy change, no focal infiltrate or failure. Laboratory Results 12/01/16 06:51 Red Blood Count 2.30, Mean Corpuscular Volume 90.0, Mean Corpuscular Hemoglobin 30.0, Mean Corpuscular Hemoglobin Concent 33.3, Mean Platelet Volume 9.4, Neutrophils (%) (Auto) 82.8, Lymphocytes (%) (Auto) 5.4, Monocytes (%) (Auto) 8.0, Eosinophils (%) (Auto) 2.2, Basophils (%) (Auto) 0.3, Neutrophils # (Auto) 14.43, Lymphocytes # (Auto) 0.94, Monocytes # (Auto) 1.39, Eosinophils # (Auto) 0.39, Basophils # (Auto) 0.05 12/01/16 06:51 Test 12/01/16 06:51 12/01/16 07:12 White Blood Count 17.42 K/uL (4.8-10.8) Red Blood Count 2.30 M/uL (4.2-5.4) Hemoglobin 6.9 g/dL (12.0-16.0) Hematocrit 20.7 % (37-47) Mean Corpuscular Volume 90.0 fL (80-100) Mean Corpuscular Hemoglobin 30.0 pg (25-34) Mean Corpuscular Hemoglobin Concent 33.3 g/dl (32-36) Platelet Count 311 K/uL (130-400) Mean Platelet Volume 9.4 fL (7.4-10.4) Neutrophils (%) (Auto) 82.8 % Lymphocytes (%) (Auto) 5.4 % Monocytes (%) (Auto) 8.0 % Eosinophils (%) (Auto) 2.2 % Basophils (%) (Auto) 0.3 % Neutrophils # (Auto) 14.43 K/uL (1.4-6.5) Lymphocytes # (Auto) 0.94 K/uL (1.2-3.4) Monocytes # (Auto) 1.39 K/uL (0.11-0.59) Eosinophils # (Auto) 0.39 K/uL (0-0.5) Basophils # (Auto) 0.05 K/uL (0-0.2) RDW Standard Deviation 64.7 fL (36.4-46.3) RDW Coefficient of Variation 19.9 % (11.5-14.5) Immature Granulocyte % (Auto) 1.3 % Immature Granulocyte # (Auto) 0.22 K/uL (0.00-0.02) Polychromasia 1+ Anion Gap 10.0 mmol/L (3-11) Est Creatinine Clear Calc Drug Dose 16.5 ml/min Estimated GFR () 14.1 Estimated GFR (Non- 12.2 BUN/Creatinine Ratio 5.2 (10-20) Calcium Level 8.2 mg/dl (8.5-10.1) Magnesium Level 2.3 mg/dl (1.8-2.4) Total Bilirubin 4.2 mg/dl (0.2-1) Direct Bilirubin 3.6 mg/dl (0-0.2) Aspartate Amino Transf (AST/SGOT) 174 U/L (15-37) Alanine Aminotransferase (ALT/SGPT) 34 U/L (12-78) Alkaline Phosphatase 678 U/L (45-117) Total Protein 5.7 gm/dl (6.4-8.2) Albumin 1.7 gm/dl (3.4-5.0) Lipase 37 U/L (73-393) Bedside Troponin I 0.040 ng/ml (0-0.045) Laboratory results per my review. Medications Administered Medications (Trade) Dose Ordered Sig/Sophia Route Start Time Stop Time Status Last Admin Dose Admin Sodium Chloride (Nss 250ml) 250 ml @ 999 mls/hr Q16M STAT IV 12/01/16 06:24 12/01/16 06:39 DC 12/01/16 06:24 999 MLS/HR ECG Indication: chest pain Rate (beats per minute): 81 Rhythm: normal sinus Findings: no acute ischemic change, other (old left anterior infarct; poor quality baseline for interpretation; baseline left atrial enlargement) ED Course 0610: Past medical records reviewed. The patient was evaluated in room A12B. A complete history and physical examination was performed. 0624: Sodium Chloride 1000 ml @ 200 mls/hr IV, Sodium Chloride 250 ml @ 999 mls/ hr IV 0805: Upon reevaluation, the patient is resting comfortably. I discussed laboratory and radiographic results with her. She verbalized agreement of the treatment plan. [facility]. The patient will be evaluated for further management and care. Medical Decision Differential diagnosis includes but is not limited to obstructive jaundice, pancreatic cancer, acute coronary syndrome, congestive heart failure, pneumonia , PE, peptic ulcer disease, pancreatitis. This patient was evaluated and appeared to be in no distress. Patient appears to be chronically ill. She is known to have history of upper GI bleed, pancreatic cancer. Patient is due for dialysis today. Laboratory work reveals a leukocytosis which is consistent with previous laboratory work. Patient is anemic with a hemoglobin of 6.9. The patient is done with chemotherapy and is moving to a palliative radiation. Hospice has apparently been involved with her case. They were contacted today and have approved her admission for symptom management. 2 units of PRBCs have been ordered. The patient's case was discussed with the hospitalist service, Dr. Shah. He has agreed to evaluate the patient for further management. The patient and her are aware of the plan and agree. Consults Time Called: [phone] Consulting Physician: [facility] Hospitalist Service Returned Call: [phone] I spoke with [facility] Hospitalist Service. Impression Primary Impression: Pancreatic cancer Additional Impressions: Anemia ESRD on hemodialysis Hypotension Scribe Attestation The scribe's documentation has been prepared under my direction and personally reviewed by me in its entirety. I confirm that the note above accurately reflects all work, treatment, procedures, and medical decision making performed by me. Departure Information Dispostion Being Evaluated By Hospitalist Referrals Juana Tamez D.O. (PCP) Patient Instructions My [facility] Problem Qualifiers
[2016-12-01 07:20] LABS: BUN/CREATININE RATIO 5.2 (10-20); CALCIUM 8.2 mg/dl (8.5-10.1); MAGNESIUM 2.3 mg/dl (1.8-2.4); POTASSIUM 3.4 mmol/L (3.5-5.1)
[2016-12-01 07:30] LABS: HEMATOCRIT 20.7 % (37-47); MEAN CORPUSCULAR HGB CONC 33.3 g/dl (32-36); MEAN PLATELET VOLUME 9.4 fL (7.4-10.4); PLATELET COUNT 311 K/uL (130-400); WHITE BLOOD COUNT 17.42 K/uL (4.8-10.8)
--- NOTE | 2016-12-01 07:39 | DIAGNOSTIC IMAGING REPORT ---
CHEST ONE VIEW PORTABLE HISTORY: Atypical chest pain. pancreatic CA, ESRD -HD, CP COMPARISON: Chest 11/24/2016. FINDINGS: No pneumothorax. No pleural effusions. Poststernotomy changes. The heart remains enlarged. There is mild central pulmonary vascular congestion without overt edema. No focal lung consolidations. IMPRESSION: Cardiomegaly with mild central pulmonary vascular congestion. Electronically signed by: Mike Ibrahim M.D. 12/01/2016 7:37 AM Dictated Date/Time: 12/01/2016 7:36 AM
[2016-12-01 07:51] LABS: BASO % 0.3 %; BASO ABS # 0.05 K/uL (0-0.2); COMPLETE YES; EOS % 2.2 %; IG% 1.3 %; LYMPH % 5.4 %; LYMPH ABS # 0.94 K/uL (1.2-3.4); NEUT % 82.8 %; POLYCHROMASIA 1+
[2016-12-01] MEDS ORDERED: ACETAMINOPHEN 325 MG TAB PO PRN (09:00)
[2016-12-01] MEDS ORDERED: DEXTROSE 50% 50 ML SYR IV PRN (09:15)
[2016-12-01] MEDS ORDERED: SODIUM CHLORIDE 0.9% 500ML 500 ML IV ONE (09:15)
[2016-12-01] MEDS ORDERED: GLUCAGON FOR INJ 1 MG VIAL SQ PRN (09:15)
[2016-12-01] MEDS ORDERED: GLUCOSE 40% GEL 15 GM TUBE PO PRN (09:15)
[2016-12-01] MEDS ORDERED: GLUCOSE 10 TABS/TUBE PO PRN (09:15)
[2016-12-01] MEDS ORDERED: SODIUM CHLORIDE 0.9% 500ML 250 ML IV ONE (09:15)
[2016-12-01] MEDS ORDERED: POLYETHYLENE (MIRALAX) 17 GM PACK PO PRN (09:15)
[2016-12-01] MEDS ORDERED: HYDROmorphone HCL 2 MG TAB PO PRN ×2 (09:15→16:00)
--- NOTE | 2016-12-01 09:18 | History and Physical ---
History & Physical Date & Time of Service: Dec 01, 2016 at 09:17 Chief Complaint: Chest Pain Primary Care Physician: Juana Tamez D.O. History of Present Illness Source: patient, family Patient is a 51 yr old female with PMH of metastatic pancreatic cancer, ESRD on HD, HTN, DM II, h/o CVA, chronic anemia, HLP, Asthma and Depression who was recently discharged after being treated for acute GI bleed presents to ED for evaluation of mid-Right sided chest pain this morning. Patient is a poor historian and most of the history is obtained from Patient's family, old records. Patient reports developing sudden onset of chest pain this morning during her dialysis which lasted for few seconds. Chest pain is sharp in quality , non radiating, 4/10 intensity. She took her hydromorphone for the chest pain and her blood pressures dropped and was sent to ED for further evaluation. Patient's family also reports that she has been feeling very tired lately and her oral intake has decreased. She is currently no longer on chemotherapy and is currently undergoing palliative radiation therapy (last one was yesterday) and is due for one today. As per family, her BP was in 60s systolic while at dialysis center and currently her SBP is 100s after receiving IVF in ED. Denies any history of nausea, vomiting, dizziness, SOB, palpitations, abd pain, bowel or bladder habit changes, fever or chills or any history of bleeding. Patient's Hb was found to be 6.9 today and she received 1 Unit PRBC while in ED and currently had no obvious source of bleeding. 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 A biliary stent was attempted to be placed but was not successful. She received 2 units PRBC last admission. Palliative RT was started for bleeding duodenal lesion. She completed 2 radiation therapies and was advised a total of 15 sessions. Patient was advised about percutaneous transhepatic cholangiography during last admission, but patient refused. Plavix was discontinued and aspirin was continued prior to discharge. Past Medical/Surgical History Medical Problems: (1) Asthma Status: Chronic (2) Depression Status: Chronic (3) Diabetes mellitus, type II Status: Chronic (4) ESRD (end stage renal disease) Status: Chronic (5) H/O: CVA (cerebrovascular accident) Status: Chronic (6) Hyperlipidemia Status: Chronic (7) Hypertension Status: Chronic (8) Pancreatic cancer Permanent Comment: Onset of nausea and vomiting CT scan revealing pancreatic mass Status post ultrasound biopsy 08/07/2016 revealing adenocarcinoma Ultrasound stage uT2 uN0 End-stage renal disease Status: Chronic Surgical Problems: (1) H/O abdominal surgery Permanent Comment: RADICAL RESECTION ABD WALL TUMOR, UNDER 5 CM performed by Sonido Fernandez MD at [facility] 02/15/16 Status: Chronic (2) History of cholecystectomy Status: Chronic (3) History of hysterectomy Permanent Comment: ovaries remain Status: Chronic (4) History of tubal ligation Status: Chronic Family History Cancer Diabetes mellitus Heart disease Hypertension Lung disease Social History Smoking Status: Former Smoker Drug Use: none Marital Status: Housing status: lives with family Occupational Status: employed Immunizations History of Influenza Vaccine: N/A History of Tetanus Vaccine?: 10 YRS AGO History of Pneumococcal: No History of Hepatitis B Vaccine: No Multi-Drug Resistant Organisms History of MDRO: No Allergies Coded Allergies: No Known Allergies (Verified , 12/01/16) Home Medications Scheduled Aspirin (Aspirin Ec), 81 MG PO QAM Calcium Acetate (Phosphate Bin (Phoslo 667 Mg), 1 CAP PO UD Cholecalciferol (Vitamin D3), 5,000 UNIT PO QPM Docusate Sodium (Docusate Sodium), 1 CAP PO BID Insulin Isophane (Human) (Novolin N U-100), 8 UNITS SQ QAM Metoprolol Tartrate (Lopressor) (Lopressor), 25 MG PO BID Ranitidine (Zantac), 150 MG PO BID Sertraline HCl (Sertraline HCl), 100 MG PO QAM Trazodone Hcl (Trazodone), 100 MG PO HS Scheduled PRN Hydromorphone HCl (Hydromorphone HCl), 2 MG PO Q6 PRN for Pain Ondansetron Hcl (Zofran), 4 MG PO Q8 PRN for Nausea Polyethylene (Miralax), 17 GM PO DAILY PRN for Constipation Promethazine HCl (Promethazine HCl), 25 MG PO Q6H PRN for Nausea or Vomiting Review of Systems See HPI for pertinent positives & negatives. A total of 10 systems reviewed and were otherwise negative. Physical Exam Vital Signs Date Time Temp Pulse Resp B/P Pulse Ox O2 Delivery O2 Flow Rate FiO2 12/01/16 08:20 80 20 96/61 100 Room Air 12/01/16 08:10 100 Room Air 12/01/16 07:10 80 18 107/61 94 Room Air 12/01/16 06:12 83 12/01/16 06:04 96 Room Air 12/01/16 06:04 98 Room Air 12/01/16 06:04 36.6 85 16 90/48 98 Room Air General Appearance: WD/WN, no apparent distress, + pertinent finding ( Chronically ill appearing, lethargic.) Head: normocephalic, atraumatic Eyes: normal inspection, PERRL, EOMI, + pertinent finding (+Icteric) ENT: normal ENT inspection, hearing grossly normal Neck: supple, trachea midline Respiratory/Chest: chest non-tender, normal breath sounds, no respiratory distress, no accessory muscle use, + pertinent finding (+creps bilaterally at bases) Cardiovascular: regular rate, rhythm, no murmur, + pertinent finding (1+Edema B /L LE) Abdomen/GI: normal bowel sounds, soft, + tenderness (RUQ, no guarding, rigidity ), + pertinent finding (Protuberant) Back: normal inspection Extremities/Musculoskelatal: normal inspection, normal range of motion, + pedal edema Neurologic/Psych: 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 as tested, no motor/sensory deficits, oriented x 3, + pertinent finding (Lethargic) Diagnostics Laboratory Results Results Past 24 Hours Test 12/01/16 06:51 12/01/16 07:12 Range/Units White Blood Count 17.42 4.8-10.8 K/uL Red Blood Count 2.30 4.2-5.4 M/uL Hemoglobin 6.9 12.0-16.0 g/dL Hematocrit 20.7 37-47 % Mean Corpuscular Volume 90.0 80-100 fL Mean Corpuscular Hemoglobin 30.0 25-34 pg Mean Corpuscular Hemoglobin Concent 33.3 32-36 g/dl Platelet Count 311 130-400 K/uL Mean Platelet Volume 9.4 7.4-10.4 fL Neutrophils (%) (Auto) 82.8 % Lymphocytes (%) (Auto) 5.4 % Monocytes (%) (Auto) 8.0 % Eosinophils (%) (Auto) 2.2 % Basophils (%) (Auto) 0.3 % Neutrophils # (Auto) 14.43 1.4-6.5 K/uL Lymphocytes # (Auto) 0.94 1.2-3.4 K/uL Monocytes # (Auto) 1.39 0.11-0.59 K/uL Eosinophils # (Auto) 0.39 0-0.5 K/uL Basophils # (Auto) 0.05 0-0.2 K/uL RDW Standard Deviation 64.7 36.4-46.3 fL RDW Coefficient of Variation 19.9 11.5-14.5 % Immature Granulocyte % (Auto) 1.3 % Immature Granulocyte # (Auto) 0.22 0.00-0.02 K/uL Polychromasia 1+ Sodium Level 133 136-145 mmol/L Potassium Level 3.4 3.5-5.1 mmol/L Chloride Level 95 98-107 mmol/L Carbon Dioxide Level 28 21-32 mmol/L Anion Gap 10.0 3-11 mmol/L Blood Urea Nitrogen 21 7-18 mg/dl Creatinine 4.00 0.60-1.20 mg/dl Est Creatinine Clear Calc Drug Dose 16.5 ml/min Estimated GFR () 14.1 Estimated GFR (Non- 12.2 BUN/Creatinine Ratio 5.2 10-20 Random Glucose 109 70-99 mg/dl Calcium Level 8.2 8.5-10.1 mg/dl Magnesium Level 2.3 1.8-2.4 mg/dl Total Bilirubin 4.2 0.2-1 mg/dl Direct Bilirubin 3.6 0-0.2 mg/dl Aspartate Amino Transf (AST/SGOT) 174 15-37 U/L Alanine Aminotransferase (ALT/SGPT) 34 12-78 U/L Alkaline Phosphatase 678 45-117 U/L Total Protein 5.7 6.4-8.2 gm/dl Albumin 1.7 3.4-5.0 gm/dl Lipase 37 73-393 U/L Bedside Troponin I 0.040 0-0.045 ng/ml Diagnostic Radiology CXR: Cardiomegaly with mild central pulmonary vascular congestion EKG EKG: No signs of acute ischemia Impression Assessment and Plan ATYPICAL CHEST PAIN Presented with sharp non radiating chest pain which lasted for few seconds Likely non cardiac origin. DD: Originating from duodenal mass Troponin X2 : Negative EKG:No signs of acute ischemia Currently chest pain resolved Plan to repeat EKG with chest pain if it reoccurs ANEMIA: Acute on chronic: Multifactorial: H/O GI bleed, pancreatic cancer, ESRD Hb:6.9 today S/P 1 unit PRBC, Hb:8.2 No active source of bleeding Check fecal occult Monitor H&H Transfuse PRN if Hb <7.0/symptomatic Consider GI eval if necessary Venofer IV x 1 dose today per Oncology Events during last admission: S/P EGD and ERCP: Bleeding duodenal mass and S/ P 2 hemostatic clips during ERCP. Unsuccessful biliary stent placement. Palliative RT for bleeding duodenal lesion. Advised about percutaneous transhepatic cholangiography during last admission, but patient refused. Plavix was discontinued and aspirin was continued prior to discharge. HYPOTENSION: Likely secondary to poor oral intake Resolved after IVF and PRBC transfusions Monitor LEUKOCYTOSIS: Likely secondary to malignancy No obvious source of infection Afebrile No indication for antibiotics currently Monitor METASTATIC PANCREATIC CANCER STAGE IV Completed chemotherapy Currently receiving palliative radiation therapy Oncology and radiation oncology consulted Pain control ELEVATED LFTS: Likely secondary to obstruction from hepatic metastases. Advised PTC but patient refused. RLE edema/pain: Monitor No plan for doppler as her preference of palliative interventions only. Would require IVC filter placement if positive for DVT ESRD: on Hemodialysis Nephrology was consulted for further management DM II: ISS, accu checks Regular diet as patient has poor oral intake HTN: Continue metoprolol Monitor DEPRESSION: Continue home meds H/O CVA: Plavix was discontinued secondary to GI bleed ASA on hold DVT Px: SCDs CODE STATUS: DNI/DNR per my discussion with patient and family DISPOSITION: Admit to medical floor PROGNOSIS: Poor Advanced Directives Existing Living Will: No Existing Power of Block Tester: No VTE Prophylaxis VTE Risk Assessment Done? Y/N: Yes Risk Level: Moderate
[2016-12-01] MEDS ORDERED: PHARMACY GLYCEMIC MGMT CONSULT PRN (09:23)
--- NOTE | 2016-12-01 10:40 | NEPHROLOGY CONSULTATION ---
DATE OF CONSULTATION: 12/01/2016 ATTENDING OF RECORD: Dr. Shah. REASON FOR CONSULTATION: ESRD. HISTORY OF PRESENT ILLNESS: This is a 51-year-old female who has metastatic pancreatic cancer diagnosed via biopsy in July of last year, which is progressing. The patient was recently in the hospital from November 20 to November 28 with worsening anemia and underwent an EGD and an ERCP with 2 hemostatic clips successfully placed and there is plan for 15 sessions of palliative radiation. The patient was transfused 2 units during the last admission. Plavix was stopped secondary to bleeding risk. The patient underwent dialysis at the outpatient dialysis unit on Sunday, which was uneventful. The patient took her hydromorphone this morning for chest pain and blood pressures dropped while on dialysis and dialysis was stopped and the patient was sent to the Emergency Room for further evaluation. The patient's blood pressures are now 108/67 and the patient is getting transfused 1 unit right now, her hemoglobin level is down to 6.9 and her potassium level was good at 3.4, albumin is 1.7, white count is elevated at 17,000. The patient in the Emergency Room was developing chest pain and the patient has had 2 radiation treatments so far and chest pain has resolved. The patient was given a fluid bolus to help raise the blood pressure and is currently on hospice care. REVIEW OF SYSTEMS: Positive weight loss. Positive fatigue. Positive decreased appetite with worsening metastatic pancreatic cancer, undergoing palliative radiation. No fevers or chills. No headaches. Positive chest pain and has resolved. No shortness of breath. No nausea or vomiting. No diarrhea or constipation. All other review of systems otherwise negative. PAST MEDICAL HISTORY: Diabetes, end-stage renal disease, history of stroke, hyperlipidemia, hypertension, metastatic pancreatic cancer and depression. PAST SURGICAL HISTORY: Cholecystectomy, hysterectomy, tubal ligation. FAMILY HISTORY: Significant for diabetes and heart disease. SOCIAL HISTORY: Former smoker, no alcohol, no drugs. He is and lives with significant other. CURRENT MEDICATIONS: Reviewed. PHYSICAL EXAMINATION: VITAL SIGNS: Temperature 37.1, pulse 84, respiratory rate 16, blood pressure 108/67, satting 93% on room air. GENERAL: Awake, alert, oriented x3. EYES: No scleral icterus. ENT: Moist mucous membranes. NECK: Supple. PULMONARY: Clear to auscultation. CARDIAC: Regular rate and rhythm. ABDOMEN: Bowel sounds positive, soft, nontender, nondistended. EXTREMITIES: No significant clubbing, cyanosis or edema. NEUROLOGICALLY: Nonfocal. DERMATOLOGICAL: No rash or ulcers noted. LABORATORY DATA: White count 17, H\T\H 6.9 and 20.7, platelet count is 311. Sodium is 133, potassium 3.4, chloride is 95, bicarbonate is 28, BUN is 21, creatinine is 4, glucose 109. Calcium is 8.2, mag is 2.3. Troponin 0.04, albumin is 1.7. ASSESSMENT AND PLAN: 1. End-stage renal disease: The patient was due for dialysis today. However, hemoglobin levels are low and currently transfusing 1 unit. Electrolytes and volume status are appropriate. We would like to hold off on dialysis today and reevaluate tomorrow for possible dialysis when she is more stable. 2. Anemia of renal failure with her metastatic pancreatic cancer, transfusing p.r.n. getting 1 unit now. No Procrit indicated at this time. 3. Renal osteodystrophy. We will follow phosphorous levels and continue the patient's phosphate binders. The patient's appetite is not the greatest and will check phosphorus levels to make sure they are not too low. If they are low, will go ahead and stop the phosphate binders. I appreciate the consultation. JHOANA
[2016-12-01] MEDS: INSULIN ASPART 100 UNITS/ML 3 ML PEN SC SCH ×3 (11:00→21:34)
[2016-12-01] MEDS ORDERED: CALCIUM ACETATE 667MG GELCAP PO PRN (11:45)
[2016-12-01] MEDS ORDERED: NURSING VERBAL MED ORDER ONE (12:15)
[2016-12-01] MEDS: CALCIUM ACETATE 667MG GELCAP PO SCH ×2 (12:24→16:44)
--- NOTE | 2016-12-01 13:51 | Pharmacy Progress Note ---
Glycemic Control Intl Consult Date of Service Dec 01, 2016. Scope Glycemic Pharmacist consulted by Dr Shah on 12/01/16 for glycemic control and to write orders per [facility] inpatient glycemic control protocol Objective Weight (Kilograms): 78.000 Accuchecks BSG (last 24hrs): Test 12/01/16 06:51 12/01/16 12:14 Random Glucose 109 mg/dl (70-99) Bedside Glucose 117 mg/dl (70-90) Laboratory Data (last 24hrs) Test 12/01/16 06:51 Anion Gap 10.0 mmol/L BUN/Creatinine Ratio 5.2 Blood Urea Nitrogen 21 mg/dl Creatinine 4.00 mg/dl Potassium Level 3.4 mmol/L Sodium Level 133 mmol/L White Blood Count 17.42 K/uL Red Blood Count 2.30 M/uL Hemoglobin 6.9 g/dL Hematocrit 20.7 % Mean Corpuscular Volume 90.0 fL Mean Corpuscular Hemoglobin 30.0 pg Mean Corpuscular Hemoglobin Concent 33.3 g/dl Platelet Count 311 K/uL Mean Platelet Volume 9.4 fL Neutrophils (%) (Auto) 82.8 % Lymphocytes (%) (Auto) 5.4 % Monocytes (%) (Auto) 8.0 % Eosinophils (%) (Auto) 2.2 % Basophils (%) (Auto) 0.3 % Neutrophils # (Auto) 14.43 K/uL Lymphocytes # (Auto) 0.94 K/uL Monocytes # (Auto) 1.39 K/uL Eosinophils # (Auto) 0.39 K/uL Basophils # (Auto) 0.05 K/uL Recent Pertinent Medications Outpatient Anti-diabetic Regimen: * NPH 8 units SQ Q AM Risk Factors for Insulin Resistance: * Steroids: n/a * Infection: n/a * Pressors: n/a * IVF: n/a * Recent Surgery: n/a * Diet: ordered Regular diet * Mechanical Ventilation: n/a Assessment & Plan ASSESSMENT: 12/01/16 * Type 2 diabetic admitted today w/ episode of CP during HD * This patient is known to the glycemic control service from prior admissions * The last time our service followed this patient she required ~20 units of insulin per day; and it appeared that she would require some amount of basal insulin * BSGs on admission low 100's so I am hesitant to start basal insulin today, we can easily add basal tomorrow AM if fasting BSG trending up * She appears to be fairly insulin sensitive based upon low insulin requirements - Novolog CF and CR doses will be based upon prior admission data PLAN FOR INPATIENT GLYCEMIC CONTROL: * No basal insulin at this time; re-eval need tomorrow * Monitor BSGs ACHS or Q 6 hrs if NPO and cover with Novolog SQ * Correction factor 40 mg/dl/unit * Carb ratio 1 unit per 18 grams CHO consumed * Goal range Low 120 mg/dL - High 160 mg/dL * Please note that the plan above was derived based on current level of insulin resistance and hospital stress. These recommendations are appropriate for inpatient admission only. Plan of care upon discharge will need to be reassessed to avoid potential outpatient hypo/hyperglycemia. Thank you.
[2016-12-01] MEDS: ONDANSETRON INJ 2 MG/ML 2 ML VIAL IV PRN (14:09)
[2016-12-01] MEDS: HYDROmorphone INJ 1 MG/ML SYR IV PRN ×2 (15:05→22:41)
--- NOTE | 2016-12-01 16:05 | Medical Consult ---
Consultation Date of Consultation: Dec 01, 2016. Attending Physician: Lyle Shah MD Reason for Consultation: Stage IV pancreatic cancer with acute decline in Hgb presumably from invasive pancreatic lesion into duodenum, uncontrolled pain also likely from same process History of Present Illness Mrs. Sandoval is a 51-year-old female well known to the consulting Medical Oncology Service for stage IV pancreatic cancer with metastasis to the liver, lung and a direct invasion of the pancreatic primary into the duodenum. She has comorbid conditions of end-stage renal disease, on dialysis for the last 1 year , has longstanding history of hypertension as well as diabetes, over 20 years. She was admitted in the hospital for acute pancreatitis in April,, subsequently found to have pancreatic head/uncinate process mass, biopsy confirmed pancreatic adenocarcinoma, imaging studies also showed metastatic disease involving the liver, lungs. She also had peritoneal dialysis catheter which was removed during recent hospitalization at [facility]. Presently she is having hemodialysis 3 times a week, Sunday, Sunday. Started on single agent chemotherapy gemcitabine since 09/05/2016, (weekly x2 followed by 1 week off). She started cycle 4 of gemcitabine on 11/07/16, unable to complete day 8 of treatment due to LFT abnormalities. She had required frequent PRBC support while on chemotherapy. Last week, she was admitted to [facility] after she had episodes of melena. On EGD, she was found to have and using duodenal mass, likely directly invasive from pancreatic primary. She required PRBC support. Radiation Oncology was consulted and advised palliative RT to the bleeding duodenal lesion. A biliary stent was attempted to be placed via ERCP, but the biliary tree could not be cannulated and so the procedure was aborted. The patient was counseled at the time about percutaneous transhepatic cholangiography, but this would require a transfer to [facility], which she refused at the time. She was discharged home on . She has had 2 sessions thus far of palliative RT, with the most recent session being yesterday. Additional history obtained from the patient, sister and cousin at bedside. The patient reports that when she woke up this morning and went to the dialysis center she was having severe chest pain. She was noted to be hypotensive and directed to the emergency room. In the ER, she appear to be in normal sinus rhythm without acute EKG changes. Her troponins are trending, but to this point are not elevated. when asked where her pain is located, she points more to the epigastric region ; she also reports having pain in her middle back. She received Dilaudid about 2 hours ago and reports her pain is a 7/10. She is requesting more pain medication. She has been getting nauseous and vomiting bile intermittently since her last hospitalization. She reports she has no appetite and has really not been eating or drinking very much prior to admission. She states her last bowel movement was yesterday and she did not note hematochezia or melena. She continues to make a small amount of urine and has not noted any hematuria. Past Medical/Surgical History Medical Problems: (1) Anemia Status: Acute (2) Anemia Status: Acute (3) ESRD on hemodialysis Status: Acute (4) Fever Status: Acute (5) GI bleed Status: Acute (6) History of pancreatic cancer Status: Acute (7) Hypotension Status: Acute (8) Pancreatic cancer Permanent Comment: Onset of nausea and vomiting CT scan revealing pancreatic mass Status post ultrasound biopsy 08/07/2016 revealing adenocarcinoma Ultrasound stage uT2 uN0 End-stage renal disease Status: Chronic (9) Renal failure Status: Acute (10) Stenosis of arteriovenous dialysis fistula Status: Acute (11) Upper GI bleed Status: Acute Family History Cancer Diabetes mellitus Heart disease Hypertension Lung disease Social History Smoking Status: Former Smoker Drug Use: none Marital Status: Housing Status: lives with significant other Occupation Status: employed Allergies Coded Allergies: No Known Allergies (Verified , 12/01/16) Current Inpatient Medications Current Inpatient Medications Medications (Trade) Dose Ordered Sig/Sophia Route Start Time Stop Time Status Last Admin Dose Admin Acetaminophen (Tylenol Tab) 650 mg Q4H PRN PO 12/01/16 09:00 12/31/16 08:59 Ondansetron HCl (Zofran Inj) 4 mg Q6H PRN IV 12/01/16 09:00 12/31/16 08:59 12/01/16 14:09 4 MG Calcium Acetate (Phoslo Cap) 1,334 mg TIDM PO 12/01/16 12:00 12/31/16 11:59 12/01/16 12:24 1,334 MG Cholecalciferol (Vitamin D Tab) 5,000 inter.unit QPM PO 12/01/16 21:00 12/31/16 20:59 Docusate Sodium (coLACE CAP) 100 mg BID PO 12/01/16 20:00 12/31/16 20:59 Metoprolol Tartrate (Lopressor Tab) 25 mg BID PO 12/01/16 20:00 12/31/16 20:59 Polyethylene (Miralax Powder Packet) 17 gm DAILY PRN PO 12/01/16 09:15 12/31/16 09:14 Ranitidine HCl (zANTac TAB) 150 mg BID PO 12/01/16 20:00 12/31/16 20:59 Sertraline HCl (Zoloft Tab) 100 mg QAM PO 12/02/16 08:00 01/01/17 08:59 Trazodone HCl (Desyrel Tab) 100 mg HS PO 12/01/16 21:00 12/31/16 20:59 Insulin Aspart (novoLOG ASPART) SLIDING SCALE If C... ACHS SC 12/01/16 11:00 12/31/16 10:59 Glucose (Glucose 40% Gel) 15-30 GRAMS 15 GRAMS... UD PRN PO 12/01/16 09:15 12/31/16 09:14 Glucose (Glucose Chew Tab) 4-8 Tablets 4 Tabl... UD PRN PO 12/01/16 09:15 12/31/16 09:14 Dextrose (Dextrose 50% 50ML Syringe) 25-50ML OF 50% DW IV FOR... UD PRN IV 12/01/16 09:15 12/31/16 09:14 Glucagon (Glucagon Inj) 1 mg UD PRN SQ 12/01/16 09:15 12/31/16 09:14 Miscellaneous Information (Consult Glycemic Management Pharmacy) 1 ea UD PRN N/A 12/01/16 09:23 12/31/16 09:22 Calcium Acetate (Phoslo Cap) 667 mg BID PRN PO 12/01/16 11:45 12/31/16 11:44 Enteral Nutritional Formula (Boost Glucose Control) 1 can QDB PO 12/02/16 08:00 01/01/17 07:59 Enteral Nutritional Formula (Boost Breeze Nutritional Drink) 1 box QDD PO 12/01/16 17:00 12/31/16 16:59 Hydromorphone HCl (Dilaudid Tab) 2 mg Q4 PRN PO 12/01/16 16:00 12/15/16 15:59 Hydromorphone HCl (Dilaudid Inj) 1 mg Q4H PRN IV 12/01/16 15:00 12/15/16 14:59 12/01/16 15:05 1 MG Review of Systems Constitutional: + fatigue, + weakness, No chills, No fever Respiratory: No cough, No shortness of breath, No sputum Cardiovascular: + chest pain, + edema (RLE) Abdomen: + nausea, + pain, + vomiting, No GI bleeding, No constipation, No diarrhea Genitourinary - Female: No dysuria, No hematuria Neurologic: + balance problems (reports falling in past few days prior to admission) Integumentary: + color change (jaundice), No itch, No rash Physical Exam Date Time Temp Pulse Resp B/P Pulse Ox O2 Delivery O2 Flow Rate FiO2 12/01/16 11:58 36.7 87 18 149/80 100 2.0 12/01/16 11:45 Nasal Cannula 2.0 12/01/16 11:00 82 16 124/79 100 Nasal Cannula 2.0 12/01/16 10:45 82 16 123/73 100 Nasal Cannula 2.0 12/01/16 10:45 37.0 82 16 123/73 99 12/01/16 10:21 37.2 88 18 110/74 93 12/01/16 10:20 88 16 110/74 94 Room Air 12/01/16 10:00 Nasal Cannula 2.0 12/01/16 09:50 37.1 84 16 108/67 93 12/01/16 09:47 84 16 110/68 93 Room Air 12/01/16 09:35 36.9 82 16 119/66 98 12/01/16 09:33 82 16 119/66 98 Room Air 12/01/16 08:20 80 20 96/61 100 Room Air 12/01/16 08:10 100 Room Air 12/01/16 07:10 80 18 107/61 94 Room Air 12/01/16 06:12 83 12/01/16 06:04 96 Room Air 12/01/16 06:04 98 Room Air 12/01/16 06:04 36.6 85 16 90/48 98 Room Air General Appearance: WD/WN, + mild distress, + obese ENT: hearing grossly normal Respiratory/Chest: normal breath sounds, no respiratory distress, no accessory muscle use Cardiovascular: regular rate, rhythm Abdomen/GI: normal bowel sounds, + tenderness (epigastric, RUQ over palpable liver) Extremities/Musculoskelatal: + calf tenderness (RLE), + swelling (RLE from knee down) Neurologic/Psych: alert, oriented x 3 Skin: warm/dry, no rash, + jaundice Laboratory Results 12/01/16 06:51 Red Blood Count 2.30, Mean Corpuscular Volume 90.0, Mean Corpuscular Hemoglobin 30.0, Mean Corpuscular Hemoglobin Concent 33.3, Mean Platelet Volume 9.4, Neutrophils (%) (Auto) 82.8, Lymphocytes (%) (Auto) 5.4, Monocytes (%) (Auto) 8.0, Eosinophils (%) (Auto) 2.2, Basophils (%) (Auto) 0.3, Neutrophils # (Auto) 14.43, Lymphocytes # (Auto) 0.94, Monocytes # (Auto) 1.39, Eosinophils # (Auto) 0.39, Basophils # (Auto) 0.05 12/01/16 06:51 Test 12/01/16 06:51 12/01/16 07:12 12/01/16 12:14 12/01/16 14:17 White Blood Count 17.42 K/uL (4.8-10.8) Red Blood Count 2.30 M/uL (4.2-5.4) Hemoglobin 6.9 g/dL (12.0-16.0) Hematocrit 20.7 % (37-47) Mean Corpuscular Volume 90.0 fL (80-100) Mean Corpuscular Hemoglobin 30.0 pg (25-34) Mean Corpuscular Hemoglobin Concent 33.3 g/dl (32-36) Platelet Count 311 K/uL (130-400) Mean Platelet Volume 9.4 fL (7.4-10.4) Neutrophils (%) (Auto) 82.8 % Lymphocytes (%) (Auto) 5.4 % Monocytes (%) (Auto) 8.0 % Eosinophils (%) (Auto) 2.2 % Basophils (%) (Auto) 0.3 % Neutrophils # (Auto) 14.43 K/uL (1.4-6.5) Lymphocytes # (Auto) 0.94 K/uL (1.2-3.4) Monocytes # (Auto) 1.39 K/uL (0.11-0.59) Eosinophils # (Auto) 0.39 K/uL (0-0.5) Basophils # (Auto) 0.05 K/uL (0-0.2) RDW Standard Deviation 64.7 fL (36.4-46.3) RDW Coefficient of Variation 19.9 % (11.5-14.5) Immature Granulocyte % (Auto) 1.3 % Immature Granulocyte # (Auto) 0.22 K/uL (0.00-0.02) Polychromasia 1+ Anion Gap 10.0 mmol/L (3-11) Est Creatinine Clear Calc Drug Dose 16.5 ml/min Estimated GFR () 14.1 Estimated GFR (Non- 12.2 BUN/Creatinine Ratio 5.2 (10-20) Calcium Level 8.2 mg/dl (8.5-10.1) Magnesium Level 2.3 mg/dl (1.8-2.4) Total Bilirubin 4.2 mg/dl (0.2-1) Direct Bilirubin 3.6 mg/dl (0-0.2) Aspartate Amino Transf (AST/SGOT) 174 U/L (15-37) Alanine Aminotransferase (ALT/SGPT) 34 U/L (12-78) Alkaline Phosphatase 678 U/L (45-117) Total Protein 5.7 gm/dl (6.4-8.2) Albumin 1.7 gm/dl (3.4-5.0) Lipase 37 U/L (73-393) Bedside Troponin I 0.040 ng/ml (0-0.045) Bedside Glucose 117 mg/dl (70-90) Troponin I 0.032 ng/ml (0-0.045) Chest x-ray from 12/01/2016: No pneumothorax or pleural effusions. The heart remains enlarged. Mild central pulmonary vascular congestion without over edema. No focal lung consolidations. Assessment & Plan 1. Acute epigastric/middle back/lower chest pain- most likely due to the duodenal lesion from invasive pancreatic primary; likely pain exacerbated by starting on palliative RT 2 days ago. Her EKG was in NSR without ischemic changes and trending troponins have been negative to this point. She is on Dilaudid 2 mg PO q4h PRN and also has IV Dilaudid 1 mg q4h PRN currently. Discussed with Dr. Fernando Desai and he would like patient to start on fentanyl 25 mcg q72h patch; relayed to this Dr. Shah and he is agreeable to ordering for patient. Upon discussing with Dr. Shah, he is going to place RO consult. 2. Acute on chronic anemia of multiple mechanisms- decrease in Hgb from 8.1 on Sunday to 6.9 today. S/p 1 unit PRBC; repeat H+H planned. Continue to support with PRBC if Hgb < 7 or patient with symptomatic anemia. Presume bleed from duodenal lesion is contributing to acute decrease, though patient denies melena/ hematochezia. Dr. Fernando Desai would like patient to have 300 mg Venofer IV x 1 dose today. Discussed this with Drs. Blanton and Alyssa- both agreeable. Spoke with pharmacy prior to placing order, Candi Romero, and she stated the order would be written that 300 mg would be given in 250 mL NSS over 90 mins. Patient should not be on any anticoagulation at this time, CI with her duodenal lesion. 3. Stage IV pancreatic cancer with direct invasion into duodenum, distant mets to liver and lungs- patient currently on palliative RT, s/p 2 fractions. No further palliative chemotherapy has been advised from medical oncology standpoint with current PS and comorbid conditions. 4. Development of direct hyperbilirubinemia- likely from biliary obstructive process from hepatic metastases. Patient was offered PTC prior which would require transfer to [facility] and declined this intervention, as ERCP failed with last hospitalization. We discussed this today again, but she refuses palliative biliary stenting if it would require transfer to [facility]. 5. RLE edema/pain- discussed with Drs. Fernando Desai and Alyssa. Monitor at this time, will not proceed with Doppler at this time with her preference of palliative interventions only. If DVT present, patient would require IVC filter placement. 6. ESRD on HD- management per Dr. Blanton. I have called and left a message with patient's , Chad, to discuss if patient is in fact on hospice. Per the ER notes, patient is agreeable to hospice at this time. At discharge earlier this week, MO was under the impression that she was not on hospice as she was still pursuing hemodialysis and palliative RT. Thanks for the consult. ----- I performed a history and physical examination of the patient (12/01/2016) and discussed the management with Annette Conrad PA-C . I reviewed her note and agree with the documented findings and plan of care. In summary, she is a stage IV pancreatic head adenocarcinoma, has metastatic disease involving the liver, also local involvement involvement of the duodenum which is causing upper G.I. bleed, now admitted for increasing abdominal pain, hypotension, worsening anemia, received blood transfusion support, worsening liver function test noted, has palpable upper abdominal soft tissue mass, significant declining performance was noted in the last one week, also had fall at home, he is on hemodialysis for the ESRD. She's enrolled in the home hospice services when she was discharged from the hospital recently. I agree about current management, would like to start long-acting opioid therapy with fentanyl patch for better pain management, blood transfusion support as needed, intravenous iron in the form of Venofer 1 dose. I spoke with her and discussed about her overall poor prognosis and he understood quite well. I'm not expecting recovery in her case, maybe we should consider for stopping radiation treatment, expected survival would be considered in days/weeks. says that he's not comfortable taking care of her at home, in that case we are to consider for supportive and symptomatic treatment with inpatient hospice. Dr. Murray Desia Hem/Onc
[2016-12-01 16:27] LABS: HEMATOCRIT 24.5 % (37-47)
[2016-12-01] MEDS: BOOST BREEZE NUTRITION DRINK 1 BOX PO SCH (16:44)
[2016-12-01] MEDS ORDERED: IRON SUCROSE INJ 300 MG in SODIUM CHLORIDE 0.9% 250ML 250 ML IV SCH (17:00)
--- NOTE | 2016-12-01 17:08 | Radiation Oncology Progress Nt ---
Radiation Oncology Progress Nt Date of Service Date of Service: Dec 01, 2016. Subjective Pt evaluation today including: conversation w/ patient (Pt sleeping, mildly responsive), conversation w/ family Objective Vital Signs Date Time Temp Pulse Resp B/P Pulse Ox O2 Delivery O2 Flow Rate FiO2 12/01/16 16:16 36.6 83 16 81/49 97 Room Air 12/01/16 16:00 Nasal Cannula 2.0 12/01/16 11:58 36.7 87 18 149/80 100 2.0 12/01/16 11:45 Nasal Cannula 2.0 12/01/16 11:00 82 16 124/79 100 Nasal Cannula 2.0 12/01/16 10:45 82 16 123/73 100 Nasal Cannula 2.0 12/01/16 10:45 37.0 82 16 123/73 99 12/01/16 10:21 37.2 88 18 110/74 93 12/01/16 10:20 88 16 110/74 94 Room Air 12/01/16 10:00 Nasal Cannula 2.0 12/01/16 09:50 37.1 84 16 108/67 93 12/01/16 09:47 84 16 110/68 93 Room Air 12/01/16 09:35 36.9 82 16 119/66 98 12/01/16 09:33 82 16 119/66 98 Room Air 12/01/16 08:20 80 20 96/61 100 Room Air 12/01/16 08:10 100 Room Air 12/01/16 07:10 80 18 107/61 94 Room Air 12/01/16 06:12 83 12/01/16 06:04 96 Room Air 12/01/16 06:04 98 Room Air 12/01/16 06:04 36.6 85 16 90/48 98 Room Air Laboratory Results Last 24 Hours Test 12/01/16 06:51 12/01/16 07:12 12/01/16 12:14 12/01/16 14:17 White Blood Count 17.42 K/uL Red Blood Count 2.30 M/uL Hemoglobin 6.9 g/dL Hematocrit 20.7 % Mean Corpuscular Volume 90.0 fL Mean Corpuscular Hemoglobin 30.0 pg Mean Corpuscular Hemoglobin Concent 33.3 g/dl Platelet Count 311 K/uL Mean Platelet Volume 9.4 fL Neutrophils (%) (Auto) 82.8 % Lymphocytes (%) (Auto) 5.4 % Monocytes (%) (Auto) 8.0 % Eosinophils (%) (Auto) 2.2 % Basophils (%) (Auto) 0.3 % Neutrophils # (Auto) 14.43 K/uL Lymphocytes # (Auto) 0.94 K/uL Monocytes # (Auto) 1.39 K/uL Eosinophils # (Auto) 0.39 K/uL Basophils # (Auto) 0.05 K/uL RDW Standard Deviation 64.7 fL RDW Coefficient of Variation 19.9 % Immature Granulocyte % (Auto) 1.3 % Immature Granulocyte # (Auto) 0.22 K/uL Polychromasia 1+ Sodium Level 133 mmol/L Potassium Level 3.4 mmol/L Chloride Level 95 mmol/L Carbon Dioxide Level 28 mmol/L Anion Gap 10.0 mmol/L Blood Urea Nitrogen 21 mg/dl Creatinine 4.00 mg/dl Est Creatinine Clear Calc Drug Dose 16.5 ml/min Estimated GFR () 14.1 Estimated GFR (Non- 12.2 BUN/Creatinine Ratio 5.2 Random Glucose 109 mg/dl Calcium Level 8.2 mg/dl Magnesium Level 2.3 mg/dl Total Bilirubin 4.2 mg/dl Direct Bilirubin 3.6 mg/dl Aspartate Amino Transf (AST/SGOT) 174 U/L Alanine Aminotransferase (ALT/SGPT) 34 U/L Alkaline Phosphatase 678 U/L Total Protein 5.7 gm/dl Albumin 1.7 gm/dl Lipase 37 U/L Bedside Troponin I 0.040 ng/ml Bedside Glucose 117 mg/dl Troponin I 0.032 ng/ml Test 12/01/16 16:07 12/01/16 16:40 Hemoglobin 8.2 g/dL Hematocrit 24.5 % Bedside Glucose 118 mg/dl Assessment and Plan Ms. Sandoval is currently under a course of palliative external beam radiation therapy and has received 2 fractions and then plans to proceed with for hospice care. Unfortunately, the patient did have multiple falls and was brought to the emergency room admitted to the hospital due to acute anemia which has required blood transfusions. We were asked to evaluate the patient while she is in the hospital. I did speak with the patient's family today and I have recommended that we hold radiation therapy until next week. If the patient's performance status improves on Sunday, we can potentially bring her down for radiation therapy. I did clearly explain to the patient's family that the role of radiation therapy is palliative and will not improve her overall survival so it would be reasonable for her to stop treatment early if she was not tolerating it well or her performance status continued to decline. The family understands and would like to hold off on radiation therapy until next week to see how she does overall as well. I left my contact information with the family and encouraged him to call me with any questions or concerns. I have spoken with primary team regarding my recommendations as well.
[2016-12-01] MEDS: DOCUSATE SODIUM 100 MG CAP PO SCH (21:33)
[2016-12-01] MEDS: RANITIDINE HCL 150 MG TAB PO SCH (21:33)
[2016-12-01] MEDS: TRAZODONE HCL 100 MG TAB PO SCH (21:33)
[2016-12-01] MEDS: METOPROLOL TARTRATE 25 MG TAB PO SCH (21:34)
[2016-12-01] MEDS: CHOLECALCIFEROL 1000 INTER.UNIT TAB PO SCH (21:34)
[2016-12-02] VITALS (18 sets, daily range): BP systolic 85–123; BP diastolic 54–73; PULSE 83–99; TEMP 36.7–37.2; O2SAT 88–99
[2016-12-02 06:16] LABS: BASO % 0.5 %; BASO ABS # 0.08 K/uL (0-0.2); EOS % 3.9 %; HEMATOCRIT 24.9 % (37-47); IG% 0.9 %; LYMPH % 6.3 %; LYMPH ABS # 0.95 K/uL (1.2-3.4); MEAN CELL VOLUME 89.6 fL (80-100); MEAN CORPUSCULAR HEMOGLOBIN 29.5 pg (25-34); MEAN CORPUSCULAR HGB CONC 32.9 g/dl (32-36); MEAN PLATELET VOLUME 9.3 fL (7.4-10.4); MONO % 7.3 %; NEUT % 81.1 %; PLATELET COUNT 262 K/uL (130-400); RED BLOOD COUNT 2.78 M/uL (4.2-5.4); WHITE BLOOD COUNT 15.04 K/uL (4.8-10.8)
[2016-12-02] MEDS: INSULIN ASPART 100 UNITS/ML 3 ML PEN SC SCH ×4 (06:30→22:36)
[2016-12-02 06:53] LABS: ANISOCYTOSIS PRESENT; COMPLETE YES; POLYCHROMASIA 1+
[2016-12-02 07:45] LABS: BUN/CREATININE RATIO 6.6 (10-20); CALCIUM 8.2 mg/dl (8.5-10.1); CREATININE 4.7 mg/dl (0.60-1.20); PHOSPHORUS 5.7 mg/dl (2.5-4.9); POTASSIUM 3.7 mmol/L (3.5-5.1)
[2016-12-02] MEDS: BOOST GLUCOSE CONTROL PO SCH (07:51)
[2016-12-02] MEDS: SERTRALINE HCL 100 MG TAB PO SCH (07:51)
[2016-12-02] MEDS: CALCIUM ACETATE 667MG GELCAP PO SCH ×3 (07:51→16:42)
[2016-12-02] MEDS: RANITIDINE HCL 150 MG TAB PO SCH ×2 (07:51→21:43)
[2016-12-02] MEDS: DOCUSATE SODIUM 100 MG CAP PO SCH ×2 (07:51→21:42)
[2016-12-02] MEDS: METOPROLOL TARTRATE 25 MG TAB PO SCH ×2 (07:52→21:42)
[2016-12-02] MEDS: ONDANSETRON INJ 2 MG/ML 2 ML VIAL IV PRN (13:21)
[2016-12-02] MEDS: HYDROmorphone INJ 1 MG/ML SYR IV PRN (13:21)
--- NOTE | 2016-12-02 14:42 | Pharmacy Progress Note ---
Glycemic: Assessment & Plan Date of Service Dec 02, 2016. Assessment & Plan Recent Pertinent Medications Outpatient Anti-diabetic Regimen: * NPH 8 units SQ Q AM Risk Factors for Insulin Resistance: * Diet: ordered Regular diet Assessment & Plan ASSESSMENT: 12/01/16 * Type 2 diabetic admitted today w/ episode of CP during HD * This patient is known to the glycemic control service from prior admissions * The last time our service followed this patient she required ~20 units of insulin per day; and it appeared that she would require some amount of basal insulin * BSGs on admission low 100's so I am hesitant to start basal insulin today, we can easily add basal tomorrow AM if fasting BSG trending up * She appears to be fairly insulin sensitive based upon low insulin requirements - Novolog CF and CR doses will be based upon prior admission data 12/02/16 * No insulin administered over the past 24 hours * BSGs at or below goal (with one exception of 157mg/dL this AM) * remove carb coverage at this time and continue to monitor * Continue to forgo basal insulin until solid trend in fasting BSGs PLAN FOR INPATIENT GLYCEMIC CONTROL: * No basal insulin at this time; re-eval need tomorrow * Monitor BSGs ACHS or Q 6 hrs if NPO and cover with NovoLog SQ * Correction factor 40 mg/dl/unit * Carb ratio removed * Goal range Low 110 mg/dL - High 140 mg/dL RECOMMENDATIONS FOR DISCHARGE: * Likely, Ms Sandoval can continue her home regimen at discharge * Please note that the plan above was derived based on current level of insulin resistance and hospital stress. These recommendations are appropriate for inpatient admission only. Plan of care upon discharge will need to be reassessed to avoid potential outpatient hypo/hyperglycemia. Thank you.
[2016-12-02] MEDS: BOOST BREEZE NUTRITION DRINK 1 BOX PO SCH (16:42)
--- NOTE | 2016-12-02 17:03 | Progress Note ---
Internal Med Progress Note Date of Service: Dec 02, 2016. Provider Documentation: SUBJECTIVE: Patient is seen and examined at bedside. Got HD today. More alert, awake today. States feeling tired today and has poor appetite. Denies any chest pain, SOB, abd pain, nausea or vomiting, blood in stools. Offers no other complaints. Family at bedside. OBJECTIVE: Vital Signs-as noted below General Appearance: WD/WN, no apparent distress, + Chronically ill appearing Head: normocephalic, atraumatic Eyes: normal inspection, PERRL, EOMI, + Icterus ENT: normal ENT inspection, hearing grossly normal Neck: supple, trachea midline Respiratory/Chest: Minimal creps at bases, normal breath sounds, no respiratory distress Cardiovascular: S1, S2, no murmur Abdomen/GI: normal bowel sounds, soft, + tenderness (RUQ, no guarding, rigidity ), + Protuberant Back: normal inspection Extremities/Musculoskelatal: normal inspection, normal range of motion, + pedal edema 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 ASSESSMENT & PLAN: ATYPICAL CHEST PAIN Resolved Presented with sharp non radiating chest pain which lasted for few seconds Likely non cardiac origin. DD: Originating from duodenal mass Troponin X2 : Negative EKG:No signs of acute ischemia Plan to repeat EKG with chest pain if it reoccurs ANEMIA: Acute on chronic: Multifactorial: H/O GI bleed, pancreatic cancer, ESRD Presented with Hb: 6.9 Hb:8.2 today S/P 1 unit PRBC No active source of bleeding Check fecal occult:pending Monitor H&H Transfuse PRN if Hb <7.0/symptomatic Consider GI eval if necessary Venofer IV x 1 dose given Events during last admission: S/P EGD and ERCP: Bleeding duodenal mass and S/ P 2 hemostatic clips during ERCP. Unsuccessful biliary stent placement. Palliative RT for bleeding duodenal lesion. Advised about percutaneous transhepatic cholangiography during last admission, but patient refused. Plavix was discontinued and aspirin was continued prior to discharge. HYPOTENSION: BP better Likely secondary to poor oral intake S/P IVF and PRBC transfusion Monitor LEUKOCYTOSIS: Likely secondary to malignancy No obvious source of infection Afebrile No indication for antibiotics currently Monitor METASTATIC PANCREATIC CANCER STAGE IV Not on chemotherapy Receiving palliative radiation therapy Appreciate Oncology and radiation oncology input Pain control Very poor prognosis On Hospice services ELEVATED LFTS: Likely secondary to obstruction from hepatic metastases. Advised PTC but patient refused. RLE edema/pain: Monitor No plan for doppler as her preference of palliative interventions only. Would require IVC filter placement if positive for DVT ESRD: on Hemodialysis Appreciate Nephrology help HD per Nephrology DM II: ISS, accu checks Regular diet as patient has poor oral intake HTN: Currently low BP Continue metoprolol Monitor DEPRESSION: Continue home meds H/O CVA: Plavix was discontinued secondary to GI bleed ASA on hold secondary to Anemia and requirement of PRBC transfusion DVT Px: SCDs CODE STATUS: DNI/DNR per my discussion with patient and family DISPOSITION: Need to be determined Route Sales Specialist consulted PROGNOSIS: Very Poor prognosis Vital Signs: Date Time Temp Pulse Resp B/P Pulse Ox O2 Delivery O2 Flow Rate FiO2 12/02/16 16:00 Nasal Cannula 2.0 12/02/16 15:13 36.9 89 16 90/54 90 Room Air 12/02/16 12:12 36.7 87 123/69 12/02/16 09:00 83 114/67 12/02/16 08:40 36.7 86 109/66 12/02/16 08:00 Nasal Cannula 2.0 12/02/16 07:57 36.7 85 20 102/66 94 Room Air 12/02/16 04:01 37.0 84 18 95/60 92 Room Air 12/01/16 23:59 Room Air 12/01/16 23:56 37.0 84 18 92/61 92 Room Air 12/01/16 20:00 91 Room Air 12/01/16 19:56 36.4 89 16 92/60 91 Room Air Lab Results: Results Past 24 Hours Test 12/01/16 20:03 12/01/16 20:18 12/02/16 05:44 12/02/16 07:27 Range/Units Troponin I 0.032 0-0.045 ng/ml Bedside Glucose 131 157 70-90 mg/dl White Blood Count 15.04 4.8-10.8 K/uL Red Blood Count 2.78 4.2-5.4 M/uL Hemoglobin 8.2 12.0-16.0 g/dL Hematocrit 24.9 37-47 % Mean Corpuscular Volume 89.6 80-100 fL Mean Corpuscular Hemoglobin 29.5 25-34 pg Mean Corpuscular Hemoglobin Concent 32.9 32-36 g/dl Platelet Count 262 130-400 K/uL Mean Platelet Volume 9.3 7.4-10.4 fL Neutrophils (%) (Auto) 81.1 % Lymphocytes (%) (Auto) 6.3 % Monocytes (%) (Auto) 7.3 % Eosinophils (%) (Auto) 3.9 % Basophils (%) (Auto) 0.5 % Neutrophils # (Auto) 12.18 1.4-6.5 K/uL Lymphocytes # (Auto) 0.95 1.2-3.4 K/uL Monocytes # (Auto) 1.10 0.11-0.59 K/uL Eosinophils # (Auto) 0.59 0-0.5 K/uL Basophils # (Auto) 0.08 0-0.2 K/uL RDW Standard Deviation 62.5 36.4-46.3 fL RDW Coefficient of Variation 19.8 11.5-14.5 % Immature Granulocyte % (Auto) 0.9 % Immature Granulocyte # (Auto) 0.14 0.00-0.02 K/uL Nucleated RBC Absolute Count (auto) 0.02 0-0 K/uL Nucleated Red Blood Cells % 0.1 % Polychromasia 1+ Anisocytosis PRESENT Sodium Level 134 136-145 mmol/L Potassium Level 3.7 3.5-5.1 mmol/L Chloride Level 94 98-107 mmol/L Carbon Dioxide Level 28 21-32 mmol/L Anion Gap 12.0 3-11 mmol/L Blood Urea Nitrogen 31 7-18 mg/dl Creatinine 4.70 0.60-1.20 mg/dl Est Creatinine Clear Calc Drug Dose 14.3 ml/min Estimated GFR () 11.6 Estimated GFR (Non- 10.0 BUN/Creatinine Ratio 6.6 10-20 Random Glucose 142 70-99 mg/dl Calcium Level 8.2 8.5-10.1 mg/dl Phosphorus Level 5.7 2.5-4.9 mg/dl Test 12/02/16 12:22 12/02/16 16:07 Range/Units Bedside Glucose 113 135 70-90 mg/dl
[2016-12-02] MEDS: FENTANYL 25 MCG/HR TDSY TD SCH (17:51)
[2016-12-02] MEDS ORDERED: HYDROmorphone INJ 0.5 MG/0.5 ML SYR IV PRN (19:00)
[2016-12-02] MEDS: CHOLECALCIFEROL 1000 INTER.UNIT TAB PO SCH (21:42)
[2016-12-02] MEDS: TRAZODONE HCL 100 MG TAB PO SCH (21:43)
[2016-12-02] MEDS: HYDROmorphone HCL 2 MG TAB PO PRN (23:14)
[2016-12-03] MEDS: CHECK FENTANYL PATCH PLACEMENT SCH ×3 (00:06→15:54)
[2016-12-03 04:00] VITALS: BP 119/69; PULSE 90; TEMP 36.9; O2SAT 90
[2016-12-03] MEDS: HYDROmorphone HCL 2 MG TAB PO PRN ×3 (04:45→15:54)
[2016-12-03 05:57] LABS: HEMATOCRIT 25.2 % (37-47)
[2016-12-03 06:51] LABS: BUN/CREATININE RATIO 5.9 (10-20); CALCIUM 8.3 mg/dl (8.5-10.1); CREATININE 3.4 mg/dl (0.60-1.20); POTASSIUM 3.7 mmol/L (3.5-5.1)
[2016-12-03 07:17] VITALS: BP 122/77; PULSE 93; TEMP 36.9; O2SAT 98
[2016-12-03] MEDS: ONDANSETRON INJ 2 MG/ML 2 ML VIAL IV PRN (07:31)
[2016-12-03] MEDS: METOPROLOL TARTRATE 25 MG TAB PO SCH ×2 (07:32→21:58)
[2016-12-03] MEDS: DOCUSATE SODIUM 100 MG CAP PO SCH ×2 (07:32→21:57)
[2016-12-03] MEDS: RANITIDINE HCL 150 MG TAB PO SCH ×2 (07:32→21:57)
[2016-12-03] MEDS: CALCIUM ACETATE 667MG GELCAP PO SCH ×3 (07:32→17:24)
[2016-12-03] MEDS: SERTRALINE HCL 100 MG TAB PO SCH (07:33)
[2016-12-03] MEDS: BOOST GLUCOSE CONTROL PO SCH (07:38)
[2016-12-03] MEDS: INSULIN ASPART 100 UNITS/ML 3 ML PEN SC SCH ×4 (08:38→22:12)
[2016-12-03] MEDS: INSULIN HUMAN NPH SC SCH (09:37)
[2016-12-03 11:15] VITALS: BP 111/68; PULSE 85; TEMP 36.7; O2SAT 99
--- NOTE | 2016-12-03 12:04 | Progress Note ---
Internal Med Progress Note Date of Service: Dec 03, 2016. Provider Documentation: SUBJECTIVE: Patient is seen and examined at bedside. States feeling better today. Has some back pain. Denies any chest pain, SOB, abd pain, nausea or vomiting, blood in stools. Offers no other complaints. Family at bedside. 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 ASSESSMENT & PLAN: ANEMIA: Acute on chronic: Multifactorial: H/O GI bleed, pancreatic cancer, ESRD Presented with Hb: 6.9 Hb:8.0 today S/P 1 unit PRBC No active source of bleeding Check fecal occult:pending Monitor H&H Transfuse PRN if Hb <7.0/symptomatic Consider GI eval if necessary Venofer IV x 1 dose given Events during last admission: S/P EGD and ERCP: Bleeding duodenal mass and S/ P 2 hemostatic clips during ERCP. Unsuccessful biliary stent placement. Palliative RT for bleeding duodenal lesion. Advised about percutaneous transhepatic cholangiography during last admission, but patient refused. Plavix was discontinued and aspirin was continued prior to discharge. ATYPICAL CHEST PAIN Resolved Presented with sharp non radiating chest pain which lasted for few seconds Likely non cardiac origin. DD: Originating from duodenal mass Troponin X2 : Negative EKG:No signs of acute ischemia Plan to repeat EKG with chest pain if it reoccurs HYPOTENSION: BP better Likely secondary to poor oral intake S/P IVF and PRBC transfusion Monitor LEUKOCYTOSIS: Likely secondary to malignancy No obvious source of infection Afebrile No indication for antibiotics currently Monitor METASTATIC PANCREATIC CANCER STAGE IV Not on chemotherapy Receiving palliative radiation therapy Appreciate Oncology and radiation oncology input Pain control Very poor prognosis On Hospice services ELEVATED LFTS: Likely secondary to obstruction from hepatic metastases. Advised PTC but patient refused. RLE edema/pain: Monitor No plan for doppler as her preference of palliative interventions only. Would require IVC filter placement if positive for DVT ESRD: on Hemodialysis Appreciate Nephrology help HD per Nephrology DM II: ISS, accu checks Regular diet as patient has poor oral intake HTN: Currently low BP Continue metoprolol Monitor DEPRESSION: Continue home meds H/O CVA: Plavix was discontinued secondary to GI bleed ASA on hold secondary to Anemia and requirement of PRBC transfusion DVT Px: SCDs CODE STATUS: DNI/DNR per my discussion with patient and family DISPOSITION: Need to be determined Baggage Security Checker consulted PROGNOSIS: Very Poor prognosis Vital Signs: Date Time Temp Pulse Resp B/P Pulse Ox O2 Delivery O2 Flow Rate FiO2 12/03/16 11:15 36.7 85 18 111/68 99 Nasal Cannula 2.0 12/03/16 08:00 Nasal Cannula 2.0 12/03/16 07:17 36.9 93 20 122/77 98 Nasal Cannula 2.0 12/03/16 04:00 36.9 90 20 119/69 90 Room Air 12/02/16 23:59 Nasal Cannula 2.0 12/02/16 23:22 36.8 99 18 114/73 99 Nasal Cannula 2.0 12/02/16 20:10 37.2 99 20 85/58 88 Room Air 12/02/16 20:00 Nasal Cannula 2.0 12/02/16 16:00 Nasal Cannula 2.0 12/02/16 15:13 36.9 89 16 90/54 90 Room Air 12/02/16 12:12 36.7 87 123/69 Lab Results: Results Past 24 Hours Test 12/02/16 12:22 12/02/16 16:07 12/02/16 20:29 12/03/16 05:20 Range/Units Bedside Glucose 113 135 240 70-90 mg/dl Hemoglobin 8.0 12.0-16.0 g/dL Hematocrit 25.2 37-47 % Sodium Level 134 136-145 mmol/L Potassium Level 3.7 3.5-5.1 mmol/L Chloride Level 96 98-107 mmol/L Carbon Dioxide Level 26 21-32 mmol/L Anion Gap 12.0 3-11 mmol/L Blood Urea Nitrogen 20 7-18 mg/dl Creatinine 3.40 0.60-1.20 mg/dl Est Creatinine Clear Calc Drug Dose 19.6 ml/min Estimated GFR () 17.2 Estimated GFR (Non- 14.8 BUN/Creatinine Ratio 5.9 10-20 Random Glucose 248 70-99 mg/dl Calcium Level 8.3 8.5-10.1 mg/dl Test 12/03/16 07:43 12/03/16 11:15 Range/Units Bedside Glucose 238 137 70-90 mg/dl
--- NOTE | 2016-12-03 12:42 | Pharmacy Progress Note ---
Glycemic Control: Progress Nt Date of Service Dec 03, 2016. Scope Glycemic Pharmacist consulted by Dr Shah on 12/01/16 for glycemic control and to write orders per [facility] inpatient glycemic control protocol. Objective Accuchecks BSG (last 24hrs): Test 12/02/16 16:07 12/02/16 20:29 12/03/16 05:20 12/03/16 07:43 Bedside Glucose 135 mg/dl (70-90) 240 mg/dl (70-90) 238 mg/dl (70-90) Random Glucose 248 mg/dl (70-99) Test 12/03/16 11:15 Bedside Glucose 137 mg/dl (70-90) Laboratory Data (last 24hrs) Test 12/03/16 05:20 Anion Gap 12.0 mmol/L BUN/Creatinine Ratio 5.9 Blood Urea Nitrogen 20 mg/dl Creatinine 3.40 mg/dl Potassium Level 3.7 mmol/L Sodium Level 134 mmol/L Recent Pertinent Medications Outpatient Anti-diabetic Regimen: * NPH 8units SQ Q AM The patient is currently receiving: * Basal insulin: none at this time * Correctional Insulin: NovoLog Correction per scale AC/HS Goal Range: Low 110 mg/dL - High 140 mg/dL Correction Factor: 40 mg/dL/unit * Prandial insulin: Per carb ratio of 1 unit per -- grams CHO consumed Risk Factors for Insulin Resistance: * Diet: Regular diet + Boost glucose control and Boost Breeze Risk Factors for Insulin Sensitivity: * dialysis Assessment & Plan ASSESSMENT: 12/01/16 * Type 2 diabetic admitted today w/ episode of CP during HD * This patient is known to the glycemic control service from prior admissions * The last time our service followed this patient she required ~20 units of insulin per day; and it appeared that she would require some amount of basal insulin * BSGs on admission low 100's so I am hesitant to start basal insulin today, we can easily add basal tomorrow AM if fasting BSG trending up * She appears to be fairly insulin sensitive based upon low insulin requirements - Novolog CF and CR doses will be based upon prior admission data 12/02/16 * No insulin administered over the past 24 hours * BSGs at or below goal (with one exception of 157mg/dL this AM) * remove carb coverage at this time and continue to monitor * Continue to forgo basal insulin until solid trend in fasting BSGs 12/03/16 * 3 units of insulin administered over the past 24 hours * Elevated BSG at bedtime - due to Boost Breeze at dinner? * may need a carb ratio? - assess after 24 hours of NPH on board * Fasting elevated today * patient uses NPH at home - will resume at a reduced dose today * PLAN FOR INPATIENT GLYCEMIC CONTROL: * basal insulin: * begin NPH 4 units SQ q AM * Monitor BSGs ACHS or Q 6 hrs if NPO and cover with NovoLog SQ * Correction factor 40 mg/dl/unit * Carb ratio removed * Goal range Low 110 mg/dL - High 140 mg/dL RECOMMENDATIONS FOR DISCHARGE: * Likely, Ms Sandoval can continue her home regimen at discharge * Please note that the plan above was derived based on current level of insulin resistance and hospital stress. These recommendations are appropriate for inpatient admission only. Plan of care upon discharge will need to be reassessed to avoid potential outpatient hypo/hyperglycemia. Thank you.
[2016-12-03 15:55] VITALS: BP 99/65; PULSE 96; TEMP 36.5; O2SAT 99
[2016-12-03] MEDS: BOOST BREEZE NUTRITION DRINK 1 BOX PO SCH (17:24)
[2016-12-03 19:41] VITALS: BP 121/77; PULSE 97; TEMP 36.9; O2SAT 98
[2016-12-03] MEDS: TRAZODONE HCL 100 MG TAB PO SCH (21:58)
[2016-12-03] MEDS: CHOLECALCIFEROL 1000 INTER.UNIT TAB PO SCH (21:58)
[2016-12-03 23:50] VITALS: BP 92/55; PULSE 85; TEMP 37; O2SAT 99
[2016-12-04] VITALS (23 sets, daily range): BP systolic 73–112; BP diastolic 45–69; PULSE 64–92; TEMP 36.3–37.2; O2SAT 91–98
[2016-12-04] MEDS: CHECK FENTANYL PATCH PLACEMENT SCH ×3 (00:12→17:41)
[2016-12-04 06:33] LABS: BLOOD UREA NITROGEN 27 mg/dl (7-18); BUN/CREATININE RATIO 6.4 (10-20); CALCIUM 8.4 mg/dl (8.5-10.1); CARBON DIOXIDE 26 mmol/L (21-32); CHLORIDE 96 mmol/L (98-107); GLUCOSE 145 mg/dl (70-99); SODIUM 133 mmol/L (136-145)
--- NOTE | 2016-12-04 07:41 | Nephrology Progress Note ---
Nephrology Progress Note Date of Service: Dec 04, 2016. Subjective 51 yo female with metastatic pancreatic cancer on palliative radiation and on esrd. had one unit of blood and 300 of iv venofer. pt is intermittently confused today. answers questions but is "starry eyed". daughter was in her room yesterday. pt says she is eating better. Objective Date Time Temp Pulse Resp B/P Pulse Ox O2 Delivery O2 Flow Rate FiO2 12/04/16 03:13 36.3 89 16 105/69 98 Nasal Cannula 2.0 Humidified Air 12/03/16 23:59 Nasal Cannula 2.0 12/03/16 23:50 37.0 85 16 92/55 99 Nasal Cannula 2.0 Humidified Air 12/03/16 20:00 Nasal Cannula 2.0 12/03/16 19:41 36.9 97 18 121/77 98 Nasal Cannula 2.0 12/03/16 16:00 Nasal Cannula 2.0 12/03/16 15:55 36.5 96 22 99/65 99 Nasal Cannula 2.0 12/03/16 11:15 36.7 85 18 111/68 99 Nasal Cannula 2.0 12/03/16 08:00 Nasal Cannula 2.0 Physical Exam: General-aaox3 but does appear somewhat confused Eyes-+scleral icterus ENT-mmm Neck-supple Lungs-basilar rales Heart-rrr Abdomen-+distention, nontender Extremities-+1 edema Neuro-nonfocal but does appear confused Current Inpatient Medications Medications (Trade) Dose Ordered Sig/Sophia Route Start Time Stop Time Status Last Admin Dose Admin Acetaminophen (Tylenol Tab) 650 mg Q4H PRN PO 12/01/16 09:00 12/31/16 08:59 Ondansetron HCl (Zofran Inj) 4 mg Q6H PRN IV 12/01/16 09:00 12/31/16 08:59 12/03/16 07:31 4 MG Calcium Acetate (Phoslo Cap) 1,334 mg TIDM PO 12/01/16 12:00 12/31/16 11:59 12/03/16 17:24 1,334 MG Cholecalciferol (Vitamin D Tab) 5,000 inter.unit QPM PO 12/01/16 21:00 12/31/16 20:59 12/03/16 21:58 5,000 INTER.UNIT Docusate Sodium (coLACE CAP) 100 mg BID PO 12/01/16 20:00 12/31/16 20:59 12/03/16 21:57 100 MG Metoprolol Tartrate (Lopressor Tab) 25 mg BID PO 12/01/16 20:00 12/31/16 20:59 12/03/16 21:58 25 MG Polyethylene (Miralax Powder Packet) 17 gm DAILY PRN PO 12/01/16 09:15 12/31/16 09:14 Ranitidine HCl (zANTac TAB) 150 mg BID PO 12/01/16 20:00 12/31/16 20:59 12/03/16 21:57 150 MG Sertraline HCl (Zoloft Tab) 100 mg QAM PO 12/02/16 08:00 01/01/17 08:59 12/03/16 07:33 100 MG Trazodone HCl (Desyrel Tab) 100 mg HS PO 12/01/16 21:00 12/31/16 20:59 12/03/16 21:58 100 MG Insulin Aspart (novoLOG ASPART) SLIDING SCALE If C... ACHS SC 12/01/16 11:00 12/31/16 10:59 12/03/16 22:12 1 UNITS Glucose (Glucose 40% Gel) 15-30 GRAMS 15 GRAMS... UD PRN PO 12/01/16 09:15 12/31/16 09:14 Glucose (Glucose Chew Tab) 4-8 Tablets 4 Tabl... UD PRN PO 12/01/16 09:15 12/31/16 09:14 Dextrose (Dextrose 50% 50ML Syringe) 25-50ML OF 50% DW IV FOR... UD PRN IV 12/01/16 09:15 12/31/16 09:14 Glucagon (Glucagon Inj) 1 mg UD PRN SQ 12/01/16 09:15 12/31/16 09:14 Miscellaneous Information (Consult Glycemic Management Pharmacy) 1 ea UD PRN N/A 12/01/16 09:23 12/31/16 09:22 Calcium Acetate (Phoslo Cap) 667 mg BID PRN PO 12/01/16 11:45 12/31/16 11:44 Enteral Nutritional Formula (Boost Glucose Control) 1 can QDB PO 12/02/16 08:00 01/01/17 07:59 Enteral Nutritional Formula (Boost Breeze Nutritional Drink) 1 box QDD PO 12/01/16 17:00 12/31/16 16:59 12/03/16 17:24 1 BOX Hydromorphone HCl (Dilaudid Inj) 0.5 mg Q4H PRN IV 12/02/16 19:00 12/16/16 18:59 Hydromorphone HCl (Dilaudid Tab) 2 mg Q6 PRN PO 12/02/16 18:00 12/16/16 17:59 12/03/16 15:54 2 MG Fentanyl (Duragesic Patch) 25 mcg Q3D@1745 TD 12/02/16 17:45 12/16/16 17:44 12/02/16 17:51 25 MCG Miscellaneous (Fentanyl Patch Remove & Waste) 1 ea Q3D@1744 N/A 12/05/16 17:44 01/04/17 17:43 Miscellaneous Information (Check Fentanyl Patch Placement) 1 ea QS N/A 12/03/16 00:00 01/02/17 00:00 12/04/16 00:12 1 EA Insulin Human NPH (novoLIN-N NPH) 4 units QDB SC 12/03/16 09:00 01/02/17 08:59 12/03/16 09:37 4 UNITS Last 24 Hours Test 12/03/16 07:43 12/03/16 11:15 12/03/16 16:30 12/03/16 20:18 Bedside Glucose 238 mg/dl 137 mg/dl 152 mg/dl 161 mg/dl Test 12/04/16 05:46 12/04/16 07:06 Hemoglobin 8.3 g/dL Hematocrit 26.0 % Sodium Level 133 mmol/L Potassium Level mmol/L Chloride Level 96 mmol/L Carbon Dioxide Level 26 mmol/L Anion Gap 11.0 mmol/L Blood Urea Nitrogen 27 mg/dl Creatinine 4.20 mg/dl Est Creatinine Clear Calc Drug Dose 15.9 ml/min Estimated GFR () 13.3 Estimated GFR (Non- 11.5 BUN/Creatinine Ratio 6.4 Random Glucose 145 mg/dl Calcium Level 8.4 mg/dl Assessment & Plan ESRD-for dialysis today and plan on removing about 2 liters uf as bp tolerates. Anemia of renal failure-s/p one unit of blood, transfuse prn hg <7 miley-continue phosphate binders
[2016-12-04] MEDS: CALCIUM ACETATE 667MG GELCAP PO SCH ×3 (08:14→17:41)
[2016-12-04] MEDS: BOOST GLUCOSE CONTROL PO SCH (08:15)
[2016-12-04] MEDS: INSULIN HUMAN NPH SC SCH (08:21)
[2016-12-04] MEDS: INSULIN ASPART 100 UNITS/ML 3 ML PEN SC SCH ×4 (08:22→20:48)
[2016-12-04] MEDS: METOPROLOL TARTRATE 25 MG TAB PO SCH ×2 (08:30→20:44)
[2016-12-04] MEDS: DOCUSATE SODIUM 100 MG CAP PO SCH ×2 (12:43→20:44)
[2016-12-04] MEDS: SERTRALINE HCL 100 MG TAB PO SCH (12:43)
[2016-12-04] MEDS: RANITIDINE HCL 150 MG TAB PO SCH ×2 (12:43→20:44)
--- NOTE | 2016-12-04 15:20 | Pharmacy Progress Note ---
Glycemic Control: Progress Nt Date of Service Dec 04, 2016. Scope Glycemic Pharmacist consulted by Dr Shah on 12/01/2016 for glycemic control and to write orders per [facility] inpatient glycemic control protocol. Objective Accuchecks BSG (last 24hrs): Test 12/03/16 16:30 12/03/16 20:18 12/04/16 05:46 12/04/16 07:58 Bedside Glucose 152 mg/dl (70-90) 161 mg/dl (70-90) 173 mg/dl (70-90) Random Glucose 145 mg/dl (70-99) Test 12/04/16 12:30 Bedside Glucose 183 mg/dl (70-90) Laboratory Data (last 24hrs) Test 12/04/16 05:46 12/04/16 07:06 Anion Gap 11.0 mmol/L BUN/Creatinine Ratio 6.4 Blood Urea Nitrogen 27 mg/dl Creatinine 4.20 mg/dl Potassium Level mmol/L 4.1 mmol/L Sodium Level 133 mmol/L Recent Pertinent Medications Outpatient Anti-diabetic Regimen: * NPH 8 units in the morning The patient is currently receiving: * Basal insulin: NPH 4 units every 24 hours * Correctional Insulin: Novolog Correction per scale ACHS Goal Range: Low 110 mg/dL - High 140 mg/dL Correction Factor: 40 mg/dL/unit Risk Factors for Insulin Resistance: * Diet: regular diet plus boost Assessment & Plan ASSESSMENT: * ADA & AACE recommend a goal blood sugar range 140-180 mg/dl for the majority of critically ill & non-critically ill patients. However, more stringent targets may be selected in individual cases. Will utilize more stringent goal of 110-140mg/dl based on patient age & comorbidities. Additionally, tighter glycemic control is warranted to facilitate wound/infection healing. * Ms Sandoval has received a total of 7 units of insulin yesterday 12/03/2016 ( including 4 units of basal). Her blood sugars are well controlled after the initiation of NPH 4 units. Patient is having hemodialysis today. Will continue current regimen. * As minimal changes have been made after the initiation of NPH, pharmacy may sign off tomorrow if patient is stable. PLAN FOR INPATIENT GLYCEMIC CONTROL: * Continuing NPH 4 units SQ qAM * Continuing correction factor 40 mg/dl/unit * Continuing goal range of Low 110 mg/dL - High 140 mg/dL RECOMMENDATIONS FOR DISCHARGE: * see previous note on 12/03/2016 regarding appropriateness of home regimen. * Please note that the plan above was derived based on current level of insulin resistance and hospital stress. These recommendations are appropriate for inpatient admission only. Plan of care upon discharge will need to be reassessed to avoid potential outpatient hypo/hyperglycemia. Thank you.
--- NOTE | 2016-12-04 16:33 | Hematology/Oncology Prog Note ---
Hematology/Onc Progress Note Date of Service Dec 04, 2016. Medications Medications Administered Medications (Trade) Dose Ordered Sig/Sophia Route Start Time Stop Time Status Last Admin Dose Admin Sodium Chloride (Nss 250ml) 250 ml @ 999 mls/hr Q16M STAT IV 12/01/16 06:24 12/01/16 06:39 DC 12/01/16 06:24 999 MLS/HR Ondansetron HCl (Zofran Inj) 4 mg Q6H PRN IV 12/01/16 09:00 12/31/16 08:59 12/03/16 07:31 4 MG Calcium Acetate (Phoslo Cap) 1,334 mg TIDM PO 12/01/16 12:00 12/31/16 11:59 12/04/16 12:42 1,334 MG Cholecalciferol (Vitamin D Tab) 5,000 inter.unit QPM PO 12/01/16 21:00 12/31/16 20:59 12/03/16 21:58 5,000 INTER.UNIT Docusate Sodium (coLACE CAP) 100 mg BID PO 12/01/16 20:00 12/31/16 20:59 12/04/16 12:43 100 MG Hydromorphone HCl (Dilaudid Tab) 2 mg Q6 PRN PO 12/01/16 09:15 12/01/16 14:41 DC 12/01/16 12:13 2 MG Metoprolol Tartrate (Lopressor Tab) 25 mg BID PO 12/01/16 20:00 12/31/16 20:59 12/03/16 21:58 25 MG Ranitidine HCl (zANTac TAB) 150 mg BID PO 12/01/16 20:00 12/31/16 20:59 12/04/16 12:43 150 MG Sertraline HCl (Zoloft Tab) 100 mg QAM PO 12/02/16 08:00 01/01/17 08:59 12/04/16 12:43 100 MG Trazodone HCl (Desyrel Tab) 100 mg HS PO 12/01/16 21:00 12/31/16 20:59 12/03/16 21:58 100 MG Insulin Aspart (novoLOG ASPART) SLIDING SCALE If C... ACHS SC 12/01/16 11:00 12/31/16 10:59 12/04/16 13:20 2 UNITS Enteral Nutritional Formula (Boost Glucose Control) 1 can QDB PO 12/02/16 08:00 01/01/17 07:59 12/04/16 08:15 1 CAN Enteral Nutritional Formula (Boost Breeze Nutritional Drink) 1 box QDD PO 12/01/16 17:00 12/31/16 16:59 12/03/16 17:24 1 BOX Hydromorphone HCl (Dilaudid Tab) 2 mg Q4 PRN PO 12/01/16 16:00 12/02/16 17:32 DC 12/02/16 07:53 2 MG Hydromorphone HCl 1 mg 1 mg Q4H PRN IV 12/01/16 15:00 12/02/16 17:32 DC 12/02/16 13:21 1 MG Iron Sucrose/ Sodium Chloride (Venofer Inj/Nss 250ml) 265 ml @ 176 mls/hr 1700 IV 12/01/16 17:00 12/01/16 18:31 DC 12/01/16 16:44 176 MLS/HR Hydromorphone HCl (Dilaudid Tab) 2 mg Q6 PRN PO 12/02/16 18:00 12/16/16 17:59 12/03/16 15:54 2 MG Fentanyl (Duragesic Patch) 25 mcg Q3D@1745 TD 12/02/16 17:45 12/16/16 17:44 12/02/16 17:51 25 MCG Miscellaneous Information (Check Fentanyl Patch Placement) 1 ea QS N/A 12/03/16 00:00 01/02/17 00:00 12/04/16 08:15 1 EA Insulin Human NPH (novoLIN-N NPH) 4 units QDB SC 12/03/16 09:00 01/02/17 08:59 12/04/16 08:21 4 UNITS Subjective Mrs. Aceves is seen and examined at bedside in the dialysis unit. She reports feeling fatigued. She has a poor appetite and is eating little of her meals. She does not report any pain. She has no respiratory complaints. She did not have a bowel movement today or yesterday. She does not report any areas of active bleeding. Review of Systems: Abdomen: + see HPI Vital Signs Vital Signs Past 12 Hours Date Time Temp Pulse Resp B/P Pulse Ox O2 Delivery O2 Flow Rate FiO2 12/04/16 16:18 36.9 84 18 100/63 91 Room Air 12/04/16 12:32 36.8 85 18 109/68 96 12/04/16 12:22 36.7 80 94/54 12/04/16 12:00 74 94/52 12/04/16 11:45 76 98/55 12/04/16 11:30 78 99/57 12/04/16 11:15 76 84/49 12/04/16 11:00 75 82/47 12/04/16 10:45 73 85/45 12/04/16 10:30 74 83/47 12/04/16 10:15 73 80/48 12/04/16 10:00 77 86/52 12/04/16 09:45 78 73/49 12/04/16 09:30 77 94/52 12/04/16 09:15 79 92/52 12/04/16 09:01 64 112/64 12/04/16 08:45 36.7 82 110/62 12/04/16 08:30 95 Nasal Cannula 2.0 Humidified Air 12/04/16 08:00 36.8 86 18 103/68 95 Physical Exam Constitutional: Level of Distress: NAD, chronically ill Lungs: Respiratory Effort: no dyspnea Auscuitation: breath sounds normal Cardiovascular: Heart Auscultation: RRR Abdomen: Inspection & Palpation: distended, LUQ tenderness, RUQ tenderness Extremities: edema (RLE, stable) Laboratory 12/02/16 05:44 Red Blood Count 2.78, Mean Corpuscular Volume 89.6, Mean Corpuscular Hemoglobin 29.5, Mean Corpuscular Hemoglobin Concent 32.9, Mean Platelet Volume 9.3, Neutrophils (%) (Auto) 81.1, Lymphocytes (%) (Auto) 6.3, Monocytes (%) (Auto) 7.3, Eosinophils (%) (Auto) 3.9, Basophils (%) (Auto) 0.5, Neutrophils # (Auto) 12.18, Lymphocytes # (Auto) 0.95, Monocytes # (Auto) 1.10, Eosinophils # (Auto) 0.59, Basophils # (Auto) 0.08 12/03/16 05:20 12/04/16 05:46 12/02/16 05:44 12/03/16 05:20 12/04/16 05:46 12/04/16 07:06 Test 12/01/16 16:40 12/01/16 20:03 12/01/16 20:18 12/02/16 05:44 Bedside Glucose 118 mg/dl (70-90) 131 mg/dl (70-90) Troponin I 0.032 ng/ml (0-0.045) White Blood Count 15.04 K/uL (4.8-10.8) Red Blood Count 2.78 M/uL (4.2-5.4) Hemoglobin 8.2 g/dL (12.0-16.0) Hematocrit 24.9 % (37-47) Mean Corpuscular Volume 89.6 fL (80-100) Mean Corpuscular Hemoglobin 29.5 pg (25-34) Mean Corpuscular Hemoglobin Concent 32.9 g/dl (32-36) Platelet Count 262 K/uL (130-400) Mean Platelet Volume 9.3 fL (7.4-10.4) Neutrophils (%) (Auto) 81.1 % Lymphocytes (%) (Auto) 6.3 % Monocytes (%) (Auto) 7.3 % Eosinophils (%) (Auto) 3.9 % Basophils (%) (Auto) 0.5 % Neutrophils # (Auto) 12.18 K/uL (1.4-6.5) Lymphocytes # (Auto) 0.95 K/uL (1.2-3.4) Monocytes # (Auto) 1.10 K/uL (0.11-0.59) Eosinophils # (Auto) 0.59 K/uL (0-0.5) Basophils # (Auto) 0.08 K/uL (0-0.2) RDW Standard Deviation 62.5 fL (36.4-46.3) RDW Coefficient of Variation 19.8 % (11.5-14.5) Immature Granulocyte % (Auto) 0.9 % Immature Granulocyte # (Auto) 0.14 K/uL (0.00-0.02) Nucleated RBC Absolute Count (auto) 0.02 K/uL (0-0) Nucleated Red Blood Cells % 0.1 % Polychromasia 1+ Anisocytosis PRESENT Anion Gap 12.0 mmol/L (3-11) Est Creatinine Clear Calc Drug Dose 14.3 ml/min Estimated GFR () 11.6 Estimated GFR (Non- 10.0 BUN/Creatinine Ratio 6.6 (10-20) Calcium Level 8.2 mg/dl (8.5-10.1) Phosphorus Level 5.7 mg/dl (2.5-4.9) Test 12/02/16 07:27 12/02/16 12:22 12/02/16 16:07 12/02/16 20:29 Bedside Glucose 157 mg/dl (70-90) 113 mg/dl (70-90) 135 mg/dl (70-90) 240 mg/dl (70-90) Test 12/03/16 05:20 12/03/16 07:43 12/03/16 11:15 12/03/16 16:30 Anion Gap 12.0 mmol/L (3-11) Est Creatinine Clear Calc Drug Dose 19.6 ml/min Estimated GFR () 17.2 Estimated GFR (Non- 14.8 BUN/Creatinine Ratio 5.9 (10-20) Calcium Level 8.3 mg/dl (8.5-10.1) Bedside Glucose 238 mg/dl (70-90) 137 mg/dl (70-90) 152 mg/dl (70-90) Test 12/03/16 20:18 12/04/16 05:46 12/04/16 07:58 12/04/16 12:30 Bedside Glucose 161 mg/dl (70-90) 173 mg/dl (70-90) 183 mg/dl (70-90) Anion Gap 11.0 mmol/L (3-11) Est Creatinine Clear Calc Drug Dose 15.9 ml/min Estimated GFR () 13.3 Estimated GFR (Non- 11.5 BUN/Creatinine Ratio 6.4 (10-20) Calcium Level 8.4 mg/dl (8.5-10.1) Assessment & Plan 1. Acute epigastric/middle back/lower chest pain- most likely due to the duodenal lesion from invasive pancreatic primary; likely pain exacerbated by starting on palliative RT * Her EKG was in NSR without ischemic changes and trending troponins have been negative to this point. * She is on Dilaudid 2 mg PO q6h PRN and started on fentanyl 25 mcg q72h patch * Pain controlled 2. Acute on chronic anemia of multiple mechanisms- 6.9 on admission. S/p 1 unit PRBC * Continue to support with PRBC if Hgb < 7 or patient with symptomatic anemia. Presume bleed from duodenal lesion is contributing to acute decrease, though patient denies melena/hematochezia. FOBT pending * 300 mg Venofer IV x 1 dose 12/01/16 * Patient should not be on any anticoagulation at this time, CI with her duodenal lesion. 3. Stage IV pancreatic cancer with direct invasion into duodenum, distant mets to liver and lungs- patient currently on palliative RT * No further palliative chemotherapy has been advised from medical oncology standpoint with current PS and comorbid conditions. 4. Development of direct hyperbilirubinemia- likely from biliary obstructive process from hepatic metastases * Patient was offered PTC which would require transfer to [facility] and declined this intervention, as ERCP failed with last hospitalization * No repeat bilirubin done since admission as patient is on palliative care 5. RLE edema/pain- discussed with Drs. Fernando Desai and Alyssa. Monitor at this time, will not proceed with Doppler at this time with her preference of palliative interventions only. If DVT present, patient would require IVC filter placement. 6. ESRD on HD- management per Dr. Blanton. I performed history and physical examination of the patient. I have discussed the patient's case, impression and plan with Annette Conrad PA-C. Her note reflects my findings and plan.
--- NOTE | 2016-12-04 16:48 | Progress Note ---
Internal Med Progress Note Date of Service: Dec 04, 2016. Provider Documentation: SUBJECTIVE: Patient is seen and examined at bedside. Got HD this morning. States feeling tired and has generalized weakness. Denies any chest pain, SOB, abd pain, nausea or vomiting, blood in stools. Offers no other complaints. Family at bedside. Denies to get radiation therapy today as she wanted to spend time with her daughter. OBJECTIVE: Vital Signs-as noted below General Appearance: WD/WN, no apparent distress, + Chronically ill appearing Head: normocephalic, atraumatic Eyes: normal inspection, PERRL, EOMI, + Icterus ENT: normal ENT inspection, hearing grossly normal Neck: supple, trachea midline Respiratory/Chest: Minimal creps at bases, normal breath sounds, no respiratory distress Cardiovascular: S1, S2, no murmur Abdomen/GI: normal bowel sounds, soft, + tenderness RUQ, + Protuberant Back: normal inspection Extremities/Musculoskelatal: normal inspection, normal range of motion, + pedal edema Neurologic/Psych: salvage clerk II-XII nml as tested, no motor/sensory deficits, oriented x 3 Lab data as noted below. ASSESSMENT & PLAN: ANEMIA: Acute on chronic: Multifactorial: H/O GI bleed, pancreatic cancer, ESRD Presented with Hb: 6.9 Hb:8.3 today S/P 1 unit PRBC No active source of bleeding Check fecal occult:pending Monitor H&H Transfuse PRN if Hb <7.0/symptomatic Consider GI eval if necessary Venofer IV x 1 dose given Events during last admission: S/P EGD and ERCP: Bleeding duodenal mass and S/ P 2 hemostatic clips during ERCP. Unsuccessful biliary stent placement. Palliative RT for bleeding duodenal lesion. Advised about percutaneous transhepatic cholangiography during last admission, but patient refused. Plavix was discontinued and aspirin was continued prior to discharge. ATYPICAL CHEST PAIN Resolved Presented with sharp non radiating chest pain which lasted for few seconds Likely non cardiac origin. DD: Originating from duodenal mass Troponin X2 : Negative EKG:No signs of acute ischemia Plan to repeat EKG with chest pain if it reoccurs HYPOTENSION: BP better Likely secondary to poor oral intake S/P IVF and PRBC transfusion Monitor LEUKOCYTOSIS: Likely secondary to malignancy No obvious source of infection Afebrile No indication for antibiotics currently Monitor METASTATIC PANCREATIC CANCER STAGE IV Not on chemotherapy Receiving palliative radiation therapy Appreciate Oncology and radiation oncology input Pain control Very poor prognosis On Hospice services Plan for radiation therapy tomorrow ELEVATED LFTS: Likely secondary to obstruction from hepatic metastases. Advised PTC but patient refused. RLE edema/pain: Monitor No plan for Doppler as her preference of palliative interventions only. Would require IVC filter placement if positive for DVT ESRD: on Hemodialysis Appreciate Nephrology help HD per Nephrology DM II: ISS, accu checks Regular diet as patient has poor oral intake HTN: Currently low BP Continue metoprolol Monitor DEPRESSION: Continue home meds H/O CVA: Plavix was discontinued secondary to GI bleed ASA on hold secondary to Anemia and requirement of PRBC transfusion DVT Px: SCDs CODE STATUS: DNI/DNR per my discussion with patient and family DISPOSITION: Need to be determined Ice Skating Teacher consulted Plan to discharge [facility]snf in [place], [place] when bed available PROGNOSIS: Very Poor prognosis Vital Signs: Date Time Temp Pulse Resp B/P Pulse Ox O2 Delivery O2 Flow Rate FiO2 12/04/16 16:18 36.9 84 18 100/63 91 Room Air 12/04/16 12:32 36.8 85 18 109/68 96 12/04/16 12:22 36.7 80 94/54 12/04/16 12:00 74 94/52 12/04/16 11:45 76 98/55 12/04/16 11:30 78 99/57 12/04/16 11:15 76 84/49 12/04/16 11:00 75 82/47 12/04/16 10:45 73 85/45 12/04/16 10:30 74 83/47 12/04/16 10:15 73 80/48 12/04/16 10:00 77 86/52 12/04/16 09:45 78 73/49 12/04/16 09:30 77 94/52 12/04/16 09:15 79 92/52 12/04/16 09:01 64 112/64 12/04/16 08:45 36.7 82 110/62 12/04/16 08:30 95 Nasal Cannula 2.0 Humidified Air 12/04/16 08:00 36.8 86 18 103/68 95 12/04/16 03:13 36.3 89 16 105/69 98 Nasal Cannula 2.0 Humidified Air 12/03/16 23:59 Nasal Cannula 2.0 12/03/16 23:50 37.0 85 16 92/55 99 Nasal Cannula 2.0 Humidified Air 12/03/16 20:00 Nasal Cannula 2.0 12/03/16 19:41 36.9 97 18 121/77 98 Nasal Cannula 2.0 Lab Results: Results Past 24 Hours Test 12/03/16 20:18 12/04/16 05:46 12/04/16 07:06 12/04/16 07:58 Range/Units Bedside Glucose 161 173 70-90 mg/dl Hemoglobin 8.3 12.0-16.0 g/dL Hematocrit 26.0 37-47 % Sodium Level 133 136-145 mmol/L Potassium Level 4.1 3.5-5.1 mmol/L Chloride Level 96 98-107 mmol/L Carbon Dioxide Level 26 21-32 mmol/L Anion Gap 11.0 3-11 mmol/L Blood Urea Nitrogen 27 7-18 mg/dl Creatinine 4.20 0.60-1.20 mg/dl Est Creatinine Clear Calc Drug Dose 15.9 ml/min Estimated GFR () 13.3 Estimated GFR (Non- 11.5 BUN/Creatinine Ratio 6.4 10-20 Random Glucose 145 70-99 mg/dl Calcium Level 8.4 8.5-10.1 mg/dl Test 12/04/16 12:30 Range/Units Bedside Glucose 183 70-90 mg/dl
[2016-12-04] MEDS: BOOST BREEZE NUTRITION DRINK 1 BOX PO SCH (17:41)
[2016-12-04] MEDS: ONDANSETRON INJ 2 MG/ML 2 ML VIAL IV PRN (20:15)
[2016-12-04] MEDS: TRAZODONE HCL 100 MG TAB PO SCH (20:44)
[2016-12-04] MEDS: CHOLECALCIFEROL 1000 INTER.UNIT TAB PO SCH (20:45)
[2016-12-04] MEDS: HYDROmorphone HCL 2 MG TAB PO PRN (21:33)
[2016-12-05] VITALS (8 sets, daily range): BP systolic 100–120; BP diastolic 58–74; PULSE 83–97; TEMP 36.7–37; O2SAT 92–94
[2016-12-05 06:07] LABS: CALCIUM 8.3 mg/dl (8.5-10.1); CREATININE 3.2 mg/dl (0.60-1.20); POTASSIUM 4.3 mmol/L (3.5-5.1)
[2016-12-05] MEDS: DOCUSATE SODIUM 100 MG CAP PO SCH ×2 (09:11→21:25)
[2016-12-05] MEDS: RANITIDINE HCL 150 MG TAB PO SCH ×2 (09:12→21:25)
[2016-12-05] MEDS: SERTRALINE HCL 100 MG TAB PO SCH (09:12)
[2016-12-05] MEDS: METOPROLOL TARTRATE 25 MG TAB PO SCH ×2 (09:12→21:25)
[2016-12-05] MEDS: CALCIUM ACETATE 667MG GELCAP PO SCH ×3 (09:13→17:35)
[2016-12-05] MEDS: BOOST GLUCOSE CONTROL PO SCH (09:13)
[2016-12-05] MEDS: CHECK FENTANYL PATCH PLACEMENT SCH ×3 (09:13→15:36)
[2016-12-05] MEDS: INSULIN ASPART 100 UNITS/ML 3 ML PEN SC SCH ×4 (09:14→20:55)
[2016-12-05] MEDS: INSULIN HUMAN NPH SC SCH (09:15)
--- NOTE | 2016-12-05 09:56 | Pharmacy Progress Note ---
Pharmacy Glycemic Sign Off Nt Date of Service Dec 05, 2016. Assessment & Plan ASSESSMENT: * Pharmacy was consulted by Dr Shah on 12/01/16 for glycemic control and to write orders per [facility] inpatient glycemic control protocol. * Major changes made by pharmacy to antidiabetic regimen include: * Decreased basal insulin to NPH 4 units SQ daily with breakfast (pt uses 8 units as an outpatient) * Added bolus insulin with NovoLog for stress hyperglycemia onbly (no carb coverage ordered/needed) * Patient has been receiving/requiring ~8 units of insulin per day for adequate glycemic control * BSGs ranging 145 - 183 mg/dl * Regimen has only required minor adjustments over the past 48hrs to achieve this level of control * Do not anticipate further changes in patient status that would quickly deteriorate glycemic control (i.e. patient to be NPO for upcoming procedure, steroids tapering, starting tube feedings, etc). * Please see recommendations for outpatient antidiabetic regimen below. PLAN FOR INPATIENT GLYCEMIC CONTROL: No changes needed to current regimen. * Continue basal insulin with NPH 4 units SQ daily with breakfast * Continue NovoLog per scale ACHS/Q6hrs while NPO * Goal range = 110 140 mg/dl * CF = 40 mg/dl/unit * CR = 1 unit for ever ---- g CHO consumed (none) * Pharmacy is signing off of glycemic consult and will no longer be making adjustments to inpatient regimen. Please feel free to re-consult if needed. Thank you. DISCHARGE RECOMMENDATIONS: * Patient's A1c is unreliable in ESRD patients d/t interactions between the A1c analyzing technique and high levels of urea in ESRD, reduced RBC life span, iron deficiency anemia, and EPO administration. HbA1c > 7.5% in ESRD patient may overestimate the extent of hyperglycemia in ESRD patients. * BSGs adequately controlled on current regimen while admitted. Total daily dose is consistent with outpatient total daily daily (~ 8 units/day) * Reasonable to continue previous regimen at discharge - no additional NovoLog will be needed at discharge * May even consider lowering outpatient NPH dosing slightly based on patient prognosis and for comfort.
--- NOTE | 2016-12-05 11:27 | Progress Note ---
Internal Med Progress Note Date of Service: Dec 05, 2016. Provider Documentation: SUBJECTIVE: Patient is seen and examined at bedside. States feeling very tired today. Denies any chest pain, SOB, abd pain, nausea or vomiting, blood in stools. Offers no other complaints. Family at bedside. Planned for radiation therapy later today. OBJECTIVE: Vital Signs-as noted below General Appearance: WD/WN, no apparent distress, + Chronically ill appearing Head: normocephalic, atraumatic Eyes: normal inspection, PERRL, EOMI, + Icterus ENT: normal ENT inspection, hearing grossly normal Neck: supple, trachea midline Respiratory/Chest: Minimal creps at bases, normal breath sounds, no respiratory distress Cardiovascular: S1, S2, no murmur Abdomen/GI: normal bowel sounds, soft, + tenderness RUQ, + Protuberant Back: normal inspection Extremities/Musculoskelatal: normal inspection, normal range of motion, + pedal edema Neurologic/Psych: hide house supervisor II-XII nml as tested, no motor/sensory deficits, oriented x 3 Lab data as noted below. ASSESSMENT & PLAN: ANEMIA: Acute on chronic: Multifactorial: H/O GI bleed, pancreatic cancer, ESRD Presented with Hb: 6.9 Hb:8.4 today S/P 1 unit PRBC No active source of bleeding Check fecal occult:pending Monitor H&H Transfuse PRN if Hb <7.0/symptomatic Consider GI eval if necessary Venofer IV x 1 dose given Events during last admission: S/P EGD and ERCP: Bleeding duodenal mass and S/ P 2 hemostatic clips during ERCP. Unsuccessful biliary stent placement. Palliative RT for bleeding duodenal lesion. Advised about percutaneous transhepatic cholangiography during last admission, but patient refused. Plavix was discontinued and aspirin was continued prior to discharge. ATYPICAL CHEST PAIN Resolved Presented with sharp non radiating chest pain which lasted for few seconds Likely non cardiac origin. DD: Originating from duodenal mass Troponin X2 : Negative EKG:No signs of acute ischemia Plan to repeat EKG with chest pain if it reoccurs HYPOTENSION: BP better Likely secondary to poor oral intake S/P IVF and PRBC transfusion Monitor LEUKOCYTOSIS: Likely secondary to malignancy No obvious source of infection Afebrile No indication for antibiotics currently Monitor METASTATIC PANCREATIC CANCER STAGE IV Not on chemotherapy Receiving palliative radiation therapy Appreciate Oncology and radiation oncology input Pain control Very poor prognosis On Hospice services Plan for radiation therapy later today ELEVATED LFTS: Likely secondary to obstruction from hepatic metastases. Advised PTC but patient refused. RLE edema/pain: Monitor No plan for Doppler as her preference of palliative interventions only. Would require IVC filter placement if positive for DVT ESRD: on Hemodialysis Appreciate Nephrology help HD per Nephrology DM II: ISS, accu checks Regular diet as patient has poor oral intake HTN: Currently low BP Continue metoprolol Monitor DEPRESSION: Continue home meds H/O CVA: Plavix was discontinued secondary to GI bleed ASA on hold secondary to Anemia and requirement of PRBC transfusion DVT Px: SCDs CODE STATUS: DNI/DNR per my discussion with patient and family DISPOSITION: Need to be determined Home Care Physical Therapist consulted Plan to discharge [facility]idential in [place] when bed available PROGNOSIS: Very Poor prognosis Vital Signs: Date Time Temp Pulse Resp B/P Pulse Ox O2 Delivery O2 Flow Rate FiO2 12/05/16 11:18 36.8 86 16 109/69 94 Room Air 12/05/16 07:19 36.9 91 18 102/67 92 Room Air 12/05/16 04:00 37.0 83 16 100/58 93 Room Air 12/05/16 00:20 Nasal Cannula 2.0 12/04/16 23:53 37.1 92 20 95/60 92 Room Air 12/04/16 20:15 Nasal Cannula 2.0 12/04/16 19:35 37.2 91 20 87/52 92 Room Air 12/04/16 16:30 96 Nasal Cannula 2.0 Humidified Air 12/04/16 16:18 36.9 84 18 100/63 91 Room Air 12/04/16 12:32 36.8 85 18 109/68 96 12/04/16 12:22 36.7 80 94/54 12/04/16 12:00 74 94/52 12/04/16 11:45 76 98/55 Lab Results: Results Past 24 Hours Test 12/04/16 12:30 12/04/16 16:49 12/04/16 20:05 12/05/16 04:55 Range/Units Bedside Glucose 183 173 158 70-90 mg/dl Hemoglobin 8.4 12.0-16.0 g/dL Hematocrit 26.0 37-47 % Sodium Level 133 136-145 mmol/L Potassium Level 4.3 3.5-5.1 mmol/L Chloride Level 97 98-107 mmol/L Carbon Dioxide Level 28 21-32 mmol/L Anion Gap 8.0 3-11 mmol/L Blood Urea Nitrogen 19 7-18 mg/dl Creatinine 3.20 0.60-1.20 mg/dl Est Creatinine Clear Calc Drug Dose 21.1 ml/min Estimated GFR () 18.5 Estimated GFR (Non- 16.0 BUN/Creatinine Ratio 6.0 10-20 Random Glucose 141 70-99 mg/dl Calcium Level 8.3 8.5-10.1 mg/dl Test 12/05/16 07:40 12/05/16 11:22 Range/Units Bedside Glucose 145 140 70-90 mg/dl
[2016-12-05] MEDS: ONDANSETRON INJ 2 MG/ML 2 ML VIAL IV PRN ×2 (12:08→21:31)
--- NOTE | 2016-12-05 13:31 | Hematology/Oncology Prog Note ---
Hematology/Onc Progress Note Date of Service Dec 05, 2016. Medications Medications Administered Medications (Trade) Dose Ordered Sig/Sophia Route Start Time Stop Time Status Last Admin Dose Admin Sodium Chloride (Nss 250ml) 250 ml @ 999 mls/hr Q16M STAT IV 12/01/16 06:24 12/01/16 06:39 DC 12/01/16 06:24 999 MLS/HR Ondansetron HCl (Zofran Inj) 4 mg Q6H PRN IV 12/01/16 09:00 12/31/16 08:59 12/05/16 12:08 4 MG Calcium Acetate (Phoslo Cap) 1,334 mg TIDM PO 12/01/16 12:00 12/31/16 11:59 12/05/16 09:13 1,334 MG Cholecalciferol (Vitamin D Tab) 5,000 inter.unit QPM PO 12/01/16 21:00 12/31/16 20:59 12/04/16 20:45 5,000 INTER.UNIT Docusate Sodium (coLACE CAP) 100 mg BID PO 12/01/16 20:00 12/31/16 20:59 12/05/16 09:11 100 MG Hydromorphone HCl (Dilaudid Tab) 2 mg Q6 PRN PO 12/01/16 09:15 12/01/16 14:41 DC 12/01/16 12:13 2 MG Metoprolol Tartrate (Lopressor Tab) 25 mg BID PO 12/01/16 20:00 12/31/16 20:59 12/05/16 09:12 25 MG Ranitidine HCl (zANTac TAB) 150 mg BID PO 12/01/16 20:00 12/31/16 20:59 12/05/16 09:12 150 MG Sertraline HCl (Zoloft Tab) 100 mg QAM PO 12/02/16 08:00 01/01/17 08:59 12/05/16 09:12 100 MG Trazodone HCl (Desyrel Tab) 100 mg HS PO 12/01/16 21:00 12/31/16 20:59 12/04/16 20:44 100 MG Insulin Aspart (novoLOG ASPART) SLIDING SCALE If C... ACHS SC 12/01/16 11:00 12/31/16 10:59 12/05/16 09:14 1 UNITS Enteral Nutritional Formula (Boost Glucose Control) 1 can QDB PO 12/02/16 08:00 01/01/17 07:59 12/04/16 08:15 1 CAN Enteral Nutritional Formula (Boost Breeze Nutritional Drink) 1 box QDD PO 12/01/16 17:00 12/31/16 16:59 12/03/16 17:24 1 BOX Hydromorphone HCl (Dilaudid Tab) 2 mg Q4 PRN PO 12/01/16 16:00 12/02/16 17:32 DC 12/02/16 07:53 2 MG Hydromorphone HCl 1 mg 1 mg Q4H PRN IV 12/01/16 15:00 12/02/16 17:32 DC 12/02/16 13:21 1 MG Iron Sucrose/ Sodium Chloride (Venofer Inj/Nss 250ml) 265 ml @ 176 mls/hr 1700 IV 12/01/16 17:00 12/01/16 18:31 DC 12/01/16 16:44 176 MLS/HR Hydromorphone HCl (Dilaudid Tab) 2 mg Q6 PRN PO 12/02/16 18:00 12/16/16 17:59 12/04/16 21:33 2 MG Fentanyl (Duragesic Patch) 25 mcg Q3D@1745 TD 12/02/16 17:45 12/16/16 17:44 12/02/16 17:51 25 MCG Miscellaneous Information (Check Fentanyl Patch Placement) 1 ea QS N/A 12/03/16 00:00 01/02/17 00:00 12/05/16 09:13 1 EA Insulin Human NPH (novoLIN-N NPH) 4 units QDB SC 12/03/16 09:00 01/02/17 08:59 12/05/16 09:15 4 UNITS Subjective Mrs. Aceves is seen and examined at bedside. She continues to report feeling fatigued. She has a poor appetite and is eating little of her meals. She continues to have satisfactory pain control. She has no respiratory complaints. She does not report any areas of active bleeding. Review of Systems: Respiratory: + see HPI Abdomen: + see HPI Vital Signs Vital Signs Past 12 Hours Date Time Temp Pulse Resp B/P Pulse Ox O2 Delivery O2 Flow Rate FiO2 12/05/16 11:18 36.8 86 16 109/69 94 Room Air 12/05/16 09:00 Room Air 12/05/16 07:19 36.9 91 18 102/67 92 Room Air 12/05/16 04:00 37.0 83 16 100/58 93 Room Air Physical Exam Constitutional: Level of Distress: NAD, chronically ill Lungs: Respiratory Effort: no dyspnea Auscuitation: breath sounds normal Cardiovascular: Heart Auscultation: RRR Abdomen: Inspection & Palpation: distended, LUQ tenderness, RUQ tenderness Extremities: edema (RLE, stable) Laboratory 12/05/16 04:55 12/05/16 04:55 Test 12/05/16 04:55 12/05/16 11:22 Anion Gap 8.0 mmol/L (3-11) Est Creatinine Clear Calc Drug Dose 21.1 ml/min Estimated GFR () 18.5 Estimated GFR (Non- 16.0 BUN/Creatinine Ratio 6.0 (10-20) Calcium Level 8.3 mg/dl (8.5-10.1) Bedside Glucose 140 mg/dl (70-90) Assessment & Plan 1. Acute epigastric/middle back/lower chest pain- most likely due to the duodenal lesion from invasive pancreatic primary; likely pain exacerbated by starting on palliative RT * Her EKG was in NSR without ischemic changes and trending troponins have been negative * She is on Dilaudid 2 mg PO q6h PRN and started on fentanyl 25 mcg q72h patch * Pain controlled 2. Acute on chronic anemia of multiple mechanisms- 6.9 on admission. S/p 1 unit PRBC * Continue to support with PRBC if Hgb < 7 or patient with symptomatic anemia. Presume bleed from duodenal lesion is contributing to acute decrease, though patient denies melena/hematochezia. FOBT pending * 300 mg Venofer IV x 1 dose 12/01/16 * Patient should not be on any anticoagulation at this time, CI with her duodenal lesion * Anemia remaining stable 3. Stage IV pancreatic cancer with direct invasion into duodenum, distant mets to liver and lungs- patient currently on palliative RT * No further palliative chemotherapy has been advised from medical oncology standpoint with current PS and comorbid conditions * Patient currently on palliative RT * Patient considering to be discharged with best supportive care to a in [place], [place] to be close to her daughter and granddaughter; medical oncology supportive of this goal 4. Development of direct hyperbilirubinemia- likely from biliary obstructive process from hepatic metastases * Patient was offered PTC which would require transfer to [facility] [place] and declined this intervention, as ERCP failed with last hospitalization * No repeat bilirubin done since admission as patient is on palliative care 5. RLE edema/pain- discussed with Drs. Fernando Desai and Alyssa. Monitor at this time, will not proceed with Doppler at this time with her preference of palliative interventions only. If DVT present, patient would require IVC filter placement. 6. ESRD on HD- management per Dr. Blanton. I performed history and physical examination of the patient. I have discussed the patient's case, impression and plan with Annette Conrad PA-C. Her note reflects my findings and plan. Dr. Murray Desai Hem/Onc
[2016-12-05] MEDS: BOOST BREEZE NUTRITION DRINK 1 BOX PO SCH (17:00)
[2016-12-05] MEDS: FENTANYL 25 MCG/HR TDSY TD SCH (17:39)
[2016-12-05] MEDS ORDERED: FENTANYL PATCH REMOVE & WASTE SCH (17:44)
[2016-12-05] MEDS: TRAZODONE HCL 100 MG TAB PO SCH (21:25)
[2016-12-05] MEDS: CHOLECALCIFEROL 1000 INTER.UNIT TAB PO SCH (21:27)
[2016-12-06] VITALS (18 sets, daily range): BP systolic 84–110; BP diastolic 51–64; PULSE 70–93; TEMP 36.2–36.9; O2SAT 92–94
[2016-12-06] MEDS: CHECK FENTANYL PATCH PLACEMENT SCH ×3 (00:09→15:52)
[2016-12-06] MEDS: METOPROLOL TARTRATE 25 MG TAB PO SCH ×2 (07:20→19:00)
[2016-12-06] MEDS: BOOST GLUCOSE CONTROL PO SCH (07:36)
[2016-12-06] MEDS: CALCIUM ACETATE 667MG GELCAP PO SCH ×3 (07:36→17:05)
[2016-12-06] MEDS: INSULIN ASPART 100 UNITS/ML 3 ML PEN SC SCH ×4 (07:41→20:28)
[2016-12-06 07:43] LABS: BUN/CREATININE RATIO 7.2 (10-20); CALCIUM 9.2 mg/dl (8.5-10.1); CREATININE 4.1 mg/dl (0.60-1.20); POTASSIUM 4.3 mmol/L (3.5-5.1)
[2016-12-06] MEDS: INSULIN HUMAN NPH SC SCH (07:44)
--- NOTE | 2016-12-06 09:05 | Nephrology Progress Note ---
Nephrology Progress Note Date of Service: Dec 06, 2016. Subjective 51 yo female with ESRD and metastatic pancreatic cancer on palliative radiation and on Hemodialysis. Patient continues to be confused. She is aware of where she is and what day but does not know who I am. She recalls other times within the last 36 hours that she was also confused. States that her appetite is relatively poor due to nausea. denies any SOB or Chest pain. Objective Date Time Temp Pulse Resp B/P Pulse Ox O2 Delivery O2 Flow Rate FiO2 12/06/16 07:11 36.8 82 18 99/62 94 Room Air 12/06/16 03:37 36.8 93 18 87/56 92 Room Air 12/06/16 00:00 Room Air 12/05/16 23:00 36.9 94 18 100/66 94 Room Air 12/05/16 21:23 97 105/71 12/05/16 21:00 Room Air 12/05/16 19:34 36.8 93 18 107/71 93 Room Air 12/05/16 16:11 94 12/05/16 16:00 Nasal Cannula 2.0 12/05/16 15:29 36.7 93 16 120/74 92 Room Air 12/05/16 11:18 36.8 86 16 109/69 94 Room Air 12/05/16 09:00 Room Air Physical Exam: General-aaox2. comfortable and cooperative Eyes-+scleral icterus, ENT-mmm Neck-supple Lungs-basilar rales Heart-rrr Abdomen-+distention, nontender Extremities-+1 edema, jaundice Neuro-nonfocal, confused Current Inpatient Medications Medications (Trade) Dose Ordered Sig/Sophia Route Start Time Stop Time Status Last Admin Dose Admin Acetaminophen (Tylenol Tab) 650 mg Q4H PRN PO 12/01/16 09:00 12/31/16 08:59 Ondansetron HCl (Zofran Inj) 4 mg Q6H PRN IV 12/01/16 09:00 12/31/16 08:59 12/05/16 21:31 4 MG Calcium Acetate (Phoslo Cap) 1,334 mg TIDM PO 12/01/16 12:00 12/31/16 11:59 12/06/16 07:36 1,334 MG Cholecalciferol (Vitamin D Tab) 5,000 inter.unit QPM PO 12/01/16 21:00 12/31/16 20:59 12/05/16 21:27 5,000 INTER.UNIT Docusate Sodium (coLACE CAP) 100 mg BID PO 12/01/16 20:00 12/31/16 20:59 12/05/16 21:25 100 MG Metoprolol Tartrate (Lopressor Tab) 25 mg BID PO 12/01/16 20:00 12/31/16 20:59 12/05/16 21:25 25 MG Polyethylene (Miralax Powder Packet) 17 gm DAILY PRN PO 12/01/16 09:15 12/31/16 09:14 Ranitidine HCl (zANTac TAB) 150 mg BID PO 12/01/16 20:00 12/31/16 20:59 12/05/16 21:25 150 MG Sertraline HCl (Zoloft Tab) 100 mg QAM PO 12/02/16 08:00 01/01/17 08:59 12/05/16 09:12 100 MG Trazodone HCl (Desyrel Tab) 100 mg HS PO 12/01/16 21:00 12/31/16 20:59 12/05/16 21:25 100 MG Insulin Aspart (novoLOG ASPART) SLIDING SCALE If C... ACHS SC 12/01/16 11:00 12/31/16 10:59 12/05/16 09:14 1 UNITS Glucose (Glucose 40% Gel) 15-30 GRAMS 15 GRAMS... UD PRN PO 12/01/16 09:15 12/31/16 09:14 Glucose (Glucose Chew Tab) 4-8 Tablets 4 Tabl... UD PRN PO 12/01/16 09:15 12/31/16 09:14 Dextrose (Dextrose 50% 50ML Syringe) 25-50ML OF 50% DW IV FOR... UD PRN IV 12/01/16 09:15 12/31/16 09:14 Glucagon (Glucagon Inj) 1 mg UD PRN SQ 12/01/16 09:15 12/31/16 09:14 Miscellaneous Information (Consult Glycemic Management Pharmacy) 1 ea UD PRN N/A 12/01/16 09:23 12/31/16 09:22 Calcium Acetate (Phoslo Cap) 667 mg BID PRN PO 12/01/16 11:45 12/31/16 11:44 Enteral Nutritional Formula (Boost Glucose Control) 1 can QDB PO 12/02/16 08:00 01/01/17 07:59 12/06/16 07:36 1 CAN Enteral Nutritional Formula (Boost Breeze Nutritional Drink) 1 box QDD PO 12/01/16 17:00 12/31/16 16:59 12/03/16 17:24 1 BOX Hydromorphone HCl (Dilaudid Tab) 2 mg Q6 PRN PO 12/02/16 18:00 12/16/16 17:59 12/04/16 21:33 2 MG Fentanyl (Duragesic Patch) 25 mcg Q3D@1745 TD 12/02/16 17:45 12/16/16 17:44 12/05/16 17:39 25 MCG Miscellaneous (Fentanyl Patch Remove & Waste) 1 ea Q3D@1744 N/A 12/05/16 17:44 01/04/17 17:43 12/05/16 17:37 1 EA Miscellaneous Information (Check Fentanyl Patch Placement) 1 ea QS N/A 12/03/16 00:00 01/02/17 00:00 12/06/16 07:37 1 EA Insulin Human NPH (novoLIN-N NPH) 4 units QDB SC 12/03/16 09:00 01/02/17 08:59 12/06/16 07:44 4 UNITS Last 24 Hours Test 12/05/16 11:22 12/05/16 16:28 12/05/16 19:48 12/06/16 05:32 Bedside Glucose 140 mg/dl 127 mg/dl 132 mg/dl Sodium Level 134 mmol/L Potassium Level 4.3 mmol/L Chloride Level 97 mmol/L Carbon Dioxide Level 25 mmol/L Anion Gap 12.0 mmol/L Blood Urea Nitrogen 30 mg/dl Creatinine 4.10 mg/dl Est Creatinine Clear Calc Drug Dose 16.2 ml/min Estimated GFR () 13.7 Estimated GFR (Non- 11.8 BUN/Creatinine Ratio 7.2 Random Glucose 94 mg/dl Calcium Level 9.2 mg/dl Phosphorus Level 5.0 mg/dl Test 12/06/16 07:23 Bedside Glucose 107 mg/dl Assessment & Plan ESRD-will plan on dialysis today and on m//f schedule or as clinical condition dictates. Potassium is adequate and will continue 3k bath. goal for 2L Uf as tolerated. no procrit due to cancer history. Anemia of renal failure-s/p one unit of blood, hgb stable at 8.4. 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 will monitor phosphorus intermittently during hospital stay. This patient was seen and treated with direct collaboration with Dr. Blanton. Thank you for the opportunity to participate in this patient's care. Appreciate the Consult. ATTENDING NOTE: I performed a history and physical examination of the patient, including specifically on history- tired and having many visitors come see her, on physical exam-significantly jaundiced, lungs cta, and my impression and plan are ESRD-seen on dialysis, tolerating her well. access is working well, bp is stable. unclear how much fluid will be able to be removed. no procrit on dialysis. I have discussed the patient's management with Carol Hill PA-C, Please refer to above note for the documented findings and plan of care. overall poor prognosis. Althea Blanton DO
--- NOTE | 2016-12-06 10:47 | Hematology/Oncology Prog Note ---
Hematology/Onc Progress Note Date of Service Dec 06, 2016. Medications Current Inpatient Medications Medications (Trade) Dose Ordered Sig/Sophia Route Start Time Stop Time Status Last Admin Dose Admin Acetaminophen (Tylenol Tab) 650 mg Q4H PRN PO 12/01/16 09:00 12/31/16 08:59 Ondansetron HCl (Zofran Inj) 4 mg Q6H PRN IV 12/01/16 09:00 12/31/16 08:59 12/05/16 21:31 4 MG Calcium Acetate (Phoslo Cap) 1,334 mg TIDM PO 12/01/16 12:00 12/31/16 11:59 12/06/16 07:36 1,334 MG Cholecalciferol (Vitamin D Tab) 5,000 inter.unit QPM PO 12/01/16 21:00 12/31/16 20:59 12/05/16 21:27 5,000 INTER.UNIT Docusate Sodium (coLACE CAP) 100 mg BID PO 12/01/16 20:00 12/31/16 20:59 12/05/16 21:25 100 MG Metoprolol Tartrate (Lopressor Tab) 25 mg BID PO 12/01/16 20:00 12/31/16 20:59 12/05/16 21:25 25 MG Polyethylene (Miralax Powder Packet) 17 gm DAILY PRN PO 12/01/16 09:15 12/31/16 09:14 Ranitidine HCl (zANTac TAB) 150 mg BID PO 12/01/16 20:00 12/31/16 20:59 12/05/16 21:25 150 MG Sertraline HCl (Zoloft Tab) 100 mg QAM PO 12/02/16 08:00 01/01/17 08:59 12/05/16 09:12 100 MG Trazodone HCl (Desyrel Tab) 100 mg HS PO 12/01/16 21:00 12/31/16 20:59 12/05/16 21:25 100 MG Insulin Aspart (novoLOG ASPART) SLIDING SCALE If C... ACHS SC 12/01/16 11:00 12/31/16 10:59 12/05/16 09:14 1 UNITS Glucose (Glucose 40% Gel) 15-30 GRAMS 15 GRAMS... UD PRN PO 12/01/16 09:15 12/31/16 09:14 Glucose (Glucose Chew Tab) 4-8 Tablets 4 Tabl... UD PRN PO 12/01/16 09:15 12/31/16 09:14 Dextrose (Dextrose 50% 50ML Syringe) 25-50ML OF 50% DW IV FOR... UD PRN IV 12/01/16 09:15 12/31/16 09:14 Glucagon (Glucagon Inj) 1 mg UD PRN SQ 12/01/16 09:15 12/31/16 09:14 Miscellaneous Information (Consult Glycemic Management Pharmacy) 1 ea UD PRN N/A 12/01/16 09:23 12/31/16 09:22 Calcium Acetate (Phoslo Cap) 667 mg BID PRN PO 12/01/16 11:45 12/31/16 11:44 Enteral Nutritional Formula (Boost Glucose Control) 1 can QDB PO 12/02/16 08:00 01/01/17 07:59 12/06/16 07:36 1 CAN Enteral Nutritional Formula (Boost Breeze Nutritional Drink) 1 box QDD PO 12/01/16 17:00 12/31/16 16:59 12/03/16 17:24 1 BOX Hydromorphone HCl (Dilaudid Tab) 2 mg Q6 PRN PO 12/02/16 18:00 12/16/16 17:59 12/04/16 21:33 2 MG Fentanyl (Duragesic Patch) 25 mcg Q3D@1745 TD 12/02/16 17:45 12/16/16 17:44 12/05/16 17:39 25 MCG Miscellaneous (Fentanyl Patch Remove & Waste) 1 ea Q3D@1744 N/A 12/05/16 17:44 01/04/17 17:43 12/05/16 17:37 1 EA Miscellaneous Information (Check Fentanyl Patch Placement) 1 ea QS N/A 12/03/16 00:00 01/02/17 00:00 12/06/16 07:37 1 EA Insulin Human NPH (novoLIN-N NPH) 4 units QDB SC 12/03/16 09:00 01/02/17 08:59 12/06/16 07:44 4 UNITS Subjective Mrs. Aceves is seen and examined at bedside. She continues to report feeling fatigued. She continues to have satisfactory pain control. She has no respiratory complaints. She does not report any areas of active bleeding. She is now planning to go home with her with the help of her family members to assist with daily tasks/care. Review of Systems: Respiratory: + see HPI Abdomen: + see HPI Vital Signs Vital Signs Past 12 Hours Date Time Temp Pulse Resp B/P Pulse Ox O2 Delivery O2 Flow Rate FiO2 12/06/16 09:30 71 91/54 12/06/16 09:15 76 95/59 12/06/16 09:06 36.5 80 110/64 12/06/16 08:00 Room Air 12/06/16 07:11 36.8 82 18 99/62 94 Room Air 12/06/16 03:37 36.8 93 18 87/56 92 Room Air 12/06/16 00:00 Room Air 12/05/16 23:00 36.9 94 18 100/66 94 Room Air Physical Exam Constitutional: Level of Distress: NAD, chronically ill Lungs: Respiratory Effort: no dyspnea Auscuitation: breath sounds normal Cardiovascular: Heart Auscultation: RRR Abdomen: Inspection & Palpation: distended, LUQ tenderness, RUQ tenderness Extremities: edema (RLE, stable) Jaundice of face noted. Assessment & Plan 1. Acute epigastric/middle back/lower chest pain- most likely due to the duodenal lesion from invasive pancreatic primary; likely pain exacerbated by starting on palliative RT * Her EKG was in NSR without ischemic changes and trending troponins have been negative * She is on Dilaudid 2 mg PO q6h PRN (has not taken since 12/04/16) and started on fentanyl 25 mcg q72h patch * Pain controlled 2. Acute on chronic anemia of multiple mechanisms- 6.9 on admission. S/p 1 unit PRBC * Continue to support with PRBC if Hgb < 7 or patient with symptomatic anemia. Presume bleed from duodenal lesion is contributing to acute decrease, though patient denies melena/hematochezia. FOBT pending * 300 mg Venofer IV x 1 dose 12/01/16 * Patient should not be on any anticoagulation at this time, CI with her duodenal lesion * Anemia remaining stable 3. Stage IV pancreatic cancer with direct invasion into duodenum, distant mets to liver and lungs- patient currently on palliative RT * No further palliative chemotherapy has been advised from medical oncology standpoint with current PS and comorbid conditions * Patient currently on palliative RT * Patient considering to be discharged with best supportive care to home; medical oncology supportive of this goal 4. Development of direct hyperbilirubinemia- likely from biliary obstructive process from hepatic metastases * Patient was offered PTC which would require transfer to [facility] and declined this intervention, as ERCP failed with last hospitalization * No repeat bilirubin done since admission as patient is on palliative care; patient noticeably jaundiced 5. RLE edema/pain- discussed with Drs. Fernando Desai and Alyssa. Monitor at this time, will not proceed with Doppler at this time with her preference of palliative interventions only. If DVT present, patient would require IVC filter placement. 6. ESRD on HD- management per Dr. Blanton.
[2016-12-06] MEDS: HYDROmorphone HCL 2 MG TAB PO PRN (11:15)
[2016-12-06] MEDS: RANITIDINE HCL 150 MG TAB PO SCH ×2 (13:47→19:02)
[2016-12-06] MEDS: SERTRALINE HCL 100 MG TAB PO SCH (13:47)
[2016-12-06] MEDS: DOCUSATE SODIUM 100 MG CAP PO SCH ×2 (13:48→19:00)
--- NOTE | 2016-12-06 15:17 | Progress Note ---
Internal Med Progress Note Date of Service: Dec 06, 2016. Provider Documentation: SUBJECTIVE: The patient was seen and examined Generally weak and lethargic Denies any pain OBJECTIVE: Vital Signs-as noted below Exam: General-No distress at rest Eyes-normal ENT-normal Neck-supple Lungs-Decreased breath sound bilaterally Heart-Regular,no murmur appreciated Abdomen-Benign,soft ,tender Bowel sound present Extremities-Tarce edema bilaterally Neuro-AA Generally weak and lethargic Lab data as noted below. ASSESSMENT & PLAN: METASTATIC PANCREATIC CANCER STAGE IV Elevated LFTs with Jaundice Not a candidate for any aggressive therapy Receiving palliative radiation therapy Appreciate Oncology and radiation oncology input Pain control Under the care of Hospice Likely discharge in a day or two to Home with Hospice Discussed with the Very Poor Prognosis ESRD: On Hemodialysis Appreciate Nephrology help HD per Nephrology Continue HD ANEMIA: Acute on chronic: Multifactorial: H/O GI bleed, pancreatic cancer, ESRD Events during last admission: S/P EGD and ERCP: Bleeding duodenal mass and S/P 2 hemostatic clips during ERCP. Unsuccessful biliary stent placement. Palliative RT for bleeding duodenal lesion. Advised about percutaneous transhepatic cholangiography during last admission, but patient refused. Plavix was discontinued and aspirin was continued prior to discharge. Received i unit of PRBC during this admission HB > 8 now ATYPICAL CHEST PAIN No ACS Resolved RLE edema/pain: Monitor No plan for Doppler as her preference of palliative interventions only. Would require IVC filter placement if positive for DVT DM II: ISS, accu checks Regular diet as patient has poor oral intake HTN: Presented with low BP Continue metoprolol Monitor DEPRESSION: Continue home meds H/O CVA: Plavix was discontinued secondary to GI bleed ASA on hold secondary to Anemia and requirement of PRBC transfusion DVT Px: SCDs CODE STATUS: DNI/DNR per my discussion with patient and family DISPOSITION: Likely discharge home with Hospice care Vital Signs: Date Time Temp Pulse Resp B/P Pulse Ox O2 Delivery O2 Flow Rate FiO2 12/06/16 12:45 36.4 78 95/59 12/06/16 12:00 74 86/54 12/06/16 11:45 79 94/52 12/06/16 11:30 81 85/51 12/06/16 11:15 79 94/58 12/06/16 11:00 77 95/59 12/06/16 10:45 71 98/59 12/06/16 10:30 76 97/55 12/06/16 10:15 75 84/52 12/06/16 10:00 70 88/53 12/06/16 09:45 70 88/53 12/06/16 09:30 71 91/54 12/06/16 09:15 76 95/59 12/06/16 09:06 36.5 80 110/64 12/06/16 08:00 Room Air 12/06/16 07:11 36.8 82 18 99/62 94 Room Air 12/06/16 03:37 36.8 93 18 87/56 92 Room Air 12/06/16 00:00 Room Air 12/05/16 23:00 36.9 94 18 100/66 94 Room Air 12/05/16 21:23 97 105/71 12/05/16 21:00 Room Air 12/05/16 19:34 36.8 93 18 107/71 93 Room Air 12/05/16 16:11 94 12/05/16 16:00 Nasal Cannula 2.0 12/05/16 15:29 36.7 93 16 120/74 92 Room Air Lab Results: Results Past 24 Hours Test 12/05/16 16:28 12/05/16 19:48 12/06/16 05:32 12/06/16 07:23 Range/Units Bedside Glucose 127 132 107 70-90 mg/dl Sodium Level 134 136-145 mmol/L Potassium Level 4.3 3.5-5.1 mmol/L Chloride Level 97 98-107 mmol/L Carbon Dioxide Level 25 21-32 mmol/L Anion Gap 12.0 3-11 mmol/L Blood Urea Nitrogen 30 7-18 mg/dl Creatinine 4.10 0.60-1.20 mg/dl Est Creatinine Clear Calc Drug Dose 16.2 ml/min Estimated GFR () 13.7 Estimated GFR (Non- 11.8 BUN/Creatinine Ratio 7.2 10-20 Random Glucose 94 70-99 mg/dl Calcium Level 9.2 8.5-10.1 mg/dl Phosphorus Level 5.0 2.5-4.9 mg/dl Test 12/06/16 11:29 Range/Units Bedside Glucose 114 70-90 mg/dl
[2016-12-06] MEDS: BOOST BREEZE NUTRITION DRINK 1 BOX PO SCH (17:05)
[2016-12-06] MEDS: TRAZODONE HCL 100 MG TAB PO SCH (19:01)
[2016-12-06] MEDS: CHOLECALCIFEROL 1000 INTER.UNIT TAB PO SCH (19:02)
[2016-12-07] MEDS: CHECK FENTANYL PATCH PLACEMENT SCH ×2 (00:03→07:35)
[2016-12-07 00:10] VITALS: BP 119/74; PULSE 91; TEMP 36.8; O2SAT 94
[2016-12-07 04:13] VITALS: BP 103/65; PULSE 90; TEMP 36.9; O2SAT 93
[2016-12-07] MEDS: HYDROmorphone HCL 2 MG TAB PO PRN (07:32)
[2016-12-07] MEDS: SERTRALINE HCL 100 MG TAB PO SCH (07:33)
[2016-12-07] MEDS: DOCUSATE SODIUM 100 MG CAP PO SCH (07:33)
[2016-12-07] MEDS: CALCIUM ACETATE 667MG GELCAP PO SCH ×2 (07:34→12:13)
[2016-12-07] MEDS: METOPROLOL TARTRATE 25 MG TAB PO SCH (07:34)
[2016-12-07] MEDS: BOOST GLUCOSE CONTROL PO SCH (07:35)
[2016-12-07] MEDS: RANITIDINE HCL 150 MG TAB PO SCH (07:35)
[2016-12-07] MEDS: INSULIN ASPART 100 UNITS/ML 3 ML PEN SC SCH ×2 (07:37→12:11)
[2016-12-07] MEDS: INSULIN HUMAN NPH SC SCH (07:40)
[2016-12-07 07:50] VITALS: BP 99/65; PULSE 93; TEMP 37; O2SAT 95
[2016-12-07] MEDS: ONDANSETRON INJ 2 MG/ML 2 ML VIAL IV PRN (08:05)
[2016-12-07 12:01] VITALS: BP 100/63; PULSE 81; TEMP 36.7; O2SAT 95
[2016-12-07 13:06] VITALS: BP 99/65; PULSE 93; TEMP 37; O2SAT 95
--- NOTE | 2016-12-07 14:04 | Nephrology Progress Note ---
Nephrology Progress Note Date of Service: Dec 07, 2016. Subjective 51 yo female with ESRD and metastatic pancreatic cancer on palliative radiation and on Hemodialysis. Patient is not confused during interview today but reports having periods of confusion. Patient with tremors in hands. appetite ok. energy level poor. denies any SOB or Chest pain. Objective Date Time Temp Pulse Resp B/P Pulse Ox O2 Delivery O2 Flow Rate FiO2 12/07/16 13:06 37.0 93 18 95 Room Air 12/07/16 08:05 Room Air 12/07/16 07:50 37.0 93 18 99/65 95 Room Air 12/07/16 04:13 36.9 90 16 103/65 93 Room Air 12/07/16 00:15 Room Air 12/07/16 00:10 36.8 91 20 119/74 94 Room Air 12/06/16 19:44 36.9 86 18 99/64 94 Room Air 12/06/16 16:00 Room Air 12/06/16 15:16 36.2 83 18 95/56 94 Room Air Physical Exam: General-aaox2. comfortable and cooperative Eyes-+scleral icterus, ENT-mmm Neck-supple Lungs-basilar rales Heart-rrr Abdomen-+distention, nontender Extremities-trace b/l le edema, jaundice, tremors. Neuro-nonfocal, confused Current Inpatient Medications Medications (Trade) Dose Ordered Sig/Sophia Route Start Time Stop Time Status Last Admin Dose Admin Acetaminophen (Tylenol Tab) 650 mg Q4H PRN PO 12/01/16 09:00 12/31/16 08:59 Ondansetron HCl (Zofran Inj) 4 mg Q6H PRN IV 12/01/16 09:00 12/31/16 08:59 12/07/16 08:05 4 MG Calcium Acetate (Phoslo Cap) 1,334 mg TIDM PO 12/01/16 12:00 12/31/16 11:59 12/07/16 12:13 1,334 MG Cholecalciferol (Vitamin D Tab) 5,000 inter.unit QPM PO 12/01/16 21:00 12/31/16 20:59 12/06/16 19:02 5,000 INTER.UNIT Docusate Sodium (coLACE CAP) 100 mg BID PO 12/01/16 20:00 12/31/16 20:59 12/07/16 07:33 100 MG Metoprolol Tartrate (Lopressor Tab) 25 mg BID PO 12/01/16 20:00 12/31/16 20:59 12/05/16 21:25 25 MG Polyethylene (Miralax Powder Packet) 17 gm DAILY PRN PO 12/01/16 09:15 12/31/16 09:14 Ranitidine HCl (zANTac TAB) 150 mg BID PO 12/01/16 20:00 12/31/16 20:59 12/07/16 07:35 150 MG Sertraline HCl (Zoloft Tab) 100 mg QAM PO 12/02/16 08:00 01/01/17 08:59 12/07/16 07:33 100 MG Trazodone HCl (Desyrel Tab) 100 mg HS PO 12/01/16 21:00 12/31/16 20:59 12/06/16 19:01 100 MG Insulin Aspart (novoLOG ASPART) SLIDING SCALE If C... ACHS SC 12/01/16 11:00 12/31/16 10:59 12/05/16 09:14 1 UNITS Glucose (Glucose 40% Gel) 15-30 GRAMS 15 GRAMS... UD PRN PO 12/01/16 09:15 12/31/16 09:14 Glucose (Glucose Chew Tab) 4-8 Tablets 4 Tabl... UD PRN PO 12/01/16 09:15 12/31/16 09:14 Dextrose (Dextrose 50% 50ML Syringe) 25-50ML OF 50% DW IV FOR... UD PRN IV 12/01/16 09:15 12/31/16 09:14 Glucagon (Glucagon Inj) 1 mg UD PRN SQ 12/01/16 09:15 12/31/16 09:14 Miscellaneous Information (Consult Glycemic Management Pharmacy) 1 ea UD PRN N/A 12/01/16 09:23 12/31/16 09:22 Calcium Acetate (Phoslo Cap) 667 mg BID PRN PO 12/01/16 11:45 12/31/16 11:44 Enteral Nutritional Formula (Boost Glucose Control) 1 can QDB PO 12/02/16 08:00 01/01/17 07:59 12/07/16 07:35 1 CAN Enteral Nutritional Formula (Boost Breeze Nutritional Drink) 1 box QDD PO 12/01/16 17:00 12/31/16 16:59 12/06/16 17:05 1 BOX Hydromorphone HCl (Dilaudid Tab) 2 mg Q6 PRN PO 12/02/16 18:00 12/16/16 17:59 12/07/16 07:32 2 MG Fentanyl (Duragesic Patch) 25 mcg Q3D@1745 TD 12/02/16 17:45 12/16/16 17:44 12/05/16 17:39 25 MCG Miscellaneous (Fentanyl Patch Remove & Waste) 1 ea Q3D@1744 N/A 12/05/16 17:44 01/04/17 17:43 12/05/16 17:37 1 EA Miscellaneous Information (Check Fentanyl Patch Placement) 1 ea QS N/A 12/03/16 00:00 01/02/17 00:00 12/07/16 07:35 1 EA Insulin Human NPH (novoLIN-N NPH) 4 units QDB SC 12/03/16 09:00 01/02/17 08:59 12/07/16 07:40 4 UNITS Last 24 Hours Test 12/06/16 16:17 12/06/16 19:49 12/07/16 07:30 12/07/16 11:33 Bedside Glucose 96 mg/dl 89 mg/dl 102 mg/dl 99 mg/dl Assessment & Plan ESRD-Patient is not uremic at this time and nausea and confusion improved-will plan on dialysis tomorrow and on m// schedule or as clinical condition dictates. Potassium is adequate and will continue 3k bath. goal for 2L Uf as tolerated. no procrit due to cancer history. 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 will monitor phosphorus intermittently during hospital stay. This patient was seen and treated with direct collaboration with Dr. Blanton. Thank you for the opportunity to participate in this patient's care. Appreciate the Consult. ATTENDING NOTE: I performed a history and physical examination of the patient, including specifically on history-main complaint is fatigue, on physical exam-+ significant for jaundice, and my impression and plan are ESRD-plan for dialysis as outpt tomorrow. being discharged on hospice and getting palliative radiation as well. I have discussed the patient's management with Carol Hill PA-C, Please refer to above note for the documented findings and plan of care. Althea Oncu DO
--- NOTE | 2016-12-07 14:05 | Progress Note ---
Internal Med Progress Note Date of Service: Dec 07, 2016. Provider Documentation: SUBJECTIVE: The patient was seen and examined Generally very weak and lethargic Denies any pain at rest Ready to be discharged home with Hospice today OBJECTIVE: Vital Signs-as noted below Exam: General-No distress at rest Eyes-Jaundiced ENT-normal Neck-supple Lungs-Decreased breath sound bilaterally Heart-Regular,no murmur appreciated Abdomen-Distended,soft ,mildly tender tender Bowel sound present Extremities-Trace edema bilaterally Neuro-AA Generally weak and lethargic Lab data as noted below. ASSESSMENT & PLAN: METASTATIC PANCREATIC CANCER STAGE IV Elevated LFTs with Jaundice Not a candidate for any aggressive therapy Receiving palliative radiation therapy Appreciate Oncology and radiation oncology input Pain is well controlled Under the care of Hospice Remains stable to be discharged home with home Hospice ESRD: On Hemodialysis Appreciate Nephrology help HD per Nephrology Continue HD as an OP ANEMIA: Acute on chronic: Multifactorial: H/O GI bleed, pancreatic cancer, ESRD Events during last admission: S/P EGD and ERCP: Bleeding duodenal mass and S/P 2 hemostatic clips during ERCP. Unsuccessful biliary stent placement. Palliative RT for bleeding duodenal lesion. Advised about percutaneous transhepatic cholangiography during last admission, but patient refused. Plavix was discontinued and aspirin was continued prior to discharge. Received i unit of PRBC during this admission HB > 8 now ATYPICAL CHEST PAIN No ACS Resolved RLE edema/pain: Monitor No plan for Doppler as her preference of palliative interventions only. DM II: ISS, accu checks Regular diet as patient has poor oral intake HTN: Presented with low BP Continue metoprolol Monitor DEPRESSION: Continue home meds H/O CVA: Plavix was discontinued secondary to GI bleed ASA on hold secondary to Anemia and requirement of PRBC transfusion DVT Px: SCDs CODE STATUS: DNI/DNR per my discussion with patient and family DISPOSITION: Likely discharge home with Hospice care Discussed with the .Takes her to the appointments Hospice care arranged Vital Signs: Date Time Temp Pulse Resp B/P Pulse Ox O2 Delivery O2 Flow Rate FiO2 12/07/16 13:06 37.0 93 18 95 Room Air 12/07/16 08:05 Room Air 12/07/16 07:50 37.0 93 18 99/65 95 Room Air 12/07/16 04:13 36.9 90 16 103/65 93 Room Air 12/07/16 00:15 Room Air 12/07/16 00:10 36.8 91 20 119/74 94 Room Air 12/06/16 19:44 36.9 86 18 99/64 94 Room Air 12/06/16 16:00 Room Air 12/06/16 15:16 36.2 83 18 95/56 94 Room Air Lab Results: Results Past 24 Hours Test 12/06/16 16:17 12/06/16 19:49 12/07/16 07:30 12/07/16 11:33 Range/Units Bedside Glucose 96 89 102 99 70-90 mg/dl
[2016-12-07] MEDS ORDERED: INSUINJ20 SQ ×2 (14:31)
[2016-12-07] MEDS ORDERED: DRGTP25 TD ×2 (14:31)
--- NOTE | 2016-12-07 14:37 | Discharge Instructions ---
Discharge Instructions Date of Service Dec 07, 2016. Admission Reason for Admission: Anemia,Pancreatic Cancer Discharge Discharge Diagnosis / Problem: Metastatic Pancreatic Cancer Discharge Goals Goal(s): Prevent Disease Progression Activity Recommendations Activity Limitations: resume your previous activity . Instructions / Follow-Up Instructions / Follow-Up As per Hospice care.Keep doing Dialysis and Palliative Radiation therapy Current Hospital Diet Patient's current hospital diet: Regular Diet Discharge Diet Recommended Diet: Diabetes Type 2 Diet Pending Studies Studies pending at discharge: no Medical Emergencies . Who to Call and When: Medical Emergencies: If at any time you feel your situation is an emergency, please call 911 immediately. . Non-Emergent Contact Non-Emergency issues call your: Primary Care Provider . Past History Medical & Surgical History: (1) History of pancreatic cancer (2) ESRD on hemodialysis (3) Diabetes mellitus, type II (4) H/O: CVA (cerebrovascular accident) (5) Depression (6) H/O abdominal surgery (7) History of tubal ligation (8) History of hysterectomy (9) History of cholecystectomy . "Provider Documentation" section prepared by Karen Stoll. . VTE Core Measure Inpt VTE Proph given/why not?: SCD's
--- NOTE | 2016-12-07 17:30 | Discharge Summary ---
Discharge Summary Date of Service Dec 07, 2016. Discharge Summary Admission Date: Dec 01, 2016 at 10:08 Discharge Date: Dec 07, 2016 Discharge Disposition: Home with services (Home with Hospice) Principal Diagnosis: Metastatic Pancreatic Cancer,Hospice and Palliative Care Secondary Diagnoses/Problems: Please see H&P and Hospital Progress note Consultations: Nephrology,Oncology ,Radiation Oncology and Palliative care Medication Reconciliation New Medications: Fentanyl (Fentanyl) 25 Mcg Tdsy 25 MCG TD Q3D@1745 for 30 Days, #10 Changed Medications: Insulin Isophane (Human) (Novolin N U-100) 100 Unit/Ml Inj 6 UNITS SQ QAM for 30 Days, #1 VIAL 3 Refills (Changed from: 8 UNITS) Continued Medications: Calcium Acetate (Phosphate Bin (Phoslo 667 Mg) 667 Mg Cap 1 CAP PO UD, CAP Take 2 pills with each meal and 1 pill with snacks. Cholecalciferol (Vitamin D3) 1,000 Unit Tab 5000 UNIT PO QPM, TAB 3 Refills Docusate Sodium (Docusate Sodium) 100 Mg Cap 1 CAP PO BID, CAP Hydromorphone HCl (Hydromorphone HCl) 2 Mg Tab 2 MG PO Q6 PRN for Pain for 30 Days, #100 TAB Metoprolol Tartrate (Lopressor) (Lopressor) 25 Mg Tab 25 MG PO BID, TAB Ondansetron Hcl (Zofran) 4 Mg Tab 4 MG PO Q8 PRN for Nausea, TAB Polyethylene (Miralax) 17 Gm Pow 17 GM PO DAILY PRN for Constipation for 30 Days, #1 BTL Promethazine HCl (Promethazine HCl) 25 Mg Tab 25 MG PO Q6H PRN for Nausea or Vomiting Ranitidine (Zantac) 150 Mg Tab 150 MG PO BID, TAB Sertraline HCl (Sertraline HCl) 100 Mg Tab 100 MG PO QAM Trazodone Hcl (Trazodone) 100 Mg Tab 100 MG PO HS Discontinued Medications: Aspirin (Aspirin Ec) 81 Mg Tab 81 MG PO QAM Admission Information HPI (per Admitting provider): Patient is a 51 yr old female with PMH of metastatic pancreatic cancer, ESRD on HD, HTN, DM II, h/o CVA, chronic anemia, HLP, Asthma and Depression who was recently discharged after being treated for acute GI bleed presents to ED for evaluation of mid-Right sided chest pain this morning. Patient is a poor historian and most of the history is obtained from Patient's family, old records. Patient reports developing sudden onset of chest pain this morning during her dialysis which lasted for few seconds. Chest pain is sharp in quality , non radiating, 4/10 intensity. She took her hydromorphone for the chest pain and her blood pressures dropped and was sent to ED for further evaluation. Patient's family also reports that she has been feeling very tired lately and her oral intake has decreased. She is currently no longer on chemotherapy and is currently undergoing palliative radiation therapy (last one was yesterday) and is due for one today. As per family, her BP was in 60s systolic while at dialysis center and currently her SBP is 100s after receiving IVF in ED. Denies any history of nausea, vomiting, dizziness, SOB, palpitations, abd pain, bowel or bladder habit changes, fever or chills or any history of bleeding. Patient's Hb was found to be 6.9 today and she received 1 Unit PRBC while in ED and currently had no obvious source of bleeding. 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 A biliary stent was attempted to be placed but was not successful. She received 2 units PRBC last admission. Palliative RT was started for bleeding duodenal lesion. She completed 2 radiation therapies and was advised a total of 15 sessions. Patient was advised about percutaneous transhepatic cholangiography during last admission, but patient refused. Plavix was discontinued and aspirin was continued prior to discharge. Past Medical/Surgical History Medical Problems: (1) Asthma Status: Chronic (2) Depression Status: Chronic (3) Diabetes mellitus, type II Status: Chronic (4) ESRD (end stage renal disease) Status: Chronic (5) H/O: CVA (cerebrovascular accident) Status: Chronic (6) Hyperlipidemia Status: Chronic (7) Hypertension Status: Chronic (8) Pancreatic cancer Permanent Comment: Onset of nausea and vomiting CT scan revealing pancreatic mass Status post ultrasound biopsy 08/07/2016 revealing adenocarcinoma Ultrasound stage uT2 uN0 End-stage renal disease Status: Chronic Surgical Problems: (1) H/O abdominal surgery Permanent Comment: RADICAL RESECTION ABD WALL TUMOR, UNDER 5 CM performed by Sonido Fernandez MD at [facility] 02/15/16 Status: Chronic (2) History of cholecystectomy Status: Chronic (3) History of hysterectomy Permanent Comment: ovaries remain Status: Chronic (4) History of tubal ligation Status: Chronic Family History Cancer Diabetes mellitus Heart disease Hypertension Lung disease Social History Smoking Status: Former Smoker Drug Use: none Marital Status: Housing status: lives with family Occupational Status: employed Immunizations History of Influenza Vaccine: N/A History of Tetanus Vaccine?: 10 YRS AGO History of Pneumococcal: No History of Hepatitis B Vaccine: No Multi-Drug Resistant Organisms History of MDRO: No Allergies Coded Allergies: No Known Allergies (Verified , 12/01/16) Home Medications Scheduled Aspirin (Aspirin Ec), 81 MG PO QAM Calcium Acetate (Phosphate Bin (Phoslo 667 Mg), 1 CAP PO UD Cholecalciferol (Vitamin D3), 5,000 UNIT PO QPM Docusate Sodium (Docusate Sodium), 1 CAP PO BID Insulin Isophane (Human) (Novolin N U-100), 8 UNITS SQ QAM Metoprolol Tartrate (Lopressor) (Lopressor), 25 MG PO BID Ranitidine (Zantac), 150 MG PO BID Sertraline HCl (Sertraline HCl), 100 MG PO QAM Trazodone Hcl (Trazodone), 100 MG PO HS Scheduled PRN Hydromorphone HCl (Hydromorphone HCl), 2 MG PO Q6 PRN for Pain Ondansetron Hcl (Zofran), 4 MG PO Q8 PRN for Nausea Polyethylene (Miralax), 17 GM PO DAILY PRN for Constipation Promethazine HCl (Promethazine HCl), 25 MG PO Q6H PRN for Nausea or Vomiting Review of Systems See HPI for pertinent positives & negatives. A total of 10 systems reviewed and were otherwise negative. Physical Ex - H&P Physical Exam Vital Signs Date Time Temp Pulse Resp B/P Pulse Ox O2 Delivery O2 Flow Rate FiO2 12/01/16 08:20 80 20 96/61 100 Room Air 12/01/16 08:10 100 Room Air 12/01/16 07:10 80 18 107/61 94 Room Air 12/01/16 06:12 83 12/01/16 06:04 96 Room Air 12/01/16 06:04 98 Room Air 12/01/16 06:04 36.6 85 16 90/48 98 Room Air General Appearance: WD/WN, no apparent distress, + pertinent finding ( Chronically ill appearing, lethargic.) Head: normocephalic, atraumatic Eyes: normal inspection, PERRL, EOMI, + pertinent finding (+Icteric) ENT: normal ENT inspection, hearing grossly normal Neck: supple, trachea midline Respiratory/Chest: chest non-tender, normal breath sounds, no respiratory distress, no accessory muscle use, + pertinent finding (+creps bilaterally at bases) Cardiovascular: regular rate, rhythm, no murmur, + pertinent finding (1+Edema B /L LE) Abdomen/GI: normal bowel sounds, soft, + tenderness (RUQ, no guarding, rigidity ), + pertinent finding (Protuberant) Back: normal inspection Extremities/Musculoskelatal: normal inspection, normal range of motion, + pedal edema Neurologic/Psych: senior medical writer II-XII nml as tested, no motor/sensory deficits, oriented x 3, + pertinent finding (Lethargic) Diagnostics - H&P Diagnostics Laboratory Results Results Past 24 Hours Test 12/01/16 06:51 12/01/16 07:12 Range/Units White Blood Count 17.42 4.8-10.8 K/uL Red Blood Count 2.30 4.2-5.4 M/uL Hemoglobin 6.9 12.0-16.0 g/dL Hematocrit 20.7 37-47 % Mean Corpuscular Volume 90.0 80-100 fL Mean Corpuscular Hemoglobin 30.0 25-34 pg Mean Corpuscular Hemoglobin Concent 33.3 32-36 g/dl Platelet Count 311 130-400 K/uL Mean Platelet Volume 9.4 7.4-10.4 fL Neutrophils (%) (Auto) 82.8 % Lymphocytes (%) (Auto) 5.4 % Monocytes (%) (Auto) 8.0 % Eosinophils (%) (Auto) 2.2 % Basophils (%) (Auto) 0.3 % Neutrophils # (Auto) 14.43 1.4-6.5 K/uL Lymphocytes # (Auto) 0.94 1.2-3.4 K/uL Monocytes # (Auto) 1.39 0.11-0.59 K/uL Eosinophils # (Auto) 0.39 0-0.5 K/uL Basophils # (Auto) 0.05 0-0.2 K/uL RDW Standard Deviation 64.7 36.4-46.3 fL RDW Coefficient of Variation 19.9 11.5-14.5 % Immature Granulocyte % (Auto) 1.3 % Immature Granulocyte # (Auto) 0.22 0.00-0.02 K/uL Polychromasia 1+ Sodium Level 133 136-145 mmol/L Potassium Level 3.4 3.5-5.1 mmol/L Chloride Level 95 98-107 mmol/L Carbon Dioxide Level 28 21-32 mmol/L Anion Gap 10.0 3-11 mmol/L Blood Urea Nitrogen 21 7-18 mg/dl Creatinine 4.00 0.60-1.20 mg/dl Est Creatinine Clear Calc Drug Dose 16.5 ml/min Estimated GFR () 14.1 Estimated GFR (Non- 12.2 BUN/Creatinine Ratio 5.2 10-20 Random Glucose 109 70-99 mg/dl Calcium Level 8.2 8.5-10.1 mg/dl Magnesium Level 2.3 1.8-2.4 mg/dl Total Bilirubin 4.2 0.2-1 mg/dl Direct Bilirubin 3.6 0-0.2 mg/dl Aspartate Amino Transf (AST/SGOT) 174 15-37 U/L Alanine Aminotransferase (ALT/SGPT) 34 12-78 U/L Alkaline Phosphatase 678 45-117 U/L Total Protein 5.7 6.4-8.2 gm/dl Albumin 1.7 3.4-5.0 gm/dl Lipase 37 73-393 U/L Bedside Troponin I 0.040 0-0.045 ng/ml Diagnostic Radiology CXR: Cardiomegaly with mild central pulmonary vascular congestion EKG EKG: No signs of acute ischemia Impression - H&P Impression Assessment and Plan ATYPICAL CHEST PAIN Presented with sharp non radiating chest pain which lasted for few seconds Likely non cardiac origin. DD: Originating from duodenal mass Troponin X2 : Negative EKG:No signs of acute ischemia Currently chest pain resolved Plan to repeat EKG with chest pain if it reoccurs ANEMIA: Acute on chronic: Multifactorial: H/O GI bleed, pancreatic cancer, ESRD Hb:6.9 today S/P 1 unit PRBC, Hb:8.2 No active source of bleeding Check fecal occult Monitor H&H Transfuse PRN if Hb <7.0/symptomatic Consider GI eval if necessary Venofer IV x 1 dose today per Oncology Events during last admission: S/P EGD and ERCP: Bleeding duodenal mass and S/ P 2 hemostatic clips during ERCP. Unsuccessful biliary stent placement. Palliative RT for bleeding duodenal lesion. Advised about percutaneous transhepatic cholangiography during last admission, but patient refused. Plavix was discontinued and aspirin was continued prior to discharge. HYPOTENSION: Likely secondary to poor oral intake Resolved after IVF and PRBC transfusions Monitor LEUKOCYTOSIS: Likely secondary to malignancy No obvious source of infection Afebrile No indication for antibiotics currently Monitor METASTATIC PANCREATIC CANCER STAGE IV Completed chemotherapy Currently receiving palliative radiation therapy Oncology and radiation oncology consulted Pain control ELEVATED LFTS: Likely secondary to obstruction from hepatic metastases. Advised PTC but patient refused. RLE edema/pain: Monitor No plan for doppler as her preference of palliative interventions only. Would require IVC filter placement if positive for DVT ESRD: on Hemodialysis Nephrology was consulted for further management DM II: ISS, accu checks Regular diet as patient has poor oral intake HTN: Continue metoprolol Monitor DEPRESSION: Continue home meds H/O CVA: Plavix was discontinued secondary to GI bleed ASA on hold DVT Px: SCDs CODE STATUS: DNI/DNR per my discussion with patient and family DISPOSITION: Admit to medical floor PROGNOSIS: Poor Advanced Directives Existing Living Will: No Existing Power of General Assignment Reporter: No VTE Prophylaxis VTE Risk Assessment Done? Y/N: Yes Risk Level: Moderate Physical Exam (per Admitting): General Appearance: WD/WN, no apparent distress, + pertinent finding ( Chronically ill appearing, lethargic.) Head: normocephalic, atraumatic Eyes: normal inspection, PERRL, EOMI, + pertinent finding (+Icteric) ENT: normal ENT inspection, hearing grossly normal Neck: supple, trachea midline Respiratory/Chest: chest non-tender, normal breath sounds, no respiratory distress, no accessory muscle use, + pertinent finding (+creps bilaterally at bases) Cardiovascular: regular rate, rhythm, no murmur, + pertinent finding (1+ Edema B/L LE) Abdomen/GI: normal bowel sounds, soft, + tenderness (RUQ, no guarding, rigidity), + pertinent finding (Protuberant) Back: normal inspection Extremities/Musculoskelatal: normal inspection, normal range of motion, + pedal edema Neurologic/Psych: senior medical writer II-XII nml as tested, no motor/sensory deficits, oriented x 3, + pertinent finding (Lethargic) Hospital Course METASTATIC PANCREATIC CANCER STAGE IV Elevated LFTs with Jaundice Not a candidate for any aggressive therapy Receiving palliative radiation therapy Appreciate Oncology and radiation oncology input Pain is well controlled Under the care of Hospice Remains stable to be discharged home with home Hospice ESRD: On Hemodialysis Appreciate Nephrology help HD per Nephrology Continue HD as an OP ANEMIA: Acute on chronic: Multifactorial: H/O GI bleed, pancreatic cancer, ESRD Events during last admission: S/P EGD and ERCP: Bleeding duodenal mass and S/P 2 hemostatic clips during ERCP. Unsuccessful biliary stent placement. Palliative RT for bleeding duodenal lesion. Advised about percutaneous transhepatic cholangiography during last admission, but patient refused. Plavix was discontinued and aspirin was continued prior to discharge. Received i unit of PRBC during this admission HB > 8 now ATYPICAL CHEST PAIN No ACS Resolved RLE edema/pain: Monitor No plan for Doppler as her preference of palliative interventions only. DM II: ISS, accu checks Regular diet as patient has poor oral intake HTN: Presented with low BP Continue metoprolol Monitor DEPRESSION: Continue home meds H/O CVA: Plavix was discontinued secondary to GI bleed ASA on hold secondary to Anemia and requirement of PRBC transfusion DVT Px: SCDs CODE STATUS: DNI/DNR per my discussion with patient and family DISPOSITION: Likely discharge home with Hospice care Discussed with the .Takes her to the appointments Hospice care arranged Total time spent on discharge = 40 minutes This includes examination of the patient, discharge planning, medication reconciliation, and communication with other providers. Discharge Instructions Date of Service Dec 07, 2016. Admission Reason for Admission: Anemia,Pancreatic Cancer Discharge Discharge Diagnosis / Problem: Metastatic Pancreatic Cancer Discharge Goals Goal(s): Prevent Disease Progression Activity Recommendations Activity Limitations: resume your previous activity . Instructions / Follow-Up Instructions / Follow-Up As per Hospice care.Keep doing Dialysis and Palliative Radiation therapy Current Hospital Diet Patient's current hospital diet: Regular Diet Discharge Diet Recommended Diet: Diabetes Type 2 Diet Pending Studies Studies pending at discharge: no Medical Emergencies . Who to Call and When: Medical Emergencies: If at any time you feel your situation is an emergency, please call 911 immediately. . Non-Emergent Contact Non-Emergency issues call your: Primary Care Provider . Past History Medical & Surgical History: (1) History of pancreatic cancer (2) ESRD on hemodialysis (3) Diabetes mellitus, type II (4) H/O: CVA (cerebrovascular accident) (5) Depression (6) H/O abdominal surgery (7) History of tubal ligation (8) History of hysterectomy (9) History of cholecystectomy . "Provider Documentation" section prepared by Karen Stoll. . VTE Core Measure Inpt VTE Proph given/why not?: SCD's <Electronically signed by Karen Stoll M.D.> Additional Copies To [place] Tamez D.O.
[2016-12-08] MEDS ORDERED: TRAZ100T29 PO (05:14)
[2016-12-08] MEDS ORDERED: DOCU100C31 PO (09:40)
[2016-12-08] MEDS ORDERED: ONDA4TAB46 PO (09:40)
[2016-12-08] MEDS ORDERED: CALC667C PO (09:40)
[2016-12-08] MEDS ORDERED: PROM25TA16 PO (14:29)
[2016-12-08] MEDS ORDERED: METO25TA56 PO (14:34)
[2016-12-08] MEDS ORDERED: MRLP527 PO (16:00)
[2016-12-08] MEDS ORDERED: HYDR2TAB2 PO (16:00)
[2016-12-08] MEDS ORDERED: NVLNI SC (16:00)
[2016-12-08] MEDS ORDERED: CHOLCAP5 PO (16:05)
[2016-12-08] MEDS ORDERED: FNTTP25 TOP (16:10)
[2016-12-08] MEDS ORDERED: ZNTT/150 PO (16:47)
[2016-12-08] MEDS ORDERED: ZLF/100 PO (19:08)
--- NOTE | 2016-12-25 11:04 | Radiation Onc End of Treatmnt ---
End of Treatment Documentation Date December 25, 2016. Diagnosis (1) Pancreatic cancer Onset Date: 07/28/2016 Stage: IV Permanent Comment: Onset of nausea and vomiting CT scan revealing pancreatic mass Status post ultrasound biopsy 08/07/2016 revealing adenocarcinoma Ultrasound stage uT2 uN0 End-stage renal disease Initiation of radiation for palliation of pain Last Edited By: Dai Drake on December 25, 2016 11:02 History Ms. Sandoval is a 51-year-old female who we previously saw in consultation for consideration of radiation therapy for pancreatic cancer. The patient did have a high likelihood of metastatic disease and ultimately underwent systemic chemotherapy underneath the supervision of Dr. Murray Desai. More recently, the patient has been having blood in her bowel movements and was brought to the emergency room. She did have a CT of the abdomen/pelvis on 11/20/2016 which revealed: "IMPRESSION: 1. Interval development of diffuse hepatic metastatic disease, possibly splenic involvement. 2. Interval development of pancreatic head mass measuring 6 x 7 cm. 3. Trace abdominal and pelvic ascites with mild adenopathy. 4. Mild pericardial effusion. 5. 2.5 mm nodular density right lung base." She did undergo a upper endoscopy by Dr. Julio Tsang on 11/20/2016 which revealed: "A large fungating mass with bleeding was found in the first part of the duodenum. The mass was notable for diffuse bleeding / oozing." We have been asked to evaluate the patient for consideration of palliative radiation therapy to the duodenal mass to prevent further bleeding and anemia. Given the patient's overall performance status and low likelihood of receiving further systemic chemotherapy, we have recommended consideration of palliative radiation therapy to the duodenal mass with the intention of reducing bleeding and potentially improving the patient's anemia. I have spoken to Dr. Murray Desai regarding the case as well and he is in agreement to consider potential palliative radiation therapy. We will bring the patient down on Sunday for a CT simulation for treatment planning and we will plan to initiate palliative radiation therapy at the end of this week or the beginning of the following week. We will hold off on CT simulation until gastroenterology completes the planned procedure tomorrow for placement of a biliary/enteral stent. The GI evaluation was completed. She was then brought to our department for CT simulation. She began radiation therapy as an inpatient. Physics Course Treatment Site [employer] Start Date End Date Elapsed Days # TX Daily Dose (cGy) Total Dose (cGy) C1- Abdomen VMAT, 2 arcs 6X 11/29/2016 12/07/2016 9 5 200 1000 Do documented final doses agree with prescribed doses? No If not, explain: The prescription was for 15 fractions. Treat was stopped after 5 fractions at the patient's request. Is patients chart complete and accurate? Yes Additional Notes She did not complete her course of radiation therapy. She steadily became more debilitated. She with agreement of her family made the decision to stop radiation therapy. She would be entering into hospice care. She'll continue with recommendations by her primary care physician and medical oncology. Pain Management She had significant pain at the beginning of treatment. A level up to 6. She had pain medication available as an inpatient. She was to be discharged on to hospice who would then monitor her pain therapy. Copies To Juana Tamez D.O.
== END 2016-12-07 14:30 | disposition hospice, home (50) | DRG 435 ==
LOC: ENRESERVTM → CANRESERV → ENRESERVDT → EDBD 05:58 → C.EDA 05:59 → EDBEDREQ 09:13 → EDBEDREQSVC 09:58 → C.4E 10:08
PROVIDERS: ADMIT Internal Medicine; ATTEND Internal Medicine
DX: C25.9 Malignant neoplasm of pancreas, unspecified (principal); N18.6 End stage renal disease; C78.7 Secondary malignant neoplasm of liver and intrahepatic bile duct; R17 Unspecified jaundice; I12.0 Hypertensive chronic kidney disease with stage 5 chronic kidney disease or end stage renal disease; Z66 Do not resuscitate; Z51.5 Encounter for palliative care; R79.89 Other specified abnormal findings of blood chemistry; J45.909 Unspecified asthma, uncomplicated; F32.9 Major depressive disorder, single episode, unspecified; E11.9 Type 2 diabetes mellitus without complications; E78.5 Hyperlipidemia, unspecified; I95.9 Hypotension, unspecified; I51.7 Cardiomegaly; D72.829 Elevated white blood cell count, unspecified; D63.1 Anemia in chronic kidney disease; Z90.49 Acquired absence of other specified parts of digestive tract; Z86.73 Personal history of transient ischemic attack (TIA), and cerebral infarction without residual deficits; Z90.710 Acquired absence of both cervix and uterus; Z87.891 Personal history of nicotine dependence; Z99.2 Dependence on renal dialysis; Z79.01 Long term (current) use of anticoagulants; Z79.82 Long term (current) use of aspirin; Z79.4 Long term (current) use of insulin

== ENCOUNTER 2016-12-08 14:22 | Inpatient (IN) | payer BC, OTHER ==
[~2016-12-08] VITALS: Ht 160 cm; Wt 85.6 kg
[~2016-12-08 14:22] MED LIST changes: -APR50 PO; -ASPI81TA28 PO; +CALC667C PO; -CLOP1TAB15 PO; -CRDCD/180 PO; +DOCU100C31 PO; +DRGTP25 TD; -FURO-85 PO; -INSU1INJ SC; -INSU70IN2 SC; -LPT40 PO; +ONDA4TAB46 PO; +TRAZ100T29 PO
[2016-12-08] MEDS ORDERED: PROM25TA16 PO (14:29)
[2016-12-08] MEDS ORDERED: METO25TA56 PO (14:34)
[2016-12-08] MEDS ORDERED: SODIUM CHLORIDE 0.9% 500ML 500 ML IV STA (14:39)
--- NOTE | 2016-12-08 14:39 | EMERGENCY ROOM VISIT NOTE ---
History Report prepared by Jesús: Adam Baltazar Under the Supervision of: Dr. Bo Soriano D.O. First contact with patient: 14:29 Chief Complaint: LETHARGIC Stated Complaint: LETHARGIC, HYPOTENSIVE History of Present Illness The patient is a 51 year old female who presents to the Emergency Room with complaints of worsening generalized weakness for the past several months. The patient was at dialysis today when she started coming in and out of consciousness. Per EMS, her blood pressure was down to 69 systolically, and she was given saline en route to the ED. She also had increased lethargy. She made it about 2 hours into her 3.5 hour dialysis treatment. The patient's notes that she has been experiencing declining health over the past several months. She has not been febrile, but complains of abdominal pain. Her notes that she has had little appetite and does not eat much. The patient has multiple cancerous masses throughout her body. She follows up with Dr. Desai. The states that they have not determined if she has any brain tumors. Source of History: patient, spouse/significant other, EMS Onset: several months ago Position: other (general) Quality: other (weakness) Timing: worsening Associated Symptoms: + LOC, + abdominal pain, No fevers Review of Systems See HPI for pertinent positives & negatives. A total of 10 systems reviewed and were otherwise negative. Past Medical & Surgical Medical Problems: (1) Asthma (2) Depression (3) Diabetes mellitus, type II (4) ESRD (end stage renal disease) (5) H/O: CVA (cerebrovascular accident) (6) Hyperlipidemia (7) Hypertension (8) Hypotension (9) Hypotension (10) Metastatic adenocarcinoma to pancreas (11) Pancreatic cancer Surgical Problems: (1) H/O abdominal surgery (2) History of cholecystectomy (3) History of hysterectomy (4) History of tubal ligation Family History Cancer Diabetes mellitus Heart disease Hypertension Lung disease Social History Smoking Status: Former Smoker Alcohol Use: none Drug Use: none Marital Status: Housing Status: lives with significant other Occupation Status: employed Current/Historical Medications Scheduled Calcium Acetate (Phosphate Bin (Phoslo 667 Mg), 667 MG PO UD Cholecalciferol (Vitamin D3), 5,000 INTER.UNIT PO QPM Docusate Sodium (Docusate Sodium), 100 MG PO BID Fentanyl (Fentanyl), 25 MCG TOP CQ72HR Insulin Human NPH (Novolin N), 6 UNITS SC QAM Metoprolol Tartrate (Lopressor) (Lopressor), 25 MG PO BID Ranitidine (Zantac), 150 MG PO BID Sertraline HCl (Sertraline HCl), 100 MG PO QAM Trazodone Hcl (Trazodone), 100 MG PO HS Scheduled PRN Hydromorphone Hcl (Hydromorphone Hcl), 2 MG PO Q6H PRN for Pain Ondansetron Hcl (Zofran), 4 MG PO Q8 PRN for Nausea Polyethylene (Polyethylene Glycol 3350), 17 GM PO QAM PRN for Constipation Promethazine HCl (Promethazine HCl), 25 MG PO Q6H PRN for Nausea or Vomiting Allergies Coded Allergies: No Known Allergies (Verified , 12/01/16) Physical Exam Vital Signs Date Time Temp Pulse Resp B/P Pulse Ox O2 Delivery O2 Flow Rate FiO2 12/08/16 17:46 92 Room Air 12/08/16 17:17 88 14 84/58 92 Room Air 12/08/16 15:39 89 10 92/56 93 Room Air 12/08/16 14:45 94 16 82/45 93 Room Air 12/08/16 14:30 96 12/08/16 14:28 36.7 97 20 90/49 93 Room Air Physical Exam GENERAL: Patient is listless, lethargic, does not properly respond to commands. EYES: The conjunctivae are clear. The pupils minimally constrictive but reactive to light bilaterally. EARS, NOSE, MOUTH AND THROAT: The nose is without any evidence of any deformity. Mucous membranes are dry tongue is midline NECK: The neck is nontender and supple. RESPIRATORY: Sounds were diminished throughout with scattered rales in all lung curtis. CARDIOVASCULAR: Regular rate and rhythm noted there no murmurs rubs or gallops normal S1 normal S2 GASTROINTESTINAL: The abdomen is soft. Bowel sounds are present in all quadrants. Abdomen is nontender MUSCULOSKELETAL/EXTREMITIES: There is no evidence of gross deformity full range of motion is noted in the hips and shoulders SKIN: There is no obvious evidence of any rash. There are no petechiae, pallor or cyanosis noted. PEdal edema bilaterally with jaundice noted. Dialysis fistula left forearm with palpable thrill. NEUROLOGIC: Patient awakens to loud verbal commands, strength is diminished but symmetric. Medical Decision & Procedures ER Provider Diagnostic Interpretation: X-ray results as stated below per interpretation by me and the radiologist. CHEST ONE VIEW PORTABLE CLINICAL HISTORY: Pain, rating to the abdomen. COMPARISON STUDY: 12/01/2016 FINDINGS: The heart is enlarged. There are postsurgical changes of a midline sternotomy. There is elevation interstitium consistent with congestive failure/fluid overload. There is no lobar consolidation. No pleural effusions are visualized on this AP portable study.[ IMPRESSION: Cardiomegaly and radiographic evidence of congestive failure/fluid overload. No evidence of free intraperitoneal air Electronically signed by: Fco England M.D. 12/08/2016 3:13 PM Dictated Date/Time: 12/08/2016 3:12 PM Laboratory Results 12/08/16 14:55 Red Blood Count 2.85, Mean Corpuscular Volume 94.0, Mean Corpuscular Hemoglobin 30.2, Mean Corpuscular Hemoglobin Concent 32.1, Mean Platelet Volume 9.1, Neutrophils (%) (Auto) 88.9, Lymphocytes (%) (Auto) 2.8, Monocytes (%) (Auto) 6.7, Eosinophils (%) (Auto) 0.7, Basophils (%) (Auto) 0.4, Neutrophils # (Auto) 16.24, Lymphocytes # (Auto) 0.51, Monocytes # (Auto) 1.23, Eosinophils # (Auto) 0.13, Basophils # (Auto) 0.07 12/08/16 14:55 Test 12/08/16 14:55 12/08/16 15:07 White Blood Count 18.27 K/uL (4.8-10.8) Red Blood Count 2.85 M/uL (4.2-5.4) Hemoglobin 8.6 g/dL (12.0-16.0) Hematocrit 26.8 % (37-47) Mean Corpuscular Volume 94.0 fL (80-100) Mean Corpuscular Hemoglobin 30.2 pg (25-34) Mean Corpuscular Hemoglobin Concent 32.1 g/dl (32-36) Platelet Count 271 K/uL (130-400) Mean Platelet Volume 9.1 fL (7.4-10.4) Neutrophils (%) (Auto) 88.9 % Lymphocytes (%) (Auto) 2.8 % Monocytes (%) (Auto) 6.7 % Eosinophils (%) (Auto) 0.7 % Basophils (%) (Auto) 0.4 % Neutrophils # (Auto) 16.24 K/uL (1.4-6.5) Lymphocytes # (Auto) 0.51 K/uL (1.2-3.4) Monocytes # (Auto) 1.23 K/uL (0.11-0.59) Eosinophils # (Auto) 0.13 K/uL (0-0.5) Basophils # (Auto) 0.07 K/uL (0-0.2) RDW Standard Deviation 64.1 fL (36.4-46.3) RDW Coefficient of Variation 18.7 % (11.5-14.5) Immature Granulocyte % (Auto) 0.5 % Immature Granulocyte # (Auto) 0.09 K/uL (0.00-0.02) Polychromasia 1+ Anisocytosis PRESENT Prothrombin Time 44.3 SECONDS (9.0-12.0) Prothromb Time International Ratio 3.9 (0.9-1.1) Activated Partial Thromboplast Time 54.7 SECONDS (21.0-31.0) Partial Thromboplastin Ratio 2.1 Venous Blood pH 7.39 (7.36-7.41) Venous Blood Partial Pressure CO2 48 mmHg (38.0-50.0) Venous Blood Partial Pressure O2 43 mmHg Venous Blood HCO3 28 mmol/L Venous Blood Oxygen Saturation 73.5 % Venous Blood Base Excess 3.0 mmol/L Anion Gap 8.0 mmol/L (3-11) Est Creatinine Clear Calc Drug Dose 25.6 ml/min Estimated GFR () 22.7 Estimated GFR (Non- 19.6 BUN/Creatinine Ratio 6.6 (10-20) Calcium Level 8.7 mg/dl (8.5-10.1) Total Bilirubin 8.8 mg/dl (0.2-1) Direct Bilirubin 7.4 mg/dl (0-0.2) Aspartate Amino Transf (AST/SGOT) 280 U/L (15-37) Alanine Aminotransferase (ALT/SGPT) 40 U/L (12-78) Alkaline Phosphatase 471 U/L (45-117) Ammonia < 10.0 umol/L (11-32) Total Creatine Kinase 113 U/L (26-192) Creatine Kinase MB < 0.5 ng/ml (0.5-3.6) Creatine Kinase MB Ratio (0-3.0) Troponin I < 0.015 ng/ml (0-0.045) Total Protein 5.2 gm/dl (6.4-8.2) Albumin 1.4 gm/dl (3.4-5.0) Lipase 28 U/L (73-393) Bedside Lactic Acid Venous 2.38 mmol/L (0.90-1.70) Laboratory results per my review. Medications Administered Medications (Trade) Dose Ordered Sig/Sophia Route Start Time Stop Time Status Last Admin Dose Admin Sodium Chloride (Nss 500ml) 500 ml @ 999 mls/hr Q31M STAT IV 12/08/16 14:39 12/08/16 15:09 DC 12/08/16 14:45 999 MLS/HR ECG Indication: weakness Rate (beats per minute): 98 Rhythm: normal sinus Findings: T-wave inversion (anterior, inferior), no ectopy Comparison ECG Date: 01 December 2016 Change: no significant change ED Course 1430: The patient was evaluated in room B4b. A complete history and physical examination were performed. 1439: NSS 500 ml @ 999 mls/hr. 1715: Updated her and her . 1720: Discussed the case with Nita Olson PA-C, [facility] Hospitalist. The patient will be evaluated. Medical Decision Prior records/ancillary studies reviewed and summarized above. Nursing notes reviewed. Additional history obtained from nursing staff. The patient's history was concerning for altered mental status. Differential diagnosis: Etiologies such as metabolic, infection, hypoglycemia, electrolyte abnormalities , cardiac sources, intracerebral event, toxicologic, neurologic, as well as others were entertained. The patient is a 51-year-old female who has a history of renal failure and dialysis dependency. She presented to the emergency department today after she developed hypotension while receiving dialysis. The patient has a history of pancreatic cancer and is currently on hospice. It sounds as though her hospice status has been in question recently. The patient was treated with IV fluids in the emergency department. I discussed the patient's laboratory and radiographic studies with the patient's significant other as well as the patient. It is my understanding that she would not want extensive diagnostic studies at this time. She was evaluated by the emergency Department returned case inspector. I discussed her case with the on-call [facility] hospitalist group. They've agreed to evaluate the patient in the emergency department for further management and disposition. Consults Time Called: 1710 Consulting Physician: Nita Olson PA-C, [facility] Hospitalist. Returned Call: 1720 1720: Discussed the case with Nita Olson PA-C, [facility] Hospitalist. The patient will be evaluated. Impression Primary Impression: Altered mental status Additional Impressions: Dehydration Hypotension Chronic renal failure Scribe Attestation The scribe's documentation has been prepared under my direction and personally reviewed by me in its entirety. I confirm that the note above accurately reflects all work, treatment, procedures, and medical decision making performed by me. Departure Information Dispostion Being Evaluated By Hospitalist Referrals Juana Tamez D.O. (PCP) Patient Instructions My [facility] Problem Qualifiers Primary Impression: Altered mental status Altered mental status type: unspecified Qualified Codes: R41.82 - Altered mental status, unspecified Additional Impressions: Hypotension Hypotension type: unspecified hypotension type Qualified Codes: I95.9 - Hypotension, unspecified Chronic renal failure Chronic kidney disease stage: unspecified stage Qualified Codes: N18.9 - Chronic kidney disease, unspecified
[2016-12-08 15:12] LABS: HEMATOCRIT 26.8 % (37-47); MEAN CORPUSCULAR HEMOGLOBIN 30.2 pg (25-34); MEAN CORPUSCULAR HGB CONC 32.1 g/dl (32-36); MEAN PLATELET VOLUME 9.1 fL (7.4-10.4); PLATELET COUNT 271 K/uL (130-400); RED BLOOD COUNT 2.85 M/uL (4.2-5.4); WHITE BLOOD COUNT 18.27 K/uL (4.8-10.8)
--- NOTE | 2016-12-08 15:15 | DIAGNOSTIC IMAGING REPORT ---
CHEST ONE VIEW PORTABLE CLINICAL HISTORY: Pain, rating to the abdomen. COMPARISON STUDY: 12/01/2016 FINDINGS: The heart is enlarged. There are postsurgical changes of a midline sternotomy. There is elevation interstitium consistent with congestive failure/fluid overload. There is no lobar consolidation. No pleural effusions are visualized on this AP portable study.[ IMPRESSION: Cardiomegaly and radiographic evidence of congestive failure/fluid overload. No evidence of free intraperitoneal air Electronically signed by: Fco England M.D. 12/08/2016 3:13 PM Dictated Date/Time: 12/08/2016 3:12 PM
[2016-12-08 15:31] LABS: VEN BLD GAS O2 SATURATION 73.5 %
[2016-12-08 15:33] LABS: INR 3.9 (0.9-1.1); PARTIAL THROMBOPLASTIN RATIO 2.1; PROTHROMBIN TIME (PATIENT) 44.3 SECONDS (9.0-12.0)
[2016-12-08 15:35] LABS: ANISOCYTOSIS PRESENT; BASO % 0.4 %; BASO ABS # 0.07 K/uL (0-0.2); COMPLETE YES; EOS % 0.7 %; IG% 0.5 %; LYMPH % 2.8 %; LYMPH ABS # 0.51 K/uL (1.2-3.4); MONO % 6.7 %; NEUT % 88.9 %; POLYCHROMASIA 1+
[2016-12-08 15:47] LABS: ALKALINE PHOSPHATASE 471 U/L (45-117); ALT/SGPT 40 U/L (12-78); AST/SGOT 280 U/L (15-37); BLOOD UREA NITROGEN 18 mg/dl (7-18); BUN/CREATININE RATIO 6.6 (10-20); CALCIUM 8.7 mg/dl (8.5-10.1); CARBON DIOXIDE 29 mmol/L (21-32); CHLORIDE 100 mmol/L (98-107); GLUCOSE 118 mg/dl (70-99); POTASSIUM 3.8 mmol/L (3.5-5.1); SODIUM 137 mmol/L (136-145)
[2016-12-08] MEDS ORDERED: HYDR2TAB2 PO (16:00)
[2016-12-08] MEDS ORDERED: MRLP527 PO (16:00)
[2016-12-08] MEDS ORDERED: NVLNI SC (16:00)
[2016-12-08] MEDS ORDERED: CHOLCAP5 PO (16:05)
[2016-12-08] MEDS ORDERED: FNTTP25 TOP (16:10)
[2016-12-08] MEDS ORDERED: ZNTT/150 PO (16:47)
[2016-12-08 17:46] VITALS: O2SAT 92; BMI 33.5
[2016-12-08] MEDS ORDERED: LORAZEPAM 2 MG/ML 1 ML VIAL IV PRN (18:30)
[2016-12-08] MEDS ORDERED: POLYETHYLENE (MIRALAX) 17 GM PACK PO PRN (18:30)
[2016-12-08] MEDS ORDERED: ONDANSETRON INJ 2 MG/ML 2 ML VIAL IV PRN (18:30)
[2016-12-08] MEDS ORDERED: HEPARIN SOD 5000 UNIT/0.5 ML CARP SQ SCH (18:30)
[2016-12-08] MEDS ORDERED: HYDROmorphone INJ 0.5 MG/0.5 ML SYR IV PRN (18:45)
--- NOTE | 2016-12-08 18:48 | Progress Note ---
Progress Note Date of Service Dec 08, 2016. Progress Note The patient was seen and examined in ER Was sent in from dialysis center with low BP. She has Metastatic Pancreatic cancer and ESRD and wants to have dialysis and palliative RT Admitted to Hospital with IV fluid ,Antibiotic and pain medications as per her choice Possible placement in Hospice care facility from here./Comfort care Will discuss with the and the patient tomorrow. Dr Michael Stoll
--- NOTE | 2016-12-08 19:06 | History and Physical ---
History & Physical Date & Time of Service: Dec 08, 2016 at 18:24 Chief Complaint: Lethargic, Hypotensive Primary Care Physician: Juana Tamez D.O. History of Present Illness Source: patient This is a 51 y/o female with PMHx of metastatic pancreatic CA, ESRD on HD, HTN, DM 2, h/o CVA, chronic anemia, Dyslipidemia and other problems as outlined below who presents to the ED with hypotension and lethargy. Pt was recently admitted to [facility] from 12/01-12/07 with chest pain, acute on chronic anemia and hypotension. ACS was ruled out and patient was transfused 1 unit pRBCs. No source of bleed was found and HgB remained stable. Patient was discharged yesterday with home hospice despite desire to continue dialysis and palliative radiation. Patient went to dialysis this morning and reportedly became hypotensive and lethargic. As a result, hemodialysis was discontinued prematurely and patient was taken to the ED. Patient currently has no complaints. Had lengthy discussion with patient regarding her wishes for treatment vs. staying on hospice whether that be at home or in a facility. Patient states that she would like to be in the hospital to receive all necessary treatments at this point. Pt denies fever/chills, chest pain, SOB, abd pain, N/V, bowel or bladder issues, LE edema ,calf pain, lightheadedness/ dizziness. In the ED, pt is hypotensive 80s/50s. She is afebrile with leukocytosis >18k. HgB 8.6. lactic acid 2.3. elevated LFTs. CXR suggestive of fluid overload. Pt received fluids in the ED. She will be admitted for further evaluation. Past Medical/Surgical History Medical Problems: (1) Asthma Status: Chronic (2) Depression Status: Chronic (3) Diabetes mellitus, type II Status: Chronic (4) ESRD (end stage renal disease) Status: Chronic (5) H/O: CVA (cerebrovascular accident) Status: Chronic (6) Hyperlipidemia Status: Chronic (7) Hypertension Status: Chronic (8) Pancreatic cancer Permanent Comment: Onset of nausea and vomiting CT scan revealing pancreatic mass Status post ultrasound biopsy 08/07/2016 revealing adenocarcinoma Ultrasound stage uT2 uN0 End-stage renal disease Status: Chronic Surgical Problems: (1) H/O abdominal surgery Permanent Comment: RADICAL RESECTION ABD WALL TUMOR, UNDER 5 CM performed by Sonido Fernandez MD at [facility] 02/15/16 Status: Chronic (2) History of cholecystectomy Status: Chronic (3) History of hysterectomy Permanent Comment: ovaries remain Status: Chronic (4) History of tubal ligation Status: Chronic Family History Cancer Diabetes mellitus Heart disease Hypertension Lung disease Social History Smoking Status: Former Smoker (20 pack year history; quit 1998) Alcohol Use: none Drug Use: none Marital Status: Housing status: lives with family Immunizations History of Influenza Vaccine: N/A History of Tetanus Vaccine?: 10 YRS AGO History of Pneumococcal: No History of Hepatitis B Vaccine: No Multi-Drug Resistant Organisms History of MDRO: No Allergies Coded Allergies: No Known Allergies (Verified , 12/01/16) Home Medications Scheduled Calcium Acetate (Phosphate Bin (Phoslo 667 Mg), 667 MG PO UD Cholecalciferol (Vitamin D3), 5,000 INTER.UNIT PO QPM Docusate Sodium (Docusate Sodium), 100 MG PO BID Fentanyl (Fentanyl), 25 MCG TOP CQ72HR Insulin Human NPH (Novolin N), 6 UNITS SC QAM Metoprolol Tartrate (Lopressor) (Lopressor), 25 MG PO BID Ranitidine (Zantac), 150 MG PO BID Sertraline HCl (Sertraline HCl), 100 MG PO QAM Trazodone Hcl (Trazodone), 100 MG PO HS Scheduled PRN Hydromorphone Hcl (Hydromorphone Hcl), 2 MG PO Q6H PRN for Pain Ondansetron Hcl (Zofran), 4 MG PO Q8 PRN for Nausea Polyethylene (Polyethylene Glycol 3350), 17 GM PO QAM PRN for Constipation Promethazine HCl (Promethazine HCl), 25 MG PO Q6H PRN for Nausea or Vomiting Review of Systems Constitutional: + fatigue, + weakness, No chills, No fever, No sweats Eyes: No worsening of vision ENT: No hearing loss Respiratory: No shortness of breath Cardiovascular: No chest pain, No claudication, No edema Abdomen: No constipation, No diarrhea, No nausea, No pain, No vomiting Musculoskeletal: No calf pain, No swelling Genitourinary - Female: No dysuria Neurologic: + weakness Psychiatric: No depression symptoms Endocrine: + fatigue Hematologic / Lymphatic: No abnormal bleeding/bruising Integumentary: No new/changing skin lesions Physical Exam Vital Signs Date Time Temp Pulse Resp B/P Pulse Ox O2 Delivery O2 Flow Rate FiO2 12/08/16 17:46 92 Room Air 12/08/16 17:17 88 14 84/58 92 Room Air 12/08/16 15:39 89 10 92/56 93 Room Air 12/08/16 14:45 94 16 82/45 93 Room Air 12/08/16 14:30 96 12/08/16 14:28 36.7 97 20 90/49 93 Room Air General Appearance: WD/WN, no apparent distress, + pertinent finding ( Chronically ill-appearing patient laying in bed ) Head: normocephalic, atraumatic Eyes: + pertinent finding (scleral icterus ) ENT: hearing grossly normal Neck: supple Respiratory/Chest: chest non-tender, lungs clear, normal breath sounds, no respiratory distress Cardiovascular: regular rate, rhythm, no edema, no murmur Abdomen/GI: normal bowel sounds, soft, + tenderness (mild diffuse) Back: normal inspection Extremities/Musculoskelatal: normal inspection, no calf tenderness, no pedal edema Neurologic/Psych: alert, normal mood/affect, oriented x 3 Skin: + jaundice Diagnostics Laboratory Results Results Past 24 Hours Test 12/08/16 14:55 12/08/16 15:07 Range/Units White Blood Count 18.27 4.8-10.8 K/uL Red Blood Count 2.85 4.2-5.4 M/uL Hemoglobin 8.6 12.0-16.0 g/dL Hematocrit 26.8 37-47 % Mean Corpuscular Volume 94.0 80-100 fL Mean Corpuscular Hemoglobin 30.2 25-34 pg Mean Corpuscular Hemoglobin Concent 32.1 32-36 g/dl Platelet Count 271 130-400 K/uL Mean Platelet Volume 9.1 7.4-10.4 fL Neutrophils (%) (Auto) 88.9 % Lymphocytes (%) (Auto) 2.8 % Monocytes (%) (Auto) 6.7 % Eosinophils (%) (Auto) 0.7 % Basophils (%) (Auto) 0.4 % Neutrophils # (Auto) 16.24 1.4-6.5 K/uL Lymphocytes # (Auto) 0.51 1.2-3.4 K/uL Monocytes # (Auto) 1.23 0.11-0.59 K/uL Eosinophils # (Auto) 0.13 0-0.5 K/uL Basophils # (Auto) 0.07 0-0.2 K/uL RDW Standard Deviation 64.1 36.4-46.3 fL RDW Coefficient of Variation 18.7 11.5-14.5 % Immature Granulocyte % (Auto) 0.5 % Immature Granulocyte # (Auto) 0.09 0.00-0.02 K/uL Polychromasia 1+ Anisocytosis PRESENT Prothrombin Time 44.3 9.0-12.0 SECONDS Prothromb Time International Ratio 3.9 0.9-1.1 Activated Partial Thromboplast Time 54.7 21.0-31.0 SECONDS Partial Thromboplastin Ratio 2.1 Venous Blood pH 7.39 7.36-7.41 Venous Blood Partial Pressure CO2 48 38.0-50.0 mmHg Venous Blood Partial Pressure O2 43 mmHg Venous Blood HCO3 28 mmol/L Venous Blood Oxygen Saturation 73.5 % Venous Blood Base Excess 3.0 mmol/L Sodium Level 137 136-145 mmol/L Potassium Level 3.8 3.5-5.1 mmol/L Chloride Level 100 98-107 mmol/L Carbon Dioxide Level 29 21-32 mmol/L Anion Gap 8.0 3-11 mmol/L Blood Urea Nitrogen 18 7-18 mg/dl Creatinine 2.70 0.60-1.20 mg/dl Est Creatinine Clear Calc Drug Dose 25.6 ml/min Estimated GFR () 22.7 Estimated GFR (Non- 19.6 BUN/Creatinine Ratio 6.6 10-20 Random Glucose 118 70-99 mg/dl Calcium Level 8.7 8.5-10.1 mg/dl Total Bilirubin 8.8 0.2-1 mg/dl Direct Bilirubin 7.4 0-0.2 mg/dl Aspartate Amino Transf (AST/SGOT) 280 15-37 U/L Alanine Aminotransferase (ALT/SGPT) 40 12-78 U/L Alkaline Phosphatase 471 45-117 U/L Ammonia < 10.0 11-32 umol/L Total Creatine Kinase 113 26-192 U/L Creatine Kinase MB < 0.5 0.5-3.6 ng/ml Creatine Kinase MB Ratio 0-3.0 Troponin I < 0.015 0-0.045 ng/ml Total Protein 5.2 6.4-8.2 gm/dl Albumin 1.4 3.4-5.0 gm/dl Lipase 28 73-393 U/L Bedside Lactic Acid Venous 2.38 0.90-1.70 mmol/L Diagnostic Radiology CXR IMPRESSION: Cardiomegaly and radiographic evidence of congestive failure/ fluid overload. No evidence of free intraperitoneal air EKG EKG: NSR at 96 bpm with T wave inversion in anterior leads; no significant change when compared to EKG from 12/01/16 Impression Assessment and Plan HYPOTENSION pt presented with hypotension (BP 80s/50s) at dialysis this morning -admit observation status to med/surg -likely secondary to dialysis/dehydration due to poor PO intake -cont gentle IVF -hold metoprolol for now -monitor LEUKOCYTOSIS -afebrile with leukocytosis >18k -likely secondary to malignancy; -obtain blood cultures -May have cholangitis given rapid deterioration of her condition -will start Zosyn for now METASTATIC PANCREATIC CANCER STAGE IV -completed chemotherapy -currently receiving palliative radiation therapy -was home with [facility] hospice; currently stating she wants all necessary treatment -Likely to be placed in a Hospice facility from here ELEVATED LFTS -likely secondary to obstruction from hepatic metastases CHRONIC ANEMIA -recent admission for anemia (HgB 6.9); HgB remained stable after transfusion of 1 unit pRBCs -HgB 8.6 today -monitor H&H -transfuse PRN if Hgb <7.0/symptomatic -pt currently denies active bleed ESRD ON HD -received HD MWF; HD was terminated prematurely due to hypotension -nephro consulted DM 2 -start ISS -regular diet as patient has poor oral intake -monitor BSG AC HS DEPRESSION -cont home meds H/O CVA -Plavix and ASA were discontinued secondary to GI bleed DVT PROPHYLAXIS -High VTE risk due to malignancy -Subq heparin CODE STATUS -DNI/DNR per documentation from admission earlier this week DISPO -pt will likely need placement to a nursing facility. Discharge eval placed -Pt seen in collaboration with Dr. Stoll. Please see his addendum for further details. Thanks! PROGNOSIS Very Poor Attending Addendum:: The patient was seen and examined in ER Was sent in from dialysis center with low BP. She has Metastatic Pancreatic cancer and ESRD and wants to have dialysis and palliative RT Admitted to Hospital with IV fluid ,Antibiotic and pain medications as per her choice Possible placement in Hospice care facility from here./Comfort care Discussed the prieto with the and Will discuss with the and the patient tomorrow. Labs noted Agree with the assessment and plan. Dr Michael Stoll Advanced Directives Existing Living Will: No Existing Power of Materials Coordinator: No
[2016-12-08] MEDS ORDERED: ZLF/100 PO (19:08)
[2016-12-08] MEDS ORDERED: PIPERACILL/TAZOBAC IV 4.5 GM in DEXTROSE 5% 100ML 100 ML IV STA (19:23)
[2016-12-08] MEDS ORDERED: PIPERACILL/TAZOBAC CONSULT ACTIVE PRN (19:45)
[2016-12-08] MEDS ORDERED: IV FLUIDS COMPLETED PRN (20:15)
[2016-12-08] MEDS ORDERED: LORAZEPAM INJ 0.25 MG in SYRINGE 0.125 ML IV PRN (20:45)
[2016-12-08] MEDS ORDERED: GLUCOSE 40% GEL 15 GM TUBE PO PRN (20:45)
[2016-12-08] MEDS ORDERED: GLUCOSE 10 TABS/TUBE PO PRN (20:45)
[2016-12-08] MEDS ORDERED: DEXTROSE 50% 50 ML SYR IV PRN (20:45)
[2016-12-08] MEDS ORDERED: GLUCAGON FOR INJ 1 MG VIAL SQ PRN (20:45)
[2016-12-08] MEDS ORDERED: FENTANYL 25 MCG/HR TDSY TD SCH (20:47)
[2016-12-08] MEDS ORDERED: FENTANYL PATCH REMOVE & WASTE SCH (20:50)
[2016-12-08] MEDS: D5W AND NSS 1,000 ML IV SCH (20:51)
[2016-12-08 21:00] VITALS: BP 111/73; PULSE 90; TEMP 36.7; O2SAT 96
[2016-12-08] MEDS: DOCUSATE SODIUM 100 MG CAP PO SCH (22:30)
[2016-12-08] MEDS: TRAZODONE HCL 100 MG TAB PO SCH (22:31)
[2016-12-08 22:32] VITALS: BP 109/65; PULSE 92
[2016-12-08] MEDS: METOPROLOL TARTRATE 25 MG TAB PO SCH (22:32)
[2016-12-08 22:47] VITALS: BP 89/56; PULSE 90; TEMP 36.7; O2SAT 95
[2016-12-08] MEDS: CHECK FENTANYL PATCH PLACEMENT SCH (23:33)
[2016-12-09] VITALS (13 sets, daily range): BP systolic 81–100; BP diastolic 47–63; PULSE 76–89; TEMP 36–36.9; O2SAT 92–96
[2016-12-09] MEDS: HYDROmorphone HCL 2 MG TAB PO PRN (02:01)
[2016-12-09 05:55] LABS: HEMATOCRIT 26.1 % (37-47); MEAN CELL VOLUME 95.3 fL (80-100); MEAN CORPUSCULAR HEMOGLOBIN 29.6 pg (25-34); MEAN PLATELET VOLUME 9.3 fL (7.4-10.4); PLATELET COUNT 264 K/uL (130-400); RED BLOOD COUNT 2.74 M/uL (4.2-5.4); WHITE BLOOD COUNT 14.31 K/uL (4.8-10.8)
[2016-12-09 06:26] LABS: BUN/CREATININE RATIO 7.3 (10-20); CALCIUM 8.7 mg/dl (8.5-10.1); CREATININE 3.2 mg/dl (0.60-1.20); MAGNESIUM 2.3 mg/dl (1.8-2.4); POTASSIUM 3.8 mmol/L (3.5-5.1)
[2016-12-09] MEDS ORDERED: ALBUMIN HUMAN 25% 12.5 GM/50 ML VIAL IV STA (06:27)
[2016-12-09] MEDS: D5W AND NSS 1,000 ML IV SCH (07:10)
[2016-12-09] MEDS: DOCUSATE SODIUM 100 MG CAP PO SCH ×2 (08:56→20:05)
[2016-12-09] MEDS: METOPROLOL TARTRATE 25 MG TAB PO SCH (08:57)
[2016-12-09] MEDS: SERTRALINE HCL 100 MG TAB PO SCH (08:57)
[2016-12-09] MEDS: RANITIDINE HCL 150 MG TAB PO SCH (08:57)
[2016-12-09] MEDS: CHECK FENTANYL PATCH PLACEMENT SCH ×3 (08:57→23:58)
[2016-12-09] MEDS: INSULIN HUMAN NPH SC SCH (09:03)
[2016-12-09] MEDS: PIPERACILL/TAZOBAC IV 3.375 GM in DEXTROSE 5% 100ML 100 ML IV SCH ×2 (09:03→20:05)
[2016-12-09] MEDS: ALBUMIN HUMAN 25% 12.5 GM/50 ML VIAL IV SCH ×4 (09:30→14:24)
--- NOTE | 2016-12-09 09:41 | NEPHROLOGY CONSULTATION ---
DATE OF CONSULTATION: 12/09/2016 ATTENDING OF RECORD: Dr. Stoll. REASON FOR CONSULTATION: End-stage renal disease. HISTORY OF PRESENT ILLNESS: This is a 51-year-old female who is currently on hospice with palliative radiation as well as dialysis, the patient dialyzes at the [facility] on Mondays, Wednesdays, and Fridays, had a recent hospital admission from 12/01/2016 to 12/07/2016 with chest pain, acute on chronic anemia, and hypotension. The patient was transfused 1 unit of packed red blood cells during that admission and was sent home. While at home, the patient fell in the bathroom and required 2-3 multi sensor operator to even lift her up and went to dialysis. At dialysis, she was very weak with low blood pressures, and did not tolerate any fluid removal and was vomiting. When I spoke to her yesterday on dialysis about whether she would like to continue aggressive measures, the patient states that she is not ready to give up yet and that she wants to continue dialysis and palliative radiation. Her feels overwhelmed at home and that she is too much to take care of at home even with the help of nurses' aides and home hospice. The patient was brought in, blood pressure was in the 80s/50s, white count was greater than 18,000, lactic acid was 2.3. Chest x-ray was suggestive of fluid overload. The patient was given gently IV fluids to try to help maintain blood pressures and this morning the patient is very weak and lethargic but did wake up to eat her breakfast. PAST MEDICAL HISTORY: Type 2 diabetes, history of a stroke, end-stage renal disease, hyperlipidemia, history of hypertension, currently now with chronic hypotension, pancreatic cancer with metastatic disease. PAST SURGICAL HISTORY: Cholecystectomy, hysterectomy, fistula placement, PD catheter placement, tubal ligation, resection of an abdominal wall tumor. FAMILY HISTORY: Significant for diabetes and cancer. SOCIAL HISTORY: Former smoker, no alcohol, no drugs. and lives with family. CURRENT MEDICATIONS: NPH 6 units subcu daily, Zantac 150 mg daily, Zoloft 100 mg daily, Zosyn 3.375 IV q. 12, trazodone 100 mg at night, fentanyl patch, Lopressor 25 mg p.o. b.i.d., D5 normal saline at 75 mL an hour. REVIEW OF SYSTEMS: Positive weakness. Positive fatigue. Positive nausea and vomiting. Positive anorexia. No shortness of breath. No chest pain. No diarrhea. No difficulty swallowing. No difficulty with vision. No itching. All other review of systems otherwise negative. PHYSICAL EXAMINATION: VITAL SIGNS: Temperature 36.9, pulse 78, respiratory rate 16, blood pressure 96/57, satting 95% on room air. GENERAL: Awake, alert, oriented x3, although has a starry-eyed appearance to her, answers appropriately but slow to answer questions, very weak and lethargic, jaundiced. EYES: Positive scleral icterus. ENT: Moist mucous membranes. NECK: Supple. PULMONARY: Decreased breath sounds at the bases. CARDIAC: Regular rate and rhythm. ABDOMEN: Distended, nontender. EXTREMITIES: +1 edema. NEUROLOGICAL: Nonfocal. DERMATOLOGIC: Positive jaundice. No rash or ulcers noted. LABORATORIES: White count is 14,000, H\T\H 8.1 and 26.1, platelet count is 264. Sodium is 137, potassium 3.8, chloride is 100, bicarb is 29, BUN is 23, creatinine is 3.2. Lactic acid is 2.3. Calcium is 8.7, mag is 2.3. Ammonia level is less than 10. T-bili is elevated at 8.8, AST elevated at 280, alkaline phosphatase elevated at 471, albumin is 1.4. INR is 3.9. IMPRESSION AND PLAN: 1. End-stage renal disease. The patient wants to continue to be aggressive with her treatment plan, although overall poor prognosis. The patient over the last month has deteriorated quickly, has become more jaundiced. Liver enzymes are abnormal. INR is elevated. Blood pressures are low. Question if the patient may have an element of adrenal insufficiency. Could consider a trial of steroids. We will discuss further with primary hospitalist. Also would consider GI referral given her abnormal liver enzymes and elevated INR which is likely from the cancer and undergoing palliative radiation therapy. No dialysis at this time. Would like to stop the IV fluids given that the blood pressures have been in the 80s or 90s during the last admission as well and the patient relatively asymptomatic from this and concerned about patient becoming fluid overloaded. Would rather treat with albumin 25 grams b.i.d. to try to help raise the intravascular oncotic pressure. 2. Anemia of renal failure. No role for Procrit at this time. Hemoglobin levels are in the 8s. Would transfuse if hemoglobin levels go below 7; however, we will respectively defer to the primary hospitalist. Overall poor prognosis irregardless of dialysis and palliative radiation. MTDD
--- NOTE | 2016-12-09 10:03 | Progress Note ---
Internal Med Progress Note Date of Service: Dec 09, 2016. Provider Documentation: SUBJECTIVE: The patient was seen and examined Admitted with a fall at home and hypotension at dialysis Very weak and lethargic in ER Did not complain any more pain OBJECTIVE: Vital Signs-as noted below Exam: General-Moderate distress at rest Jaundiced Eyes-normal ENT-normal Neck-supple Lungs-Occasional crackles at the bases Heart-regular,no murmur Abdomen-Distended,soft,mildly tender ,bowel sound present Extremities-Trace edema bilaterally Neuro-AA Extremely weak and lethargic Lab data as noted below. ASSESSMENT & PLAN: HYPOTENSION pt presented with hypotension (BP 80s/50s) at dialysis this morning -likely secondary to dialysis/dehydration due to poor PO intake and may have intraabdominal infection or due to the Cancer itself -cont gentle IVF -hold metoprolol for now -BP is slightly better >90 systolic LEUKOCYTOSIS -afebrile with leukocytosis >18k -likely secondary to malignancy;May have cholangitis given rapid deterioration of her condition -obtain blood cultures -started on Zosyn for now-patient wanted to have antibiotic METASTATIC PANCREATIC CANCER STAGE IV -completed chemotherapy -currently receiving palliative radiation therapy -was home with [facility] hospice; currently stating she wants all necessary treatment -Likely to be placed in a Hospice facility from here -wants to continue RT and Dialysis ELEVATED LFTS -likely secondary to obstruction from hepatic metastases CHRONIC ANEMIA -recent admission for anemia (HgB 6.9); HgB remained stable after transfusion of 1 unit pRBCs -HgB 8.6 today -monitor H&H -transfuse PRN if Hgb <7.0/symptomatic -pt currently denies active bleed ESRD ON HD -received HD MWF; HD was terminated prematurely due to hypotension -nephro consulted DM 2 -start ISS -regular diet as patient has poor oral intake -monitor BSG AC HS DEPRESSION -cont home meds H/O CVA -Plavix and ASA were discontinued secondary to GI bleed DVT PROPHYLAXIS -High VTE risk due to malignancy -Increase INR due to Liver failure -SCDs CODE STATUS -DNI/DNR per documentation from admission earlier this week DISPO -pt will likely need placement to a nursing facility. Discharge eval placed -Pt seen in collaboration with Dr. Stoll. Please see his addendum for further details. Thanks! PROGNOSIS Very Poor Social service for possible discharge at with Hospice Vital Signs: Date Time Temp Pulse Resp B/P Pulse Ox O2 Delivery O2 Flow Rate FiO2 12/09/16 07:50 36.9 78 16 96/57 95 Room Air 12/09/16 06:45 36.0 76 18 89/54 96 Room Air 12/09/16 04:51 36.7 79 18 85/51 94 Room Air 12/09/16 02:02 84 100/63 12/09/16 00:00 96 Room Air 12/08/16 22:47 36.7 90 16 89/56 95 Room Air 12/08/16 22:32 92 109/65 12/08/16 21:00 36.7 90 20 111/73 96 12/08/16 19:53 82 12 97/62 92 Room Air 12/08/16 19:00 83 10 94/63 94 Room Air 12/08/16 18:29 85 12/08/16 17:46 92 Room Air 12/08/16 17:17 88 14 84/58 92 Room Air 12/08/16 15:39 89 10 92/56 93 Room Air 12/08/16 14:45 94 16 82/45 93 Room Air 12/08/16 14:30 96 12/08/16 14:28 36.7 97 20 90/49 93 Room Air Lab Results: Results Past 24 Hours Test 12/08/16 14:55 12/08/16 15:07 12/09/16 05:25 12/09/16 06:48 Range/Units White Blood Count 18.27 14.31 4.8-10.8 K/uL Red Blood Count 2.85 2.74 4.2-5.4 M/uL Hemoglobin 8.6 8.1 12.0-16.0 g/dL Hematocrit 26.8 26.1 37-47 % Mean Corpuscular Volume 94.0 95.3 80-100 fL Mean Corpuscular Hemoglobin 30.2 29.6 25-34 pg Mean Corpuscular Hemoglobin Concent 32.1 31.0 32-36 g/dl Platelet Count 271 264 130-400 K/uL Mean Platelet Volume 9.1 9.3 7.4-10.4 fL Neutrophils (%) (Auto) 88.9 % Lymphocytes (%) (Auto) 2.8 % Monocytes (%) (Auto) 6.7 % Eosinophils (%) (Auto) 0.7 % Basophils (%) (Auto) 0.4 % Neutrophils # (Auto) 16.24 1.4-6.5 K/uL Lymphocytes # (Auto) 0.51 1.2-3.4 K/uL Monocytes # (Auto) 1.23 0.11-0.59 K/uL Eosinophils # (Auto) 0.13 0-0.5 K/uL Basophils # (Auto) 0.07 0-0.2 K/uL RDW Standard Deviation 64.1 65.1 36.4-46.3 fL RDW Coefficient of Variation 18.7 18.9 11.5-14.5 % Immature Granulocyte % (Auto) 0.5 % Immature Granulocyte # (Auto) 0.09 0.00-0.02 K/uL Polychromasia 1+ Anisocytosis PRESENT Prothrombin Time 44.3 9.0-12.0 SECONDS Prothromb Time International Ratio 3.9 0.9-1.1 Activated Partial Thromboplast Time 54.7 21.0-31.0 SECONDS Partial Thromboplastin Ratio 2.1 Venous Blood pH 7.39 7.36-7.41 Venous Blood Partial Pressure CO2 48 38.0-50.0 mmHg Venous Blood Partial Pressure O2 43 mmHg Venous Blood HCO3 28 mmol/L Venous Blood Oxygen Saturation 73.5 % Venous Blood Base Excess 3.0 mmol/L Sodium Level 137 137 136-145 mmol/L Potassium Level 3.8 3.8 3.5-5.1 mmol/L Chloride Level 100 100 98-107 mmol/L Carbon Dioxide Level 29 29 21-32 mmol/L Anion Gap 8.0 8.0 3-11 mmol/L Blood Urea Nitrogen 18 23 7-18 mg/dl Creatinine 2.70 3.20 0.60-1.20 mg/dl Est Creatinine Clear Calc Drug Dose 25.6 21.6 ml/min Estimated GFR () 22.7 18.5 Estimated GFR (Non- 19.6 16.0 BUN/Creatinine Ratio 6.6 7.3 10-20 Random Glucose 118 116 70-99 mg/dl Calcium Level 8.7 8.7 8.5-10.1 mg/dl Total Bilirubin 8.8 0.2-1 mg/dl Direct Bilirubin 7.4 0-0.2 mg/dl Aspartate Amino Transf (AST/SGOT) 280 15-37 U/L Alanine Aminotransferase (ALT/SGPT) 40 12-78 U/L Alkaline Phosphatase 471 45-117 U/L Ammonia < 10.0 11-32 umol/L Total Creatine Kinase 113 26-192 U/L Creatine Kinase MB < 0.5 0.5-3.6 ng/ml Creatine Kinase MB Ratio 0-3.0 Troponin I < 0.015 0-0.045 ng/ml Total Protein 5.2 6.4-8.2 gm/dl Albumin 1.4 3.4-5.0 gm/dl Lipase 28 73-393 U/L Bedside Lactic Acid Venous 2.38 0.90-1.70 mmol/L Magnesium Level 2.3 1.8-2.4 mg/dl Lactic Acid Level 2.3 0.4-2.0 mmol/L Test 12/09/16 08:04 Range/Units Bedside Glucose 118 70-90 mg/dl Microbiology Results 12/08/16 Blood Culture, Received Pending 12/08/16 Blood Culture, Received Pending 12/08/16 Blood Culture, Received Pending 12/08/16 Blood Culture, Received Pending
[2016-12-09] MEDS ORDERED: NURSING VERBAL MED ORDER ONE (17:30)
[2016-12-09] MEDS ORDERED: SODIUM CHLORIDE 0.9% 250ML 250 ML IV SCH (18:00)
[2016-12-09] MEDS: TRAZODONE HCL 100 MG TAB PO SCH (20:05)
[2016-12-10] VITALS (7 sets, daily range): BP systolic 80–100; BP diastolic 47–62; PULSE 82–94; TEMP 36.3–37; O2SAT 92–95
[2016-12-10] MEDS: HYDROmorphone HCL 2 MG TAB PO PRN ×3 (02:12→15:56)
[2016-12-10] MEDS: PIPERACILL/TAZOBAC IV 3.375 GM in DEXTROSE 5% 100ML 100 ML IV SCH ×2 (08:15→21:27)
[2016-12-10] MEDS: RANITIDINE HCL 150 MG TAB PO SCH (08:16)
[2016-12-10] MEDS: SERTRALINE HCL 100 MG TAB PO SCH (08:16)
[2016-12-10] MEDS: CHECK FENTANYL PATCH PLACEMENT SCH ×2 (08:20→15:57)
[2016-12-10] MEDS: INSULIN HUMAN NPH SC SCH (08:35)
[2016-12-10] MEDS ORDERED: NURSING VERBAL MED ORDER ONE (09:15)
[2016-12-10] MEDS: FENTANYL PATCH REMOVE & WASTE SCH (09:38)
[2016-12-10] MEDS: FENTANYL 25 MCG/HR TDSY TD SCH (09:40)
[2016-12-10] MEDS: DOCUSATE SODIUM 100 MG CAP PO SCH ×2 (12:34→21:27)
--- NOTE | 2016-12-10 14:08 | Progress Note ---
Internal Med Progress Note Date of Service: Dec 10, 2016. Provider Documentation: SUBJECTIVE: The patient was seen and examined Admitted with a fall at home and hypotension at dialysis Fels better occasionally Denies any complaints OBJECTIVE: Vital Signs-as noted below Exam: General-Moderate distress at rest Jaundiced Eyes-normal ENT-normal Neck-supple Lungs-Occasional crackles at the bases ,decreased breath sound bilaterally Heart-regular,no murmur Abdomen-Distended,soft,mildly tender ,bowel sound present Extremities-Trace edema bilaterally Neuro-AA Extremely weak and lethargic Lab data as noted below. ASSESSMENT & PLAN: HYPOTENSION Pt presented with hypotension (BP 80s/50s) at dialysis this morning -likely secondary to dialysis/dehydration due to poor PO intake and may have intraabdominal infection or due to the Cancer itself -cont gentle IVF -hold metoprolol for now -BP is slightly better >90 systolic -Blood pressure remains on the lower side LEUKOCYTOSIS -afebrile with leukocytosis >18k -likely secondary to malignancy;May have cholangitis given rapid deterioration of her condition -obtain blood cultures-negative -started on Zosyn for now-patient wanted to have antibiotic -D/C antibiotic tomorrow METASTATIC PANCREATIC CANCER STAGE IV -completed chemotherapy -currently receiving palliative radiation therapy -was home with [facility] hospice; currently stating she wants all necessary treatment -Likely to be placed in a Hospice facility from here -Still wants to continue RT and Dialysis-discussed again ELEVATED LFTS -likely secondary to obstruction from hepatic metastases CHRONIC ANEMIA -recent admission for anemia (HgB 6.9); HgB remained stable after transfusion of 1 unit pRBCs -HgB 8.6 today -monitor H&H -transfuse PRN if Hgb <7.0/symptomatic -pt currently denies active bleed ESRD ON HD -received HD MWF; HD was terminated prematurely due to hypotension -nephro consulted -continue Hemodialysis DM 2 -start ISS -regular diet as patient has poor oral intake -monitor BSG AC HS DEPRESSION -cont home meds H/O CVA -Plavix and ASA were discontinued secondary to GI bleed DVT PROPHYLAXIS -High VTE risk due to malignancy -Increase INR due to Liver failure -SCDs CODE STATUS -DNI/DNR per documentation from admission earlier this week DISPO -pt will likely need placement to a nursing facility. Discharge eval placed -Pt seen in collaboration with Dr. Stoll. Please see his addendum for further details. Thanks! PROGNOSIS Very Poor Social service for possible discharge at with Hospice Discussed with the Likely discharge tomorrow to [facility] with Hospice Vital Signs: Date Time Temp Pulse Resp B/P Pulse Ox O2 Delivery O2 Flow Rate FiO2 12/10/16 11:35 36.4 90 18 100/62 94 Room Air 12/10/16 09:26 37.0 94 18 98/57 92 Room Air 12/10/16 08:30 Room Air 12/10/16 04:25 36.6 82 18 94/57 93 Room Air 12/09/16 23:50 Room Air 12/09/16 22:29 36.6 85 16 96/59 93 Room Air 12/09/16 19:50 36.8 84 16 91/57 93 Room Air 12/09/16 17:55 89 93/58 12/09/16 16:00 Room Air 12/09/16 15:54 36.7 81 18 81/47 92 Room Air 12/09/16 14:25 81 18 98/60 92 Room Air Lab Results: Results Past 24 Hours Test 12/09/16 16:36 12/09/16 20:34 12/10/16 07:32 12/10/16 11:39 Range/Units Bedside Glucose 107 105 89 104 70-90 mg/dl
[2016-12-10] MEDS: TRAZODONE HCL 100 MG TAB PO SCH (21:27)
[2016-12-11] VITALS (22 sets, daily range): BP systolic 76–101; BP diastolic 41–64; PULSE 80–92; TEMP 36.6–36.9; O2SAT 94–99
[2016-12-11] MEDS: CHECK FENTANYL PATCH PLACEMENT SCH ×4 (00:17→23:47)
[2016-12-11 06:42] LABS: HEMATOCRIT 26.2 % (37-47); MEAN CELL VOLUME 93.9 fL (80-100); MEAN CORPUSCULAR HGB CONC 30.9 g/dl (32-36); MEAN PLATELET VOLUME 8.9 fL (7.4-10.4); PLATELET COUNT 259 K/uL (130-400); RED BLOOD COUNT 2.79 M/uL (4.2-5.4); WHITE BLOOD COUNT 16.35 K/uL (4.8-10.8)
[2016-12-11 07:27] LABS: BUN/CREATININE RATIO 7.4 (10-20); CALCIUM 8.9 mg/dl (8.5-10.1); MAGNESIUM 2.4 mg/dl (1.8-2.4); PHOSPHORUS 5.7 mg/dl (2.5-4.9); POTASSIUM 4.4 mmol/L (3.5-5.1)
[2016-12-11] MEDS: PIPERACILL/TAZOBAC IV 3.375 GM in DEXTROSE 5% 100ML 100 ML IV SCH (07:51)
[2016-12-11] MEDS: DOCUSATE SODIUM 100 MG CAP PO SCH ×2 (08:02→20:00)
[2016-12-11] MEDS: RANITIDINE HCL 150 MG TAB PO SCH (08:03)
[2016-12-11] MEDS: SERTRALINE HCL 100 MG TAB PO SCH (08:03)
[2016-12-11] MEDS ORDERED: ALBUMIN HUMAN 25% 12.5 GM/50 ML VIAL IV SCH ×2 (08:30→10:00)
[2016-12-11] MEDS: INSULIN HUMAN NPH SC SCH (08:31)
[2016-12-11 09:35] LABS: CREATININE 4.7 mg/dl (0.60-1.20)
--- NOTE | 2016-12-11 12:03 | Progress Note ---
Internal Med Progress Note Date of Service: Dec 11, 2016. Provider Documentation: SUBJECTIVE: The patient was seen and examined in presence of the Daughter Admitted with a fall at home and hypotension at dialysis Fels better occasionally Denies any complaints Still wants Radiation and Dialysis to be done OBJECTIVE: Vital Signs-as noted below Exam: General-Moderate distress at rest with extreme weakness Jaundiced Eyes-normal ENT-normal Neck-supple Lungs-Occasional crackles at the bases ,decreased breath sound bilaterally Heart-regular,no murmur Abdomen-Distended,soft,mildly tender ,bowel sound present Extremities-Trace edema bilaterally Neuro-AA Extremely weak and lethargic Lab data as noted below. ASSESSMENT & PLAN: HYPOTENSION Pt presented with hypotension (BP 80s/50s) at dialysis this morning -likely secondary to dialysis/dehydration due to poor PO intake and may have intraabdominal infection or due to the Cancer itself -cont gentle IVF -hold metoprolol for now -BP is slightly better >90 systolic -Blood pressure remains on the lower side -maintains ~90 Systolic LEUKOCYTOSIS -afebrile with leukocytosis >18k -likely secondary to malignancy;May have cholangitis given rapid deterioration of her condition -obtain blood cultures-negative -started on Zosyn for now-patient wanted to have antibiotic -D/C antibiotic tomorrow -normalized METASTATIC PANCREATIC CANCER STAGE IV -completed chemotherapy -currently receiving palliative radiation therapy -was home with [facility] hospice; currently stating she wants all necessary treatment -Likely to be placed in a Hospice facility from here -Still wants to continue RT and Dialysis-discussed again -will get Palliative care and Oncology involved for further guidance regarding Hospice care ELEVATED LFTS -likely secondary to obstruction from hepatic metastases CHRONIC ANEMIA -recent admission for anemia (HgB 6.9); HgB remained stable after transfusion of 1 unit pRBCs -HgB 8.6 today -monitor H&H -transfuse PRN if Hgb <7.0/symptomatic -pt currently denies active bleed ESRD ON HD -received HD MWF; HD was terminated prematurely due to hypotension -nephro consulted -continue Hemodialysis DM 2 -start ISS -regular diet as patient has poor oral intake -monitor BSG AC HS DEPRESSION -cont home meds H/O CVA -Plavix and ASA were discontinued secondary to GI bleed DVT PROPHYLAXIS -High VTE risk due to malignancy -Increase INR due to Liver failure -SCDs CODE STATUS -DNI/DNR per documentation from admission earlier this week DISPO -pt will likely need placement to a nursing facility. Discharge eval placed -Pt seen in collaboration with Dr. Stoll. Please see his addendum for further details. Thanks! PROGNOSIS Very Poor discussed with the Patient and the about Comfort care and Palliative care Will need to involve Oncology ,Nephrology ,Palliative care and Social service and arrange a Multidisciplinary meeting in presence of the patient and the for further management Vital Signs: Date Time Temp Pulse Resp B/P Pulse Ox O2 Delivery O2 Flow Rate FiO2 12/11/16 12:21 36.8 81 90/51 12/11/16 11:45 85 84/46 12/11/16 11:30 88 90/50 12/11/16 11:24 Room Air 12/11/16 11:15 87 87/50 12/11/16 11:00 86 89/48 12/11/16 10:45 80 89/50 12/11/16 10:30 85 89/47 12/11/16 10:15 86 87/47 12/11/16 10:00 83 91/45 12/11/16 09:45 88 81/45 12/11/16 09:35 88 82/41 12/11/16 09:30 88 76/45 12/11/16 09:18 89 83/50 12/11/16 09:15 86 77/48 12/11/16 09:00 91 81/47 12/11/16 08:49 92 90/51 12/11/16 07:18 36.9 88 16 86/50 99 12/11/16 04:20 36.6 89 16 101/54 94 Room Air 12/11/16 00:20 Room Air 12/10/16 22:42 36.3 91 18 89/52 95 Room Air 12/10/16 19:18 36.6 91 16 94/58 92 Room Air 12/10/16 16:20 94 Room Air 12/10/16 16:06 36.7 90 16 80/47 94 Room Air Lab Results: Results Past 24 Hours Test 12/10/16 16:50 12/10/16 20:24 12/11/16 05:50 12/11/16 07:42 Range/Units Bedside Glucose 98 81 74 70-90 mg/dl White Blood Count 16.35 4.8-10.8 K/uL Red Blood Count 2.79 4.2-5.4 M/uL Hemoglobin 8.1 12.0-16.0 g/dL Hematocrit 26.2 37-47 % Mean Corpuscular Volume 93.9 80-100 fL Mean Corpuscular Hemoglobin 29.0 25-34 pg Mean Corpuscular Hemoglobin Concent 30.9 32-36 g/dl RDW Standard Deviation 62.4 36.4-46.3 fL RDW Coefficient of Variation 18.2 11.5-14.5 % Platelet Count 259 130-400 K/uL Mean Platelet Volume 8.9 7.4-10.4 fL Sodium Level 132 136-145 mmol/L Potassium Level 4.4 3.5-5.1 mmol/L Chloride Level 98 98-107 mmol/L Carbon Dioxide Level 23 21-32 mmol/L Anion Gap 11.0 3-11 mmol/L Blood Urea Nitrogen 35 7-18 mg/dl Creatinine 4.70 0.60-1.20 mg/dl Est Creatinine Clear Calc Drug Dose 14.8 ml/min Estimated GFR () 11.6 Estimated GFR (Non- 10.0 BUN/Creatinine Ratio 7.4 10-20 Random Glucose 68 70-99 mg/dl Calcium Level 8.9 8.5-10.1 mg/dl Phosphorus Level 5.7 2.5-4.9 mg/dl Magnesium Level 2.4 1.8-2.4 mg/dl
--- NOTE | 2016-12-11 17:12 | Nephrology Progress Note ---
Nephrology Progress Note Date of Service: Dec 11, 2016. Subjective seen on rounds this am at 0815. just finished bath; denies pain; stated N/V ( temporarily) under control; not dypsneic; did have trouble maintaining bp on hd Objective Date Time Temp Pulse Resp B/P Pulse Ox O2 Delivery O2 Flow Rate FiO2 12/11/16 15:48 Room Air 12/11/16 15:25 36.9 88 16 86/50 99 Room Air 12/11/16 15:01 36.6 90 18 97/64 96 Room Air 12/11/16 12:21 36.8 81 90/51 12/11/16 11:45 85 84/46 12/11/16 11:30 88 90/50 12/11/16 11:24 Room Air 12/11/16 11:15 87 87/50 12/11/16 11:00 86 89/48 12/11/16 10:45 80 89/50 12/11/16 10:30 85 89/47 12/11/16 10:15 86 87/47 12/11/16 10:00 83 91/45 12/11/16 09:45 88 81/45 12/11/16 09:35 88 82/41 12/11/16 09:30 88 76/45 12/11/16 09:18 89 83/50 12/11/16 09:15 86 77/48 12/11/16 09:00 91 81/47 12/11/16 08:49 92 90/51 12/11/16 07:18 36.9 88 16 86/50 99 12/11/16 04:20 36.6 89 16 101/54 94 Room Air 12/11/16 00:20 Room Air 12/10/16 22:42 36.3 91 18 89/52 95 Room Air 12/10/16 19:18 36.6 91 16 94/58 92 Room Air Physical Exam: GENERAL: Awake, alert, oriented x3, + psychomotor slowing, on RA, very weak, jaundiced. EYES: scleral icterus. ENT: dry mucous membranes. NECK: Supple. PULMONARY: Decreased breath sounds BL bases. CARDIAC: Regular rate and rhythm. ABDOMEN: Distended, nontender. EXTREMITIES: +3 BLE edema. NEUROLOGICAL: generalized weakness, appropriate but slowed speech DERMATOLOGIC: No rash or ulcers noted except R heel. Current Inpatient Medications Medications (Trade) Dose Ordered Sig/Sophia Route Start Time Stop Time Status Last Admin Dose Admin Polyethylene (Miralax Powder Packet) 17 gm DAILY PRN PO 12/08/16 18:30 01/07/17 18:29 Ondansetron HCl (Zofran Inj) 4 mg Q6H PRN IV 12/08/16 18:30 01/07/17 18:29 Docusate Sodium (coLACE CAP) 100 mg BID PO 12/08/16 20:30 01/07/17 20:59 12/11/16 08:02 100 MG Hydromorphone HCl (Dilaudid Tab) 2 mg Q6H PRN PO 12/08/16 18:30 12/22/16 18:29 12/10/16 15:56 2 MG Insulin Human NPH (novoLIN-N NPH) 6 units QAM SC 12/09/16 08:00 01/08/17 08:59 12/11/16 08:31 6 UNITS Ranitidine HCl (zANTac TAB) 150 mg QAM PO 12/09/16 08:00 01/08/17 08:59 12/11/16 08:03 150 MG Sertraline HCl (Zoloft Tab) 100 mg QAM PO 12/09/16 08:00 01/08/17 08:59 12/11/16 08:03 100 MG Trazodone HCl (Desyrel Tab) 100 mg HS PO 12/08/16 21:00 01/07/17 20:59 12/10/16 21:27 100 MG Lorazepam (Ativan Inj) 0.25 mg Q4H PRN IV 12/08/16 18:30 01/07/17 18:29 Hydromorphone HCl (Dilaudid Inj) 0.5 mg Q3H PRN IV 12/08/16 18:45 12/22/16 18:44 Miscellaneous 1 ea 1 ea PRN PRN N/A 12/08/16 20:15 12/08/17 20:14 Lorazepam/Syringe (Ativan Inj/ Syringe) 0.25 ml @ 1 mls/min Q4H PRN IV 12/08/16 20:45 01/07/17 20:44 Glucose (Glucose 40% Gel) For hypoglycemia in mine... UD PRN PO 12/08/16 20:45 01/07/17 20:44 Glucose (Glucose Chew Tab) 4-8 Tablets 4 Tabl... UD PRN PO 12/08/16 20:45 01/07/17 20:44 Dextrose (Dextrose 50% 50ML Syringe) 25-50ML OF 50% DW IV FOR... UD PRN IV 12/08/16 20:45 01/07/17 20:44 Glucagon (Glucagon Inj) 1 mg UD PRN SQ 12/08/16 20:45 01/07/17 20:44 Miscellaneous Information (Check Fentanyl Patch Placement) 1 ea QS N/A 12/09/16 00:00 01/08/17 00:00 12/11/16 15:24 1 EA Fentanyl (Duragesic Patch) 25 mcg Q72H TD 12/10/16 09:30 12/24/16 09:29 12/10/16 09:40 25 MCG Miscellaneous (Fentanyl Patch Remove & Waste) 1 ea Q72H N/A 12/10/16 09:29 01/09/17 09:28 12/10/16 09:38 1 EA Albumin Human (Albumin 25%) 12.5 gm TODAY@0830 IV 12/11/16 08:30 12/11/16 18:00 Last 24 Hours Test 12/10/16 20:24 12/11/16 05:50 12/11/16 07:42 12/11/16 16:20 Bedside Glucose 81 mg/dl 74 mg/dl 73 mg/dl White Blood Count 16.35 K/uL Red Blood Count 2.79 M/uL Hemoglobin 8.1 g/dL Hematocrit 26.2 % Mean Corpuscular Volume 93.9 fL Mean Corpuscular Hemoglobin 29.0 pg Mean Corpuscular Hemoglobin Concent 30.9 g/dl RDW Standard Deviation 62.4 fL RDW Coefficient of Variation 18.2 % Platelet Count 259 K/uL Mean Platelet Volume 8.9 fL Sodium Level 132 mmol/L Potassium Level 4.4 mmol/L Chloride Level 98 mmol/L Carbon Dioxide Level 23 mmol/L Anion Gap 11.0 mmol/L Blood Urea Nitrogen 35 mg/dl Creatinine 4.70 mg/dl Est Creatinine Clear Calc Drug Dose 14.8 ml/min Estimated GFR () 11.6 Estimated GFR (Non- 10.0 BUN/Creatinine Ratio 7.4 Random Glucose 68 mg/dl Calcium Level 8.9 mg/dl Phosphorus Level 5.7 mg/dl Magnesium Level 2.4 mg/dl Assessment & Plan 51 y/o F w/ metastatic pancreatic CA on home hospice after recent admission here 12/01-12/07 now readmitted w/ worsening weakness, fall at home, then sent from dialysis w/ vomiting, hypotension. 1. End-stage renal disease. The patient wants to continue to be aggressivewith her treatment plan, although no curative options remain. Over the last month she has deteriorated quickly w/ worsening jaundice, hypotension, elevated INR; albumin 1.4. SBP in 80-90s is her new/recent baseline. She is total body volume overloaded on exam > would avoid IVF w/ low albumin and instead use 25% albumin 12.5-25 grams b.i.d. to try to raise the intravascular oncotic pressure if bp worsening. 2. Anemia of chronic disease in setting of pancreatic CA. No role for Procrit at this time; would not use w/o d/w oncology in any event. Would recommend transfusion if hemoglobin levels go below 7. 3. Metastatic pancreatic CA -- very poor prognosis; provider / family meeting planned to discuss poor prognosis, next best steps in care Appreciate consultation; will follow with you. Care coordinated w/ Dr. Stoll.
[2016-12-11] MEDS: HYDROmorphone HCL 2 MG TAB PO PRN (18:13)
--- NOTE | 2016-12-11 19:04 | Radiation Oncology Progress Nt ---
Radiation Oncology Progress Nt Date of Service Date of Service: Dec 11, 2016. Subjective Pt evaluation today including: conversation w/ patient, conversation w/ family (I spoke with both the patient's daughter and today. ), conversation w/ validation consultant Objective Vital Signs Date Time Temp Pulse Resp B/P Pulse Ox O2 Delivery O2 Flow Rate FiO2 12/11/16 15:48 Room Air 12/11/16 15:25 36.9 88 16 86/50 99 Room Air 12/11/16 15:01 36.6 90 18 97/64 96 Room Air 12/11/16 12:21 36.8 81 90/51 12/11/16 11:45 85 84/46 12/11/16 11:30 88 90/50 12/11/16 11:24 Room Air 12/11/16 11:15 87 87/50 12/11/16 11:00 86 89/48 12/11/16 10:45 80 89/50 12/11/16 10:30 85 89/47 12/11/16 10:15 86 87/47 12/11/16 10:00 83 91/45 12/11/16 09:45 88 81/45 12/11/16 09:35 88 82/41 12/11/16 09:30 88 76/45 12/11/16 09:18 89 83/50 12/11/16 09:15 86 77/48 12/11/16 09:00 91 81/47 12/11/16 08:49 92 90/51 12/11/16 07:18 36.9 88 16 86/50 99 12/11/16 04:20 36.6 89 16 101/54 94 Room Air 12/11/16 00:20 Room Air 12/10/16 22:42 36.3 91 18 89/52 95 Room Air 12/10/16 19:18 36.6 91 16 94/58 92 Room Air Physical Exam General Appearance: + moderate distress, + pertinent finding (Jaundiced) Eyes: + abnormal sclerae exam Abdomen: + distended Neurologic/Psychiatric: + depressed affect, + disoriented Skin: + jaundice Laboratory Results Last 24 Hours Test 12/10/16 20:24 12/11/16 05:50 12/11/16 07:42 12/11/16 16:20 Bedside Glucose 81 mg/dl 74 mg/dl 73 mg/dl White Blood Count 16.35 K/uL Red Blood Count 2.79 M/uL Hemoglobin 8.1 g/dL Hematocrit 26.2 % Mean Corpuscular Volume 93.9 fL Mean Corpuscular Hemoglobin 29.0 pg Mean Corpuscular Hemoglobin Concent 30.9 g/dl RDW Standard Deviation 62.4 fL RDW Coefficient of Variation 18.2 % Platelet Count 259 K/uL Mean Platelet Volume 8.9 fL Sodium Level 132 mmol/L Potassium Level 4.4 mmol/L Chloride Level 98 mmol/L Carbon Dioxide Level 23 mmol/L Anion Gap 11.0 mmol/L Blood Urea Nitrogen 35 mg/dl Creatinine 4.70 mg/dl Est Creatinine Clear Calc Drug Dose 14.8 ml/min Estimated GFR () 11.6 Estimated GFR (Non- 10.0 BUN/Creatinine Ratio 7.4 Random Glucose 68 mg/dl Calcium Level 8.9 mg/dl Phosphorus Level 5.7 mg/dl Magnesium Level 2.4 mg/dl Assessment and Plan Ms. Sandoval is a 51-year-old female with locally advanced pancreatic cancer. She is currently receiving radiation therapy for progression of disease locally which is causing bleeding/anemia. Unfortunately, the patient has been admitted to the hospital due to frequent falls and failure to thrive. The patient's condition is rapidly deteriorating and she is doing poorly overall. I have had a very brief and dejan discussion with both the patient, her daughter and and have recommended stopping all radiation therapy at this point. I have explained to the family and patient that there is a very low likelihood that she will have any significant benefit from radiation therapy. The patient and her family understand and we will discontinue all further radiation therapy. I have spoken with the primary medical team. I would recommend a palliative care consultation and consideration for hospice/Comfort Care as soon as possible. Please call with any further questions or concerns.
[2016-12-11] MEDS: TRAZODONE HCL 100 MG TAB PO SCH (20:24)
--- NOTE | 2016-12-11 21:52 | Progress Note ---
Internal Med Progress Note Date of Service: Dec 11, 2016. Provider Documentation: Made aware by RN of low BGs today. hold basal insulin for now ISS interim Hg A1c in AM. Vital Signs: Date Time Temp Pulse Resp B/P Pulse Ox O2 Delivery O2 Flow Rate FiO2 12/12/16 04:15 36.7 93 18 81/50 95 Room Air 12/12/16 00:00 Room Air 12/11/16 23:01 36.6 92 15 88/53 97 Room Air 12/11/16 20:30 Room Air 12/11/16 19:17 36.6 92 16 90/56 95 Room Air 12/11/16 15:48 Room Air 12/11/16 15:25 36.9 88 16 86/50 99 Room Air 12/11/16 15:01 36.6 90 18 97/64 96 Room Air 12/11/16 12:21 36.8 81 90/51 12/11/16 11:45 85 84/46 12/11/16 11:30 88 90/50 12/11/16 11:24 Room Air 12/11/16 11:15 87 87/50 12/11/16 11:00 86 89/48 12/11/16 10:45 80 89/50 12/11/16 10:30 85 89/47 12/11/16 10:15 86 87/47 12/11/16 10:00 83 91/45 12/11/16 09:45 88 81/45 12/11/16 09:35 88 82/41 12/11/16 09:30 88 76/45 12/11/16 09:18 89 83/50 12/11/16 09:15 86 77/48 12/11/16 09:00 91 81/47 12/11/16 08:49 92 90/51 12/11/16 07:18 36.9 88 16 86/50 99 Lab Results: Results Past 24 Hours Test 12/11/16 05:50 12/11/16 07:42 12/11/16 16:20 12/11/16 20:11 Range/Units White Blood Count 16.35 4.8-10.8 K/uL Red Blood Count 2.79 4.2-5.4 M/uL Hemoglobin 8.1 12.0-16.0 g/dL Hematocrit 26.2 37-47 % Mean Corpuscular Volume 93.9 80-100 fL Mean Corpuscular Hemoglobin 29.0 25-34 pg Mean Corpuscular Hemoglobin Concent 30.9 32-36 g/dl RDW Standard Deviation 62.4 36.4-46.3 fL RDW Coefficient of Variation 18.2 11.5-14.5 % Platelet Count 259 130-400 K/uL Mean Platelet Volume 8.9 7.4-10.4 fL Sodium Level 132 136-145 mmol/L Potassium Level 4.4 3.5-5.1 mmol/L Chloride Level 98 98-107 mmol/L Carbon Dioxide Level 23 21-32 mmol/L Anion Gap 11.0 3-11 mmol/L Blood Urea Nitrogen 35 7-18 mg/dl Creatinine 4.70 0.60-1.20 mg/dl Est Creatinine Clear Calc Drug Dose 14.8 ml/min Estimated GFR () 11.6 Estimated GFR (Non- 10.0 BUN/Creatinine Ratio 7.4 10-20 Random Glucose 68 70-99 mg/dl Calcium Level 8.9 8.5-10.1 mg/dl Phosphorus Level 5.7 2.5-4.9 mg/dl Magnesium Level 2.4 1.8-2.4 mg/dl Bedside Glucose 74 73 67 70-90 mg/dl Test 12/11/16 20:40 12/11/16 21:07 12/11/16 21:38 12/12/16 00:12 Range/Units Bedside Glucose 64 67 141 109 70-90 mg/dl Test 12/12/16 01:50 12/12/16 05:09 12/12/16 05:34 Range/Units Bedside Glucose 130 103 70-90 mg/dl
[2016-12-11] MEDS ORDERED: GLUCAGON FOR INJ 1 MG VIAL SQ PRN (22:00)
[2016-12-11] MEDS ORDERED: DEXTROSE 50% 50 ML SYR IV PRN (22:00)
[2016-12-11] MEDS ORDERED: GLUCOSE 40% GEL 15 GM TUBE PO PRN (22:00)
[2016-12-11] MEDS ORDERED: GLUCOSE 10 TABS/TUBE PO PRN (22:00)
[2016-12-12 04:15] VITALS: BP 81/50; PULSE 93; TEMP 36.7; O2SAT 95
[2016-12-12 06:26] LABS: ESTIMATED AVERAGE GLUCOSE 85 mg/dl; HA1C FLAG Normal (Normal)
[2016-12-12 07:20] VITALS: BP 74/40; PULSE 88; TEMP 36.7; O2SAT 95
[2016-12-12] MEDS: INSULIN ASPART 100 UNITS/ML 3 ML PEN SC SCH ×4 (07:54→21:00)
[2016-12-12] MEDS: CHECK FENTANYL PATCH PLACEMENT SCH ×2 (07:54→16:31)
[2016-12-12] MEDS: DOCUSATE SODIUM 100 MG CAP PO SCH ×2 (07:55→22:36)
[2016-12-12] MEDS: RANITIDINE HCL 150 MG TAB PO SCH (07:55)
[2016-12-12] MEDS: SERTRALINE HCL 100 MG TAB PO SCH (07:55)
--- NOTE | 2016-12-12 08:31 | Medical Consult ---
Consultation Date of Consultation: Dec 12, 2016. Attending Physician: Mariela Burdick M.D. Reason for Consultation: Discuss best supportive palliative measures/hospice care in setting of terminal Stage IV pancreatic cancer History of Present Illness Mrs. Sandoval is a 51 yo WF known well to the consulting medical oncology service for stage IV pancreatic cancer with metastasis to the liver, lung and a direct invasion of the pancreatic primary into the duodenum. She was initially diagnosed in April 2016. She has comorbid conditions of end-stage renal disease, on dialysis. Started on single agent chemotherapy gemcitabine since 09/05/2016, (weekly x2 followed by 1 week off). She started cycle 4 of gemcitabine on 11/07/16, unable to complete day 8 of treatment due to LFT abnormalities. She has been hospitalized multiple times in November 2016 for complications of her advanced cancer. During first hospitalization this month, she had episodes of melena. On EGD, she was found to have and using duodenal mass, likely directly invasive from pancreatic primary. She required PRBC support. Radiation Oncology was consulted and advised palliative RT to the bleeding duodenal lesion. A biliary stent was attempted to be placed via ERCP, but the biliary tree could not be cannulated and so the procedure was aborted and patient did not want to undergo further procedures. She was hospitalized last week for uncontrolled neoplastic pain intra- abdominally; she was started on Fentanyl patch now with adequate control. She was home for less than 24 hrs when she reported back to [facility] at the recommendation of dialysis staff for hypotension and fall in the home. She has been advised throughout this month's hospitalizations that she has a poor overall prognosis; she did attempt to return home after last hospitalization with hospice. Radiation Oncology has met with the patient and has recommended to discontinue palliative RT to the duodenal lesion due to her poor prognosis and poor performance status at this time. Additional history obtained from the patient and daughter at bedside. She reports her neoplastic related pain is well-controlled with Fentanyl patch. She is not having nausea or vomiting. She states she has eaten small portion of meal today and is drinking fluids. She reports no issues with her bowel or bladder. She specifically denies blood in the stool. She appears to be confined to bed. 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 Status: Acute (12) Upper GI bleed Status: Acute Family History Cancer Diabetes mellitus Heart disease Hypertension Lung disease Social History Smoking Status: Former Smoker (20 pack year history; quit 1998) Alcohol Use: none Drug Use: none Marital Status: Housing Status: lives with significant other Allergies Coded Allergies: No Known Allergies (Verified , 12/01/16) Current Inpatient Medications Current Inpatient Medications Medications (Trade) Dose Ordered Sig/Sophia Route Start Time Stop Time Status Last Admin Dose Admin Polyethylene (Miralax Powder Packet) 17 gm DAILY PRN PO 12/08/16 18:30 01/07/17 18:29 Ondansetron HCl (Zofran Inj) 4 mg Q6H PRN IV 12/08/16 18:30 01/07/17 18:29 Docusate Sodium (coLACE CAP) 100 mg BID PO 12/08/16 20:30 01/07/17 20:59 12/12/16 07:55 100 MG Hydromorphone HCl (Dilaudid Tab) 2 mg Q6H PRN PO 12/08/16 18:30 12/22/16 18:29 12/11/16 18:13 2 MG Ranitidine HCl (zANTac TAB) 150 mg QAM PO 12/09/16 08:00 01/08/17 08:59 12/12/16 07:55 150 MG Sertraline HCl (Zoloft Tab) 100 mg QAM PO 12/09/16 08:00 01/08/17 08:59 12/12/16 07:55 100 MG Trazodone HCl (Desyrel Tab) 100 mg HS PO 12/08/16 21:00 01/07/17 20:59 12/11/16 20:24 100 MG Lorazepam (Ativan Inj) 0.25 mg Q4H PRN IV 12/08/16 18:30 01/07/17 18:29 Hydromorphone HCl (Dilaudid Inj) 0.5 mg Q3H PRN IV 12/08/16 18:45 12/22/16 18:44 Miscellaneous 1 ea 1 ea PRN PRN N/A 12/08/16 20:15 12/08/17 20:14 Lorazepam/Syringe (Ativan Inj/ Syringe) 0.25 ml @ 1 mls/min Q4H PRN IV 12/08/16 20:45 01/07/17 20:44 Glucose (Glucose 40% Gel) For hypoglycemia in mine... UD PRN PO 12/08/16 20:45 01/07/17 20:44 Glucose (Glucose Chew Tab) 4-8 Tablets 4 Tabl... UD PRN PO 12/08/16 20:45 01/07/17 20:44 Dextrose (Dextrose 50% 50ML Syringe) 25-50ML OF 50% DW IV FOR... UD PRN IV 12/08/16 20:45 01/07/17 20:44 12/11/16 21:16 50 ML Glucagon (Glucagon Inj) 1 mg UD PRN SQ 12/08/16 20:45 01/07/17 20:44 Miscellaneous Information (Check Fentanyl Patch Placement) 1 ea QS N/A 12/09/16 00:00 01/08/17 00:00 12/12/16 07:54 1 EA Fentanyl (Duragesic Patch) 25 mcg Q72H TD 12/10/16 09:30 12/24/16 09:29 12/10/16 09:40 25 MCG Miscellaneous (Fentanyl Patch Remove & Waste) 1 ea Q72H N/A 12/10/16 09:29 01/09/17 09:28 12/10/16 09:38 1 EA Insulin Aspart (novoLOG ASPART) SLIDING SCALE If C... ACHS SC 12/12/16 06:30 01/11/17 06:29 Glucose (Glucose 40% Gel) 15-30 GRAMS 15 GRAMS... UD PRN PO 12/11/16 22:00 01/10/17 21:59 Glucose (Glucose Chew Tab) 4-8 Tablets 4 Tabl... UD PRN PO 12/11/16 22:00 01/10/17 21:59 Dextrose (Dextrose 50% 50ML Syringe) 25-50ML OF 50% DW IV FOR... UD PRN IV 12/11/16 22:00 01/10/17 21:59 Glucagon (Glucagon Inj) 1 mg UD PRN SQ 12/11/16 22:00 01/10/17 21:59 Review of Systems Constitutional: + fatigue, + weakness, No chills, No fever Respiratory: No cough, No shortness of breath, No sputum, No wheezing Cardiovascular: + edema, No chest pain Abdomen: No GI bleeding, No constipation, No diarrhea, No nausea, No pain, No vomiting Genitourinary - Female: No hematuria Integumentary: + color change, No rash Physical Exam Date Time Temp Pulse Resp B/P Pulse Ox O2 Delivery O2 Flow Rate FiO2 12/12/16 07:20 36.7 88 18 74/40 95 Room Air 12/12/16 04:15 36.7 93 18 81/50 95 Room Air 12/12/16 00:00 Room Air 12/11/16 23:01 36.6 92 15 88/53 97 Room Air 12/11/16 20:30 Room Air 12/11/16 19:17 36.6 92 16 90/56 95 Room Air 12/11/16 15:48 Room Air 12/11/16 15:25 36.9 88 16 86/50 99 Room Air 12/11/16 15:01 36.6 90 18 97/64 96 Room Air 12/11/16 12:21 36.8 81 90/51 12/11/16 11:45 85 84/46 12/11/16 11:30 88 90/50 12/11/16 11:24 Room Air 12/11/16 11:15 87 87/50 12/11/16 11:00 86 89/48 12/11/16 10:45 80 89/50 12/11/16 10:30 85 89/47 12/11/16 10:15 86 87/47 12/11/16 10:00 83 91/45 12/11/16 09:45 88 81/45 12/11/16 09:35 88 82/41 12/11/16 09:30 88 76/45 12/11/16 09:18 89 83/50 12/11/16 09:15 86 77/48 12/11/16 09:00 91 81/47 12/11/16 08:49 92 90/51 General Appearance: no apparent distress, + pertinent finding (appears chronically ill) Eyes: + abnormal sclerae exam (icterus bilaterally) Respiratory/Chest: no respiratory distress, no accessory muscle use, + pertinent finding (coarse breath sounds anteriorly) Cardiovascular: regular rate, rhythm Abdomen/GI: normal bowel sounds, + tenderness (upper abdomen), + distended Extremities/Musculoskelatal: no calf tenderness, + swelling (of bilateral LEs from knee down) Neurologic/Psych: alert, oriented x 3, + pertinent finding (intermittently confused, trails off sentences) Skin: + jaundice Laboratory Results 12/11/16 05:50 12/11/16 05:50 Test 12/09/16 11:30 12/09/16 16:36 12/09/16 20:34 12/10/16 07:32 Bedside Glucose 121 mg/dl (70-90) 107 mg/dl (70-90) 105 mg/dl (70-90) 89 mg/dl (70-90) Test 12/10/16 11:39 12/10/16 16:50 12/10/16 20:24 12/11/16 05:50 Bedside Glucose 104 mg/dl (70-90) 98 mg/dl (70-90) 81 mg/dl (70-90) Red Blood Count 2.79 M/uL (4.2-5.4) Mean Corpuscular Volume 93.9 fL (80-100) Mean Corpuscular Hemoglobin 29.0 pg (25-34) Mean Corpuscular Hemoglobin Concent 30.9 g/dl (32-36) RDW Standard Deviation 62.4 fL (36.4-46.3) RDW Coefficient of Variation 18.2 % (11.5-14.5) Mean Platelet Volume 8.9 fL (7.4-10.4) Anion Gap 11.0 mmol/L (3-11) Est Creatinine Clear Calc Drug Dose 14.8 ml/min Estimated GFR () 11.6 Estimated GFR (Non- 10.0 BUN/Creatinine Ratio 7.4 (10-20) Calcium Level 8.9 mg/dl (8.5-10.1) Phosphorus Level 5.7 mg/dl (2.5-4.9) Magnesium Level 2.4 mg/dl (1.8-2.4) Test 12/11/16 07:42 12/11/16 16:20 12/11/16 20:11 12/11/16 20:40 Bedside Glucose 74 mg/dl (70-90) 73 mg/dl (70-90) 67 mg/dl (70-90) 64 mg/dl (70-90) Test 12/11/16 21:07 12/11/16 21:38 12/12/16 00:12 12/12/16 01:50 Bedside Glucose 67 mg/dl (70-90) 141 mg/dl (70-90) 109 mg/dl (70-90) 130 mg/dl (70-90) Test 12/12/16 05:09 12/12/16 05:34 12/12/16 07:23 Bedside Glucose 103 mg/dl (70-90) 92 mg/dl (70-90) Estimated Average Glucose 85 mg/dl Hemoglobin A1c 4.6 % (4.5-5.6) Chest x-ray from 12/08/16: Cardiomegaly and radiographic evidence of congestive failure/fluid overload. No evidence of free intraperitoneal air. Assessment & Plan 1. Stage IV pancreatic cancer with liver, lung mets and direct invasion into duodenum with PS of 3-4 * Patient is no longer on palliative treatment in the form of chemotherapy or radiation due to PS, advanced disease, other comorbid conditions * Daughter inquired about what can be done for jaundice (direct bili 7.4 on admission, not rechecked)- reviewed with her that ERCP failed to cannulate the biliary tree so no biliary stenting could be accomplished and patient/family refused transfer to [facility] for [facility] * Discussed with the patient and daughter at bedside that best supportive palliative care/hospice should again be pursued * Patient and daughter are agreeable * Palliative consult pending * Pain related to neoplasm adequately controlled with Fentanyl 25 mcg patch; has Dilaudid 2 mg q6h PRN, last dose last evening 2. ESRD on HD * Defer management to nephrology * HD has been one area that patient has been reluctant to cease * Dialysis ordered for tomorrow 3. Anasarca with hypotension * Management per nephrology * Patient receiving albumin 12.5-25 mg BID 4. Anemia of multiple mechanisms * Stable H+H * Transfuse if Hgb < 7 g/dL Thanks for the consult. Will follow along while patient is hospitalized. I performed history and physical examination of the patient (12/12/2016). I have discussed the patient's case, impression and plan with Annette Conrad PA-C. Her note reflects my findings and plan. Also spoke with the patient 's as well as family members who were at bedside regarding her clinical condition, overall prognosis is quite poor, supportive and symptomatic treatment would be appropriate, agree about stopping aggressive management including hemodialysis, radiation treatment. Likely to go at retirement with hospice services. Family members aware about prognosis in her case. Dr. Murray Desai Hem/Onc
[2016-12-12 09:55] VITALS: Ht 160 cm; Wt 85.6 kg
[2016-12-12 11:23] VITALS: BP 91/60; PULSE 92; TEMP 36.6; O2SAT 95
[2016-12-12 14:50] VITALS: BP 105/69; PULSE 98; TEMP 36.4; O2SAT 95
--- NOTE | 2016-12-12 15:02 | Palliative Care Consultation ---
Consultation Date of Consultation: Dec 12, 2016. Requesting Physician: Dr. Stoll Attending Physician: Dr. Burdick Reason for Consultation: Goals of care, hospice History of Present Illness This 51 year old female patient presented to the ED four days ago with c/o weakness, lethargy and hypotension during dialysis. Patient was just in hospital from 12/01-12/07 with chest pain, anemia, and hypotension-- was discharged home with hospice for her metastatic pancreatic cancer and ESRD on hemodialysis. Patient has been here in the hospital frequently, and for extended visits, lately for her progressing disease. She has had a major decline in condition/functional status, her is having difficulty caring for her at home. She was on palliative radiation, but has missed several treatments due to illness. She was seen here during this admission by rad/onc and med/onc, also by nephrology. All of whom are suggesting patient should be on hospice/comfort measures only. Palliative care consulted to establish goals of care. I met with the patient and her daughter, She Middleton, in room 409. Patient is lethargic, but oriented x4. She denies any pain at this time, but does have some breakthrough pain about every 4 hours for which she takes PO dilaudid. She states this works for her. She denied any nausea or vomiting, has decreased appetite but still able to eat/drink. Patient stated she just wants to be comfortable at this point. She knows there will be no more radiation and she feels she is now ready to stop dialysis. Daughter, She, agreed with and supported her mom's decision. The plan is to not go home as the is unable to provider the level of care she needs. Plan is to go to [facility] and continue hospice care. I called the patient's , Chad Sandoval, and discussed patient's goals with him. He said, "I'm honestly relieved to hear that she wants to stop dialysis. There's nothing they can do for her and dialysis isn't helping." The goal is now strictly for comfort. I went back to patient's room to fill out POLST form with patient, with daughter at bedside. See plan below. Past Medical/Surgical History Medical History: Asthma Depression DM type 2 End stage renal disease CVA HLD Htn Pancreatic cancer, metastatic Surgical History: Abdominal wall tumor resection Cholecystectomy Hysterectomy Tubal ligation Social History Smoking Status: Former Smoker (20 pack year history; quit 1998) History of Alcohol Use: No Drug Use: none Marital Status: Housing Status: lives with family Review of Systems Constitutional: + fatigue, + problem reported (lethargy), + weakness Respiratory: + dyspnea on exertion, No shortness of breath Cardiac: + edema, No chest pain Abdomen: + constipation, No nausea, No pain, No vomiting Female : No problem reported Psychiatric: No anxiety Allergies Coded Allergies: No Known Allergies (Verified , 12/01/16) Medications Current Inpatient Medications Medications (Trade) Dose Ordered Sig/Sophia Route Start Time Stop Time Status Last Admin Dose Admin Polyethylene (Miralax Powder Packet) 17 gm DAILY PRN PO 12/08/16 18:30 01/07/17 18:29 Ondansetron HCl (Zofran Inj) 4 mg Q6H PRN IV 12/08/16 18:30 01/07/17 18:29 Docusate Sodium (coLACE CAP) 100 mg BID PO 12/08/16 20:30 01/07/17 20:59 12/12/16 07:55 100 MG Hydromorphone HCl (Dilaudid Tab) 2 mg Q6H PRN PO 12/08/16 18:30 12/22/16 18:29 12/11/16 18:13 2 MG Ranitidine HCl (zANTac TAB) 150 mg QAM PO 12/09/16 08:00 01/08/17 08:59 12/12/16 07:55 150 MG Sertraline HCl (Zoloft Tab) 100 mg QAM PO 12/09/16 08:00 01/08/17 08:59 12/12/16 07:55 100 MG Trazodone HCl (Desyrel Tab) 100 mg HS PO 12/08/16 21:00 01/07/17 20:59 12/11/16 20:24 100 MG Lorazepam (Ativan Inj) 0.25 mg Q4H PRN IV 12/08/16 18:30 01/07/17 18:29 Hydromorphone HCl (Dilaudid Inj) 0.5 mg Q3H PRN IV 12/08/16 18:45 12/22/16 18:44 Miscellaneous 1 ea 1 ea PRN PRN N/A 12/08/16 20:15 12/08/17 20:14 Lorazepam/Syringe (Ativan Inj/ Syringe) 0.25 ml @ 1 mls/min Q4H PRN IV 12/08/16 20:45 01/07/17 20:44 Glucose (Glucose 40% Gel) For hypoglycemia in mine... UD PRN PO 12/08/16 20:45 01/07/17 20:44 Glucose (Glucose Chew Tab) 4-8 Tablets 4 Tabl... UD PRN PO 12/08/16 20:45 01/07/17 20:44 Dextrose (Dextrose 50% 50ML Syringe) 25-50ML OF 50% DW IV FOR... UD PRN IV 12/08/16 20:45 01/07/17 20:44 12/11/16 21:16 50 ML Glucagon (Glucagon Inj) 1 mg UD PRN SQ 12/08/16 20:45 01/07/17 20:44 Miscellaneous Information (Check Fentanyl Patch Placement) 1 ea QS N/A 12/09/16 00:00 01/08/17 00:00 12/12/16 07:54 1 EA Fentanyl (Duragesic Patch) 25 mcg Q72H TD 12/10/16 09:30 12/24/16 09:29 12/10/16 09:40 25 MCG Miscellaneous (Fentanyl Patch Remove & Waste) 1 ea Q72H N/A 12/10/16 09:29 01/09/17 09:28 12/10/16 09:38 1 EA Insulin Aspart (novoLOG ASPART) SLIDING SCALE If C... ACHS SC 12/12/16 06:30 01/11/17 06:29 Glucose (Glucose 40% Gel) 15-30 GRAMS 15 GRAMS... UD PRN PO 12/11/16 22:00 01/10/17 21:59 Glucose (Glucose Chew Tab) 4-8 Tablets 4 Tabl... UD PRN PO 12/11/16 22:00 01/10/17 21:59 Dextrose (Dextrose 50% 50ML Syringe) 25-50ML OF 50% DW IV FOR... UD PRN IV 12/11/16 22:00 01/10/17 21:59 Glucagon (Glucagon Inj) 1 mg UD PRN SQ 12/11/16 22:00 01/10/17 21:59 Physical Exam Date Time Temp Pulse Resp B/P Pulse Ox O2 Delivery O2 Flow Rate FiO2 12/12/16 11:23 36.6 92 18 91/60 95 12/12/16 08:00 Room Air 12/12/16 07:20 36.7 88 18 74/40 95 Room Air 12/12/16 04:15 36.7 93 18 81/50 95 Room Air 12/12/16 00:00 Room Air 12/11/16 23:01 36.6 92 15 88/53 97 Room Air 12/11/16 20:30 Room Air 12/11/16 19:17 36.6 92 16 90/56 95 Room Air 12/11/16 15:48 Room Air 12/11/16 15:25 36.9 88 16 86/50 99 Room Air 12/11/16 15:01 36.6 90 18 97/64 96 Room Air General Appearance: no apparent distress, + pertinent finding (crhonically ill appearing) ENT: hearing grossly normal Neck: supple, no JVD Respiratory: no respiratory distress, no accessory muscle use, + decreased breath sounds, + pertinent finding (room air) Cardiovascular: regular rate, rhythm, + normal peripheral pulses, + pertinent finding (hypotension noted) Abdomen: normal bowel sounds, non tender, + distended Neurologic/Psychiatric: normal mood/affect, oriented x 3, + pertinent finding ( drowsy/lethargic) Laboratory Results Last 24 Hours Test 12/11/16 16:20 12/11/16 20:11 12/11/16 20:40 12/11/16 21:07 Bedside Glucose 73 mg/dl 67 mg/dl 64 mg/dl 67 mg/dl Test 12/11/16 21:38 12/12/16 00:12 12/12/16 01:50 12/12/16 05:09 Bedside Glucose 141 mg/dl 109 mg/dl 130 mg/dl 103 mg/dl Test 12/12/16 05:34 12/12/16 07:23 12/12/16 11:20 Estimated Average Glucose 85 mg/dl Hemoglobin A1c 4.6 % Bedside Glucose 92 mg/dl 104 mg/dl Assessment & Plan Palliative Performance Scale: 30 % Problem list: Weakness Lethargy Metastatic pancreatic cancer ESRD on dialysis Chronic anemia History of CVA Goals of care (Z51.5) Palliative care plan: discussed with patient, patient's Chad, daughter She, and Dr. Burdick. -Comfort measures only -NO dialysis. Radiation treatment discontinued -POLST form completed as follows: DNR/DNI, comfort measures only, use or limitation of abx with comfort as the goal, trial of IVF if indicated with comfort as the goal, no feeding tube. -Patient states her pain is well-controlled. Has no nausea/vomiting. -All medications look okay to continue. Would recommend adding scopolamine patch 1.5mg TD Q72h and atropine 1% oph soln 4 drops PO Q2-4h PRN secretions. -[facility] with hospice tomorrow. Thank you kindly for this consult. Please contact me with any further palliative care needs.
[2016-12-12 16:25] VITALS: O2SAT 94
[2016-12-12] MEDS: HYDROmorphone HCL 2 MG TAB PO PRN (16:32)
--- NOTE | 2016-12-12 17:45 | Progress Note ---
Medicine Progress Note Date & Time of Visit: Dec 12, 2016 at 17:22. Subjective Pt was seen and examined Lying in bed with no distress Estephanie from palliative care had a discussion with patient and her family case discussed with Estephanie Pt wants to stop dialysis and Radiation treatment denies any chest pain, palpitation, sob Objective Last 8 Hrs Date Time Temp Pulse Resp B/P Pulse Ox O2 Delivery O2 Flow Rate FiO2 12/12/16 14:50 36.4 98 18 105/69 95 12/12/16 11:23 36.6 92 18 91/60 95 Physical Exam: General- Jaundice, lethargy Head- atraumatic Eyes- PERRL, EOMI ENT- oropharynx clear Neck- supple, no JVD Lungs- clear to auscultation , no wheezing Heart- regular rhythm; no murmur Abdomen- normal bowel sounds, distended, right sided tenderness with palpation Extremities- no calf tenderness Neuro- alert, oriented, PERRL, EOMI Skin- warm & dry Laboratory Results: Last 24 Hours Test 12/11/16 20:11 12/11/16 20:40 12/11/16 21:07 12/11/16 21:38 Bedside Glucose 67 mg/dl 64 mg/dl 67 mg/dl 141 mg/dl Test 12/12/16 00:12 12/12/16 01:50 12/12/16 05:09 12/12/16 05:34 Bedside Glucose 109 mg/dl 130 mg/dl 103 mg/dl Estimated Average Glucose 85 mg/dl Hemoglobin A1c 4.6 % Test 12/12/16 07:23 12/12/16 11:20 12/12/16 16:17 Bedside Glucose 92 mg/dl 104 mg/dl 113 mg/dl Assessment & Plan HYPOTENSION Pt presented with hypotension (BP 80s/50s) at dialysis -likely secondary to dialysis/dehydration due to poor PO intake and may have intraabdominal infection or due to the Cancer itself -Continue hold metoprolol -Blood pressure remains on the lower side - Pt was made comfort measure only LEUKOCYTOSIS -afebrile with leukocytosis >18k -likely secondary to malignancy;May have cholangitis given rapid deterioration of her condition -obtain blood cultures-negative -started on Zosyn for now-patient wanted to have antibiotic -D/C antibiotic tomorrow -normalized METASTATIC PANCREATIC CANCER STAGE IV -completed chemotherapy -currently receiving palliative radiation therapy -was home with [facility] hospice; currently stating she wants all necessary treatment -Likely to be placed in a Hospice facility from here - Pt was made comfort measures only - Dialysis and Radiation therapy discontinued ( as per pt decision) ELEVATED LFTS -likely secondary to obstruction from hepatic metastases CHRONIC ANEMIA -recent admission for anemia (HgB 6.9); HgB remained stable after transfusion of 1 unit pRBCs -HgB stable -No Lab needs to draw since pt is on comfort measure only ESRD ON HD -nephro consulted Dialysis discontinued since she was made comfort measure only DM 2 -start ISS -regular diet as patient has poor oral intake - Comfort measures only DEPRESSION -cont home meds H/O CVA -Plavix and ASA were discontinued secondary to GI bleed DVT PROPHYLAXIS -High VTE risk due to malignancy -Increase INR due to Liver failure -SCDs CODE STATUS DNR Comfort measures only DISPO Comfort Measures Only Will transfer to [facility] for hosp[facility] tomorrow Consultants: Palliative care Nephrology Oncology Radiation Oncology Current Inpatient Medications: Current Inpatient Medications Medications (Trade) Dose Ordered Sig/Sophia Route Start Time Stop Time Status Last Admin Dose Admin Polyethylene (Miralax Powder Packet) 17 gm DAILY PRN PO 12/08/16 18:30 01/07/17 18:29 Ondansetron HCl (Zofran Inj) 4 mg Q6H PRN IV 12/08/16 18:30 01/07/17 18:29 Docusate Sodium (coLACE CAP) 100 mg BID PO 12/08/16 20:30 01/07/17 20:59 12/12/16 07:55 100 MG Hydromorphone HCl (Dilaudid Tab) 2 mg Q6H PRN PO 12/08/16 18:30 12/22/16 18:29 12/12/16 16:32 2 MG Ranitidine HCl (zANTac TAB) 150 mg QAM PO 12/09/16 08:00 01/08/17 08:59 12/12/16 07:55 150 MG Sertraline HCl (Zoloft Tab) 100 mg QAM PO 12/09/16 08:00 01/08/17 08:59 12/12/16 07:55 100 MG Trazodone HCl (Desyrel Tab) 100 mg HS PO 12/08/16 21:00 01/07/17 20:59 12/11/16 20:24 100 MG Lorazepam (Ativan Inj) 0.25 mg Q4H PRN IV 12/08/16 18:30 01/07/17 18:29 Hydromorphone HCl (Dilaudid Inj) 0.5 mg Q3H PRN IV 12/08/16 18:45 12/22/16 18:44 Miscellaneous 1 ea 1 ea PRN PRN N/A 12/08/16 20:15 12/08/17 20:14 Lorazepam/Syringe (Ativan Inj/ Syringe) 0.25 ml @ 1 mls/min Q4H PRN IV 12/08/16 20:45 01/07/17 20:44 Glucose (Glucose 40% Gel) For hypoglycemia in mine... UD PRN PO 12/08/16 20:45 01/07/17 20:44 Glucose (Glucose Chew Tab) 4-8 Tablets 4 Tabl... UD PRN PO 12/08/16 20:45 01/07/17 20:44 Dextrose (Dextrose 50% 50ML Syringe) 25-50ML OF 50% DW IV FOR... UD PRN IV 12/08/16 20:45 01/07/17 20:44 12/11/16 21:16 50 ML Glucagon (Glucagon Inj) 1 mg UD PRN SQ 12/08/16 20:45 01/07/17 20:44 Miscellaneous Information (Check Fentanyl Patch Placement) 1 ea QS N/A 12/09/16 00:00 01/08/17 00:00 12/12/16 16:31 1 EA Fentanyl (Duragesic Patch) 25 mcg Q72H TD 12/10/16 09:30 12/24/16 09:29 12/10/16 09:40 25 MCG Miscellaneous (Fentanyl Patch Remove & Waste) 1 ea Q72H N/A 12/10/16 09:29 01/09/17 09:28 12/10/16 09:38 1 EA Insulin Aspart (novoLOG ASPART) SLIDING SCALE If C... ACHS SC 12/12/16 06:30 01/11/17 06:29 Glucose (Glucose 40% Gel) 15-30 GRAMS 15 GRAMS... UD PRN PO 12/11/16 22:00 01/10/17 21:59 Glucose (Glucose Chew Tab) 4-8 Tablets 4 Tabl... UD PRN PO 12/11/16 22:00 01/10/17 21:59 Dextrose (Dextrose 50% 50ML Syringe) 25-50ML OF 50% DW IV FOR... UD PRN IV 12/11/16 22:00 01/10/17 21:59 Glucagon (Glucagon Inj) 1 mg UD PRN SQ 12/11/16 22:00 01/10/17 21:59 Heparin Sodium (Porcine) (Heparin Iv Bolus) 1,000 unit TODAY@0800 IV 12/13/16 08:00 12/13/16 08:01 Heparin Sodium (Porcine) (Heparin Iv Bolus) 400 unit TODAY@0900,1000,1100 IV 12/13/16 09:00 12/13/16 16:00 Albumin Human (Albumin 25%) 12.5 gm TODAY@0700,0830 IV 12/13/16 07:00 12/13/16 16:00 Midodrine (Proamatine Tab) 5 mg TODAY@0800,1200 PO 12/13/16 08:00 12/13/16 16:00
[2016-12-12 19:40] VITALS: BP 86/57; PULSE 95; TEMP 36.3; O2SAT 94
[2016-12-12] MEDS: TRAZODONE HCL 100 MG TAB PO SCH (22:36)
[2016-12-13] VITALS: O2SAT 94
[2016-12-13] MEDS: HYDROmorphone HCL 2 MG TAB PO PRN ×2 (00:03→08:05)
[2016-12-13] MEDS: CHECK FENTANYL PATCH PLACEMENT SCH ×2 (00:04→07:56)
[2016-12-13 01:08] VITALS: BP 91/60; PULSE 101; TEMP 36.6; O2SAT 98
[2016-12-13 04:17] VITALS: BP 96/64; PULSE 104; TEMP 36.4; O2SAT 94
[2016-12-13] MEDS ORDERED: ALBUMIN HUMAN 25% 12.5 GM/50 ML VIAL IV SCH (07:00)
[2016-12-13 07:29] VITALS: BP 107/65; PULSE 99; TEMP 36.4; O2SAT 94
[2016-12-13] MEDS: DOCUSATE SODIUM 100 MG CAP PO SCH (07:52)
[2016-12-13] MEDS: RANITIDINE HCL 150 MG TAB PO SCH (07:52)
[2016-12-13] MEDS: SERTRALINE HCL 100 MG TAB PO SCH (07:52)
[2016-12-13] MEDS: FENTANYL 25 MCG/HR TDSY TD SCH (07:58)
[2016-12-13] MEDS: INSULIN ASPART 100 UNITS/ML 3 ML PEN SC SCH ×2 (07:58→11:39)
[2016-12-13] MEDS ORDERED: HEPARIN SOD (PORCINE) 1000 UNIT/ML 10 ML VIAL IV SCH ×2 (08:00→09:00)
[2016-12-13] MEDS: FENTANYL PATCH REMOVE & WASTE SCH (08:00)
[2016-12-13] MEDS ORDERED: MIDODRINE 2.5 MG TAB PO SCH (08:00)
[2016-12-13 11:42] VITALS: BP 105/71; PULSE 94; TEMP 36.3; O2SAT 94
--- NOTE | 2016-12-13 11:46 | Progress Note ---
Medicine Progress Note Date & Time of Visit: Dec 13, 2016 at 11:41. Subjective Pt was seen and examined lying in bed, lethargy denies any chest pain, palpitation and sob Objective Last 8 Hrs Date Time Temp Pulse Resp B/P Pulse Ox O2 Delivery O2 Flow Rate FiO2 12/13/16 08:00 Room Air 12/13/16 07:29 36.4 99 20 107/65 94 Room Air 12/13/16 04:17 36.4 104 18 96/64 94 Room Air Physical Exam: General- Jaundice, lethargy Head- atraumatic Eyes- PERRL, EOMI ENT- oropharynx clear Neck- supple, no JVD Lungs- clear to auscultation , no wheezing Heart- regular rhythm; no murmur Abdomen- normal bowel sounds, distended, right sided tenderness with palpation Extremities- no calf tenderness Neuro- lethargy, moves all 4 extremities Skin- warm & dry Laboratory Results: Last 24 Hours Test 12/12/16 16:17 12/12/16 20:14 12/13/16 07:58 12/13/16 11:30 Bedside Glucose 113 mg/dl 104 mg/dl 87 mg/dl 106 mg/dl Assessment & Plan HYPOTENSION Pt presented with hypotension (BP 80s/50s) at dialysis -likely secondary to dialysis/dehydration due to poor PO intake and may have intraabdominal infection or due to the Cancer itself -Continue hold metoprolol -Blood pressure remains on the lower side - Pt was made comfort measure only LEUKOCYTOSIS -afebrile with leukocytosis >18k -likely secondary to malignancy;May have cholangitis given rapid deterioration of her condition -obtain blood cultures-negative -started on Zosyn for now-patient wanted to have antibiotic -D/C antibiotic tomorrow -normalized METASTATIC PANCREATIC CANCER STAGE IV -completed chemotherapy -currently receiving palliative radiation therapy -was home with [facility] hospice; currently stating she wants all necessary treatment -Likely to be placed in a Hospice facility from here - Pt was made comfort measures only - Dialysis and Radiation therapy discontinued ( as per pt decision) ELEVATED LFTS -likely secondary to obstruction from hepatic metastases CHRONIC ANEMIA -recent admission for anemia (HgB 6.9); HgB remained stable after transfusion of 1 unit pRBCs -HgB stable -No Lab needs to draw since pt is on comfort measure only ESRD ON HD -nephro consulted Dialysis discontinued since she was made comfort measure only DM 2 -start ISS -regular diet as patient has poor oral intake - Comfort measures only DEPRESSION -cont home meds H/O CVA -Plavix and ASA were discontinued secondary to GI bleed DVT PROPHYLAXIS -High VTE risk due to malignancy -Increase INR due to Liver failure -SCDs CODE STATUS DNR Comfort measures only DISPO Comfort Measures Only Transfer to [facility] for hospice today Consultants: Palliative care Nephrology Oncology Radiation Oncology Current Inpatient Medications: Current Inpatient Medications Medications (Trade) Dose Ordered Sig/Sophia Route Start Time Stop Time Status Last Admin Dose Admin Polyethylene (Miralax Powder Packet) 17 gm DAILY PRN PO 12/08/16 18:30 01/07/17 18:29 Ondansetron HCl (Zofran Inj) 4 mg Q6H PRN IV 12/08/16 18:30 01/07/17 18:29 Docusate Sodium (coLACE CAP) 100 mg BID PO 12/08/16 20:30 01/07/17 20:59 12/13/16 07:52 100 MG Hydromorphone HCl (Dilaudid Tab) 2 mg Q6H PRN PO 12/08/16 18:30 12/22/16 18:29 12/13/16 08:05 2 MG Ranitidine HCl (zANTac TAB) 150 mg QAM PO 12/09/16 08:00 01/08/17 08:59 12/13/16 07:52 150 MG Sertraline HCl (Zoloft Tab) 100 mg QAM PO 12/09/16 08:00 01/08/17 08:59 12/13/16 07:52 100 MG Trazodone HCl (Desyrel Tab) 100 mg HS PO 12/08/16 21:00 01/07/17 20:59 12/12/16 22:36 100 MG Lorazepam (Ativan Inj) 0.25 mg Q4H PRN IV 12/08/16 18:30 01/07/17 18:29 Hydromorphone HCl (Dilaudid Inj) 0.5 mg Q3H PRN IV 12/08/16 18:45 12/22/16 18:44 Miscellaneous 1 ea 1 ea PRN PRN N/A 12/08/16 20:15 12/08/17 20:14 Lorazepam/Syringe (Ativan Inj/ Syringe) 0.25 ml @ 1 mls/min Q4H PRN IV 12/08/16 20:45 01/07/17 20:44 Glucose (Glucose 40% Gel) For hypoglycemia in mine... UD PRN PO 12/08/16 20:45 01/07/17 20:44 Glucose (Glucose Chew Tab) 4-8 Tablets 4 Tabl... UD PRN PO 12/08/16 20:45 01/07/17 20:44 Dextrose (Dextrose 50% 50ML Syringe) 25-50ML OF 50% DW IV FOR... UD PRN IV 12/08/16 20:45 01/07/17 20:44 12/11/16 21:16 50 ML Glucagon (Glucagon Inj) 1 mg UD PRN SQ 12/08/16 20:45 01/07/17 20:44 Miscellaneous Information (Check Fentanyl Patch Placement) 1 ea QS N/A 12/09/16 00:00 01/08/17 00:00 12/13/16 07:56 1 EA Fentanyl (Duragesic Patch) 25 mcg Q72H TD 12/10/16 09:30 12/24/16 09:29 12/13/16 07:58 25 MCG Miscellaneous (Fentanyl Patch Remove & Waste) 1 ea Q72H N/A 12/10/16 09:29 01/09/17 09:28 12/13/16 08:00 1 EA Insulin Aspart (novoLOG ASPART) SLIDING SCALE If C... ACHS SC 12/12/16 06:30 01/11/17 06:29 Glucose (Glucose 40% Gel) 15-30 GRAMS 15 GRAMS... UD PRN PO 12/11/16 22:00 01/10/17 21:59 Glucose (Glucose Chew Tab) 4-8 Tablets 4 Tabl... UD PRN PO 12/11/16 22:00 01/10/17 21:59 Dextrose (Dextrose 50% 50ML Syringe) 25-50ML OF 50% DW IV FOR... UD PRN IV 12/11/16 22:00 01/10/17 21:59 Glucagon (Glucagon Inj) 1 mg UD PRN SQ 12/11/16 22:00 01/10/17 21:59 Heparin Sodium (Porcine) (Heparin Iv Bolus) 400 unit TODAY@0900,1000,1100 IV 12/13/16 09:00 12/13/16 16:00 Albumin Human (Albumin 25%) 12.5 gm TODAY@0700,0830 IV 12/13/16 07:00 12/13/16 16:00 Midodrine (Proamatine Tab) 5 mg TODAY@0800,1200 PO 12/13/16 08:00 12/13/16 16:00
--- NOTE | 2016-12-13 12:00 | Discharge Instructions ---
Discharge Instructions Date of Service Dec 13, 2016. Admission Reason for Admission: Hypotension, Metastatic Adenocarcinoma To Pancreas Discharge Discharge Diagnosis / Problem: Hypotension, Metastatic Adenocarcinoma to Pancreas, Hospice Discharge Goals Goal(s): Decrease discomfort, Improve function, Improve disease control Activity Recommendations Activity Limitations: resume your previous activity Comfort measures only . Instructions / Follow-Up Instructions / Follow-Up Discharge to [facility] Comfort measures only Current Hospital Diet Patient's current hospital diet: Diabetes Type 2 Diet Discharge Diet Recommended Diet: Diabetes Type 2 Diet Pending Studies Studies pending at discharge: no Laboratory Results Hemoglobin A1c Test 12/12/16 05:34 Range/Units Estimated Average Glucose 85 mg/dl Hemoglobin A1c 4.6 4.5-5.6 % Medical Emergencies . Who to Call and When: Medical Emergencies: If at any time you feel your situation is an emergency, please call 911 immediately. . Non-Emergent Contact Non-Emergency issues call your: Primary Care Provider . . "Provider Documentation" section prepared by Mariela Burdick. . VTE Core Measure Inpt VTE Proph given/why not?: SCD's
[2016-12-13 12:22] VITALS: BP 105/71; PULSE 94; TEMP 36.3; O2SAT 94
--- NOTE | 2016-12-16 17:45 | Discharge Summary ---
Discharge Summary Date of Service Dec 16, 2016. Discharge Summary Admission Date: Dec 11, 2016 at 07:30 Discharge Date: Dec 13, 2016 Discharge Disposition: longterm facility Principal Diagnosis: HYPOTENSION Secondary Diagnoses/Problems: METASTATIC PANCREATIC CANCER STAGE IV ELEVATED LFT DM TYPE 2 LEUKOCYTOSIS CHRONIC ANEMIA ESRD ON HD DEPRESSION Consultations: Palliative care Nephrology Oncology Radiation Oncology Medication Reconciliation Continued Medications: Docusate Sodium (Docusate Sodium) 100 Mg Cap 100 MG PO BID, CAP Fentanyl (Fentanyl) 25 Mcg Tdsy 25 MCG TOP [id number] Hydromorphone Hcl (Hydromorphone Hcl) 2 Mg Tab 2 MG PO Q6H PRN for Pain Ondansetron Hcl (Zofran) 4 Mg Tab 4 MG PO Q8 PRN for Nausea, TAB Polyethylene (Polyethylene Glycol 3350) 527 Gm Soln 17 GM PO QAM PRN for Constipation Promethazine HCl (Promethazine HCl) 25 Mg Tab 25 MG PO Q6H PRN for Nausea or Vomiting Discontinued Medications: Calcium Acetate (Phosphate Bin (Phoslo 667 Mg) 667 Mg Cap 667 MG PO UD, CAP Take 2 pills with each meal and 1 pill with snacks. Cholecalciferol (Vitamin D3) 5,000 Unit Cap 5000 INTER.UNIT PO QPM Insulin Human NPH (Novolin N) 100 Units/Ml Susp 6 UNITS SC QAM Metoprolol Tartrate (Lopressor) (Lopressor) 25 Mg Tab 25 MG PO BID, TAB Ranitidine (Zantac) 150 Mg Tab 150 MG PO BID, TAB Sertraline HCl (Sertraline HCl) 100 Mg Tab 100 MG PO QAM Trazodone Hcl (Trazodone) 100 Mg Tab 100 MG PO HS Admission Information HPI (per Admitting provider): This is a 51 y/o female with PMHx of metastatic pancreatic CA, ESRD on HD, HTN, DM 2, h/o CVA, chronic anemia, Dyslipidemia and other problems as outlined below who presents to the ED with hypotension and lethargy. Pt was recently admitted to [facility] from 12/01-12/07 with chest pain, acute on chronic anemia and hypotension. ACS was ruled out and patient was transfused 1 unit pRBCs. No source of bleed was found and HgB remained stable. Patient was discharged yesterday with home hospice despite desire to continue dialysis and palliative radiation. Patient went to dialysis this morning and reportedly became hypotensive and lethargic. As a result, hemodialysis was discontinued prematurely and patient was taken to the ED. Patient currently has no complaints. Had lengthy discussion with patient regarding her wishes for treatment vs. staying on hospice whether that be at home or in a facility. Patient states that she would like to be in the hospital to receive all necessary treatments at this point. Pt denies fever/chills, chest pain, SOB, abd pain, N/V, bowel or bladder issues, LE edema ,calf pain, lightheadedness/ dizziness. In the ED, pt is hypotensive 80s/50s. She is afebrile with leukocytosis >18k. HgB 8.6. lactic acid 2.3. elevated LFTs. CXR suggestive of fluid overload. Pt received fluids in the ED. She will be admitted for further evaluation. Physical Exam (per Admitting): General Appearance: WD/WN, no apparent distress, + pertinent finding ( Chronically ill-appearing patient laying in bed ) Head: normocephalic, atraumatic Eyes: + pertinent finding (scleral icterus ) ENT: hearing grossly normal Neck: supple Respiratory/Chest: chest non-tender, lungs clear, normal breath sounds, no respiratory distress Cardiovascular: regular rate, rhythm, no edema, no murmur Abdomen/GI: normal bowel sounds, soft, + tenderness (mild diffuse) Back: normal inspection Extremities/Musculoskelatal: normal inspection, no calf tenderness, no pedal edema Neurologic/Psych: alert, normal mood/affect, oriented x 3 Skin: + jaundice Hospital Course HYPOTENSION Pt presented with hypotension (BP 80s/50s) at dialysis -likely secondary to dialysis/dehydration due to poor PO intake and may have intraabdominal infection or due to the Cancer itself -Continue hold metoprolol -Blood pressure remains on the lower side - Pt was made comfort measure only LEUKOCYTOSIS -afebrile with leukocytosis >18k -likely secondary to malignancy;May have cholangitis given rapid deterioration of her condition -obtain blood cultures-negative -started on Zosyn for now-patient wanted to have antibiotic -D/C antibiotic tomorrow -normalized METASTATIC PANCREATIC CANCER STAGE IV -completed chemotherapy -currently receiving palliative radiation therapy -was home with [facility] hospice; currently stating she wants all necessary treatment -Likely to be placed in a Hospice facility from here - Pt was made comfort measures only - Dialysis and Radiation therapy discontinued ( as per pt decision) ELEVATED LFT -likely secondary to obstruction from hepatic metastases CHRONIC ANEMIA -recent admission for anemia (HgB 6.9); HgB remained stable after transfusion of 1 unit pRBCs -HgB stable -No Lab needs to draw since pt is on comfort measure only ESRD ON HD -nephro consulted Dialysis discontinued since she was made comfort measure only DM 2 -start ISS -regular diet as patient has poor oral intake - Comfort measures only DEPRESSION -cont home meds H/O CVA -Plavix and ASA were discontinued secondary to GI bleed DVT PROPHYLAXIS -High VTE risk due to malignancy -Increase INR due to Liver failure -SCDs CODE STATUS DNR Comfort measures only DISPO Comfort Measures Only Transfer to [facility] for hospice today Total time spent on discharge = 35 minutes This includes examination of the patient, discharge planning, medication reconciliation, and communication with other providers. Discharge Instructions Discharge Instructions Date of Service Dec 13, 2016. Admission Reason for Admission: Hypotension, Metastatic Adenocarcinoma To Pancreas Discharge Discharge Diagnosis / Problem: Hypotension, Metastatic Adenocarcinoma to Pancreas, Hospice Discharge Goals Goal(s): Decrease discomfort, Improve function, Improve disease control Activity Recommendations Activity Limitations: resume your previous activity Comfort measures only . Instructions / Follow-Up Instructions / Follow-Up Discharge to [facility] for Hospice Comfort measures only Current Hospital Diet Patient's current hospital diet: Diabetes Type 2 Diet Discharge Diet Recommended Diet: Diabetes Type 2 Diet Pending Studies Studies pending at discharge: no Laboratory Results Hemoglobin A1c Test 12/12/16 05:34 Range/Units Estimated Average Glucose 85 mg/dl Hemoglobin A1c 4.6 4.5-5.6 % Medical Emergencies . Who to Call and When: Medical Emergencies: If at any time you feel your situation is an emergency, please call 911 immediately. . Non-Emergent Contact Non-Emergency issues call your: Primary Care Provider . . "Provider Documentation" section prepared by Mariela Burdick. . VTE Core Measure Inpt VTE Proph given/why not?: SCD's Additional Copies To Yoshi Randhawa Susan D.O.
== END 2016-12-13 14:41 | disposition hospice, inpatient (51) | DRG 312 ==
LOC: ENRESERVDT → ENRESERVTM → EDBD 14:22 → C.EDB 14:25 → C.4E 18:28 → OBSVTOIN 12-11 07:30
PROVIDERS: ADMIT Internal Medicine; ATTEND Internal Medicine
DX: I95.3 Hypotension of hemodialysis (principal); K83.1 Obstruction of bile duct; N18.6 End stage renal disease; C25.9 Malignant neoplasm of pancreas, unspecified; K83.0 Cholangitis; C78.7 Secondary malignant neoplasm of liver and intrahepatic bile duct; C78.00 Secondary malignant neoplasm of unspecified lung; I12.0 Hypertensive chronic kidney disease with stage 5 chronic kidney disease or end stage renal disease; E86.0 Dehydration; R41.82 Altered mental status, unspecified; D72.829 Elevated white blood cell count, unspecified; R79.1 Abnormal coagulation profile; G89.3 Neoplasm related pain (acute) (chronic); E11.22 Type 2 diabetes mellitus with diabetic chronic kidney disease; D63.1 Anemia in chronic kidney disease; F32.9 Major depressive disorder, single episode, unspecified; Z51.5 Encounter for palliative care; Z66 Do not resuscitate; Z91.81 History of falling; Z99.2 Dependence on renal dialysis; Z86.73 Personal history of transient ischemic attack (TIA), and cerebral infarction without residual deficits; Z87.891 Personal history of nicotine dependence; Z79.4 Long term (current) use of insulin; Z79.891 Long term (current) use of opiate analgesic; Z79.899 Other long term (current) drug therapy